=== PATIENT | male | born 1970 | race Caucasian/White ===

== ENCOUNTER 2017-11-08 10:30 | Outpatient (RCR) | payer MEDICAID, SELFPAY ==
--- NOTE | 2017-11-04 16:09 | HP.OTEVAL_ITS ---
Patient's Visit Information LUIS A MOURA is a 47 year old M, referred to Occupational Therapy by Valente Nuno, with a diagnosis of right LF mallet finger. Date of Evaluation: 11/04/17 Occupational Therapist: Carlee Guardado, ISAÍAS/Ness, CHT - Subjective Subjective: This 47 year old male attends OT eval with dx of Mallet deformity of right LF. PT states two months ago he injured it- states he does not like the look of his finger and would like to improve his function. pt attends OT session today for custom orthosis and ed on mallet finger recovery. - ROM ROM Comments: right LF DIP position -40 - Strength Strength Comments: NT at this time - Rehabilitation General Assessment: Pt demo a need for Mallent finger orthosis- therapist dian. custom orthosis ed. pt on use and care, and precautions. pt demo understanding. Pt to return weekly for orthosis adj. to ensure use and proper fit. - Visit Plan TEXT: Thank you for the opportunity to evaluate your patient. For Medicare and Medicare HMO plans, please review the plan of care and approve it. It will need to be FAXED BACK to us at [phone] for Medicare purposes. Please let me know if there are questions or concerns regarding this plan of care. Physician Signature: Date:
--- NOTE | 2017-11-08 08:32 | HP.OTEVAL_ITS ---
Patient's Visit Information LUIS A MOURA is a 47 year old M, referred to Occupational Therapy by Valente Nuno, with a diagnosis of right LF mallet finger. Date of Evaluation: 11/04/17 Occupational Therapist: Carlee Guardado, ISAÍAS/Ness, CHT - Subjective Subjective: This 47 year old male attends OT eval with dx of Mallet deformity of right LF. PT states two months ago he injured it- states he does not like the look of his finger and would like to improve his function. pt attends OT session today for custom orthosis and ed on mallet finger recovery. - ROM ROM Comments: right LF DIP position -40 - Strength Strength Comments: NT at this time - Goals Goal:: pt will demo understanding of orthosis use by ed of 1st session. pt will demo understanding of when he removes orthosis for skin care/checks, precautions and to keep finger supported straight. pt demo understanding to return to clinic to have orthosis adj. if precautions arise on PRN basis. - Rehabilitation General Assessment: Pt demo a need for Mallent finger orthosis- therapist dian. custom orthosis ed. pt on use and care, and precautions. pt demo understanding. Pt to return weekly for orthosis adj. to ensure use and proper fit. - Anticipated Interventions Anticipated Interventions: Orthoses, Home Program - Visit Plan Frequency: PRN for othosis adj Duration: 6 Weeks TEXT: Thank you for the opportunity to evaluate your patient. For Medicare and Medicare HMO plans, please review the plan of care and approve it. It will need to be FAXED BACK to us at [phone] for Medicare purposes. Please let me know if there are questions or concerns regarding this plan of care. Physician Signature: Date:
--- NOTE | 2017-12-29 16:12 | HP.OT.NRP ---
HP - Discharge Summary - Patient Information LUIS A MOURA was seen in my office for initial evaluation on 11/04/17. The following Plan of Care was established for this patient: Initial Frequency: PRN for othosis adj Initial Duration: 6 Weeks - Anticipated Interventions Anticipated Interventions: Orthoses, Home Program This patient was last seen in our office 11/08/17. Pertinent comments regarding their Occupational therapy will appear below: Pt was seen in OT for two visits. pt has not scheduled any further apts. and is D/C at this time due to tx gap. At this point I will be discontinuing this patient from occupational therapy. I would be happy to see this patient again in the future if found appropriate by the physician. Thank you! Carlee Guardado, OTR/L, CHT
== END 2017-11-08 19:00 | disposition home or self-care (01) ==
LOC: OT 10:30
PROVIDERS: Visit Provider Orthopaedic Surgery
DX: M79.644 Pain in right finger(s) (principal); M20.011 Mallet finger of right finger(s)
CPT/HCPCS: 97166; 97760; 97763

== ENCOUNTER → 2018-02-25 16:08 | Outpatient (CLI) | payer MEDICAID, SELFPAY ==
[2018-02-25 16:31] LABS: Absolute Lymphocyte Count 3.34 X10^3/ul (0.83-4.51); Basophil# 0.02 X10^3/uL; Basophil% 0.3 % (0-1); Eosinophil# 0.33 X10^3/uL; Eosinophils% 4.5 % (0-5); Hematocrit 40.4 % (40-54); Hemoglobin 13.4 g/dl (13.0-16.5); Lymphocyte # 3.34 X10^3/ul (4.0); Lymphocyte % 45.3 % (19-41); Mean Corp Hgb Conc 33.2 g/gl (32-36); Mean Corpuscular Hgb 29.1 pg (27.0-32.0); Mean Corpuscular Volume 87.8 fL (80-94); Mean Platelet Vol. 9.7 fl (6.2-12.0); Monocyte# 0.68 X10^3/uL; Monocyte% 9.2 % (0-10); Neutrophil # 2.99 X10^3/uL (2.7-7.7); Neutrophil % 40.6 % (47-70); Platelet Count 242 K/mm3 (150-450); RBC Distribution Width CV 12.2 % (11.6-14.6); RBC Distribution Width SD 39.3 fl (35.1-43.9); White Blood Count 7.4 K/mm3 (4.4-11.0)
[2018-02-25 16:38] LABS: POSITIVE COUNT NO; POSITIVE DIFFERENTIAL NO; POSITIVE MORPHOLOGY NO
[2018-02-25 17:23] LABS: AST(SGOT) 18 U/L (15-37); Alanine Aminotransfer ALT/SGPT 22 U/L (16-61); Alkaline Phosphatase 52 U/L (45-117); Anion Gap 7 (5-15); BUN 17 mg/dL (7-18); BUN/Creat Ratio 15.7 RATIO (10-20); Calcium,Total 9.1 mg/dL (8.5-10.1); Chloride 105 mmol/L (98-107); Cholesterol 164 mg/dL (200); Creatinine, Serum 1.08 mg/dL (0.70-1.30); EST Glomerular Filtration Rate 78 mL/min (>60); Est Glom Filt Rate - Afr Amer 95 mL/min (>60); Globulin 4.1 g/dL (2.2-4.2); Glucose 92 mg/dL (74-106); High Density Lipoprotein 43 mg/dL; Potassium 4.5 mmol/L (3.5-5.1); Protein, Total 8.1 g/dL (6.4-8.2); Sodium Level 141 mmol/L (136-145); Triglycerides 175 mg/dL; Very Low Density Lipoprotein 35 mg/dL (5-40)
[2018-02-28 13:10] LABS: Hep C Antibodies >11.0 s/co ratio (0.0-0.9)
== END ==
PROVIDERS: Family Provider Internal Medicine; PCP Internal Medicine; Referring Provider Internal Medicine; Visit Provider Internal Medicine
DX: B19.20 Unspecified viral hepatitis C without hepatic coma (principal)
CPT/HCPCS: 36415; 80053; 80061; 85025; 86803

== ENCOUNTER → 2018-03-31 17:22 | Outpatient (CLI) | payer OTHER, SELFPAY ==
[2018-03-29 15:38] VITALS: BMI 27.3
[2018-03-31 19:22] LABS: HIV - WCH Non-Reactive (Nonreactive)
[2018-04-03 03:06] LABS: HCV Quant. RNA PCR HCV Not Detected IU/mL (.)
--- OUTSIDE RECORDS SUMMARY | 2018-05-26 23:22 | XMS RPT_ITS ---
:1970 Author Organization OHIP Support Name Relationship Address Phone [employer] Unavailable [address] + [place] [address] DAVID VILLAGRANI Unavailable [address] + [place] [address] [employer] Unavailable [address] + [place] [address] DAVID VILLAGRANI Unavailable [address] + [place] [address] [employer] Unavailable [address] + [place] [address] DAVID VILLAGRANI Unavailable [address] + [place] [address] [employer] Unavailable [address] + [place] [address] DAVID VILLAGRANI Unavailable [address] + [place] [address] [employer] Unavailable Unavailable + ., [place] . EVELYN VILLAGRAN Unavailable [address] + [place] [address] [employer] Unavailable Unavailable + ., [place] . EVELYN VILLAGRAN Unavailable [address] + [place] [address] EVELYN VILLAGRAN Unavailable [address] + [place] [address] UE Unavailable Unavailable Unavailable NONE Unavailable Unavailable Unavailable Kirkendal, Babs Unavailable Unk + Kirkendal, Babs Unavailable Unk + None Given Unavailable Unavailable + Kirkendal, Babs Unavailable Unk + Kirkendal, Basb Unavailable Unk + Kirkendal, Babs Unavailable Unk + Kirkendal, Babs Unavailable Unk + Care Team Providers Name Role Phone Valente Norwood Attending Unavailable CLINIC, [facility] Primary Care Unavailable Radu Dinh SENIOR BUSINESS OBJECTS DEVELOPER-C Attending Unavailable CLINIC, [facility] Referring Unavailable CLINIC, [facility] Primary Care Unavailable Oleghe, Efewongbe Attending Unavailable CLINIC, [facility] Referring Unavailable Oleghe, Efewongbe Attending Unavailable Oleghe, Efewongbe Referring Unavailable Oleghe, Efewongbe Primary Care Unavailable Oleghe, Efewongbe Attending Unavailable Oleghe, Efewongbe Referring Unavailable Oleghe, Efewongbe Primary Care Unavailable Radu Dinh SENIOR BUSINESS OBJECTS DEVELOPER-C Attending Unavailable Oleghe, Efewongbe Referring Unavailable Oleghe, Efewongbe Attending Unavailable Oleghe, Efewongbe Referring Unavailable Oleghe, Efewongbe Primary Care Unavailable Radu Dinh SENIOR BUSINESS OBJECTS DEVELOPER-C Consulting Unavailable CRUZ VELÁSQUEZ Attending Unavailable No Family, Physician Primary Care Unavailable VALENTE NORWOOD Attending Unavailable VALENTE NORWOOD Referring Unavailable MD DANIELA PUDRY Attending Unavailable MD BRANT WILL[place] ([place]) Attending Unavailable MD BRANT [place] Admitting Unavailable MD BRANT WILL[place]) Attending Unavailable BRITTANEY OLMSTEAD Attending Unavailable MD BRANT WILLSON ([place]) Attending Unavailable Gay Johnson Attending Unavailable TOBIN BLANCO Attending Unavailable PROBLEMS PROBLEMS DATE TYPE CONDITION / CODE ATTENDING STATUS SOURCE 03/31/2018 Unknown B19.20 - Oleghe, Active [facility] Unspecified viral [facility] hepatitis C without Hospital hepatic coma / Repository B19.20(ICD-10) 03/31/2018 Unknown F19.10 - Other Oleghe, Active [facility] psychoactive [facility] substance abuse, Hospital uncomplicated / Repository F19.10(ICD-10) 12/30/2017 Unknown M79.644 - Pain in Valente Norwood Active [facility] right finger(s) / Community M79.644(ICD-10) Hospital Repository 11/04/2017 Active Pain in right NA Active [facility] finger(s) / [place] M79.644(ICD-10) Repository 11/04/2017 Active [place] finger of NA Active [facility] right finger(s) / [place] M20.011(ICD-10) Repository 11/04/2017 Active Pain, unspecified / NA Active [facility] R52(ICD-10) [place] Repository 05/28/2017 Unknown Encounter for other CRUZ VELÁSQUEZ Active [facility] preprocedural [facility] examination / Repository Z01.818(ICD-10) 05/28/2017 Unknown Opioid dependence, CRUZ VELÁSQUEZ [facility] uncomplicated / Medical Center F11.20(ICD-10) Repository 05/28/2017 Unknown Cocaine abuse, CRUZ VELÁSQUEZ [facility] uncomplicated / Medical Center F14.10(ICD-10) Repository 05/28/2017 Unknown Bipolar disorder, CRUZ VELÁSQUEZ Active [facility] unspecified / A Medical Center F31.9(ICD-10) Repository 05/28/2017 Unknown Tobacco use / CRUZ VELÁSQUEZ Active [facility] Z72.0(ICD-10) Medical Center Repository PROCEDURES PROCEDURES DATE CODE DESCRIPTION STATUS SOURCE 05/28/2017 EKG1(C4) EKG 12-LEAD Completed [facility] Repository RESULTS RESULTS HIV - [facility] Collected: 03/31/2018 Status: F Source: [place] 5:42 PM [facility] REPOSITORY TYPE CODE TESTS RESULT OUT OF RANGE REFERENCE UNITS LAB L3890.6005 Nonreactive Normal HIV - [facility] Non-Reactive Performed By: #### L3890.6005 #### [facility] [place], [address] HEPATITIS C,RNA PCR Collected: 03/31/2018 Status: F Source: [place] VIRAL LOAD 5:42 PM [facility] REPOSITORY TYPE CODE TESTS RESULT OUT OF RANGE REFERENCE UNITS LAB L7000.7100 . IU/mL HCV Normal HCV Not Detected QT PCR LAB L7000.7350 . Test Normal HCV not performed log 10 LAB L7000.7500 . Normal TEST Comment INFO: Result Comment: The quantitative range of this assay is 15 IU/mL to 100 million IU/mL. Performed at: - [facility] [id number] Bench Repair Technician: Eryn Gallagher MD, Phone: [phone] Performed By: #### L7000.7000 #### [facility] (refer to report for specific site) refer to report for address and phone number INTERNAL MEDICINE Observed: 03/30/2018 Status: F Source: [place] OFFICE VISIT 10:55 AM [facility] Internal Medicine [address] [place] [address] [place] [address] OFFICE VISIT Date of Service: 03/29/18 MR#: [id number] Acct: [id number] Name: LUIS A WOOD Rep #: [id number] : 1970 Provider: Radu Dinh NP Age/Sex: 47/M Location: [facility] Status: Signed Intake Vital Signs03/29/18 Height 5 ft 5.25 in Intake Visit Reasons: 6 wk FU Chief Complaint: f/u visit Is patient in pain?: No Allergies No Known Allergies Allergy (Verified 01/12/18 15:10) Medications Buprenorphine HCl/Naloxone HCl [Suboxone 8 mg-2 mg Sl Film] 8 ea SL DAILY 10/02/13 [History Confirmed 02/15/18] gabapentin 300 mg capsule 300 mg PO TID #90 cap 02/24/18 [Rx] quetiapine 50 mg tablet 50 mg PO BID #60 tab 03/29/18 [Rx Confirmed 03/29/18] PFSH Medical History Mental health disorder (Chronic) Drug abuse (Chronic) Carpal tunnel syndrome (Chronic) Arthritis (Chronic) Surgical History History of shoulder surgery (Acute) Social History Smoking Status: Former smoker how long ago did patient quit smokin alcohol intake: never substance use type: does not use what type of physical activity do you participate in: none HPI HPI Chief Complaint: f/u visit Details: LUIS A WOOD, is a 47 M who presents to the office today for routine visit for his chronic conditions. Patient has a past medical history as listed above. Patient presents today with no acute problems or concerns. He does state that his moods have not been stable, he has been a little more anxious lately and wonders if his seroquel should be increased for his bipolar. He denies thoughts of self-harm or harming others. he has not seen psychiatry yet. He is currently living at the sober living house and has been clean since August. He has not had his blood work done regarding his hepatitis C and has not had his liver ultrasound done either due to scheduling conflicts. The patient otherwise denies any fever, chills, nausea, vomiting, shortness of breath, chest pain or pressure, palpitations, orthopnea, lower extremity edema, syncope or presyncopal episodes. ROS Const Constitutional: No weight change, body ache, chills, fatigue, sleep problems, fever(s), change in appetite, snoring, weakness, frequent falls, headache(s) or excessive sweating Eyes Eyes: No change in vision, eye pain, light sensitivity or blurry vision ENT ENT: No headache(s), abnormal hearing, ear pain, tinnitus, nasal congestion, sore throat or neck pain Resp Respiratory: No snoring, cough, shortness of breath or wheezing Cardio Cardiology: No excessive sweating, chest pain at rest, chest pain with exertion, shortness of breath, dyspnea on exertion, palpitations, orthopnea or lightheadedness Gastro GI: No abdominal pain, change in bowel habits, constipation, diarrhea, vomiting, nausea/dyspepsia or cramping Genitourinary Male: No painful urination, urinary incontinence, urinary frequency, urinary urgency, blood in urine, testicle pain or other Musc Musculoskeletal: No neck pain, abnormal walking, joint pain, back pain, limited range of motion, numbness, tingling or muscle weakness Skin Skin: No redness, dry skin, itching, lesions, wounds or rash Neuro Neurology: No weakness, frequent falls, headache(s), abnormal hearing, abnormal walking, numbness, tingling, abnormal speech, dizziness or memory loss Psych Psychiatric: No change in appetite, No memory loss, No anxiety, No depression, No Thoughts of harming yourself/Others Endo Endocrine: No fatigue, excessive sweating, cold intolerance, increased thirst/drinking, heat intolerance, flushing or increased hunger Aller/Imm Allergy/Immunologic: No wheezing, itchy eyes, hives or seasonal allergy symptoms Terrance/Lymp Hematologic/Lymphatic: No easy bleeding, easy bruising or enlarged lymph nodes Exam Const General: cooperative, comfortable, no acute distress Nutritional Appearance: average body habitus, well nourished Orientation: alert, oriented x3 Limitations: mental status not altered Eyes General: appearance normal, both eyes and all related structures Resp Effort AND Inspection: normal respiratory effort, able to speak in complete sentences, normal respiratory pattern, symmetric chest movement, no audible wheezes, no cough Auscultation: Bilateral: Clear to Auscultation Cardio Palpation: normal PMI Rate: regular rate Heart Sounds: S1 normal, S2 normal, normal S1 and S2, no click, no gallops, no murmurs, no rubs GI Inspection: normal to inspection Auscultation: normal bowel sounds, no hyperactive bowel sounds, no hypoactive bowel sounds Palpation: soft, no hepatosplenomegaly Musc Musculoskeletal: No joint tenderness, decreased ROM or muscle weakness Skin General: no rashes or lesions noted, elasticity normal, turgor normal Lesions: no lesions Rashes: no rashes Neuro General: alert, awake, oriented x3, CN's II-XI intact bilaterally Speech: speech normal Gait: normal gait Motor: muscle tone normal throughout Extrem General: normal to inspection, normal gait, no edema, no pedal edema Psych Appearance: grossly normal Mental Status: mental status grossly normal Affect: normal affect, anxious affect Attitude: cooperative Thought Process: normal Assessment AND Plan 1. Hepatitis C B19.20 Plan Patient recently treated with Harvoni, but does admit to IV drug use after treatment. Will check liver ultrasound and hepatitis C viral load as his recent hepatitis C antibodies were elevated. If an acute infection is shown will refer to infectious disease. No hepatosplenomegaly and recent LFTs within normal limits. 2. Bipolar 1 disorder, mixed F31.60 Plan No episodes of neptali or depression, though patient states that his mood is not stable at this time. will increase patient's Seroquel to twice a day. Patient educated on signs and symptoms that would warrant emergency medical care. Did discuss the importance of following up with psychiatry. This note was generated with Visualnest dictation software. It may contain incorrect words, spelling, and punctuation that were not noted in checking the note before signing. Plan Detail Other Orders Orders: Other Medications Changed: Follow Up 2 Months Coding Level of Care Code Off vis,est,level 3 Diagnoses Hepatitis C B19.20 Bipolar 1 disorder, mixed F31.60 03/30/18 1055 <Electronically signed by Radu Dinh SENIOR BUSINESS OBJECTS DEVELOPER-C> Date Radu Dinh SENIOR BUSINESS OBJECTS DEVELOPER-C Cosigner Signature: Date (if applicable) CC: CBC W/DIFF, AUTOMATED Collected: 02/25/2018 Status: F Source: [place] 4:18 PM [facility] REPOSITORY TYPE CODE TESTS RESULT OUT OF RANGE REFERENCE UNITS LAB L100.1000 4.4-11.0 K/mm3 Normal WBC 7.4 LAB L100.1200 4.6-6.2 M/mm3 Normal RBC 4.60 LAB L100.1300 13.0-16.5 g/dl Normal HGB 13.4 LAB L100.1400 40-54 % Normal HCT 40.4 LAB L100.1500 80-94 fL Normal MCV 87.8 LAB L100.1600 27.0-32.0 pg Normal MCH 29.1 LAB L100.1700 32-36 g/gl Normal MCHC 33.2 LAB L100.1810 11.6-14.6 % Normal RDW CV 12.2 LAB L100.1820 35.1-43.9 fl Normal RDW SD 39.3 LAB L100.1900 150-450 K/mm3 Normal PLT 242 LAB L100.2000 6.2-12.0 fl Normal MPV 9.7 LAB L100.2100 47-70 % Low NEUT% 40.6 LAB L100.2200 19-41 % High LY% 45.3 LAB L100.2300 0-10 % Normal MONO% 9.2 LAB L100.2400 0-5 % Normal EO% 4.5 LAB L100.2500 0-1 % Normal BASO% 0.3 LAB L100.2550 0.0-0.9 % Normal IM GRAN % 0.100 Result Comment: IG% - Immature Granulocytes (promyelocytes, myelocytes and metamyelocytes) > 1% indicates that a LEFT SHIFT is Present. LAB L100.2620 2.0-7.7 X10 3/uL Normal Absolute Neut 3.0 LAB L100.2720 0.83-4.51 X10 3/ul Normal Absolute Lymph 3.34 Performed By: #### L100.0100 #### [facility] [address] [place], [address] COMPREHENSIVE METABOLIC Collected: 02/25/2018 Status: F Source: [place] [facility] 4:18 PM [facility] REPOSITORY TYPE CODE TESTS RESULT OUT OF RANGE REFERENCE UNITS LAB L501.0100 74-106 mg/dL Normal GLU 92 Result Comment: Please note revised GLUCOSE reference range effective 2017. LAB L501.1000 7-18 mg/dL Normal BUN 17 LAB L501.1100 0.70-1.30 mg/dL Normal CREAT,SERUM 1.08 Result Comment: The validity of the calculated GFR AND GFRAA in patients over 70 years has not been determined. Clinical correlation is essential. LAB L501.1110 >60 mL/min Normal EST GFR 78 Result Comment: Non- GFR Calc LAB L501.1115 >60 mL/min Normal EST GFR - AA 95 Result Comment: GFR Calc LAB L501.1300 10-20 RATIO Normal BUN/CRE 15.7 LAB L501.1500 6.4-8.2 g/dL T Normal PROT 8.1 LAB L501.1800 3.2-5.0 g/dL Normal ALB 4.0 LAB L501.1950 2.2-4.2 g/dL Normal GLOB 4.1 LAB L501.2000 0.9-2.4 RATIO Normal A/G 1.0 LAB L501.2200 8.5-10.1 mg/dL CA Normal 9.1 LAB L501.4100 15-37 U/L Normal AST 18 LAB L501.4305 45-117 U/L Normal ALK P 52 LAB L501.4405 16-61 U/L Normal ALT 22 LAB L501.4600 0.20-1.00 mg/dL T Normal BILI 0.30 LAB L501.5300 136-145 mmol/L NA Normal 141 LAB L501.5600 3.5-5.1 mmol/L K Normal 4.5 LAB L501.5900 98-107 mmol/L CL Normal 105 LAB L501.6100 21.0-32.0 mmol/L Normal CO2 29.0 LAB L501.6200 5-15 Normal GAP 7 Performed By: #### L500.4050, L500.4100 #### [facility] [address] [facility] [place], [place], [id number] LIPID PROFILE Collected: 02/25/2018 Status: F Source: [place] 4:18 PM [facility] REPOSITORY TYPE CODE TESTS RESULT OUT OF RANGE REFERENCE UNITS LAB L501.4900 200 mg/dL Normal CHOL 164 Result Comment: <200 mg/dL Desirable 200-240 mg/dL Borderline >240 mg/dL High Risk LAB L501.5000 mg/dL Normal TRIG 175 Result Comment: The drugs N-Acetylcysteine and Metamizole may falsely depress this assay. Serum Triglycerides Reference Interval Normal <150 mg/dL Borderline high 150 - 199 mg/dL High 200 - 499 mg/dL Very High > or = 500 mg/dL LAB L501.6400 mg/dL Normal HDL 43 Result Comment: The drugs N-Acetylcysteine and Metamizole may falsely depress this assay. Reference Range HDL <40 mg/dL Low HDL Cholesterol HDL >or= 60 mg/dL High HDL Cholesterol LAB L501.6500 0-130 mg/dL Normal LDL 86 LAB L501.6600 5-40 mg/dL Normal VLDL 35 Performed By: #### L500.4050, L500.4100 #### [facility] [address] [place], [place], [id number] HEPATITIS C ANTIBODIES Collected: 02/25/2018 Status: F Source: [place] 4:18 PM [facility] REPOSITORY TYPE CODE TESTS RESULT OUT OF RANGE REFERENCE UNITS LAB L3100.0650 0.0-0.9 s/co ratio High HEP C AB >11.0 Result Comment: Negative: < 0.8 Indeterminate: 0.8 - 0.9 Positive: > 0.9 The CDC recommends that a positive HCV antibody result be followed up with a HCV Nucleic Acid Amplification test (523946). Performed at: [address] [id number] Bench Repair Technician: Brent Mccormack PhD, Phone: [phone] Performed By: #### L3100.0625 #### [facility] (refer to report for specific site) refer to report for address and phone number INTERNAL MEDICINE Observed: 02/17/2018 Status: F Source: [place] OFFICE VISIT 5:14 PM [facility] Internal Medicine [address] [place] [address] OFFICE VISIT Date of Service: 02/15/18 MR#: [id number] Acct: [id number] Name: LUIS A WOOD Rep #: [id number] : 1970 Provider: Vee Mariee MD Age/Sex: 47/M Location: [facility] Status: Signed Intake Vital Signs02/15/18 Height 5 ft 5.25 in Intake Visit Reasons: 1 MO FU - PHYSICAL Chief Complaint: Establish care. Is patient in pain?: No Allergies No Known Allergies Allergy (Verified 01/12/18 15:10) Medications Buprenorphine HCl/Naloxone HCl [Suboxone 8 mg-2 mg Sl Film] 8 ea SL DAILY 10/02/13 [History Confirmed 02/15/18] gabapentin 300 mg capsule 300 mg PO TID 01/12/18 [History Confirmed 02/15/18] quetiapine 50 mg tablet 50 mg PO QHS #30 tab 01/12/18 [Rx Confirmed 02/15/18] PFSH Medical History Mental health disorder (Chronic) Drug abuse (Chronic) Carpal tunnel syndrome (Chronic) Arthritis (Chronic) Surgical History History of shoulder surgery (Acute) Social History Smoking Status: Former smoker how long ago did patient quit smokin alcohol intake: never substance use type: does not use what type of physical activity do you participate in: none HPI HPI Chief Complaint: Establish care. Details: LUIS A WOOD, is a 47 M who presents to the office today to establish care. He was seen recently for an acute visit. He has no acute complaints at this time. Reports past medical history of hepatitis C and is status post treatment with Harvoni. He does not currently follow-up with infectious disease or piercing specialist. Has a history of heroin abuse and last use was said to be in August. Currently enrolled in the [facility] program. Denies any known history of heart disease, hyperlipidemia or hypertension. ROS Const Constitutional: No weight change, body ache, chills, fatigue, sleep problems, fever(s), change in appetite, snoring, weakness, frequent falls, headache(s) or excessive sweating Eyes Eyes: No change in vision, eye pain, light sensitivity or blurry vision ENT ENT: No headache(s), abnormal hearing, ear pain, tinnitus, nasal congestion, sore throat or neck pain Resp Respiratory: No snoring, cough, shortness of breath or wheezing Cardio Cardiology: No excessive sweating, chest pain at rest, chest pain with exertion, shortness of breath, dyspnea on exertion, palpitations, orthopnea or lightheadedness Gastro GI: No abdominal pain, change in bowel habits, constipation, diarrhea, vomiting, nausea/dyspepsia or cramping Genitourinary Male: No painful urination, urinary incontinence, urinary frequency, urinary urgency, blood in urine, testicle pain or other Musc Musculoskeletal: No neck pain, abnormal walking, joint pain, back pain, limited range of motion, numbness or tingling Skin Skin: No redness, dry skin, itching, lesions, wounds or rash Neuro Neurology: No weakness, frequent falls, headache(s), abnormal hearing, abnormal walking, numbness, tingling, abnormal speech, dizziness or memory loss Psych Psychiatric: No change in appetite, No memory loss, No anxiety, No depression, No Thoughts of harming yourself/Others Endo Endocrine: No fatigue, excessive sweating, cold intolerance, increased thirst/drinking, heat intolerance, flushing or increased hunger Aller/Imm Allergy/Immunologic: No wheezing, itchy eyes, hives or seasonal allergy symptoms Terrance/Lymp Hematologic/Lymphatic: No easy bleeding, easy bruising or enlarged lymph nodes Exam Const General: cooperative, no acute distress Orientation: alert, awake, oriented x3 [facility] Head: atraumatic, normocephalic, normal to inspection Ears: TM's normal bilaterally, hearing grossly normal bilaterally Resp Effort AND Inspection: normal respiratory effort, able to speak in complete sentences Auscultation: Bilateral: Clear to Auscultation Cardio Rate: regular rate Rhythm: regular rhythm Heart Sounds: S1 normal, S2 normal GI Palpation: soft, no hepatosplenomegaly Neuro General: alert, awake, oriented x3, moves all extremities, CN's II-XI intact bilaterally Extrem General: no clubbing, cyanosis or edema Psych Appearance: grossly normal Mental Status: mental status grossly normal Mood: congruent mood Affect: normal affect Office Meds Flucelvax Quad [id number] (PF) Performing Provider: Vee Mariee MD Administered by: Vane Cunha on 02/15/18 16:07 Dose Route Admin Location Lot Number Expiration Date NDC Paunch Trimmer 0.5 mL IM right deltoid [id number] 09/30/18 16504-479-53 [employer]. Assessment AND Plan 1. Hepatitis C B19.20 Plan Chronic history of. He is status post treatment with Harvoni.? History of liver cirrhosis which has been intermittently monitored. Does not currently/routinely follow-up with GI or infectious disease. Labs ordered. Abdominal ultrasound/liver ultrasound also ordered. Orders Orders: 2. Drug abuse F19.10 Plan Last use per patient was in August 2017. Currently follows up at the [address] [place] [address] program. Will monitor 3. Healthcare maintenance Z00.00 Plan Flu shot given today. He denies tobacco alcohol abuse. Continue lifestyle modifications for mildly elevated blood pressure. This note was generated with Visualnest dictation software. It may contain incorrect words, spelling, and punctuation that were not noted in checking the note before signing. Plan Detail Other Orders Orders: Other Medications Discontinued: Flucelvax Quad [id number] (PF) (flu vac qs 2018(4 yr up)CD(P0.5 mL IM ONCE 1 mL 0RF NS Z23 F)) Discontinued Reason: Office Medication has been Doc umented as given Coding Level of Care Code Off vis,est,level 4 Diagnoses Hepatitis C B19.20 Drug abuse F19.10 Healthcare maintenance Z00.00 02/17/18 1714 <Electronically signed by Vee Mariee MD> Date Vee Mariee MD Cosigner Signature: Date (if applicable) CC: INTERNAL MEDICINE Observed: 01/14/2018 Status: F Source: [place] OFFICE VISIT 10:44 [facility] Internal Medicine [address] [place] [address] [place] [address] OFFICE VISIT Date of Service: 01/12/18 MR#: [id number] Acct: [id number] Name: LUIS A WOOD Rep #: [id number] : 1970 Provider: Radu Dinh NP Age/Sex: 47/M Location: [facility] Status: Signed Intake Vital Signs01/12/18 Height 5 ft 5.25 in 01/12/18 Weight: 159 lb 01/12/18 Body Mass Index (BMI) 26.2 01/12/18 Blood Pressure 148/87 Intake Visit Reasons: 180 PHYSICAL Chief Complaint: Get meds refilled Is patient in pain?: Yes (Left shoulder) Pain scale (1-10): 10 Allergies No Known Allergies Allergy (Verified 01/12/18 15:10) Medications Buprenorphine HCl/Naloxone HCl [Suboxone 8 mg-2 mg Sl Film] 8 ea SL DAILY 10/02/13 [History Confirmed 01/12/18] gabapentin 300 mg capsule 300 mg PO TID 01/12/18 [History Confirmed 01/12/18] quetiapine 50 mg tablet 50 mg PO QHS #30 tab 01/12/18 [Rx Confirmed 01/12/18] PFSH Medical History Mental health disorder (Chronic) Drug abuse (Chronic) Carpal tunnel syndrome (Chronic) Arthritis (Chronic) Surgical History History of shoulder surgery (Acute) Social History Smoking Status: Current every day smoker how long ago did patient quit smokin alcohol intake: never substance use type: does not use what type of physical activity do you participate in: none HPI HPI Chief Complaint: Get meds refilled Details: LUIS A WOOD, is a 47 M who presents to the office today for acute visit of carpal tunnel syndrome and medication refills. His past medical history includes heroin drug abuse, arthritis, carpal tunnel syndrome, and mental health disorder; bipolar. Patient is in counseling as an outpatient in the [facility] program due to heroin drug abuse; last use was in August. Patient stated that his carpal tunnel to bilateral hands have worsened for the past 2 weeks due to his job and constant movement of hands and wrists. He stated majority time his hands have numbness and tingling to them throughout, worse on first, second and third digits. He also denies weakness to bilateral hands. He stated that he does take [id number]-[id number] ibuprofen and Tylenol which helps alleviate some pain. Patient denies any other aggravating or alleviating symptoms. Patient is requesting a refill on gabapentin which he takes for his left shoulder pain after his shoulder surgery last year. He recently seen Dr. Norwood which referred him to a orthopedic surgeon in [place]. Patient is also requesting a refill on Seroquel that he takes at bedtime for his bipolar that was started in August of this year. The patient otherwise denies any fever, chills, nausea, vomiting, shortness of breath, chest pain or pressure, palpitations, orthopnea, lower extremity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 per day. Packs Family History Family history is unknown Diagnostic Results No qualifying data available. No qualifying data available. No qualifying data available. No qualifying data available. Electronically signed by Gay Johnson CNP 05/28/17 15:58 EST XR FOREARM 2 VIEWS Observed: 05/28/2017 Status: F Source: ADAIR LEFT 3:43 PM [facility] REPOSITORY History: Forearm infection No prior exam is available for comparison. Bony mineralization is normal. There is no fracture or dislocation. There is no osseous erosion. There is soft tissue swelling mid forearm. There is no radiopaque foreign body. IMPRESSION: Soft tissue swelling. No fracture or osseous erosion. Final Dictated by: Sandra Pacheco MD Dictated DT/TM: 05/28/2017 4:03 pm Signed by: Sandra Pacheco MD Signed (Electronic Signature): 05/28/2017 4:04 pm (If Report Is Signed, Electronically Signed in Other Vendor System) CBC Collected: 05/27/2017 Status: F Source: ADAIR 1:47 PM [facility] REPOSITORY TYPE CODE TESTS RESULT OUT OF REFERENCE UNITS RANGE LAB W65680(LOIN 4.5-11.0 x10*3/mcL C) WBC 6.7 LAB K95716(LOIN 4.30-5.80 x10*6/mcL C) RBC 5.00 LAB F79903(LOIN 13.5-17.5 g/dL C) Hgb 15.4 LAB T33643(LOIN 41.0-53.0 % C) Hct 44.0 LAB L83009(LOIN 80.0-100.0 fL C) MCV 88.0 LAB N71401(LOIN 27.0-35.0 pg C) MCH 30.8 LAB E55009(LOIN 31.0-37.0 % C) MCHC 35.0 LAB M24797(LOIN 150-350 x10*3/mcL C) Platelet 253 LAB C25230(LOIN 11.6-14.8 % C) RDW 12.9 LAB J11873(LOIN 6.7-10.6 fL C) Mean Platelet 7.7 Volume Performed By: #### CBCI #### [place] [address] UA W CULTURE IF IND Collected: 05/27/2017 Status: F Source: [address] REPOSITORY TYPE CODE TESTS RESULT OUT OF REFERENCE UNITS RANGE LAB G13941([place]) UA Source Clean Catch LAB N88781([place]) UA Color Yellow LAB I05497([place]) UA Clarity Clear LAB J42049([place] 1.003-1.035 NC) UA Spec Grav 1.015 LAB S37619([place] 4.5 - 7.8 NC) UA pH 7.0 LAB N55237([place] Negative mg/dL NC) UA Protein Negative LAB Y44042([place] Negative mg/dL NC) UA Glucose Negative LAB E16767([place] Negative NC) UA Bili Negative LAB F40202([place] 0.2 - 1.0 mg/dL NC) UA Urobilinogen 0.2 LAB M12690([place] Negative NC) UA Nitrite Negative LAB V72591([place] Negative NC) UA Leukocyte Esterase Negative LAB O57102([place] Negative mg/dL NC) UA Ketones Negative LAB K86391([place] Negative NC) UA Blood Negative Performed By: #### UCI #### [address] [address] .UA MICROSCP A Collected: 05/27/2017 Status: F Source: [place] [address] [place] [address] REPOSITORY TYPE CODE TESTS RESULT OUT OF RANGE REFERENCE UNITS LAB N51353([place] 0-5 /HPF NC) UA 0 WBC Quant LAB N59595([place] 0-5 /HPF NC) UA 0 RBC Quant LAB A27636([place] Absent /LPF NC) Abnormal UA Present Mucus Performed By: #### CD:[id number] #### [place] [id number] BASIC METABOLIC Collected: 05/27/2017 Status: F Source: ADAIR [facility] 1:47 [facility] REPOSITORY TYPE CODE TESTS RESULT OUT OF REFERENCE UNITS RANGE LAB R99130([place] 133-142 mmol/L NC) Sodium Lvl 140 LAB Z47630([place] 3.4-4.8 mmol/L NC) Potassium Lvl 3.7 LAB H88856([place] 98-110 mmol/L NC) Chloride 105 LAB O82352([place] 22-32 mmol/L NC) CO2 28 LAB K16955([place] 7-17 NC) Anion Gap 11 LAB Q14026([place] 74-118 mg/dL NC) Glucose Lvl 96 LAB BUN(LOINC) 8-26 mg/dL BUN 12 LAB A560(LOINC 0.61-1.24 mg/dL ) Creatinine Lvl 0.88 LAB E31652([place] 15.0-25.0 NC) Low BUN Crea Ratio 13.6 LAB A00135([place] 8.5-10.3 mg/dL NC) Calcium Lvl 10.2 Performed By: #### CD:[id number] #### [address] [address] .EGFR Collected: 05/27/2017 Status: F Source: [place] 1:47 [facility] REPOSITORY TYPE CODE TESTS RESULT OUT OF RANGE REFERENCE UNITS LAB J19900(LOIN >=60 mL/min/1.73 C) m? eGFR AA >60 Result Comment: Result = 0-14.9 mL/min/1.73 m2 Kidney failure or Dialysis Result = 15-29 mL/min/1.73 m2 Severe decrease in GFR Result = 30-59 mL/min/1.73 m2 Moderate decrease in GFR Result >= 60 mL/min/1.73 m2 Normal or increased GFR LAB I47964(LOINC) >=60 mL/min/1.73m? eGFR Non-AA >60 Result Comment: Result = 0-14.9 mL/min/1.73 m2 Kidney failure or Dialysis Result = 15-29 mL/min/1.73 m2 Severe decrease in GFR Result = 30-59 mL/min/1.73 m2 Moderate decrease in GFR Result >= 60 mL/min/1.73 m2 Normal or increased GFR Chronic kidney disease is defined as either kidney damage or GFR < 60 mL/min/1.73 m2 for >= 3 months. Kidney damage is defined as pathologic abnormalities or markers of damage including abnormalit ies in blood or urine tests or imaging studies. This GFR is NOT used for medication dosing. Performed By: #### EGFR #### [address] [address] MRSA, PCR Collected: 05/27/2017 Status: F Source: [address] TYPE CODE TESTS RESULT OUT OF REFERENCE UNITS RANGE LAB J09242([place]) Methicillin Resistant Staph Negative aurus(MRSA) Result Comment: The [employer] Xpert MRSA Assay is a qualitative in vitro diagnostic test designed for rapid detection of Methicillin-Resistant Staphylococcus aureus (MRSA) from nasal swabs in patients at risk for nasal colonization.The test utilizes automated real-time polymerase chain reaction (PCR) to detect MRSA DNA,because the detection of MRSA is dependent on the number of organisms present. A positive test result does not necessarily indicate the presence of viable organism. It is however,presumptive for the presence of MRSA.Test results might be affected by concurrent antibiotic therapy. Therefore, therapeutic success or failure cannot be assessed using this test because DNA might persist following antimicrobial therapy. Mutations or polymorphisms in primer or probe binding regions may affect detection of new or unknown MRSA variants resulting in a false negative result. Results from the Xpert MRSA Assay should be interpreted in conjunction with other laboratory and clinical data available to the clinician. Performed By: #### MRSAPC #### [address] [address] ABO/RH Observed: 05/27/2017 Status: F Source: [address] REPOSITORY DCon: 0 ABO/Rh: A POS Performed By: #### ABORH #### [address] [address] ABSC AUTO Observed: 05/27/2017 Status: F Source: [address] REPOSITORY Antibody Screen: Negative ABSC Performed By: #### ASA #### [facility] [address] [place] [address] ALLERGIES ALLERGIES DATE TYPE / CODE NAME / CODE REACTION SEVERITY SOURCE 01/12/2018 Drug No Known Unknown [place] Allergy/416 Allergies/U676410 [facility] 187213([place] [address](RXNORM) [facility] ED CT) Repository 11/16/2013 Environ/420 BEES SWELL[place] High [facility] 787675([facility] [place] ED CT) Repository DRUG/992340 No Known [facility] 003([facility] Medication Health System CT) Allergies Repository ENCOUNTERS ENCOUNTERS ADMIT/DISCHARGE ACCOUNT ADMITTING ENCOUNTER LOCATION SOURCE NUMBER CLASS 03/31/2018 [id number] Ambulatory [facility] ing:LAB Repository 03/29/2018/03/29/20 [id number] Ambulatory BMSBuilding:B [place] 18 MS.[facility] Repository 03/01/2018 [id number] Ambulatory [facility] ing:US Repository 02/25/2018 [id number] Ambulatory [facility] Hospital ing:LAB Repository 02/15/2018/02/16/20 [id number] Ambulatory BMSBuilding:B [place] 18 MS.[facility] Repository 01/12/2018/01/13/20 [id number] Ambulatory BMSBuilding:B [place] 18 MS.[facility] Repository 11/08/2017/11/09/19 [id number] Ambulatory [address] ing:OT Repository 11/04/2017/11/05/19 [id number] Ambulatory [address] [place] Repository 11/04/2017/12/01/19 [id number] Ambulatory [address] [place] Repository 11/04/2017/11/05/19 [id number] Ambulatory [address] [place] Repository 08/31/2017/09/01/19 [id number] Emergency [address] HospitalBuild System ing:BV Repository EDRoom: RP1Bed: A 06/11/2017 [id number] MD DEMETRIS Ambulatory [facility] HospitalBuild System ing:BV Main Repository OR Surge 05/28/2017/05/28/19 [id number] Ambulatory Physicians [place] 18 [facility] CareBuilding: System Physicians Repository PlusRoom: Room 1Bed: A 05/28/2017/05/28/19 [id number] Ambulatory Building:[address] Repository 05/27/2017/05/27/19 [id number] Ambulatory [place] [address] HospitalBuild System ing:BV Lab OP Repository 05/26/2017/05/26/19 [id number] Ambulatory EFPBuilding:E [place] 18 [facility] System Repository 05/10/2017 [id number] [facility] OP Repository 04/27/2017 [id number] Ambulatory [facility] CenterBuildin System g:[facility] Repository Family PAYERS PAYERS ENCOUNTER GUARANTOR PAYER SUBSCRIBER SOURCE 03/31/2018 LUIS A [place] Primary LUIS A [id number] Insurance:Shivani MCMAHANERSONDOB: Community [place] Number: [id number], [place] [id number] Repository [address]Kci: 330) Date:4527-06-09EK [phone] () 051925ESDFJIROSQP, [place] [address]QI: 03/31/2018 Secondary NOT GIVENUNK K[place] Insurance:SELF PAY [facility] Number: Effective Repository Date:2018-03-31 03/29/2018 LUIS A [place] Primary LUIS A [id number] Insurance:Shivani ROBERSONDOB: [facility] [place] Number: [id number], [place] [id number] Repository [address]Eca: 330) Date:7449-92-20YE [phone] () 194703HDLSJGGHVOR, [place] [address]VL: 03/29/2018 Secondary NOT GIVENUNK Keesha Insurance:SELF PAY [facility] Number: Effective Repository Date:2018-03-29 03/01/2018 LUIS A [place] Primary LUIS A [id number] Insurance:ENEDINAE ZENYDOB: [facility] [id number], [place] PLAN[place] Number: Repository [id number]: 330 [id number] [phone] (HP) Date:2227-88-09RQ [address] [place] [address]KM: 03/01/2018 Secondary NOT GIVENUNK [place] Insurance:SELF PAY [facility] Number: Effective Repository Date:2018-02-15 02/25/2018 MONTE J Primary MONTE J K[place]ha [id number] Insurance:BARBIEEYE ROBBASILDOB: [facility] [id number], [place] PLANPolicy Number: Repository [address]Nwh: 330 [id number] [phone] (HP) Date:1370-21-24PX [address] [place] [address] 26[address]CB: 02/25/2018 Secondary NOT GIVENUNK Keesha Insurance:SELF PAY [facility] Number: Effective Repository Date:2018-02-25 02/15/2018 MONTE J Primary MONTE J [place] [id number] Insurance:ENEDINAE ZENYDOB: [facility] [id number] Alabama Medical CenterPolicy Number: Repository [address]Zal: 330 [id number] [phone] (HP) Date:9436-92-32KY [address] [place] [address] 46[address]TO: 02/15/2018 Secondary NOT GIVENUNK [place] Insurance:SELF PAY [facility] Number: Effective Repository Date:2018-02-15 01/12/2018 MONTE J Primary MONTE J K[place]ha [id number] Insurance:BARBIEEYE ZENYDOB: [facility] [id number] Thomas StreetPolic Number: Repository [id number]: 330 [id number] [phone] (HP) Date:2654-88-46QR [address] [address]DM: 01/12/2018 Secondary NOT GIVENUNK Keesha Insurance:SELF PAY [facility] Number: Effective Repository Date:2018-01-12 11/08/2017 LUIS A [place] Primary LUIS A [place] [id number] Insurance:BUCKEYE ROBERSONDOB: [facility] [id number] Sloan Kettering Cancer CenterPolic Number: Repository [id number]: (491) [id number] [phone] (HP) Date:8497-14-55SN [address] [address]FW: 11/08/2017 Secondary NOT GIVENUNK [place] Insurance:SELF PAY [facility] Number: Effective Repository Date:2017-11-04 08/31/2017 Luis A [place] Primary Luis A Castro RobersonDOB: Insurance:Casco RobersonDOB: Health System [id number] [facility] [id number] Repository [address] Number: Effective [address], [address]Key: 231) Date:2017-08-31 - [place] [phone] (HP) [id number] [address]~[facility] Name:MAXIME [email or web address] hospitalMarieFlorence Community HealthcareBABAK deluca omTel: [phone]: [phone] (HP) () 06/11/2017 Luis A [place] Primary Luis A Castro RobersonDOB: Insurance:Casco RobersonDOB: [facility] [id number] [facility] [id number] [address]ository [address] Number: [address], [address]Lvg: (231) Date:2017-05-07 - [place] [phone] (HP) [id number] [address]~[facility] Name:MAXIME [email or web address] hospitalMarieKindred Hospital Northeastmiracle [place] omTel: [phone]: [phone] (HP) (WP) 05/28/2017 [facility] Sonido Castro RobersonDOB: Insurance:Marian WoodDOB: [facility] System [id number] [facility] [id number] [address]ository [address] Number: Effective [address], [address]Qhl: (231) Date:2017-05-27 - [place] [phone] (HP) [id number] [address]~iram Name:MEDCP José Manuel Black [email or web address] omTel: [phone]: (HP) [phone] 05/28/2017 [facility] [place] ROBERSONDOB: Insurance:MARIAN MARJBASILDOB: [facility] [id number] [facility] [id number] Repository [address] [place] PLANPolic Number: [address], [address]Yke: (231) [id number] [place] [address]Hsu: [phone] (HP) Date:5101-83-70VQ [address] [place] [address] () [address]RE: 05/27/2017 [facility] Sonido Castro RobersonDOB: Insurance:Marian WodoDOB: Health System [id number] [facility] [id number] [address]ository [address] Number: Effective [address], [address]Dxl: (231) Date:2017-05-27 - [place] [address]Ruc: [phone] (HP) [id number] Name:MEDSACHA Black ()Tel: (000) [place] 000-0000 (WP) [phone]: 05/26/2017 [facility] Sonido Castro RobersonDOB: Insurance:[place] MarjbasilDOB: [facility] System [id number] [facility] [id number] [address]ository [address] Number: [address], [address]Qvf: (231) Date:2017-05-07 - [place] [address]Nnd: [phone] (HP) [id number] Name:MEDCP [address] Box (HP) [address] [place] [address]ER: 05/10/2017 [facility] RobersonDOB: Insurance:Marian McmahanersonDOB: Health System [id number] [facility] [id number] [address] Number: Effective [address], [address]Hdn: (231) Date:2017-05-07 - [place] [address]Wbs: [phone] (HP) [id number] Name:MEDCP O Box (HP)Tel: [address] [place] [address] 000-0000 () [phone]: 04/27/2017 [facility] RobersonDOB: Insurance:CareSourcSteven McmahanersonDOB: Health System [id number] [address] olicbridget Number: [id number] [address] [address], [address]Pon: ([phone]) Date:2017-02-16 [place] [address]Itk: [phone] (HP) [id number] Name:MEDCP [address] (HP) [address], [place] [address]LW:
== END ==
PROVIDERS: Nurse Practitioner Family; Family Provider Internal Medicine; PCP Internal Medicine; Referring Provider Internal Medicine; Visit Provider Internal Medicine
DX: B19.20 Unspecified viral hepatitis C without hepatic coma (principal); F19.10 Other psychoactive substance abuse, uncomplicated
CPT/HCPCS: 86703; 87522

== ENCOUNTER 2018-09-05 07:09 | Emergency (ER) | payer OTHER, SELFPAY ==
[2018-06-29 16:02] VITALS: BMI 28.2
[2018-09-05 07:10] VITALS: BP 162/85; PULSE 102; RESP 20; TEMP 36.6; O2SAT 100; BMI 27.8
[2018-09-05] MEDS: 0.9% Normal Saline 1,000 ML 1000 ML IV (07:20)
[2018-09-05] MEDS: Ondansetron 4 MG/2 ML Vial IV (07:20)
[2018-09-05 07:22] VITALS: BP 129/85; PULSE 67; RESP 18; TEMP 36.6; O2SAT 100
--- NOTE | 2018-09-05 07:29 | ED.DCSUM_ITS ---
History of Present Illness Chief Complaint: Nausea/Vomiting Informant: Patient, Infectious Disease Physician Onset: Days - Onset of illness Wednesday. Patient reports generalized illness. Context: Sudden Onset Timing: Continuous Quality: Generalized illness with one episode of vomiting today and diaphoresis Location: Home Current Severity: Moderate Maximum Severity: Moderate Worsened by: Nothing Relieved by: Nothing Associated Symptoms: Generalized weakness with diaphoresis and one episode of vomiting Narrative: Patient is a 48-year-old male who states he is on Suboxone. He states he has not missed any of his medication. He reports onset of illness Wednesday. He reports generalized weakness and not feeling well. He had decreased p.o. intake. He states he is compliant with his medication. He denies headache, ocular, visual auditory symptoms. He denies chest pain, shortness of breath. He denies abdominal pain. He does report one episode of emesis without blood or coffee grounds. He denies diarrhea, constipation, melena or hematochezia. He d enies urologic symptoms. He denies paresthesia, anesthesia or motor weakness. Patient states he began sweating yesterday. He states he had episode of sweating when he was diagnosed with strep throat. He denies sore throat, however. - Past Medical History (1) Long-term Suboxone use Status: Acute (2) Hepatitis C Status: Chronic (3) Mental health disorder Status: Chronic Past Medical History - Allergies and Home Meds Allergies/Adverse Reactions: Allergies No Known Allergies Allergy (Verified 06/23/18 16:04) Primary Care Physician: Vee Mariee MD [Primary Care Provider] - Prior records reviewed: Yes Lives: Alone, - - Patient works as a fabrication welder. No ill contacts that he is aware of. Smoking Status: Former smoker Drugs: - - History of opiate dependency Review of Systems General: Reports: Sweats. Denies: Chills, Fever, Malaise, Subjective, Weight loss, - Eyes: Denies: Visual changes - bilaterally, Blurred Vision - bilaterally, Diplopia ENT: Denies: Bilateral ear pain, Rhinorrhea, Sore throat Cardiovascular: Denies: Chest pain, Palpitations, Heart racing Respiratory: Denies: Dyspnea, Cough, Dyspnea on exertion Gastrointestinal: Denies: Abdominal pain, Nausea, Vomiting, Diarrhea, Melena, Hematochezia Genitourinary: Denies: Dysuria, Hematuria, Frequency Musculoskeletal: Denies: Back pain, Extremity Pain Skin: Denies: Rash, Wounds Neurological: Reports: Weakness. Denies: Headache, Numbness Hematologic: Denies: Easy bruising, Easy bleeding Allergy: Denies: Uticaria, Swelling of the mouth Physical Exam Vital Signs/Narrative: Vital Signs Temp Pulse Resp BP Pulse Ox 09/05/18 07:22 97.8 F 67 18 129/85 H 100 09/05/18 07:10 97.8 F 102 H 20 H 162/85 H 100 Inital Vital Signs reviewed: Yes General: Well nourished, Well developed, - - Patient appears anxious and he is diaphoretic. Head: Normocephalic, Atraumatic Eyes: Perrl, EOMI. Negative for: Pale conjunctiva, Scleral icterus ENT: No rhinorrhea, TM's clear, Dry mucous membranes Neck: Supple, Nontender, No lymphadenopathy, No JVD, - Cardiovascular: Regular rhythm, No murmurs, Normal S1, Normal S2, Tachycardia Respiratory: No distress, CTA bilaterally, Chest nontender Abdomen: Soft, Nontender, Nondistended, Normal bowel sounds, No masses. Negative for: Hepatomegaly, Splenomegaly Back: Nontender, Normal Inspection Extremities: Nontender, No edema Skin: Normal color, No rash, Diaphoresis. Negative for: Cyanosis, Jaundice Neurological: Alert, Oriented x3, Cranial nerves II-XII grossly intact, Normal Strength, Normal Sensation, Normal DTR - No clonus or Babinski sign noted Psychological: Normal Mood Diagnostic/Tx/Re-eval - Medical Decision Making Patient with vague symptoms. Will perform electrode panel to assess BUN/creatinine, CO2 anion gap and electrolytes. CBC was obtained to assess white count and differential. Since he complains of thirst and dry mouth and clinically is dehydrated will liter of normal saline was ordered. Also he received 4 mg of Zofran. At 0825 patient was informed of results. Patient states he feels markedly better at this time. Patient admits to decreasing his Suboxone dose on his own. Patient was told he symptoms are consistent with withdrawal. Patient was instructed to contact his doctor and his doctor should decrease his Suboxone dose. He should not self wean. Since patient's symptoms have resolved and with new information it is my professional medical opinion patient's symptoms are consistent with self weaning of Suboxone. He will be discharged home to follow- up with his healthcare provider. ED Disposition - Plan for ED Patient: Disposition: Home or Assisted Living Diagnosis: Opiate withdrawal Instructions: ED Withdrawal Narcotic Referrals: Vee Mariee MD [Primary Care Provider] - 3-5 Days Additional Instructions: You should contact your doctor responsible for Suboxone treatment and discuss your desire to wean off the medication. You should not do this on your own.
[2018-09-05 07:44] LABS: Absolute Lymphocyte Count 3.16 X10^3/ul (0.83-4.51); Absolute Neutrophil Count 5.8 X10^3/uL (2.0-7.7); Basophil# 0.03 X10^3/uL; Basophil% 0.3 % (0-1); Eosinophil# 0.11 X10^3/uL; Eosinophils% 1.1 % (0-5); Hematocrit 48.3 % (40-54); Hemoglobin 16.6 g/dl (13.0-16.5); Lymphocyte # 3.16 X10^3/ul (4.0); Lymphocyte % 31.9 % (19-41); Mean Corp Hgb Conc 34.4 g/gl (32-36); Mean Corpuscular Hgb 30.1 pg (27.0-32.0); Mean Corpuscular Volume 87.7 fL (80-94); Mean Platelet Vol. 10.5 fl (6.2-12.0); Monocyte% 8.1 % (0-10); Neutrophil % 58.4 % (47-70); Platelet Count 282 K/mm3 (150-450); RBC Distribution Width CV 12.4 % (11.6-14.6); RBC Distribution Width SD 39.6 fl (35.1-43.9); Red Blood Count 5.51 M/mm3 (4.6-6.2); White Blood Count 9.9 K/mm3 (4.4-11.0)
[2018-09-05 07:49] LABS: POSITIVE COUNT NO; POSITIVE DIFFERENTIAL NO; POSITIVE MORPHOLOGY NO
[2018-09-05 08:00] LABS: AST(SGOT) 22 U/L (15-37); Alanine Aminotransfer ALT/SGPT 28 U/L (16-61); Albumin, Serum 4.7 g/dL (3.2-5.0); Alkaline Phosphatase 72 U/L (45-117); Anion Gap 13 (5-15); BUN 18 mg/dL (7-18); BUN/Creat Ratio 14.4 RATIO (10-20); Calcium,Total 10.3 mg/dL (8.5-10.1); Chloride 106 mmol/L (98-107); Creatinine, Serum 1.25 mg/dL (0.70-1.30); EST Glomerular Filtration Rate 66 mL/min (>60); Est Glom Filt Rate - Afr Amer 80 mL/min (>60); Estimated Creatinine Clearance 61.83 ml/min; Globulin 4.6 g/dL (2.2-4.2); Glucose 140 mg/dL (74-106); Potassium 3.8 mmol/L (3.5-5.1); Protein, Total 9.3 g/dL (6.4-8.2); Sodium Level 139 mmol/L (136-145)
[2018-09-05 08:42] VITALS: BP 125/72; PULSE 101; RESP 15; O2SAT 98
== END 2018-09-05 08:44 | disposition home or self-care (01) ==
PROVIDERS: Emergency Provider Emergency Medicine; Family Provider Internal Medicine; PCP Internal Medicine
DX: F11.23 Opioid dependence with withdrawal (principal); E86.0 Dehydration; R11.2 Nausea with vomiting, unspecified; Z79.82 Long term (current) use of aspirin; Z79.899 Other long term (current) drug therapy; Z86.19 Personal history of other infectious and parasitic diseases; Z87.891 Personal history of nicotine dependence
CPT/HCPCS: 80053; 85025; 96361; 96374; 99285; A4216; J2405

== ENCOUNTER 2018-09-06 07:09 | Emergency (ER) | payer OTHER, SELFPAY ==
[2018-09-05 07:10] VITALS: BMI 27.8
[2018-09-06 07:10] VITALS: BP 152/92; PULSE 71; RESP 20; TEMP 36.6; O2SAT 99; BMI 27.4
--- NOTE | 2018-09-06 07:19 | RAD_ITS ---
STUDY: X-RAY CHEST REASON FOR EXAM: Male, 48 years old. Vomiting since Wednesday. TECHNIQUE: PA and lateral views of the chest. COMPARISON: Prior comparison studies are not available for review at this time. FINDINGS: The lungs are expanded. There are prominent bronchovascular markings. There is a questionable calcified nodule at the left lung base. This probably represents a nipple shadow as a similar nodular opacity is visible on the right There is no demonstrated pleural abnormality. Normal size heart. Normal mediastinum and mason. There is prominence of the pulmonary hilar arteries without peripheral pulmonary vascular congestion. Normal visualized aortic arch and descending thoracic aorta. Normal visualized thoracic spine. Normal visualized ribs, clavicles, and shoulders. There is no demonstrated abnormality of the visualized soft tissue structures of the upper abdomen. RAD/Chest PA and Lateral IMPRESSION: No radiographic evidence of acute cardiopulmonary disease. Electronically Signed: Hoa Enamorado MD at 8:16 EDT , Service support ,
[2018-09-06 07:46] LABS: Erythrocyte Sedimentation Rate 9 mm/hr (0-15)
[2018-09-06 07:48] LABS: Absolute Lymphocyte Count 1.99 X10^3/ul (0.83-4.51); Absolute Neutrophil Count 4.8 X10^3/uL (2.0-7.7); Basophil# 0.02 X10^3/uL; Basophil% 0.3 % (0-1); Eosinophil# 0.07 X10^3/uL; Eosinophils% 0.9 % (0-5); Hemoglobin 15.3 g/dl (13.0-16.5); Lymphocyte # 1.99 X10^3/ul (4.0); Lymphocyte % 26.4 % (19-41); Mean Corp Hgb Conc 34.8 g/gl (32-36); Mean Corpuscular Hgb 30.2 pg (27.0-32.0); Mean Corpuscular Volume 86.8 fL (80-94); Mean Platelet Vol. 10.4 fl (6.2-12.0); Monocyte# 0.66 X10^3/uL; Monocyte% 8.7 % (0-10); Neutrophil # 4.79 X10^3/uL (2.7-7.7); Neutrophil % 63.4 % (47-70); Platelet Count 219 K/mm3 (150-450); RBC Distribution Width CV 12.3 % (11.6-14.6); RBC Distribution Width SD 39.5 fl (35.1-43.9); Red Blood Count 5.07 M/mm3 (4.6-6.2); White Blood Count 7.6 K/mm3 (4.4-11.0)
[2018-09-06 07:50] LABS: POSITIVE COUNT NO; POSITIVE DIFFERENTIAL NO; POSITIVE MORPHOLOGY NO
[2018-09-06 08:00] LABS: AST(SGOT) 29 U/L (15-37); Alanine Aminotransfer ALT/SGPT 25 U/L (16-61); Albumin, Serum 4.5 g/dL (3.2-5.0); Alkaline Phosphatase 64 U/L (45-117); Anion Gap 6 (5-15); BUN 23 mg/dL (7-18); BUN/Creat Ratio 19.3 RATIO (10-20); CRP < 2.90 mg/L (0.0-3.0); Calcium,Total 9.3 mg/dL (8.5-10.1); Chloride 110 mmol/L (98-107); Creatinine, Serum 1.19 mg/dL (0.70-1.30); EST Glomerular Filtration Rate 70 mL/min (>60); Est Glom Filt Rate - Afr Amer 85 mL/min (>60); Estimated Creatinine Clearance 64.95 ml/min; Globulin 4.3 g/dL (2.2-4.2); Glucose 110 mg/dL (74-106); Potassium 3.7 mmol/L (3.5-5.1); Protein, Total 8.8 g/dL (6.4-8.2); Sodium Level 139 mmol/L (136-145)
--- NOTE | 2018-09-06 08:09 | ED.DCSUM_ITS ---
History of Present Illness Chief Complaint: Nausea/Vomiting Detail of Chief Complaint: Diaphoresis Informant: Patient Onset: Today, Yesterday Context: Sudden Onset Timing: Intermittent Quality: Patient reports nausea and vomiting with diaphoresis Location: Patient presents from home Current Severity: Moderate Maximum Severity: Moderate Worsened by: Nothing Relieved by: Nothing Associated Symptoms: No associated symptoms or any other complaints Narrative: Patient is a 48-year-old male who was seen yesterday. Patient states he has not decreased his Suboxone dose and has taken his medication as prescribed. Yesterd ay he admitted to decreasing Suboxone on his own not under the guidance of his physician. He was told this could be the cause of his symptoms yesterday since no other etiology was found. He states he has not used in 1.5 years. He did inject. He has had recent dental work performed. He denies fever. He does complain of chills that are shaking with diaphoresis. He denies headache. He denies visual, ocular auditory symptoms. He denies rhinorrhea, congestion postnasal drainage. He denies sore throat. States he has a slight cough. He denies dyspnea or dyspnea on exertion. He denies hematemesis, melena hematochezia. He denies dysuria, frequency, urgency or hematuria. He denies skin lesions or rash. There is a family history of autoimmune disorder. He denies joint pain or joint swelling. He denies muscle pain or muscle swelling. He denies weakness of his proximal muscles. Prior similar symptoms: Yes Recent Illness/Hospitalization: Yes - Past Medical History (1) Long-term Suboxone use Status: Acute (2) Hepatitis C Status: Chronic (3) Mental health disorder Status: Chronic Past Medical History - Allergies and Home Meds Allergies/Adverse Reactions: Allergies No Known Allergies Allergy (Verified 09/06/18 07:12) Primary Care Physician: Vee Mariee MD [Primary Care Provider] - Prior records reviewed: Yes Lives: Alone Smoking Status: Smoker, status unknown Drugs: - - Reports he has not used any illicit drugs for 1.5 years. Review of Systems General: Reports: Chills, Malaise, Sweats. Denies: Fever, Subjective, Weight loss Eyes: Denies: Visual changes - bilaterally, Blurred Vision - bilaterally, Diplopia ENT: Denies: Bilateral ear pain, Rhinorrhea, Sore throat Cardiovascular: Reports: Palpitations. Denies: Chest pain, Heart racing Respiratory: Reports: Cough. Denies: Dyspnea, Sputum, Dyspnea on exertion, Orthopnea, Paroxysmal nocturnal dyspnea Gastrointestinal: Reports: Abdominal pain - Abdominal pain associated with nausea and vomiting, Nausea, Vomiting. Denies: Diarrhea, Constipation, Melena, Hematochezia, -, - Genitourinary: Denies: Dysuria, Hematuria, Frequency Musculoskeletal: Denies: Myalgias, Arthralgias, Neck pain, Back pain, Extremity Pain Skin: Denies: Rash, Wounds Neurological: Denies: Headache, Weakness, Parasthesia, Numbness Hematologic: Denies: Easy bruising, Easy bleeding Allergy: Denies: Uticaria, Swelling of the mouth Physical Exam Vital Signs/Narrative: Vital Signs Temp Pulse Resp BP Pulse Ox 09/06/18 07:10 97.9 F 71 20 H 152/92 H 99 Inital Vital Signs reviewed: Yes General: Well nourished, Well developed, - - Patient appears uncomfortable. He is diaphoretic. His clothes are saturated. Head: Normocephalic, Atraumatic Eyes: Perrl, EOMI. Negative for: Pale conjunctiva, Scleral icterus ENT: Moist mucous membranes, No rhinorrhea, TM's clear Neck: Supple, Nontender, No lymphadenopathy, No JVD, - Cardiovascular: Regular rate, Regular rhythm, No murmurs, Normal S1, Normal S2 Respiratory: No distress, CTA bilaterally, Chest nontender. Negative for: Rales, Rhonchi, Wheezing Abdomen: Soft, Nontender, Nondistended, Normal bowel sounds, No masses. Negative for: Hepatomegaly, Splenomegaly Back: Nontender, Normal Inspection. Negative for: CVA tenderness Extremities: Nontender, No edema Skin: Diaphoresis, No Trauma, Pallor. Negative for: Cyanosis, Jaundice Neurological: Alert, Oriented x3, Cranial nerves II-XII grossly intact, Normal Strength, Normal Sensation, Normal DTR - DTRs symmetric with no clonus or Babinski sign., Normal Gait Psychological: Normal affect Diagnostic/Tx/Re-eval Chest X-Ray - ED: 2 View, Read by ED Physician, Unchanged, Normal, Heart, Mediastinum, Bony Structures, No Acute Disease, Chronic Changes, - - Prosthetic left shoulder noted. Impressions Chest X-Ray 09/06/18 07:19 IMPRESSION: No radiographic evidence of acute cardiopulmonary disease. Electronically Signed: Hoa Enamorado MD at 8:16 EDT , Service support , 09/06/18 07:19 Chest PA and Lateral [RAD] Stat Laboratory Results 09/06/18 09/06/18 09/06/18 07:30 07:30 08:16 WBC 7.6 RBC 5.07 Hgb 15.3 Hct 44.0 MCV 86.8 MCH 30.2 MCHC 34.8 RDW 12.3 RDW Differential 39.5 Plt Count 219 MPV 10.4 Immature Gran % (Auto) 0.300 Neut % (Auto) 63.4 Lymph % (Auto) 26.4 [place] % (Auto) 8.7 Eos % (Auto) 0.9 Baso % (Auto) 0.3 Absolute Neuts (auto) 4.8 Absolute Lymphs (auto) 1.99 Total Counted Not Reportable ESR 9 Sodium 139 Potassium 3.7 Chloride 110 H Carbon Dioxide 23.0 Anion Gap 6 BUN 23 H Creatinine 1.19 Estim Creat Clear Calc 64.95 Est GFR (MDRD) Af Amer 85 Est GFR (MDRD) Non-Af 70 BUN/Creatinine Ratio 19.3 Glucose 110 H Calcium 9.3 Total Bilirubin 0.60 AST 29 ALT 25 Alkaline Phosphatase 64 C-React Prot Ext Range < 2.90 Total Protein 8.8 H Albumin 4.5 Globulin 4.3 H Albumin/Globulin Ratio 1.0 Urine Color Yellow Urine Clarity Sl. Cloudy Urine pH 6.0 Ur Specific [place] 1.025 Urine Protein 30 H Urine Glucose (UA) Normal Urine Ketones 50 H Urine Occult Blood Negative Urine Nitrite Negative Urine Bilirubin 1 H Urine Urobilinogen 1 H Ur Leukocyte Esterase 25 H Urine RBC 0 SEEN Urine WBC 0-5 SEEN Ur Squamous Epith Cells 0 SEEN Urine Bacteria 0 SEEN Urine Mucus 1+ - Medical Decision Making Patient yesterday and thought was related to self weaning of Suboxone. Today patient reports compliance with medication. With prior history of IV drug use and recent dental work need to entertain possibility of endocarditis, therefore, will obtain blood cultures. With family history of autoimmune disorder will obtain screening labs and specifically ESR and CRP. Because he complains of cough and shortness of breath a chest x-ray was obtained. Patient was reexamined at 1004. His symptoms have resolved. He has not vomited during his stay in the emergency department. Patient been instructed to contact Dr. Nova for follow-up. He was informed if blood cultures are positive he will be notified. Suspicion for positive blood culture is low in light of normal white count, ESR and CRP. Also doubt endocarditis even though he has history of IV drug use and recent dental procedure. He was given a prescription for Zofran. Patient's big concern at this time is dehydration. He was informed he is not dehydrated. ED Disposition - Plan for ED Patient: Disposition: Home or Assisted Living Diagnosis: Nausea and vomiting, Diaphoresis, Long-term Suboxone use Instructions: ED Nausea Vomiting Prescriptions: Ondansetron [Zofran Odt] 4 mg PO Q8H PRN PRN #10 tablet PRN Reason: Nausea Referrals: Vee Mariee MD [Primary Care Provider] - As soon as possible Additional Instructions: Your prescription was electronically transmitted to [facility] your designated pharmacy of choice.
[2018-09-06 08:24] LABS: Bacteria 0 SEEN /hpf (None Seen); Red Blood Cells-Urine 0 SEEN /hpf (0-5); Squamous Epithelial Cells - UA 0 SEEN /hpf (0-5)
[2018-09-06 08:36] LABS: Color, Urine Yellow (Yellow); Glucose, Dipstick Normal (Normal); Ketone-Dipstick 50 mg/dl (Negative); Leukocyte Esterase-Dipstick 25 /ul (Negative); Nitrite-Dipstick Negative (Negative); Occult Blood-Urine Negative /ul (Negative); Protein-Dipstick 30 mg/dl (Negative); Specific Gravity, Urine 1.025 (1.002-1.030); Urine Clarity Sl. Cloudy (Clear); Urine Urobilinogen 1 mg/dl (Normal)
[2018-09-06 08:40] LABS: Urine Bilirubin Dipstick 1 mg/dL (Negative)
[2018-09-06 08:43] LABS: Mucous, Urine 1+ /hpf (<or=2+); White Blood Cells 0-5 SEEN /hpf (0-5)
[2018-09-06 10:28] VITALS: BP 150/72; PULSE 86; RESP 16; O2SAT 99
== END 2018-09-06 10:28 | disposition home or self-care (01) ==
PROVIDERS: Emergency Provider Emergency Medicine; Family Provider Internal Medicine; PCP Internal Medicine
DX: R11.2 Nausea with vomiting, unspecified (principal); R61 Generalized hyperhidrosis; F17.200 Nicotine dependence, unspecified, uncomplicated; Z79.82 Long term (current) use of aspirin; Z79.899 Other long term (current) drug therapy
CPT/HCPCS: 71046; 80053; 81001; 85025; 85652; 86140; 87040; 99283; A4216

== ENCOUNTER 2018-11-25 05:12 | Emergency (ER) | payer OTHER, SELFPAY ==
[2018-11-25 05:12] VITALS: BP 124/107; PULSE 115; RESP 18; TEMP 37; O2SAT 96; BMI 24.9
[2018-11-25] MEDS: Ondansetron 4 MG/2 ML Vial IV (05:56)
[2018-11-25] MEDS: Ketorolac 30 MG/ML Syringe IV (05:57)
[2018-11-25 06:11] LABS: Absolute Lymphocyte Count 2.81 X10^3/uL (0.83-4.51); Absolute Neutrophil Count 14.8 X10^3/uL (2.0-7.7); Basophil# 0.06 X10^3/uL; Basophil% 0.3 % (0-1); Eosinophil# 0.08 X10^3/uL; Eosinophils% 0.4 % (0-5); Lymphocyte # 2.81 X10^3/ul (4.0); Lymphocyte % 14.3 % (19-41); Mean Corp Hgb Conc 33.3 g/dL (32-36); Mean Corpuscular Hgb 30.3 pg (27.0-32.0); Mean Corpuscular Volume 90.9 fL (80-94); Mean Platelet Vol. 9.8 fl (6.2-12.0); Monocyte# 1.72 X10^3/uL; Monocyte% 8.8 % (0-10); NRBC Flagged by Analyzer 0 % (0-5); Neutrophil # 14.84 X10^3/uL (2.7-7.7); Neutrophil % 75.6 % (47-70); POSITIVE DIFFERENTIAL YES; Platelet Count 315 K/mm3 (150-450); RBC Distribution Width CV 13.1 % (11.6-14.6); RBC Distribution Width SD 43.5 fl (35.1-43.9); Red Blood Count 4.62 M/mm3 (4.6-6.2); White Blood Count 19.6 K/mm3 (4.4-11.0)
[2018-11-25 06:13] LABS: Differential Indicated SCAN CRITERIA MET
--- NOTE | 2018-11-25 06:23 | ED.DCSUM_ITS ---
- ER Visit Summary Date of Service: 11/25/18 Chief Complaint: Left arm infection History of Present Illness: The patient is a 48 M who presents with pain and swelling of his left arm. This is been present for 2 days. Patient is an IV drug abuser. He uses IV methamphetamine. He states he missed recently. He then developed redness pain and swelling of his left forearm. He reports sweats and nausea. He is not diabetic. He denies any medical history. Physical Examination: Heart rate 115 vitals otherwise normal Moist mucous membranes Heart regular rhythm tachycardia Lungs are clear Abdomen soft Patient has significant soft tissue swelling of the left forearm symmetric eryt darnell extending to above the elbow there is a large area of fluctuance in the mid left forearm anteriorly Easily palpable radial pulse Brisk capillary refill normal sensation Test Results: Labs notable for white count of 19.6. BMP unremarkable, lactic acid normal. Emergency Department Course and Treatment: IV was established and patient was given IV Zosyn and vancomycin. He was given Toradol and Zofran for symptomatic relief. He was anesthetized with 1% lidocaine and a cruciate incision was made with a #11 blade. There was copious purulent drainage. Quarter inch packing was placed. I did recommend hospitalization given the extent of his cellulitis. Patient refuses. We did discuss risks of leaving AGAINST MEDICAL ADVICE including worsening of condition, organ failure, loss of limb or . He vocalized understanding. He does understand he is welcome to return for reevaluation at any time and I encouraged him to do so especially if he develops any new or worsening symptoms. The extent of his a cellulitis was demarcated with a skin marker. I will also try to contact his primary care physician to arrange for close outpatient follow-up. Treatment Plan: [] Disposition: Left AMA Impression: Cellulitis left arm This note was generated with [employer] dictation software. It may contain incorrect words, spelling, and punctuation that were not noted in review of the chart prior to signing ED Disposition - Plan for ED Patient: Referrals: Vee Mariee MD [Primary Care Provider] -
[2018-11-25 06:24] LABS: Anion Gap 9 (5-15); BUN 16 mg/dL (7-18); BUN/Creat Ratio 14.7 RATIO (10-20); Chloride 108 mmol/L (98-107); Creatinine, Serum 1.09 mg/dL (0.70-1.30); EST Glomerular Filtration Rate 77 mL/min (>60); Est Glom Filt Rate - Afr Amer 93 mL/min (>60); Estimated Creatinine Clearance 70.91 ml/min; Glucose 104 mg/dL (74-106); Potassium 3.5 mmol/L (3.5-5.1); Sodium Level 142 mmol/L (136-145)
[2018-11-25 06:40] LABS: Differential Comment SCANNED; Lactic Acid 1.7 mmol/L (0.4-2.0)
[2018-11-25] MEDS: Vancomycin IV 1,000 MG/200 ML BAG 200 MG IV (06:44)
--- NOTE | 2018-11-25 06:49 | ED.RN ---
PT STATES HE DOES NOT WANT TO BE ADMITTED. DR. HENNESSY HAD A FULL DISCUSSION WITH HIM OF RISKS AND BENEFITS WITH THIS RN AT BEDSIDE. PT STILL WANTS TO SIGN AMA PAPERWORK
--- NOTE | 2018-11-25 06:51 | ED.DEP ---
ED Disposition - Plan for ED Patient: Instructions: ABSCESS, Incision and Drainage, Cellulitis Prescriptions: Smz/Tmp Ds [Bactrim Ds] 1 tab PO BID #20 tab Prescription Printed Cephalexin [Keflex] 500 mg PO Q6 #40 cap Prescription Printed Referrals: Vee Mariee MD [Primary Care Provider] -
--- NOTE | 2018-11-25 07:12 | ED.RN ---
REPORT TAKEN FROM Sussy LAMB PT AWARE OF WAIT FOR ANTIBIOTICS TO INFUSE PRIOR TO HIM LEAVING. PT SITTING ON SIDE OFF BED, CALL LIGHT WITHIN REACH, PT DENIES FURTHER NEEDS AT THIS TIME.
--- NOTE | 2018-11-25 07:46 | ED.RN ---
IV DC'ED, CATHETER INTACT, SMALL GAUZE DRESSING PLACED. DISCHARGE INSTRUCTIONS GIVEN TO AND REVIEWED WITH PATIENT. PATIENT DENIES QUESTIONS OR CONCERNS AND VOICES UNDERSTANDING OF DISCHARGE INSTRUCTIONS. PT AMBULATES OUT OF ROOM WITHOUT DIFFICULTY.
[2018-11-25 10:35] LABS: Pathologist Review Reviewed
== END 2018-11-25 07:47 | disposition left against medical advice (07) ==
PROVIDERS: Emergency Provider Emergency Medicine; Family Provider Internal Medicine; PCP Internal Medicine
DX: L03.114 Cellulitis of left upper limb (principal); F15.10 Other stimulant abuse, uncomplicated; Z79.899 Other long term (current) drug therapy
CPT/HCPCS: 10060; 80048; 83605; 85025; 87040; 96365; 96366; 96367; 96375; 99282; J7030; J2405

== ENCOUNTER 2018-11-26 23:02 | Emergency (ER) | payer OTHER, SELFPAY ==
[2018-11-25 05:12] VITALS: BMI 24.9
[2018-11-26 23:03] VITALS: BP 155/104; PULSE 105; RESP 15; TEMP 36.6; O2SAT 98; BMI 24.0
--- NOTE | 2018-11-26 23:24 | RAD_ITS ---
HISTORY: Possible infection from IV drug use. 2 views of the left forearm. Findings: Soft tissue swelling is present about the forearm. There is some bulging on the medial aspect of the proximal third of the left forearm. No osseous erosion. No fractures. No subcutaneous gas. RAD/Forearm 2 Views IMPRESSION: Soft tissue swelling within the forearm without subcutaneous gas or osseous involvement consistent with infection at 4644 Reported and signed by: Timmy Jon MD Electronically Signed: Timmy Jon MD at 23:53 EDT Tel , Service support ,
--- NOTE | 2018-11-26 23:40 | ED.VIS.GEN ---
History of Present Illness Chief Complaint: Upper Extremity Injury Informant: Patient Onset: Days - 4 Narrative: Patient returns to the ED for evaluation left forearm wound with infection along with requesting detox. Left forearm infection starting 4 days ago, history of IV drug abuse. States he is intermittently injecting meth amphetamines for the past 6 years. Denies fever. Was seen in the ED yesterday with a work-up, recommended admission at that time however he signed out AGAINST MEDICAL ADVICE. Today he changed his mind. From review of records he is given IV Zosyn and vancomycin had a white count 19,000. He was given prescription of Keflex and Bactrim reports he did fill the medication started taking. He now states he would like detox to help. Last injection was an hour prior to arrival. Denies alcohol, also states he does use intermittent THC with last use yesterday. Prior similar symptoms: No Past Medical History - Allergies and Home Meds Allergies/Adverse Reactions: Allergies No Known Allergies Allergy (Verified 11/26/18 23:08) Primary Care Physician: Vee Mariee MD [Primary Care Provider] - Smoking Status: Current every day smoker Review of Systems General: Denies: Chills, Fever, Sweats Eyes: Denies: Visual changes - bilaterally, Diplopia ENT: Denies: Rhinorrhea, Sore throat Cardiovascular: Denies: Chest pain, Palpitations Respiratory: Denies: Dyspnea, Cough, Dyspnea on exertion Gastrointestinal: Denies: Abdominal pain, Nausea, Vomiting, Diarrhea, Melena, Hematochezia Genitourinary: Denies: Dysuria, Hematuria, Frequency Musculoskeletal: Denies: Back pain, Extremity Pain Skin: Reports: Wounds. Denies: Rash Neurological: Denies: Headache, Weakness, Numbness Physical Exam Vital Signs/Narrative: Vital Signs Temp Pulse Resp BP Pulse Ox 11/26/18 23:03 97.8 F 105 H 15 155/104 H 98 Inital Vital Signs reviewed: Yes General: Well nourished, Well developed, No Acute Distress, - - Anxious Head: Normocephalic, Atraumatic Eyes: Perrl, EOMI ENT: Moist mucous membranes, No rhinorrhea Neck: Supple, Nontender Cardiovascular: Regular rate, Regular rhythm, No murmurs, Tachycardia Respiratory: No distress, CTA bilaterally, Chest nontender Abdomen: Soft, Nontender, Nondistended, Normal bowel sounds Back: Nontender, Normal Inspection Extremities: Nontender, No edema Skin: - - Left forearm: Dressing removed, large amount exudates noted on dressing, soft tissue swelling dorsal aspect of proximal forearm approximately 5 cm in size localized erythema, there is no streaking, previous line drawn yesterday noted improvement of erythema from this area. Neurological: Alert, Oriented x3, Cranial nerves II-XII grossly intact, Normal Strength, Normal Sensation Psychological: Normal affect, Normal Mood Diagnostic/Tx/Re-eval Clinical Impression(s) from Imaging Studies Forearm X-Ray 11/26/18 23:24 IMPRESSION: Soft tissue swelling within the forearm without subcutaneous gas or osseous involvement consistent with infection at 2354 Reported and signed by: Timmy Jon MD Electronically Signed: Timmy Jon MD at 23:53 EDT Tel , Service support , Abnormal Lab Results 11/27/18 11/27/18 11/27/18 00:02 00:02 00:02 WBC 8.6 RBC 4.45 L Hgb 13.2 Hct 39.5 L MCV 88.8 MCH 29.7 MCHC 33.4 RDW Std Deviation 43.6 RDW Coeff of Kelsea 13.3 Plt Count 335 MPV 9.6 PT 14.0 INR 1.1 APTT 35.5 Sodium 140 Potassium 3.7 Chloride 109 H Carbon Dioxide 24.0 Anion Gap 7 BUN 16 Creatinine 1.09 Estim Creat Clear Calc 70.91 Est GFR (MDRD) Af Amer 93 Est GFR (MDRD) Non-Af 77 BUN/Creatinine Ratio 14.7 Glucose 85 Lactic Acid Calcium 9.4 Total Bilirubin 0.30 AST 13 L ALT 18 Alkaline Phosphatase 55 Total Protein 8.0 Albumin 3.5 Globulin 4.5 H Albumin/Globulin Ratio 0.8 L Ethyl Alcohol 11/27/18 11/27/18 00:02 00:02 WBC RBC Hgb Hct MCV MCH MCHC RDW Std Deviation RDW Coeff of Kelsea Plt Count MPV PT INR APTT Sodium Potassium Chloride Carbon Dioxide Anion Gap BUN Creatinine Estim Creat Clear Calc Est GFR (MDRD) Af Amer Est GFR (MDRD) Non-Af BUN/Creatinine Ratio Glucose Lactic Acid 1.3 Calcium Total Bilirubin AST ALT Alkaline Phosphatase Total Protein Albumin Globulin Albumin/Globulin Ratio Ethyl Alcohol < 3.0 - Medical Decision Making Patient nontoxic, heart rate 105 on arrival. Patient erythema in the arm is improving, however he also requests detox for methamphetamines. Sepsis lab was reordered due to his initial white count of 19 from yesterday. However white count returned in the normal range today. X-ray left forearm shows no radiopaque foreign bodies. Discussed with hospitalist for methamphetamine detox, discussed there is no protocol for this. Discussed can hold him overnight, however he would discharge with outpatient follow-up with [facility]. Discussed with the patient options, he states he prefer going home with outpatient follow-up. He will continue his antibiotics, continue wound care. Signs and symptoms discussed return. All questions were answered. ED Disposition - Plan for ED Patient: Disposition: Home or Assisted Living Diagnosis: Methamphetamine dependence, Abscess of left forearm, IV drug abuse Instructions: Understanding Methamphetamine Abuse and Addiction, ABSCESS, Incision and Drainage Referrals: Vee Mariee MD [Primary Care Provider] - Additional Instructions: Finish your antibiotics as prescribed. Continue dressing changes and wound care. Follow-up with [facility] as given to you.
[2018-11-27] MEDS: 0.9% Normal Saline 1,000 ML 150 ML IV (00:13)
[2018-11-27 00:24] LABS: Hematocrit 39.5 % (40-54); Hemoglobin 13.2 g/dL (13.0-16.5); Mean Corp Hgb Conc 33.4 g/dL (32-36); Mean Corpuscular Hgb 29.7 pg (27.0-32.0); Mean Corpuscular Volume 88.8 fL (80-94); Mean Platelet Vol. 9.6 fl (6.2-12.0); Platelet Count 335 K/mm3 (150-450); RBC Distribution Width CV 13.3 % (11.6-14.6); RBC Distribution Width SD 43.6 fl (35.1-43.9); Red Blood Count 4.45 M/mm3 (4.6-6.2); White Blood Count 8.6 K/mm3 (4.4-11.0)
[2018-11-27 00:35] LABS: International Normalized Ratio 1.1
[2018-11-27 00:36] LABS: Partial Thromboplast Time 35.5 Seconds (24.1-36.2)
[2018-11-27 00:44] LABS: Alcohol, Blood (Medical)-Serum < 3.0 mg/dL
[2018-11-27 00:48] LABS: ALB/GLOB Ratio 0.8 RATIO (0.9-2.4); AST(SGOT) 13 U/L (15-37); Alanine Aminotransfer ALT/SGPT 18 U/L (16-61); Albumin, Serum 3.5 g/dL (3.2-5.0); Alkaline Phosphatase 55 U/L (45-117); Anion Gap 7 (5-15); BUN 16 mg/dL (7-18); BUN/Creat Ratio 14.7 RATIO (10-20); Calcium,Total 9.4 mg/dL (8.5-10.1); Chloride 109 mmol/L (98-107); Creatinine, Serum 1.09 mg/dL (0.70-1.30); EST Glomerular Filtration Rate 77 mL/min (>60); Est Glom Filt Rate - Afr Amer 93 mL/min (>60); Estimated Creatinine Clearance 70.91 ml/min; Globulin 4.5 g/dL (2.2-4.2); Glucose 85 mg/dL (74-106); Potassium 3.7 mmol/L (3.5-5.1); Sodium Level 140 mmol/L (136-145)
[2018-11-27 00:52] LABS: Lactic Acid 1.3 mmol/L (0.4-2.0)
--- NOTE | 2018-11-27 01:14 | ED.RN ---
ATTEMPTED TO PACK WOUND. PT UNABLE TO TOLERATE. AWARE.
== END 2018-11-27 02:33 | disposition home or self-care (01) ==
PROVIDERS: Emergency Provider Emergency Medicine; Family Provider Internal Medicine; PCP Internal Medicine
DX: F15.20 Other stimulant dependence, uncomplicated (principal); L02.414 Cutaneous abscess of left upper limb; F17.200 Nicotine dependence, unspecified, uncomplicated
CPT/HCPCS: 73090; 80053; 80320; 83605; 85027; 85610; 85730; 87040; 99285; A4216; G0480

== ENCOUNTER → 2019-05-19 10:34 | Outpatient (CLI) | payer MEDICAID, SELFPAY ==
[2019-05-19 10:07] VITALS: BMI 26.2
[2019-05-19 10:38] LABS: Bacteria 0 SEEN /hpf (None Seen); Mucous, Urine 0 SEEN /hpf (<or=2+); Squamous Epithelial Cells - UA 0 SEEN /hpf (0-5)
[2019-05-19 12:32] LABS: Glucose, Dipstick Normal (Normal); Ketone-Dipstick 5 mg/dl (Negative); Leukocyte Esterase-Dipstick 25 /ul (Negative); Nitrite-Dipstick Negative (Negative); Occult Blood-Urine Negative /ul (Negative); Protein-Dipstick 15 mg/dl (Negative); Specific Gravity, Urine 1.025 (1.002-1.030); Urine Urobilinogen 12 mg/dl (Normal)
[2019-05-19 12:33] LABS: Absolute Lymphocyte Count 2.46 X10^3/uL (0.83-4.51); Absolute Neutrophil Count 2.3 X10^3/uL (2.0-7.7); Basophil# 0.04 X10^3/uL; Basophil% 0.7 % (0-1); Eosinophil# 0.14 X10^3/uL; Eosinophils% 2.4 % (0-5); Hematocrit 37.1 % (40-54); Hemoglobin 12.4 g/dL (13.0-16.5); Lymphocyte # 2.46 X10^3/ul (4.0); Lymphocyte % 41.3 % (19-41); Mean Corp Hgb Conc 33.4 g/dL (32-36); Mean Corpuscular Hgb 30.1 pg (27.0-32.0); Mean Platelet Vol. 11.4 fl (6.2-12.0); Monocyte# 0.96 X10^3/uL; Monocyte% 16.1 % (0-10); NRBC Flagged by Analyzer 0 % (0-5); Neutrophil # 2.33 X10^3/uL (2.7-7.7); Neutrophil % 39.2 % (47-70); Platelet Count 269 K/mm3 (150-450); RBC Distribution Width CV 16.2 % (11.6-14.6); RBC Distribution Width SD 53.1 fl (35.1-43.9); Red Blood Count 4.12 M/mm3 (4.6-6.2)
[2019-05-19 12:34] LABS: Urine Bilirubin Dipstick 6 mg/dL (Negative)
[2019-05-19 12:35] LABS: Color, Urine Amber (Yellow); Urine Clarity Clear (Clear)
[2019-05-19 12:56] LABS: Calcium Oxalate Crystals Ur 1+ /hpf (<or=2+); Red Blood Cells-Urine 0-5 SEEN /hpf (0-5); White Blood Cells 0-5 SEEN /hpf (0-5)
[2019-05-19 13:23] LABS: AST(SGOT) 1292 U/L (15-37); Alanine Aminotransfer ALT/SGPT 1995 U/L (16-61); Albumin, Serum 3.3 g/dL (3.2-5.0); Alkaline Phosphatase 139 U/L (45-117); Anion Gap 3 (5-15); BUN 11 mg/dL (7-18); BUN/Creat Ratio 11.8 RATIO (10-20); Calcium,Total 9.2 mg/dL (8.5-10.1); Chloride 107 mmol/L (98-107); Creatinine, Serum 0.93 mg/dL (0.70-1.30); EST Glomerular Filtration Rate 93 mL/min (>60); Est Glom Filt Rate - Afr Amer 112 mL/min (>60); Globulin 3.3 g/dL (2.2-4.2); Glucose 72 mg/dL (74-106); Potassium 4.2 mmol/L (3.5-5.1); Protein, Total 6.6 g/dL (6.4-8.2); Sodium Level 140 mmol/L (136-145)
[2019-05-19 13:29] LABS: T4 Free Direct 1.27 ng/dL (0.76-1.46); Thyroid Stim Hormone (TSH) 2.71 uIU/mL (0.358-3.74)
[2019-05-19 13:36] LABS: HIV - WCH Non-Reactive (Nonreactive)
[2019-05-19 13:37] LABS: Hepatitis B Surface Antigen REACTIVE (Nonreactive)
== END ==
PROVIDERS: PCP Internal Medicine; Visit Provider Nurse Practitioner Family
DX: B19.20 Unspecified viral hepatitis C without hepatic coma (principal); R53.83 Other fatigue; R30.0 Dysuria; F19.10 Other psychoactive substance abuse, uncomplicated; R00.0 Tachycardia, unspecified
CPT/HCPCS: 36415; 80053; 81001; 84439; 84443; 85025; 86703; 87086; 87088; 87340

== ENCOUNTER 2019-05-19 14:39 | Emergency (ER) | payer MEDICAID, SELFPAY ==
[2019-05-19 11:39] VITALS: BMI 24.0
[2019-05-19 14:40] VITALS: BP 128/72; PULSE 78; RESP 16; TEMP 36.6
[2019-05-19 14:41] VITALS: BP 128/72; PULSE 78; RESP 16; TEMP 36.6; BMI 26.8
--- NOTE | 2019-05-19 15:12 | ED.VISSUMM ---
- ER Visit Summary Date of Service: 05/19/19 Chief Complaint: Elevated liver enzymes History of Present Illness: The patient is a 49 M presenting due to abnormal blood work. Patient was seen by his primary care physician today due to myalgias and dark-colored urine which has been ongoing for the past 2 weeks. He denies abdominal pain. Denies fever. He has history of previous IV drug use. He states he has been clean for the past 90 days. He is on Suboxone. He previously used methamphetamine and heroin. He has a history of hep C which was treated. He states today he was tested for hep B which was positive. He was sent to the ED for further evaluation. Physical Examination: Vitals are stable. Patient is afebrile. Alert no acute distress. HEENT exam scleral icterus Neck is supple. Lungs are clear and equal bilaterally. Heart is regular rate and rhythm. Abdomen is soft nontender nondistended. No rebound or guarding Extremities are unremarkable. Skin is jaundiced No focal neurologic deficit. Remainder of exam is unremarkable. Emergency Department Course and Treatment: Patient was given IV fluids, Zofran. Lab work from today showed hemoglobin 12.4, chemistries show glucose 72. Liver enzymes show total bili 4.2, alk phos 139, ALT 1995, AST 1292. Urinalysis shows 0-5 white blood cells, 0-5 red blood cells. HIV negative. Hep B surface antigen reactive. Urine tox is negative. INR 1.3. Discussed with hospitalist who recommends transfer to tertiary care center. D[facility]ed with [facility] for transfer. Disposition: Transfer [facility] Impression: Acute hepatitis This note was generated with [employer] dictation software. It may contain incorrect words, spelling, and punctuation that were not noted in review of the chart prior to signing ED Disposition - Plan for ED Patient: Referrals: Vee Mariee MD [Primary Care Provider] -
[2019-05-19] MEDS: 0.9% Normal Saline 1,000 ML 999 ML IV (15:44)
[2019-05-19] MEDS: Ondansetron 4 MG/2 ML Vial IV (15:45)
[2019-05-19 16:10] LABS: International Normalized Ratio 1.3; Prothrombin Time (Protime)PT. 15.5 SECONDS (11.7-14.9)
[2019-05-19 16:11] LABS: Partial Thromboplast Time 32.1 Seconds (24.1-36.2)
[2019-05-19 16:47] LABS: Amphetamine Urine VISTA NEGATIVE (<1000 ng/mL); Barbiturate Urine VISTA NEGATIVE (< 200 ng/mL); Benzodiazepine Urine VISTA NEGATIVE (< 200 ng/mL); Cocaine Urine VISTA NEGATIVE (< 300 ng/mL); Ecstacy Urine VISTA NEGATIVE (< 500 ng/mL); Methadone Urine VISTA NEGATIVE (< 300 ng/mL); PCP Urine VISTA NEGATIVE (< 25 ng/mL); THC Urine VISTA NEGATIVE (< 50 ng/mL); Vista UDS pH Range 5
--- NOTE | 2019-05-19 16:50 | NURSING ---
[facility] ACCEPTING DOCTOR
[2019-05-19 17:15] VITALS: BP 102/64; PULSE 63; RESP 16; O2SAT 97
[2019-05-19 18:17] VITALS: BP 102/64; PULSE 63; RESP 18; O2SAT 97
== END 2019-05-19 18:17 | disposition short-term general hospital (02) ==
LOC: ED 15:16
PROVIDERS: Emergency Provider Emergency Medicine; PCP Internal Medicine
DX: B19.20 Unspecified viral hepatitis C without hepatic coma (principal); B17.9 Acute viral hepatitis, unspecified; M79.10 Myalgia, unspecified site; K59.00 Constipation, unspecified; R30.0 Dysuria; R00.0 Tachycardia, unspecified; F19.10 Other psychoactive substance abuse, uncomplicated; Z79.899 Other long term (current) drug therapy; Z86.19 Personal history of other infectious and parasitic diseases
CPT/HCPCS: 36415; 80053; 80307; 81001; 84439; 84443; 85025; 85610; 85730; 86703; 87086; 87088; 87340; 96361; 96374; 99285; J7030; A4216; J2405

== ENCOUNTER → 2019-06-12 09:46 | Outpatient (CLI) | payer MEDICAID, SELFPAY ==
[2019-05-31 09:38] VITALS: BMI 25.4
[2019-06-12 12:33] LABS: ALB/GLOB Ratio 0.9 RATIO (0.9-2.4); AST(SGOT) 79 U/L (15-37); Alanine Aminotransfer ALT/SGPT 180 U/L (16-61); Albumin, Serum 3.6 g/dL (3.2-5.0); Alkaline Phosphatase 70 U/L (45-117); Anion Gap 6 (5-15); BUN 17 mg/dL (7-18); BUN/Creat Ratio 17.1 RATIO (10-20); Chloride 108 mmol/L (98-107); Creatinine, Serum 0.99 mg/dL (0.70-1.30); EST Glomerular Filtration Rate 86 mL/min (>60); Est Glom Filt Rate - Afr Amer 104 mL/min (>60); Globulin 3.8 g/dL (2.2-4.2); Glucose 101 mg/dL (74-106); Potassium 3.7 mmol/L (3.5-5.1); Protein, Total 7.4 g/dL (6.4-8.2); Sodium Level 140 mmol/L (136-145)
== END ==
PROVIDERS: PCP Internal Medicine; Referring Provider Nurse Practitioner Family; Visit Provider Nurse Practitioner Family
DX: B16.9 Acute hepatitis B without delta-agent and without hepatic coma (principal); B19.20 Unspecified viral hepatitis C without hepatic coma; K72.00 Acute and subacute hepatic failure without coma
CPT/HCPCS: 36415; 80053

== ENCOUNTER → 2019-08-11 15:37 | Outpatient (CLI) | payer MEDICAID, SELFPAY ==
[2019-08-01 15:12] VITALS: BMI 25.4
[2019-08-11 17:06] LABS: Absolute Neutrophil Count 5.1 X10^3/uL (2.0-7.7); Basophil# 0.03 X10^3/uL; Basophil% 0.4 % (0-1); Eosinophil# 0.46 X10^3/uL; Eosinophils% 5.7 % (0-5); Hemoglobin 12.5 g/dL (13.0-16.5); Lymphocyte % 22.3 % (19-41); Mean Corp Hgb Conc 32.9 g/dL (32-36); Mean Corpuscular Hgb 29.7 pg (27.0-32.0); Mean Corpuscular Volume 90.3 fL (80-94); Mean Platelet Vol. 10.4 fl (6.2-12.0); Monocyte# 0.69 X10^3/uL; Monocyte% 8.5 % (0-10); NRBC Flagged by Analyzer 0 % (0-5); Neutrophil # 5.09 X10^3/uL (2.7-7.7); Platelet Count 291 K/mm3 (150-450); RBC Distribution Width CV 12.4 % (11.6-14.6); RBC Distribution Width SD 40.8 fl (35.1-43.9); Red Blood Count 4.21 M/mm3 (4.6-6.2); White Blood Count 8.1 K/mm3 (4.4-11.0)
[2019-08-11 17:58] LABS: ALB/GLOB Ratio 0.9 RATIO (0.9-2.4); AST(SGOT) 38 U/L (15-37); Alanine Aminotransfer ALT/SGPT 37 U/L (16-61); Albumin, Serum 3.7 g/dL (3.2-5.0); Alkaline Phosphatase 59 U/L (45-117); Anion Gap 4 (5-15); BUN 22 mg/dL (7-18); BUN/Creat Ratio 23.3 RATIO (10-20); Calcium,Total 9.2 mg/dL (8.5-10.1); Chloride 107 mmol/L (98-107); Creatinine, Serum 0.94 mg/dL (0.70-1.30); EST Glomerular Filtration Rate 91 mL/min (>60); Est Glom Filt Rate - Afr Amer 110 mL/min (>60); Globulin 3.9 g/dL (2.2-4.2); Glucose 110 mg/dL (74-106); Potassium 3.8 mmol/L (3.5-5.1); Protein, Total 7.6 g/dL (6.4-8.2); Sodium Level 140 mmol/L (136-145)
== END ==
PROVIDERS: PCP Internal Medicine; Referring Provider Nurse Practitioner Family; Visit Provider Nurse Practitioner Family
DX: K72.00 Acute and subacute hepatic failure without coma (principal); B16.9 Acute hepatitis B without delta-agent and without hepatic coma
CPT/HCPCS: 80053; 85025

== ENCOUNTER 2019-09-18 19:48 | Inpatient (IN) | payer MEDICAID, SELFPAY ==
[2019-08-01 15:12] VITALS: BMI 25.4
[2019-09-18 19:49] VITALS: PULSE 99; RESP 20; TEMP 36.1; O2SAT 100; BMI 24.7
[2019-09-18 19:52] VITALS: BP 155/105
[2019-09-18 20:18] VITALS: BP 155/105; PULSE 99; RESP 14; TEMP 36.1; O2SAT 98
--- NOTE | 2019-09-18 20:43 | RAD_ITS ---
STUDY: X-RAY - RIGHT RADIUS AND ULNA REASON FOR EXAM: Male, 49 years old. BILATERAL FOREARM ABSCESS FROM DRUG USE TECHNIQUE: 2 view(s) of the forearm. COMPARISON: None. FINDINGS: There is no demonstrated soft tissue swelling. Normal visualized radius. Normal visualized ulna. RAD/Forearm 2 Views IMPRESSION: Normal x-ray examination of the radius and ulna. Electronically Signed: Dionne Nichole MD at 21:13 EDT Tel , Service support ,
--- NOTE | 2019-09-18 20:45 | RAD_ITS ---
STUDY: X-RAY - LEFT RADIUS AND ULNA REASON FOR EXAM: Male, 49 years old. BILATERAL FOREARM ABSCESS FROM DRUG USE TECHNIQUE: 2 view(s) of the forearm. COMPARISON: 11/26/2018. FINDINGS: Mild soft tissue swelling anteriorly. Normal visualized radius. Normal visualized ulna. RAD/Forearm 2 Views IMPRESSION: Soft tissue swelling, otherwise negative x-ray examination of the radius and ulna. Electronically Signed: Dionne Nichole MD at 21:12 EDT Tel , Service support ,
[2019-09-18 21:27] LABS: Absolute Lymphocyte Count 2.54 X10^3/uL (0.83-4.51); Absolute Neutrophil Count 5.9 X10^3/uL (2.0-7.7); Basophil# 0.03 X10^3/uL; Basophil% 0.3 % (0-1); Eosinophil# 0.26 X10^3/uL; Eosinophils% 2.8 % (0-5); Hematocrit 33.4 % (40-54); Hemoglobin 11.1 g/dL (13.0-16.5); Lymphocyte # 2.54 X10^3/ul (4.0); Mean Corp Hgb Conc 33.2 g/dL (32-36); Mean Corpuscular Hgb 30.2 pg (27.0-32.0); Mean Platelet Vol. 10.2 fl (6.2-12.0); Monocyte% 7.4 % (0-10); NRBC Flagged by Analyzer 0 % (0-5); Neutrophil # 5.85 X10^3/uL (2.7-7.7); Neutrophil % 62.2 % (47-70); Platelet Count 207 K/mm3 (150-450); RBC Distribution Width CV 12.7 % (11.6-14.6); RBC Distribution Width SD 42.3 fl (35.1-43.9); Red Blood Count 3.67 M/mm3 (4.6-6.2); White Blood Count 9.4 K/mm3 (4.4-11.0)
[2019-09-18 21:42] LABS: ALB/GLOB Ratio 0.8 RATIO (0.9-2.4); AST(SGOT) 49 U/L (15-37); Alanine Aminotransfer ALT/SGPT 56 U/L (16-61); Albumin, Serum 2.6 g/dL (3.2-5.0); Alkaline Phosphatase 59 U/L (45-117); Anion Gap 4 (5-15); BUN 11 mg/dL (7-18); BUN/Creat Ratio 12.3 RATIO (10-20); Calcium,Total 8.1 mg/dL (8.5-10.1); Chloride 117 mmol/L (98-107); EST Glomerular Filtration Rate 97 mL/min (>60); Est Glom Filt Rate - Afr Amer 117 mL/min (>60); Estimated Creatinine Clearance 84.96 ml/min; Globulin 3.2 g/dL (2.2-4.2); Glucose 114 mg/dL (74-106); Potassium 3.6 mmol/L (3.5-5.1); Protein, Total 5.8 g/dL (6.4-8.2); Sodium Level 145 mmol/L (136-145)
--- NOTE | 2019-09-18 22:28 | ED.VISSUMM ---
- ER Visit Summary Date of Service: 09/18/19 Chief Complaint: Substance abuse, upper extremity abscess History of Present Illness: The patient is a 49 M presenting requesting detox from heroin, alcohol, methamphetamine. He states his last use was yesterday. His last detox was a year ago. He also complains of upper extremity abscess bilaterally due to IV drug use. He is unsure when these started. He denies any fever. Denies other complaints. Physical Examination: Vitals are stable. Patient is afebrile. Alert no acute distress. HEENT exam is unremarkable. Neck is supple. Lungs are clear and equal bilaterally. Heart is regular rate and rhythm. Abdomen is soft nontender nondistended. Extremities bilateral upper extremity track valdez. 2 cm abscess with fluctuance right forearm, 3 cm abscess with fluctuance left forearm Skin is warm and dry. No focal neurologic deficit. Remainder of exam is unremarkable. Emergency Department Course and Treatment: Bilateral forearm x-ray shows no foreign body. CBC, chemistries unremarkable. Alcohol 9.0. Tox is pending. I&D was performed. Bilateral upper extremity abscesses were anesthetized with lidocaine. Incised with 11 blade. Moderate amount of pus was drained from each. Probed to break up loculations. Irrigated with saline. Patient tolerated this well. Wound and blood cultures were sent. Patient was given clindamycin IV. Discussed with hospitalist for admission. Disposition: Admission Impression: Polysubstance abuse, bilateral upper extremity abscess, I&D This note was generated with [employer] dictation software. It may contain incorrect words, spelling, and punctuation that were not noted in review of the chart prior to signing ED Disposition - Plan for ED Patient: Referrals: Vee Mariee MD [Primary Care Provider] -
--- NOTE | 2019-09-18 22:49 | PCM.HP.STD ---
Problem List (1) Cellulitis and abscess of upper arm and forearm Status: Acute (2) Alcohol withdrawal Status: Acute Qualifiers: Complication of substance-induced condition: with unspecified complication Qualified Code(s): F10.239 - Alcohol dependence with withdrawal, unspecified (3) Opiate withdrawal Status: Acute (4) Hepatitis B Status: Chronic Qualifiers: Viral hepatitis chronicity: unspecified Hepatic coma status: without hepatic coma (5) Tobacco use Status: Chronic (6) Anxiety and depression Status: Chronic (7) Heroin use Status: Chronic (8) Methamphetamine abuse Status: Chronic (9) Alcohol abuse Status: Chronic (10) Hepatitis C Status: Chronic Qualifiers: Viral hepatitis chronicity: unspecified Hepatic coma status: without hepatic coma Qualified Code(s): B19.20 - Unspecified viral hepatitis C without hepatic coma History of Present Illness Date of Admission: 09/18/19 Chief Complaint: BL UE abscesses The patient is a 49 y/o M w/ PMHx: Polysubstance abuse with heroin (1/2 gm daily), meth in addition to EtOH abuse (2-5 tall boys daily), Hepatitis C/B, GERD, Neuropathy, Tobacco use, Cannabis use who presents to the [facility] ED on 09/18/19 with history of initial presentation for specifically requested alcohol and opiate detoxification with acute withdrawal nausea, tremors, agitation, tactile disturbances, abdominal pain/cramping, generalized body aches and pains, rhinorrhea, fatigue, restless leg with last dose of heroin, methamphetamine as well as alcohol reportedly on 09/17/2019 evening with onset of symptoms 09/18/19 and progressively worsening prompting eventual ED presentation as patient interested in attaining clean status; however, upon evaluation in the ED however patient had bilateral upper extremities significant abscesses with associated cellulitis but denied any recent fevers or chills. Patient unable to given timeline as to when his BL UE started to become red, tender or had obvious abscesses. ED physician did perform I&D to the worst of the abscesses on each arm with wound cultures and wound MRSA PCR requested. Given this finding discussed at length with patient that would plan to admit and could initiate alcohol detoxification however given need for possible surgical further intervention with plastic surgery consultation requested would continue pain regimen and would defer opiate withdrawal protocols until clinical acute presentation had resolved. Work-up in the ED included T 97.5, heart rate 90, BP 123/70, respiratory rate 15, 99% on room air, CBC with WBC 9.4, hemoglobin 11.1, platelet 207 without market shift, CMP with chloride 117, glucose 114, AST/ALT 49/56, total bilirubin 0.20, UDS with positive amphetamine but no other agents which is concerning given reported heroin usage history, ethyl alcohol 9, blood culture x2 pending per ED. In the ED patient administered clindamycin. Past Medical History Past Medical History (Chronic Problems): Chronic Problems (Last Updated 05/31/19 @ 09:37 by Bea Bell) Hepatitis B (Chronic) Tobacco use (Chronic) Anxiety and depression (Chronic) Heroin use (Chronic) Methamphetamine abuse (Chronic) Alcohol abuse (Chronic) Acute liver failure (Chronic) Hepatitis C (Chronic) Acute hepatitis B (Chronic) Hepatitis C (Chronic) Mental health disorder (Chronic) Drug abuse (Chronic) Carpal tunnel syndrome (Chronic) Arthritis (Chronic) Medical History: Medical History (Last Updated 05/31/19 @ 09:37 by Bea Bell) Acute liver failure (Chronic) K72.00 Hepatitis C (Chronic) B19.20 Acute hepatitis B (Chronic) B16.9 Shoulder pain (Acute) M25.519 Mental health disorder (Chronic) F99 Drug abuse (Chronic) F19.10 Carpal tunnel syndrome (Chronic) G56.00 Arthritis (Chronic) M19.90 Allergies No Known Allergies Allergy (Verified 05/31/19 09:34) Home Medications: Ambulatory Orders Medication Instructions Recorded Gabapentin [Neurontin] 300 mg PO TID 09/19/19 Omeprazole 40 mg PO DAILY 09/19/19 Quetiapine Fumarate [Seroquel] 100 mg PO BID 09/19/19 Surgical History: Surgical History (Last Reviewed 05/31/19 @ 09:36 by Bea Bell) History of shoulder surgery Z98.890 07/2016 Surgical History: - - Left shoulder arthroscopic surgery. Psychiatric History: Anxiety, Depression Lives: Alone Smoking Status: Current every day smoker - 1 pack/day cigarette tobacco usage. Tobacco Use: Cigarettes Alcohol: Heavy - 2-5 tall boys daily. Drugs: - - Methamphetamine as well as heroin usage intravenously often daily. - *Family History Maternal History Items: - - Patient denies any market maternal or paternal family history including heart disease, diabetes or cancer. Paternal History Items: - - Patient denies any market maternal or paternal family history including heart disease, diabetes or cancer. Review of Systems Constitutional: Reports: Anorexia, Malaise, Weakness, Fatigue. Denies: Chills, Fever, Weight Change HEENT: Reports: Nasal Congestion, Sinus Congestion. Denies: Head Aches, Sinus Drainage Cardiovascular: Denies: Chest Pain, Chest Pressure, Chest Tightness, Light Headedness, Orthopnea, Palpitations, Syncope Respiratory: Denies: Cough, Shortness of Breath, Shortness of breath at rest, Shortness of breath upon exertion, Sputum production Gastrointestinal: Reports: Diarrhea, Nausea, Vomiting. Denies: Abdominal Pain Genitourinary: Denies: Dysuria Musculoskeletal: Reports: Back Pain, Joint Pain, Muscle pain. Denies: Joint Tenderness Skin: Reports: Skin Changes, Wounds. Denies: Rash Neurological: Denies: Numbness, Tingling, Focal weakness Psychiatric: Reports: Anxiety, Depression. Denies: Homicidal Ideations, Suicidal Ideations Hematologic/ Lymphatic: Denies: Easy Bruising, Easy Bleeding VTE Information - Inpt Only VTE Present on Admission: No VTE Mechan Device Prophylaxis: SCD's VTE Pharm Prophylaxis ordered?: No Reason prophylaxis not ordered:: Treatment Not Indicated Patient Problems: Active and Suspected Problems (Last Updated 05/31/19 @ 09:37 by Bea Bell) Cellulitis and abscess of upper arm and forearm (Acute) Alcohol withdrawal (Acute) Opiate withdrawal (Acute) Subjective: Seated upright in the ED bed, fatigued and sluggish however having significant evident restless legs. Objective: Physical Examination: General: Awakens to stimuli, very intermittently alert, oriented to questions when able to awaken including to person, place, year and recent events, remains intermittently cooperative, seated upright in the ED bed, very fatigued. Skin: normal color, turgor, no icterus, cyanosis except significantly noted extremity abrasions, scabs as well as bilateral upper extremity significant forearm large abscesses with shilpa-abscess erythema with significant tenderness to palpation and fluctuance noted with impending ED initiated I&D. HEENT: AT/NC, EOMI, PERRLA, dry MM, no carotid bruits or JVD noted. Lungs: CTA bilaterally, moderate effort, moderate decrease BL bases, no rales, ronchi or wheezing. Heart: Regular rate and rhythm; no gallop, rub audible. Abdomen: soft, NTTP, ND, normal BS, positive HM. Extremities: no cyanosis, clubbing, or edema. Neurological: Awakens to stimuli, very intermittently alert, oriented to questions when able to awaken including to person, place, year and recent events, remains intermittently cooperative, seated upright in the ED bed, very fatigued; cognitive function likely not baseline intact; pupils equally reactive to light and accomodation; cranial nerves II-XII grossly normal, moving all 4 extremities, strength severely global decreased secondary to acute presentation as noted. Psychiatric: affect appears very fatigued at the same time intermittently agitated, no acute evidence of depressive or anxiety feelings. - Physical Exam Vitals/I&O's: Vital Signs Temp Pulse Resp BP Pulse Ox 96.9 F L 99 14 155/105 H 98 09/18/19 20:18 09/18/19 20:18 09/18/19 20:18 09/18/19 20:18 09/18/19 20:18 Oxygen Delivery Method Room Air Weight: 144 lb 2.917 oz Body Mass Index (BMI) 24.7 Laboratory Results 09/18/19 21:10: WBC 9.4, RBC 3.67 L, Hgb 11.1 L, Hct 33.4 L, MCV 91.0, MCH 30.2, MCHC 33.2, RDW Std Deviation 42.3, RDW Coeff of Kelsea 12.7, Plt Count 207, MPV 10.2, Immature Gran % (Auto) 0.300, Neut % (Auto) 62.2, Lymph % (Auto) 27.0, Lamar % (Auto) 7.4, Eos % (Auto) 2.8, Baso % (Auto) 0.3, Absolute Neuts (auto) 5.9, Absolute Lymphs (auto) 2.54, Nucleated RBC % 0 09/18/19 21:10: Sodium 145, Potassium 3.6, Chloride 117 H, Carbon Dioxide 24.0, Anion Gap 4 L, BUN 11, Creatinine 0.90, Estim Creat Clear Calc 84.96, Est GFR (MDRD) Af Amer 117, Est GFR (MDRD) Non-Af 97, BUN/Creatinine Ratio 12.3, Glucose 114 H, Calcium 8.1 L, Total Bilirubin 0.20, AST 49 H, ALT 56, Alkaline Phosphatase 59, Total Protein 5.8 L, Albumin 2.6 L, Globulin 3.2, Albumin/Globulin Ratio 0.8 L 09/18/19 21:10: Ethyl Alcohol 9.0 09/18/19 21:55: Urine Opiates Screen Pending, Urine Methadone Screen Pending, Ur Barbiturates Screen Pending, Ur Phencyclidine Scrn Pending, Ur Amphetamines Screen Pending, U Methamphetamin-MDMA Pending, U Benzodiazepines Scrn Pending, Urine Cocaine Screen Pending, U Cannabinoids Screen Pending, Ur Drug Screen Comment Current Medications Clindamycin Phosphate 600 mg/ (Dextrose) 54 mls @ 100 mls/hr IV X1 ONE Stop: 09/18/19 22:59 Assessment/Plan All Active Problems (Last Updated 05/31/19 @ 09:37 by Bea Bell) Cellulitis and abscess of upper arm and forearm (Acute) Alcohol withdrawal (Acute) Opiate withdrawal (Acute) Shoulder pain (Acute) Long-term Suboxone use (Acute) Tenosynovitis of right wrist (Acute) Tenosynovitis of left wrist (Acute) The patient is a 49 y/o M w/ PMHx: Polysubstance abuse with heroin, meth in addition to EtOH abuse, Hepatitis C/B, GERD, Neuropathy, Tobacco use, Cannabis use who presents to the [facility] ED on 09/18/19 with history of initial presentation for specifically requested alcohol and opiate detoxification however, concurrently noted BL UE abscesses and cellulitis of unclear timeline. 1. Acute bilateral upper extremity Cellulitis and Abscesses secondary to IVDA: Will admit to the medical surgical floor, maintain on IV vancomycin and Zosyn pending wound culture and wound MRSA PCR with de-escalation as needed, continue wound care and wound RN evaluation, given appearance of wounds will request plastic surgery, Dr. Chen involvement and will maintain n.p.o. after midnight in case of further operative intervention needs, plan repeat CBC in AM, continue affected extremity elevation above heart when seated and in bed, monitor erythema outline with VS checks. Given this acute presentation concurrently will have oral and IV narcotic therapy as well as antiemetics. Defer opiate withdrawal treatment. 2. Acute EtOH Withdrawal: Given interest in sobriety, will initiate and continue on protocol with taper course of Phenobarbital, scheduled gabapentin for seizure prophylaxis, as needed Catapres, Bentyl, Vistaril, IV fluids, IV antiemetics, Tylenol as needed for pain. Will consult Case management for assistance for transition to next level of rehabilitation care. Mag, phos pending. 3. Opiate abuse: Given acute presentation as noted #1 we will defer patient requested opiate withdrawal treatment given need for oral and IV narcotic therapy for acute pain. 4. Polysubstance Abuse, IVDA Hx, History of Hepatitis C/B, Chronic: Patient currently not candidate for hep C treatment currently as needs to be clean, sober x 6 months, documented attendance NA or AA meetings, counseling and ongoing negative drug screens. Once appropriate GI, ID to initiate. HIV, hepatitis panel to assess for co-infection pending. Encouraged PCP establishment and follow-up. 5. Tobacco Abuse: Encouraged cessation, inpatient consultation per RT, NR if desired. 6. Chronic Neuropathy: Hold home oral given scheduled protocol with gabapentin for acute EtOH withdrawal as noted. 7. DVT prophylaxis: Low risk, encourage ambulation. Inpatient E&M: 58097 Init Hosp L3
[2019-09-18 22:54] VITALS: BP 124/72; PULSE 90; RESP 16; TEMP 37.1; O2SAT 98
[2019-09-18 23:40] LABS: Amphetamine Urine VISTA POSITIVE (<1000 ng/mL); Barbiturate Urine VISTA NEGATIVE (< 200 ng/mL); Benzodiazepine Urine VISTA NEGATIVE (< 200 ng/mL); Cocaine Urine VISTA NEGATIVE (< 300 ng/mL); Ecstacy Urine VISTA NEGATIVE (< 500 ng/mL); Methadone Urine VISTA NEGATIVE (< 300 ng/mL); PCP Urine VISTA NEGATIVE (< 25 ng/mL); THC Urine VISTA NEGATIVE (< 50 ng/mL); Vista UDS pH Range 6
[2019-09-19] VITALS (13 sets, daily range): BP systolic 119–159; BP diastolic 59–91; PULSE 66–102; RESP 14–18; TEMP 36.2–37.1; O2SAT 96–135; BMI 24.3
[2019-09-19 02:32] LABS: Probe Check PASS; Staph aureus DNA By PCR POSITIVE (Negative)
[2019-09-19 02:34] LABS: M R Staph aureus DNA By PCR POSITIVE (Negative)
[2019-09-19 02:37] LABS: Magnesium 2.2 mg/dL (1.6-2.6); Phosphorus 2.7 mg/dL (2.5-4.9)
[2019-09-19] MEDS: 0.9% Normal Saline 1,000 ML 125 ML IV (03:10)
[2019-09-19] MEDS: Phenobarbital 32.4 MG Tablet PO ×6 (03:10→23:37)
--- NOTE | 2019-09-19 03:50 | PCM.RX.CS ---
Consult Pharmacy has been consulted to manage selected antiobiotic: Vancomycin Type of Consult: New start Suspected Infection: Skin/Soft tissue Prior Doses of Antibiotics Received/Current Regimen: Medications Vancomycin HCl (Vancomycin) 1,000 mg in 200 mls @ 200 mls/hr IV Q12H TIANA Vancomycin HCl 1,500 mg/ (Sodium Chloride) 530 mls @ 250 mls/hr IV X1 ONE Stop: 09/19/19 04:37 Last Admin: 09/19/19 03:13 Dose: 250 mls/hr loading dose Labs: Sodium 145 mmol/L (136-145) 09/18/19 21:10 Potassium 3.6 mmol/L (3.5-5.1) 09/18/19 21:10 Chloride 117 mmol/L (98-107) H 09/18/19 21:10 Carbon Dioxide 24.0 mmol/L (21.0-32.0) 09/18/19 21:10 Anion Gap 4 (5-15) L 09/18/19 21:10 BUN 11 mg/dL (7-18) 09/18/19 21:10 Creatinine 0.90 mg/dL (0.70-1.30) 09/18/19 21:10 Est GFR (MDRD) Af Amer 117 mL/min (>60) 09/18/19 21:10 Est GFR (MDRD) Non-Af 97 mL/min (>60) 09/18/19 21:10 BUN/Creatinine Ratio 12.3 RATIO (10-20) 09/18/19 21:10 Glucose 114 mg/dL (74-106) H 09/18/19 21:10 Weight used for dosin.3 kg Estimated Creatinine Clearance: 85 Goal Trough: 15-20 mcg/mL Pharmacy Plan for Drug Dosing: Pharmacy Service will continue to monitor and adjust dosing as required. Follow-Up Labs: Trough Vancomycin Labs to be done on [date and time ordered]: 09/20/19 @1430
[2019-09-19] MEDS: 0.9% Saline Lock 10 ML Syringe IV ×2 (06:08→13:27)
[2019-09-19 08:15] LABS: Absolute Lymphocyte Count 1.56 X10^3/uL (0.83-4.51); Absolute Neutrophil Count 5.8 X10^3/uL (2.0-7.7); Basophil# 0.03 X10^3/uL; Basophil% 0.4 % (0-1); Eosinophil# 0.23 X10^3/uL; Eosinophils% 2.8 % (0-5); Hemoglobin 12.2 g/dL (13.0-16.5); Lymphocyte # 1.56 X10^3/ul (4.0); Lymphocyte % 19.2 % (19-41); Mean Corpuscular Hgb 30.5 pg (27.0-32.0); Mean Corpuscular Volume 92.5 fL (80-94); Mean Platelet Vol. 10.2 fl (6.2-12.0); Monocyte# 0.52 X10^3/uL; Monocyte% 6.4 % (0-10); NRBC Flagged by Analyzer 0 % (0-5); Neutrophil # 5.75 X10^3/uL (2.7-7.7); Neutrophil % 70.7 % (47-70); Platelet Count 227 K/mm3 (150-450); RBC Distribution Width CV 12.7 % (11.6-14.6); RBC Distribution Width SD 43.5 fl (35.1-43.9); White Blood Count 8.1 K/mm3 (4.4-11.0)
[2019-09-19 08:40] LABS: ALB/GLOB Ratio 0.8 RATIO (0.9-2.4); AST(SGOT) 37 U/L (15-37); Alanine Aminotransfer ALT/SGPT 52 U/L (16-61); Albumin, Serum 2.5 g/dL (3.2-5.0); Alkaline Phosphatase 62 U/L (45-117); Anion Gap 10 (5-15); BUN 11 mg/dL (7-18); BUN/Creat Ratio 13.2 RATIO (10-20); Calcium,Total 7.9 mg/dL (8.5-10.1); Chloride 112 mmol/L (98-107); Creatinine, Serum 0.83 mg/dL (0.70-1.30); EST Glomerular Filtration Rate 105 mL/min (>60); Est Glom Filt Rate - Afr Amer 127 mL/min (>60); Estimated Creatinine Clearance 92.13 ml/min; Globulin 3.2 g/dL (2.2-4.2); Glucose 95 mg/dL (74-106); Protein, Total 5.7 g/dL (6.4-8.2); Sodium Level 144 mmol/L (136-145)
--- NOTE | 2019-09-19 09:02 | NURSING ---
In to assess bilateral arms with Dr Chen. patient had I&D of both forearms in ED yesterday. small puncture sites noted. there is still some induration noted bilaterally. Dr Chen plans to take patient to surgery this am for further drainage and debridement. will continue with post op wound care. for now, a dry dressing was placed to both forearms. pt not real cooperative at this time. will attempt to get wound photos if patient will allow.
--- NOTE | 2019-09-19 09:20 | CASEMGMT ---
Social Work Note Pt is at [facility] for ETOH withdrawal, Opiate withdrawal. SW placed a call to Caitie at [facility] and left message that pt will need to be seen. Aster Austin RUG INSPECTOR, CONTACT CENTER MANAGER
--- NOTE | 2019-09-19 09:47 | NURSING ---
Addendum entered by Marilou Nj 09/19/19 09:51: called Magdalene in [facility], updated on pt IV as fragile, IV zosyn on pump with patient, and difficulty to obtain pt history due to phenobarb medications for withdrawal. Original Note: pt tranported off unit for surgery via bed at this time.
--- NOTE | 2019-09-19 09:51 | EKG12_ITS ---
Test Reason : PRE-OP Blood Pressure : / mmHG Vent. Rate : 079 BPM Atrial Rate : 079 BPM P-R Int : 148 ms QRS Dur : 074 ms QT Int : 364 ms P-R-T Axes : 032 015 038 degrees QTc Int : 417 ms Normal sinus rhythm Normal ECG Confirmed by VIET CENTENO, BALA ([id number]), editor news FRIDA JAMIL ([id number]) on 09/21/2019 4:02:57 PM Referred By: JANES Confirmed By:BALA LLANOS MD
[2019-09-19 10:00] LABS: HIV - WCH Non-Reactive (Nonreactive); Hepatitis B Surface Antibody Non-Reactive; Hepatitis B Surface Antigen Preliminary Reactive (Nonreactive)
[2019-09-19 10:02] LABS: Hepatitis C Antibody REACTIVE (Nonreactive)
--- NOTE | 2019-09-19 10:08 | CON.PCM_ITS ---
Reason for Consult Date of Consultation: 09/19/19 Reason for Consultation: IVDA abscesses bilateral forearms. REFERRING P TAMIRSICIAN: Dr. Benton. [facility] INTERMEDIARY: Dr. Chen. History of Present Illness: 49 y/o M with a history of IV drug abuse presented for alcohol and opiate detoxification with acute withdrawal nausea, tremors, agitation, tactile disturbances, abdominal pain/cramping, generalized body aches and pains, rhinorrhea, fatigue, restless leg with last dose of heroin, methamphetamine as well as alcohol reportedly on 09/17/2019 evening with onset of symptoms 09/18/19 and progressively worsening prompting eventual ED presentation as patient interested in attaining clean status. Upon evaluation in the ED, the patient had abscesses bilateral forearms from his IV drug abuse. ED physician did perform I&D to the worst of the abscesses on each arm with wound cultures and wound MRSA PCR requested. Given this finding discussed at length with patient that would plan to admit and could initiate alcohol detoxification however given need for possible surgical further intervention with plastic surgery consultation requested would continue pain regimen and would defer opiate withdrawal protocols until clinical acute presentation had resolved. Work-up in the ED included T 97.5, heart rate 90, BP 123/70, respiratory rate 15, 99% on room air, CBC with WBC 9.4, hemoglobin 11.1, platelet 207 without market shift, CMP with chloride 117, glucose 114, AST/ALT 49/56, total bilirubin 0.20, UDS with positive amphetamine but no other agents which is concerning given reported heroin usage history, ethyl alcohol 9, blood culture x2 pending per ED. In the ED patient administered clindamycin. I was asked to evaluate this patient for surgical options for treatment. Past Medical History Past Medical History (Chronic Problems): Chronic Problems (Last Updated 05/31/19 @ 09:37 by Bea Bell) Hepatitis B (Chronic) Tobacco use (Chronic) Anxiety and depression (Chronic) Heroin use (Chronic) Methamphetamine abuse (Chronic) Alcohol abuse (Chronic) Acute liver failure (Chronic) Hepatitis C (Chronic) Acute hepatitis B (Chronic) Hepatitis C (Chronic) Mental health disorder (Chronic) Drug abuse (Chronic) Carpal tunnel syndrome (Chronic) Arthritis (Chronic) Medical History: Medical History (Last Updated 05/31/19 @ 09:37 by Bea Bell) Acute liver failure (Chronic) K72.00 Hepatitis C (Chronic) B19.20 Acute hepatitis B (Chronic) B16.9 Shoulder pain (Acute) M25.519 Mental health disorder (Chronic) F99 Drug abuse (Chronic) F19.10 Carpal tunnel syndrome (Chronic) G56.00 Arthritis (Chronic) M19.90 Allergies No Known Allergies Allergy (Verified 05/31/19 09:34) Home Medications: Ambulatory Orders Medication Instructions Recorded Gabapentin [Neurontin] 300 mg PO TID 09/19/19 Omeprazole 40 mg PO DAILY 09/19/19 Quetiapine Fumarate [Seroquel] 100 mg PO BID 09/19/19 Surgical History: Surgical History (Last Reviewed 05/31/19 @ 09:36 by Bea Bell) History of shoulder surgery Z98.890 07/2016 Surgical History: - - Left shoulder arthroscopic surgery. Psychiatric History: Anxiety, Depression Lives: Alone Smoking Status: Current every day smoker Tobacco Use: Cigarettes Alcohol: Heavy - 2-5 tall boys daily. Drugs: - - Methamphetamine as well as heroin usage intravenously often daily. - *Family History Maternal History Items: - - Patient denies any market maternal or paternal family history including heart disease, diabetes or cancer. Paternal History Items: - - Patient denies any market maternal or paternal family history including heart disease, diabetes or cancer. Review of Systems Comment: Constitutional: Reports: Anorexia, Malaise, Weakness, Fatigue. Denies: Chills, Fever, Weight Change. HEENT: Reports: Nasal Congestion, Sinus Alfredito estion. Denies: Head Aches, Sinus Drainage. Cardiovascular: Denies: Chest Pain, Chest Pressure, Chest Tightness, Light Headedness, Orthopnea, Palpitations, Syncope. Respiratory: Denies: Cough, Shortness of Breath, Shortness of breath at rest, Shortness of breath upon exertion, Sputum production. Gastrointestinal: Reports: Diarrhea, Nausea, Vomiting. Denies: Abdominal Pain. Genitourinary: Denies: Dysuria. Musculoskeletal: Reports: Back Pain, Joint Pain, Muscle pain. Denies: Joint Tenderness. Skin: Reports: Skin Changes, Wounds. Denies: Rash. Neurological: Denies: Numbness, Tingling, Focal weakness. Psychiatric: Reports: Anxiety, Depression. Denies: Homicidal Ideations, Suicidal Ideations. Hematologic/ Lymphatic: Denies: Easy Bruising, Easy Bleeding Patient Problems: Active and Suspected Problems (Last Updated 05/31/19 @ 09:37 by Bea Bell) Cellulitis and abscess of upper arm and forearm (Acute) Alcohol withdrawal (Acute) Opiate withdrawal (Acute) - Physical Exam Vitals/I&O's: General: Awakens to stimuli, very intermittently alert, oriented to questions when able to awaken including to person, place, year and recent events, remains intermittently cooperative, seated upright in the ED bed, very fatigued. Skin: normal color, turgor, no icterus, cyanosis except significantly noted extremity abrasions, scabs as well as bilateral upper extremity significant forearm large abscesses with shilpa-abscess erythema with significant tenderness to palpation and fluctuance noted with impending ED initiated I&D. HEENT: EOMI, PERRLA, dry MM. Neck: Supple, nontender. No cervical adenopathy. Lungs: CTA bilaterally. Heart: Regular rate and rhythm. Abdomen: soft, Nondistended. Extremities: no cyanosis, clubbing. Mild edema bilateral upper extremities. Radial pulses are palpable. No axillary adenopathy. On the mid dorsal radial aspect left forearm is an abscess with redness and fluctuance and purulent drainage. Measures 6.5 x 4 x 1 cm. Tenderness to palpation. On the mid dorsal radial aspect right forearm is an abscess with redness and fluctuance and purulent drainage. Measures 3.2 x 3.3 x 1 cm. Tenderness to palpation. Neurological: cranial nerves II-XII grossly normal. Psychiatric: affect appears very fatigued at the same time intermittently agitated, no acute evidence of depressive or anxiety feelings. Vital Signs Temp Pulse Resp BP Pulse Ox 97.9 F 79 16 131/82 H 98 09/19/19 09:29 09/19/19 09:29 09/19/19 09:29 09/19/19 09:29 09/19/19 09:29 Oxygen Delivery Method Room Air Weight: 141 lb 12.116 oz Body Mass Index (BMI) 24.3 Intake and Output for Last 24 Hours 09/17/19 09/18/19 09/19/19 23:59 23:59 23:59 Intake Total 594.67 / 594.67 Balance 594.67 / 594.67 Laboratory Results 09/18/19 21:10: WBC 9.4, RBC 3.67 L, Hgb 11.1 L, Hct 33.4 L, MCV 91.0, MCH 30.2, MCHC 33.2, RDW Std Deviation 42.3, RDW Coeff of Kelsea 12.7, Plt Count 207, MPV 10.2, Immature Gran % (Auto) 0.300, Neut % (Auto) 62.2, Lymph % (Auto) 27.0, [place] % (Auto) 7.4, Eos % (Auto) 2.8, Baso % (Auto) 0.3, Absolute Neuts (auto) 5.9, Absolute Lymphs (auto) 2.54, Nucleated RBC % 0 09/18/19 21:10: Sodium 145, Potassium 3.6, Chloride 117 H, Carbon Dioxide 24.0, Anion Gap 4 L, BUN 11, Creatinine 0.90, Estim Creat Clear Calc 84.96, Est GFR (MDRD) Af Amer 117, Est GFR (MDRD) Non-Af 97, BUN/Creatinine Ratio 12.3, Glucose 114 H, Calcium 8.1 L, Total Bilirubin 0.20, AST 49 H, ALT 56, Alkaline Phosphatase 59, Total Protein 5.8 L, Albumin 2.6 L, Globulin 3.2, Albumin/Globulin Ratio 0.8 L 09/18/19 21:10: Ethyl Alcohol 9.0 09/18/19 21:10: Phosphorus 2.7, Magnesium 2.2 09/18/19 21:55: Urine Opiates Screen NEGATIVE, Urine Methadone Screen NEGATIVE, Ur Barbiturates Screen NEGATIVE, Ur Phencyclidine Scrn NEGATIVE, Ur Amphetamines Screen POSITIVE H, U Methamphetamin-MDMA NEGATIVE, U Benzodiazepines Scrn NEGATIVE, Urine Cocaine Screen NEGATIVE, U Cannabinoids Screen NEGATIVE, Ur Drug Screen Comment 09/19/19 01:00: S.aureus Protein A PCR POSITIVE H, MRSA (PCR) POSITIVE H 09/19/19 08:06: Hep Bs Antigen Preliminary Reactive H, Hep Bs Antibody Non- Reactive, Hepatitis C Antibody REACTIVE, HIV 1&2 Antibody Non-Reactive 09/19/19 08:06: WBC 8.1, RBC 4.00 L, Hgb 12.2 L, Hct 37.0 L, MCV 92.5, MCH 30.5, MCHC 33.0, RDW Std Deviation 43.5, RDW Coeff of Kelsea 12.7, Plt Count 227, MPV 10.2, Immature Gran % (Auto) 0.500, Neut % (Auto) 70.7 H, Lymph % (Auto) 19.2, [place] % (Auto) 6.4, Eos % (Auto) 2.8, Baso % (Auto) 0.4, Absolute Neuts (auto) 5.8, Absolute Lymphs (auto) 1.56, Nucleated RBC % 0 09/19/19 08:06: Sodium 144, Potassium 4.0, Chloride 112 H, Carbon Dioxide 22.0, Anion Gap 10, BUN 11, Creatinine 0.83, Estim Creat Clear Calc 92.13, Est GFR (MDRD) Af Amer 127, Est GFR (MDRD) Non-Af 105, BUN/Creatinine Ratio 13.2, Glucose 95, Calcium 7.9 L, Total Bilirubin 0.20, AST 37, ALT 52, Alkaline Phosphatase 62, Total Protein 5.7 L, Albumin 2.5 L, Globulin 3.2, Albumin/Globulin Ratio 0.8 L 09/19/19 08:06: Miscellaneous Test Pending Current Medications Acetaminophen (Tylenol) 650 mg PO Q6H PRN PRN PRN Reason: Pain Score 1-10/Temp > 100.7 F Al Hydroxide/Mg Hydroxide (Mylanta Ii) 30 ml PO Q6H PRN PRN PRN Reason: Gastric Burning Albuterol Sulfate (Ventolin Aerosols) 2.5 mg INHALATION Q2H PRN PRN PRN Reason: Shortness of Breath/Wheezing Bisacodyl (Dulcolax) 10 mg RECTAL DAILY PRN PRN Reason: Constipation Dextrose (D50w Syringe) 0 gm IV X1 PRN; Protocol PRN Reason: Hypoglycemia Dicyclomine HCl (Bentyl) 20 mg PO Q6H PRN PRN PRN Reason: abdominal discomfort Famotidine (Pepcid) 20 mg PO BID [facility] Last Admin: 09/19/19 09:47 Dose: Not Given Documented by: Folic Acid (Folic Acid) 1 mg PO DAILY@0800 [facility] Last Admin: 09/19/19 09:47 Dose: Not Given Documented by: Gabapentin (Neurontin) 300 mg PO Q8H PRN PRN PRN Reason: moderate to severe anxiety Glucagon () 1 mg IM .X1 PRN PRN Reason: Hypoglycemia Guaifenesin (Robitussin) 20 ml PO Q4H PRN PRN PRN Reason: COUGH Hydromorphone HCl (Dilaudid Inj) 1 mg IV Q4H PRN PRN PRN Reason: Pain Score 6-10/10 Hydroxyzine Pamoate (Vistaril Pamoate Capsule) 50 mg PO Q4H PRN PRN PRN Reason: mild anxiety Vancomycin IV Pharmacy to Dose (1 ea/ Sodium Chloride) 500 mls @ 250 mls/hr IV PRN PRN; Protocol PRN Reason: Rx to Dose Piperacillin Sod/Tazobactam (Sod 3.375 gm/ Sodium Chloride) 50 mls @ 12.5 mls/hr IV Q8 TIANA Last Admin: 09/19/19 06:07 Dose: 12.5 mls/hr Documented by: Sodium Chloride () 250 mls @ 15 mls/hr IV .[id number] PRN PRN Reason: Saline Flush Last Infusion: 09/19/19 06:09 Dose: 0 mls/hr Documented by: Sodium Chloride () 250 mls @ 15 mls/hr IV .[id number] PRN PRN Reason: Additional IVPB Infusion Vancomycin HCl (Vancomycin) 1,000 mg in 200 mls @ 200 mls/hr IV Q12H [facility] Ibuprofen (Motrin) 600 mg PO Q8H PRN PRN PRN Reason: Pain Score 1-10/10 Loperamide HCl (Imodium) 2 mg PO Q4H PRN PRN PRN Reason: LOOSE STOOLS Nicotine (Nicoderm Cq (Pbkc)) 21 mg TRANSDERM. DAILY [facility] Nutritional Formula (Lactose Free) (Ensure Enlive) 120 ml PO 4X/DAY [facility] Last Admin: 09/19/19 09:47 Dose: Not Given Documented by: Ondansetron HCl (Zofran) 8 mg PO Q8H PRN PRN PRN Reason: NAUSEA Ondansetron HCl (Zofran) 4 mg IV Q8H PRN PRN PRN Reason: NAUSEA/VOMITING Oxycodone HCl (Oxyir) 10 mg PO Q4H PRN PRN PRN Reason: Pain Score 4-5/10 Phenobarbital (Phenobarbital) 97.2 mg PO Q4H [facility]; Taper Stop: 09/23/19 10:14 Last Admin: 09/19/19 06:08 Dose: 97.2 mg Documented by: Prochlorperazine Edisylate (Compazine Iv) 5 mg IV Q4H PRN PRN PRN Reason: Breakthrough nausea/vomiting Senna (Senokot) 2 tablet PO QHS PRN PRN Reason: Constipation Sodium Chloride () 10 - 40 ml IV UD PRN PRN Reason: SALINE FLUSH Last Admin: 09/19/19 06:08 Dose: 20 ml Documented by: Thiamine HCl (Vitamin B1) 100 mg PO DAILYCM TIANA Last Admin: 09/19/19 09:47 Dose: Not Given Documented by: Throat Lozenges (Cepacol Sore Throat Lozenge) 1 lozenge MUCOUS MEM Q2H PRN PRN PRN Reason: SORE THROAT Trazodone HCl (Desyrel) 100 mg PO QHS PRN PRN Reason: INSOMNIA Assessment/Plan All Active Problems (Last Updated 05/31/19 @ 09:37 by Bea Bell) Abscess of right forearm (Acute) Abscess of left forearm (Acute) Open wound of right forearm (Acute) Open wound of left forearm (Acute) Cellulitis and abscess of upper arm and forearm (Acute) Alcohol withdrawal (Acute) Opiate withdrawal (Acute) Shoulder pain (Acute) Long-term Suboxone use (Acute) Tenosynovitis of right wrist (Acute) Tenosynovitis of left wrist (Acute) 1. IV drug abuse abscess mid dorsal radial aspect left forearm. 2. IV drug abuse abscess mid dorsal radial aspect right forearm. 3. Opiate withdrawal. 4. Alcohol withdrawal. 5. Heroin abuse. 6. Methamphetamine abuse. 7. Smoker. Patient was placed on Vancomycin and Zosyn. Patient is at risk for worsening of these abscesses due to IV drug abuse. Sometimes the patient injects the muscle directly if a vein is difficult to find secondary to scarring. Because of that, he is at some risk of developing muscle infection and necrosis leading to a necrotizing process. Therefore operative intervention is urgent and needs to be done today to minimize that risk. Will leave the wounds open and begin wound care with the VAC. Tissue will be sent to Pathology for analysis to rule out carcinoma and tissue will be sent to Microbiology for culture. A positive culture will necessitate antibiotic therapy. MRSA is commonly seen in these abscesses. Surgery will be done under general anesthesia and tourniquet control. After surgery depending on the healing process, he may need OT for range of motion exercises, strengthening, and edema management. After discharge, will followup at [facility]. Anticipate increased metabolic demands from the infection and the surgery. Encourage nutritional supplementation with protein to help the healing process. The surgery was discussed with the patient and the urgency to proceed with the surgery today. He voiced understanding and wishes to proceed. Patient was informed of the risks and complications of the procedure including alternatives to surgery. These were discussed with the patient personally. Patient voices understanding and wishes to proceed. Encouraged patient to stop smoking as it may have deleterious effects on wound healing. Essential Procedure Criteria Procedure Essential: Yes Criteria Note: On 07/18/2019 the [facility] ([facility]) Public Order signed by [facility] Director Ailyn Das M.D., regarding the Management of Non- Essential Surgeries and Procedures for the purpose of preserving Personal Protective Equipment (PPE) and critical hospital capacity and resources within [place] went into effect as of 07/19/2019 at 5:00PM. According to the [facility] Public Order: This action will remain in full force and effect until the State of Emergency declared by the Governor no longer exists or the Director of the [facility] rescinds or modifies this Order.. This [facility] order stated all non-essential or elective surgeries and procedures that utilize PPE should be delayed unless there is undue risk to the current or future health of a patient. After reviewing the aforementioned [facility] Public Order and the patients clinical case, I have determined that the scheduled procedure meets the criteria to go forward. Risk to Patient if Procedure Delayed: Risk of rapidly worsening to severe symptoms if delayed - Patient has worsening IV drug abuse abscesses bilateral forearms. Inpatient E&M: 23804 Init Hosp L3 - 57 Modifier ICD-10 - L02.413, L02.414, F11.23, F10.239, F11.90, F15.10, F17.200
--- NOTE | 2019-09-19 11:15 | ABS_PTH ---
PATIENT: LUIS A MOURA LOC: MS3 U#:[id number] AGE/SX: 49/M ROOM: AR315 RE09/18/[address]: Dr. Fernanda Moyer MD : [id number] BED: 1 DIS: 09/22/2019 SPEC #: [id number] RECD: 09/19/19 12:29 STATUS: RADHA REKiah #: [id number] SARAH: 09/19/19 11:[address]: Sonido Chen DEPT: SURGICAL PATHOLOGY RECD BY: Cisco Santa ENTERED: 09/20/19 09:11 SP TYPE: Abscess OTHR DR: MD Dr. Vee Pollard MD Dr. Nana Yaa Koram, MD Tissues: A - Left forearm B - Right forearm Procedures: Surgery Specimen Level IV HEADER OPERATION: Incision and drainage abscess PRE-OP DIAGNOSIS: Cellulitis, abscess of upper arm and forearm, bilateral TISSUE SUBMITTED: A - Left forearm IV drug abuse abscess, B - Right forearm IV drug abuse abscess MICROSCOPIC DIAGNOSIS A. Skin and soft tissue of left forearm, excision: Ulceration with associated acute and chronic inflammation, granulation and abscess formation. B. Skin and soft tissue of right forearm, excision: Ulceration with associated acute and chronic inflammation, granulation and abscess formation. AM:graciela 09/21/19 MICROSCOPIC DESCRIPTION Slides are reviewed. GROSS DESCRIPTION A - Received in fixative is one container labeled with the patient's name and designated left forearm IV drug abuse abscess. The specimen consists of a piece of cooper-white skin with underlying tissue measuring 5.5 x 3 cm and up to 1 cm in thickness. A central area of ulceration is noted measuring 2.5 cm in greatest length. A detached piece of skin is also noted measuring 4 x 3.3 x 0.2 cm. Professor Criminal Justice sections are submitted in two cassettes. B - Received in fixative is one container labeled with the patient's name and designated right forearm IV drug abuse abscess. The specimen consists of a piece of cooper-white skin with underlying tissue measuring 2.5 x 2.3 cm and up to 0.5 cm in thickness. A central area of ulceration is noted measuring 1.5 cm in greatest length. Professor Criminal Justice sections are submitted in two cassettes. / LORENZO:graciela 09/20/19 TC:2 CPT: 27440 x2
--- NOTE | 2019-09-19 11:25 | PN_ITS ---
Patient Problems: Active and Suspected Problems (Last Updated 05/31/19 @ 09:37 by Bea Bell) Cellulitis and abscess of upper arm and forearm (Acute) Alcohol withdrawal (Acute) Opiate withdrawal (Acute) Subjective: Examined. He was sleepy. He had no active complaints. Review of stems otherwise negative. He has been managed for cellulitis of both upper extremities due to IV drug use. Plastic surgery has been consulted. He has remained hemodynamically stable. Vitals reviewed. White cell count is 8.1. Vitals/I&O's: Vital Signs Temp Pulse Resp BP Pulse Ox 97.9 F 79 16 131/82 H 98 09/19/19 09:29 09/19/19 09:29 09/19/19 09:29 09/19/19 09:29 09/19/19 09:29 Oxygen Delivery Method Room Air Weight: 141 lb 12.116 oz Body Mass Index (BMI) 24.3 Intake and Output for Last 24 Hours 09/17/19 09/18/19 09/19/19 23:59 23:59 23:59 Intake Total 594.67 / 594.67 Balance 594.67 / 594.67 General: Alert, Oriented x3, Cooperative, - - drowsy HEENT: Atraumatic, PERRLA, EOMI, Normocephalic Oral: Moist Mucosa Neck: Supple, No JVD, Negative Carotid Bruits Lungs: Clear to auscultation, Normal air movement, No rhonchi, No wheeze Cardiovascular: Regular rate, Regular Rhythm, Normal S1, Normal S2, No murmurs Abdomen: Bowel Sounds Present, Soft, Non Tender, Non-Distended, No Hepato- splenomegaly Extremities: No clubbing, No cyanosis, No edema Skin: - - Bilateral swelling and ulceration over forearms, with erythema and differential warmth, mildly tender to touch Musculoskeletal: No Tenderness to Palpation of Joints or Extremities Lymphatic: No Cervical, Supraclavicular, or Inguinal Adenopathy Neurological: Cranial nerves II-XII grossly intact Psych/Mental Status: Normal Affect, Appropriate Laboratory Results 09/18/19 21:10: WBC 9.4, RBC 3.67 L, Hgb 11.1 L, Hct 33.4 L, MCV 91.0, MCH 30.2, MCHC 33.2, RDW Std Deviation 42.3, RDW Coeff of Kelsea 12.7, Plt Count 207, MPV 10.2, Immature Gran % (Auto) 0.300, Neut % (Auto) 62.2, Lymph % (Auto) 27.0, [place] % (Auto) 7.4, Eos % (Auto) 2.8, Baso % (Auto) 0.3, Absolute Neuts (auto) 5.9, Absolute Lymphs (auto) 2.54, Nucleated RBC % 0 09/18/19 21:10: Sodium 145, Potassium 3.6, Chloride 117 H, Carbon Dioxide 24.0, Anion Gap 4 L, BUN 11, Creatinine 0.90, Estim Creat Clear Calc 84.96, Est GFR (MDRD) Af Amer 117, Est GFR (MDRD) Non-Af 97, BUN/Creatinine Ratio 12.3, Glucose 114 H, Calcium 8.1 L, Total Bilirubin 0.20, AST 49 H, ALT 56, Alkaline Phosphatase 59, Total Protein 5.8 L, Albumin 2.6 L, Globulin 3.2, Albumin/Globulin Ratio 0.8 L 09/18/19 21:10: Ethyl Alcohol 9.0 09/18/19 21:10: Phosphorus 2.7, Magnesium 2.2 09/18/19 21:55: Urine Opiates Screen NEGATIVE, Urine Methadone Screen NEGATIVE, Ur Barbiturates Screen NEGATIVE, Ur Phencyclidine Scrn NEGATIVE, Ur Amphetamines Screen POSITIVE H, U Methamphetamin-MDMA NEGATIVE, U Benzodiazepines Scrn NEGATIVE, Urine Cocaine Screen NEGATIVE, U Cannabinoids Screen NEGATIVE, Ur Drug Screen Comment 09/19/19 01:00: S.aureus Protein A PCR POSITIVE H, MRSA (PCR) POSITIVE H 09/19/19 08:06: Hep Bs Antigen Preliminary Reactive H, Hep Bs Antibody Non- Reactive, Hepatitis C Antibody REACTIVE, HIV 1&2 Antibody Non-Reactive 09/19/19 08:06: WBC 8.1, RBC 4.00 L, Hgb 12.2 L, Hct 37.0 L, MCV 92.5, MCH 30.5, MCHC 33.0, RDW Std Deviation 43.5, RDW Coeff of Kelsea 12.7, Plt Count 227, MPV 10.2, Immature Gran % (Auto) 0.500, Neut % (Auto) 70.7 H, Lymph % (Auto) 19.2, [place] % (Auto) 6.4, Eos % (Auto) 2.8, Baso % (Auto) 0.4, Absolute Neuts (auto) 5.8, Absolute Lymphs (auto) 1.56, Nucleated RBC % 0 09/19/19 08:06: Sodium 144, Potassium 4.0, Chloride 112 H, Carbon Dioxide 22.0, Anion Gap 10, BUN 11, Creatinine 0.83, Estim Creat Clear Calc 92.13, Est GFR (MDRD) Af Amer 127, Est GFR (MDRD) Non-Af 105, BUN/Creatinine Ratio 13.2, Glucose 95, Calcium 7.9 L, Total Bilirubin 0.20, AST 37, ALT 52, Alkaline Phosphatase 62, Total Protein 5.7 L, Albumin 2.5 L, Globulin 3.2, Albumin/Globulin Ratio 0.8 L 09/19/19 08:06: Miscellaneous Test Pending Diagnostic Data Forearm X-Ray 09/18/19 20:45 IMPRESSION: Soft tissue swelling, otherwise negative x-ray examination of the radius and ulna. Electronically Signed: Dionne Nichole MD at 21:12 EDT Tel , Service support , Current Medications Acetaminophen (Tylenol) 650 mg PO Q6H PRN PRN PRN Reason: Pain Score 1-10/Temp > 100.7 F Al Hydroxide/Mg Hydroxide (Mylanta Ii) 30 ml PO Q6H PRN PRN PRN Reason: Gastric Burning Albuterol Sulfate (Ventolin Aerosols) 2.5 mg INHALATION Q2H PRN PRN PRN Reason: Shortness of Breath/Wheezing Bisacodyl (Dulcolax) 10 mg RECTAL DAILY PRN PRN Reason: Constipation Dextrose (D50w Syringe) 0 gm IV X1 PRN; Protocol PRN Reason: Hypoglycemia Dicyclomine HCl (Bentyl) 20 mg PO Q6H PRN PRN PRN Reason: abdominal discomfort Famotidine (Pepcid) 20 mg PO BID [facility] Last Admin: 09/19/19 09:47 Dose: Not Given Documented by: Folic Acid (Folic Acid) 1 mg PO DAILY@0800 [facility] Last Admin: 09/19/19 09:47 Dose: Not Given Documented by: Gabapentin (Neurontin) 300 mg PO Q8H PRN PRN PRN Reason: moderate to severe anxiety Glucagon () 1 mg IM .X1 PRN PRN Reason: Hypoglycemia Guaifenesin (Robitussin) 20 ml PO Q4H PRN PRN PRN Reason: COUGH Hydromorphone HCl (Dilaudid Inj) 1 mg IV Q4H PRN PRN PRN Reason: Pain Score 6-10/10 Hydroxyzine Pamoate (Vistaril Pamoate Capsule) 50 mg PO Q4H PRN PRN PRN Reason: mild anxiety Vancomycin IV Pharmacy to Dose (1 ea/ Sodium Chloride) 500 mls @ 250 mls/hr IV PRN PRN; Protocol PRN Reason: Rx to Dose Piperacillin Sod/Tazobactam (Sod 3.375 gm/ Sodium Chloride) 50 mls @ 12.5 mls/hr IV Q8 [facility] Last Admin: 09/19/19 06:07 Dose: 12.5 mls/hr Documented by: Sodium Chloride () 250 mls @ 15 mls/hr IV .[id number] PRN PRN Reason: Saline Flush Last Infusion: 09/19/19 06:09 Dose: 0 mls/hr Documented by: Sodium Chloride () 250 mls @ 15 mls/hr IV .[id number] PRN PRN Reason: Additional IVPB Infusion Vancomycin HCl (Vancomycin) 1,000 mg in 200 mls @ 200 mls/hr IV Q12H [facility] Ibuprofen (Motrin) 600 mg PO Q8H PRN PRN PRN Reason: Pain Score 1-10/10 Loperamide HCl (Imodium) 2 mg PO Q4H PRN PRN PRN Reason: LOOSE STOOLS Nicotine (Nicoderm Cq (Pbkc)) 21 mg TRANSDERM. DAILY [facility] Nutritional Formula (Lactose Free) (Ensure Enlive) 120 ml PO 4X/DAY [facility] Last Admin: 09/19/19 09:47 Dose: Not Given Documented by: Ondansetron HCl (Zofran) 8 mg PO Q8H PRN PRN PRN Reason: NAUSEA Ondansetron HCl (Zofran) 4 mg IV Q8H PRN PRN PRN Reason: NAUSEA/VOMITING Oxycodone HCl (Oxyir) 10 mg PO Q4H PRN PRN PRN Reason: Pain Score 4-5/10 Phenobarbital (Phenobarbital) 97.2 mg PO Q4H [facility]; Taper Stop: 09/23/19 10:14 Last Admin: 09/19/19 06:08 Dose: 97.2 mg Documented by: Prochlorperazine Edisylate (Compazine Iv) 5 mg IV Q4H PRN PRN PRN Reason: Breakthrough nausea/vomiting Senna (Senokot) 2 tablet PO QHS PRN PRN Reason: Constipation Sodium Chloride () 10 - 40 ml IV UD PRN PRN Reason: SALINE FLUSH Last Admin: 09/19/19 06:08 Dose: 20 ml Documented by: Thiamine HCl (Vitamin B1) 100 mg PO DAILYCM [facility] Last Admin: 09/19/19 09:47 Dose: Not Given Documented by: Throat Lozenges (Cepacol Sore Throat Lozenge) 1 lozenge MUCOUS MEM Q2H PRN PRN PRN Reason: SORE THROAT Trazodone HCl (Desyrel) 100 mg PO QHS PRN PRN Reason: INSOMNIA STROKE Vital Signs/Narrative: Vital Signs Temp Pulse Resp BP Pulse Ox 09/19/19 09:29 97.9 F 79 16 131/82 H 98 09/19/19 08:59 96 Medical Necessity - Tobacco Use Smoking Status: Current every day smoker Tobacco Use: Cigarettes Assessment/Plan All Active Problems (Last Updated 05/31/19 @ 09:37 by Bea Bell) Cellulitis and abscess of upper arm and forearm (Acute) Alcohol withdrawal (Acute) Opiate withdrawal (Acute) Shoulder pain (Acute) Long-term Suboxone use (Acute) Tenosynovitis of right wrist (Acute) Tenosynovitis of left wrist (Acute) 1.Cellulitis of both UEs * Also has abscess formation. Currently on IV vancomycin and Zosyn. * WBC is 8.1. Plastic surgery on board. * Patient to go for I&D and debridement today. * Wound cultures and blood cultures pending. * 2. Acute alcohol withdrawal * On phenobarbital drawl protocol. * Was on gabapentin for seizure prophylaxis. * Monitor CIWA score. It was 0 this morning. * 3. History of polysubstance abuse: also uses opiates. was given IV and oral opiates for due to severe pain on admission. 4. 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 Treatment naive. Counseled that he would need to be clean from drugs before he can qualify for treatment. 5. Nicotine dependence; counseled to quit. Nicotine patch 21mg daily 6. chronic neuropathy: on gabapentin. DVT prophylaxis: We will start Lovenox Inpatient E&M: 17356 Subs Hosp L3
--- NOTE | 2019-09-19 11:53 | PCM.OPRPT ---
Report of Operation Date of Procedure: 09/19/19 Pre-Operative Diagnosis: 1. IV drug abuse abscess mid dorsal radial aspect left forearm. 2. IV drug abuse abscess mid dorsal radial aspect right forearm. 3. Opiate withdrawal. 4. Alcohol withdrawal. 5. Heroin abuse. 6. Methamphetamine abuse. 7. Smoker. Post-Operative Diagnosis: 1. IV drug abuse abscess mid dorsal radial aspect left forearm. 2. IV drug abuse abscess mid dorsal radial aspect right forearm. 3. Open surgical abscess wound mid dorsal radial aspect left forearm. 4. Open surgical abscess wound mid dorsal radial aspect right forearm. 5. Opiate withdrawal. 6. Alcohol withdrawal. 7. Heroin abuse. 8. Methamphetamine abuse. 9. Smoker. Surgery/Procedure Performed:: 1. Surgical preparation mid dorsal radial aspect left forearm with incision and drainage and excisional debridement intravenous drug abuse abscess (24.5 cm2). 2. Surgical preparation mid dorsal radial aspect right forearm with incision and drainage and excisional debridement intravenous drug abuse abscess (10.5 cm2). Description of Surgical Findings:: The patient is a 49 y/o M w/ PMHx: Polysubstance abuse with heroin (1/2 gm daily), meth in addition to EtOH abuse (2-5 tall boys daily), Hepatitis C/B, GERD, Neuropathy, Tobacco use, Cannabis use who presents to the [facility] ED on 09/18/19 with history of initial presentation for specifically requested alcohol and opiate detoxification with acute withdrawal nausea, tremors, agitation, tactile disturbances, abdominal pain/cramping, generalized body aches and pains, rhinorrhea, fatigue, restless leg with last dose of heroin, methamphetamine as well as alcohol reportedly on 09/17/2019 evening with onset of symptoms 09/18/19 and progressively worsening prompting eventual ED presentation as patient interested in attaining clean status; however, upon evaluation in the ED however patient had bilateral upper extremities significant abscesses with associated cellulitis but denied any recent fevers or chills. Patient unable to given timeline as to when his BL UE started to become red, tender or had obvious abscesses. ED physician did perform I&D to the worst of the abscesses on each arm with wound cultures and wound MRSA PCR requested. Given this finding discussed at length with patient that would plan to admit and could initiate alcohol detoxification however given need for possible surgical further intervention with plastic surgery consultation requested would continue pain regimen and would defer opiate withdrawal protocols until clinical acute presentation had resolved. Work-up in the ED included T 97.5, heart rate 90, BP 123/70, respiratory rate 15, 99% on room air, CBC with WBC 9.4, hemoglobin 11.1, platelet 207 without market shift, CMP with chloride 117, glucose 114, AST/ALT 49/56, total bilirubin 0.20, UDS with positive amphetamine but no other agents which is concerning given reported heroin usage history, ethyl alcohol 9, blood culture x2 pending per ED. In the ED patient administered clindamycin. Patient was informed of the risks and complications of the procedure including alternatives to surgery. These were discussed with the patient personally. Patient voices understanding and wishes to proceed. Encouraged patient to stop smoking as it may have deleterious effects on wound healing. Size of defect mid dorsal radial aspect left forearm - 7 x 3.5 x 1 cm. Size of defect mid dorsal radial aspect right forearm - 3.5 x 3 x 1 cm. hydrology technician: None Type of Anesthesia:: General Specimen's removed: 1. IV drug abuse abscess mid dorsal radial aspect left forearm to Pathology and Microbiology. 2. IV drug abuse abscess mid dorsal radial aspect right forearm to Pathology and Microbiology. Drains: None. Estimated Blood Loss (mL): 50 ml. Description of Procedure: Patient was taken to OR in supine position and was placed under general anesthesia. The left upper extremity was prepped and draped in the usual fashion. SCD's were placed for DVT prophylaxis. Perioperative antibiotics were given intravenously. Using xylocaine with epinephrine, the abscess left forearm was infiltrated. After waiting 5 minutes for the anesthetic to take effect, an incision and drainage was performed on the mid dorsal radial aspect left forearm with some pus expressed. A lot of fat necrosis present. Infection extended to the muscle and fascia. The underlying muscle and fascia appeared viable. The cephalic vein appeared completely obstructed from chronic use. The vein was excised. The fat necrosis was excised and debrided. Hemostasis was obtained with electrocautery. The wound was irrigated with saline. Tissue removed was sent to Pathology for analysis to rule out carcinoma and tissue was sent to Microbiology for culture. A positive culture will necessitate antibiotic therapy. The size of the defect after incision and drainage and excisional debridement was 7 x 3.5 x 1 cm or 24.5 cm2. The wound was dressed with Mepitel nonadherent dressing followed by Kerlix gauze and Betadine followed by dry Kerlix gauze and ABD pad followed by a compression bee wrap. An incision and drainage was then performed on the mid dorsal radial aspect right forearm with some pus expressed. A lot of fat necrosis present. Infection extended to the muscle and fascia. The underlying muscle and fascia appeared viable. The cephalic vein appeared completely obstructed from chronic use. The vein was excised. The fat necrosis was excised and debrided. Hemostasis was obtained with electrocautery. The wound was irrigated with saline. Tissue removed was sent to Pathology for analysis to rule out carcinoma and tissue was sent to Microbiology for culture. A positive culture will necessitate antibiotic therapy. The size of the defect after incision and drainage and excisional debridement was 3.5 x 3 x 1 cm or 10.5 cm2. The wound was dressed with Mepitel nonadherent dressing followed by Kerlix gauze and Betadine followed by dry Kerlix gauze and ABD pad followed by a compression bee wrap. I didn't have to use a tourniquet because I was able to control the bleeding on its own. If there were bleeding issues during surgery then a tourniquet would have been applied. Patient tolerated the procedure well and was sent to PACU in satisfactory condition. Patient will be sent upstairs for continued postop care. The VAC will be applied tomorrow. After discharge, followup at [facility]. Grafts/Implants Used: None. - Complications None. - Admit VTE Documentation VTE Present on Admission: No VTE Mechan Device Prophylaxis: SCD's VTE Pharm Prophylaxis ordered?: Yes Surgery Charges CPT - 46397 ICD-10 - L02.414, S51.802A, F11.23, F10.239, F11.90, F15.10, F17.200 37208 L02.414, S51.802A, F11.23, F10.239, F11.90, F15.10, F17.200 40742 L02.413, S51.801A, F11.23, F10.239, F11.90, F15.10, F17.200 43538 L02.413, S51.801A, F11.23, F10.239, F11.90, F15.10, F17.200
[2019-09-19] MEDS: HYDROmorphone 1 MG/ML Syringe IV (13:27)
--- NOTE | 2019-09-19 14:19 | ADDICTION ---
This headline writer attempted to visit patient in his room following surgery today. He was not alert/oriented, this headline writer was unable to successfully meet with patient. This headline writer will attempt to meet with patient tomorrow 09/20/2019.
[2019-09-19] MEDS: Ibuprofen 600 MG Tablet PO (16:40)
[2019-09-19] MEDS: Vancomycin IV 1,000 MG/200 ML BAG 200 MG IV (21:48)
[2019-09-19] MEDS: Famotidine 20 MG Tablet PO (21:50)
[2019-09-19] MEDS: oxyCODONE 5 MG Tablet 10 MG PO (21:57)
[2019-09-19] MEDS: hydrOXYzine PAM 25 MG Capsule 50 MG PO (22:52)
[2019-09-20 00:17] VITALS: BP 135/63; PULSE 80; RESP 18; TEMP 36.6; O2SAT 99
[2019-09-20] MEDS: QUEtiapine 100 MG Tablet PO ×3 (00:25→21:48)
[2019-09-20] MEDS: Phenobarbital 32.4 MG Tablet PO ×5 (03:04→21:48)
[2019-09-20 06:00] VITALS: BP 134/72; PULSE 72; RESP 18; TEMP 36.1; O2SAT 100
[2019-09-20 06:03] LABS: Absolute Lymphocyte Count 3.19 X10^3/uL (0.83-4.51); Absolute Neutrophil Count 3.6 X10^3/uL (2.0-7.7); Basophil# 0.04 X10^3/uL; Basophil% 0.5 % (0-1); Eosinophil# 0.37 X10^3/uL; Eosinophils% 4.7 % (0-5); Hematocrit 38.7 % (40-54); Hemoglobin 12.5 g/dL (13.0-16.5); Lymphocyte # 3.19 X10^3/ul (4.0); Lymphocyte % 40.2 % (19-41); Mean Corp Hgb Conc 32.3 g/dL (32-36); Mean Corpuscular Hgb 30.2 pg (27.0-32.0); Mean Corpuscular Volume 93.5 fL (80-94); Mean Platelet Vol. 10.1 fl (6.2-12.0); Monocyte# 0.68 X10^3/uL; Monocyte% 8.6 % (0-10); NRBC Flagged by Analyzer 0 % (0-5); Neutrophil # 3.56 X10^3/uL (2.7-7.7); Neutrophil % 44.7 % (47-70); Platelet Count 216 K/mm3 (150-450); RBC Distribution Width CV 12.5 % (11.6-14.6); Red Blood Count 4.14 M/mm3 (4.6-6.2); White Blood Count 7.9 K/mm3 (4.4-11.0)
[2019-09-20 06:15] LABS: Anion Gap 6 (5-15); BUN 8 mg/dL (7-18); BUN/Creat Ratio 9.9 RATIO (10-20); Calcium,Total 7.8 mg/dL (8.5-10.1); Chloride 108 mmol/L (98-107); Creatinine, Serum 0.81 mg/dL (0.70-1.30); EST Glomerular Filtration Rate 109 mL/min (>60); Est Glom Filt Rate - Afr Amer 132 mL/min (>60); Glucose 108 mg/dL (74-106); Potassium 3.2 mmol/L (3.5-5.1); Sodium Level 141 mmol/L (136-145)
[2019-09-20 08:20] VITALS: BP 150/92; PULSE 87; RESP 16; TEMP 36.7; O2SAT 100
[2019-09-20] MEDS: HYDROmorphone 1 MG/ML Syringe IV (08:26)
[2019-09-20] MEDS: Folic Acid 1 MG Tablet PO (08:28)
[2019-09-20] MEDS: Thiamine Hydrochloride 100 MG Tablet PO (08:28)
[2019-09-20] MEDS: Famotidine 20 MG Tablet PO ×2 (08:29→21:48)
--- NOTE | 2019-09-20 10:07 | NURSING ---
wound photo: left forearm
--- NOTE | 2019-09-20 10:07 | NURSING ---
wound photo: right forearm
--- NOTE | 2019-09-20 10:30 | PN_ITS ---
Patient Problems: Active and Suspected Problems (Last Updated 05/31/19 @ 09:37 by Bea Bell) Cellulitis and abscess of upper arm and forearm (Acute) Alcohol withdrawal (Acute) Opiate withdrawal (Acute) Subjective: Patient seen and examined. He had no complaints. He had I&D with debridement done by plastic surgery yesterday. Today is POD 1. Review of systems is otherwise negative. Labs and vitals reviewed. Vitals/I&O's: Vital Signs Temp Pulse Resp BP Pulse Ox 97.0 F L 72 18 134/72 H 100 09/20/19 06:00 09/20/19 06:00 09/20/19 06:00 09/20/19 06:00 09/20/19 06:00 Oxygen Delivery Method Room Air Weight: 141 lb 12.116 oz Body Mass Index (BMI) 24.3 Intake and Output for Last 24 Hours 09/18/19 09/19/19 09/20/19 23:59 23:59 23:59 Intake Total 2539.34 / 3019.34 890 / 890 Balance 2539.34 / 3019.34 890 / 890 General: Alert, Oriented x3, Cooperative, HEENT: Atraumatic, PERRLA, EOMI, Normocephalic Oral: Moist Mucosa Neck: Supple, No JVD, Negative Carotid Bruits Lungs: Clear to auscultation, Normal air movement, No rhonchi, No wheeze Cardiovascular: Regular rate, Regular Rhythm, Normal S1, Normal S2, No murmurs Abdomen: Bowel Sounds Present, Soft, Non Tender, Non-Distended, No Hepato- splenomegaly Extremities: No clubbing, No cyanosis, No edema Skin: - - Both forearms bandaged. Musculoskeletal: No Tenderness to Palpation of Joints or Extremities Lymphatic: No Cervical, Supraclavicular, or Inguinal Adenopathy Neurological: Cranial nerves II-XII grossly intact Psych/Mental Status: Normal Affect, Appropriate Microbiology Past 72 Hours 09/19/19 08:30 Mucosa - Nasopharyngeal Coronavirus COVID-19 PCR - Final 09/19/19 01:00 Wound Abcess - Arm Gram Stain - Final Laboratory Results 09/20/19 05:30: WBC 7.9, RBC 4.14 L, Hgb 12.5 L, Hct 38.7 L, MCV 93.5, MCH 30.2, MCHC 32.3, RDW Std Deviation 43.0, RDW Coeff of Kelsea 12.5, Plt Count 216, MPV 10.1, Immature Gran % (Auto) 1.300 H, Neut % (Auto) 44.7 L, Lymph % (Auto) 40.2, [place] % (Auto) 8.6, Eos % (Auto) 4.7, Baso % (Auto) 0.5, Absolute Neuts (auto) 3.6, Absolute Lymphs (auto) 3.19, Nucleated RBC % 0 09/20/19 05:30: Sodium 141, Potassium 3.2 L, Chloride 108 H, Carbon Dioxide 27.0, Anion Gap 6, BUN 8, Creatinine 0.81, Estim Creat Clear Calc 94.40, Est GFR (MDRD) Af Amer 132, Est GFR (MDRD) Non-Af 109, BUN/Creatinine Ratio 9.9 L, Glucose 108 H, Calcium 7.8 L Diagnostic Data Forearm X-Ray 09/18/19 20:45 IMPRESSION: Soft tissue swelling, otherwise negative x-ray examination of the radius and ulna. Electronically Signed: Dionne Nichole MD at 21:12 EDT Tel , Service support , Current Medications Acetaminophen (Tylenol) 650 mg PO Q6H PRN PRN PRN Reason: Pain Score 1-10/Temp > 100.7 F Al Hydroxide/Mg Hydroxide (Mylanta Ii) 30 ml PO Q6H PRN PRN PRN Reason: Gastric Burning Albuterol Sulfate (Ventolin Aerosols) 2.5 mg INHALATION Q2H PRN PRN PRN Reason: Shortness of Breath/Wheezing Bisacodyl (Dulcolax) 10 mg RECTAL DAILY PRN PRN Reason: Constipation Dextrose (D50w Syringe) 0 gm IV X1 PRN; Protocol PRN Reason: Hypoglycemia Dicyclomine HCl (Bentyl) 20 mg PO Q6H PRN PRN PRN Reason: abdominal discomfort Famotidine (Pepcid) 20 mg PO BID [facility] Last Admin: 09/20/19 08:29 Dose: 20 mg Documented by: Folic Acid (Folic Acid) 1 mg PO DAILY@0800 [facility] Last Admin: 09/20/19 08:28 Dose: 1 mg Documented by: Gabapentin (Neurontin) 300 mg PO Q8H PRN PRN PRN Reason: moderate to severe anxiety Glucagon () 1 mg IM .X1 PRN PRN Reason: Hypoglycemia Guaifenesin (Robitussin) 20 ml PO Q4H PRN PRN PRN Reason: COUGH Hydromorphone HCl (Dilaudid Inj) 1 mg IV Q4H PRN PRN PRN Reason: Pain Score 6-10/10 Last Admin: 09/20/19 08:26 Dose: 1 mg Documented by: Hydroxyzine Pamoate (Vistaril Pamoate Capsule) 50 mg PO Q4H PRN PRN PRN Reason: mild anxiety Last Admin: 09/19/19 22:52 Dose: 50 mg Documented by: Vancomycin IV Pharmacy to Dose (1 ea/ Sodium Chloride) 500 mls @ 250 mls/hr IV PRN PRN; Protocol PRN Reason: Rx to Dose Piperacillin Sod/Tazobactam (Sod 3.375 gm/ Sodium Chloride) 50 mls @ 12.5 mls/hr IV Q8 [facility] Last Admin: 09/20/19 06:27 Dose: 12.5 mls/hr Documented by: Sodium Chloride () 250 mls @ 15 mls/hr IV .[id number] PRN PRN Reason: Saline Flush Last Infusion: 09/20/19 03:00 Dose: 15 mls/hr Documented by: Sodium Chloride () 250 mls @ 15 mls/hr IV .[id number] PRN PRN Reason: Additional IVPB Infusion Vancomycin HCl (Vancomycin) 1,000 mg in 200 mls @ 200 mls/hr IV Q12H [facility] Last Infusion: 09/19/19 22:48 Dose: Infused Documented by: Ibuprofen (Motrin) 600 mg PO Q8H PRN PRN PRN Reason: Pain Score 1-10/10 Last Admin: 09/19/19 16:40 Dose: 600 mg Documented by: Loperamide HCl (Imodium) 2 mg PO Q4H PRN PRN PRN Reason: LOOSE STOOLS Nicotine (Nicoderm Cq (Pbkc)) 21 mg TRANSDERM. DAILY [facility] Last Admin: 09/20/19 08:29 Dose: 21 mg Documented by: Nutritional Formula (Lactose Free) (Ensure Enlive) 120 ml PO 4X/DAY [facility] Last Admin: 09/20/19 08:31 Dose: 120 ml Documented by: Ondansetron HCl (Zofran) 8 mg PO Q8H PRN PRN PRN Reason: NAUSEA Ondansetron HCl (Zofran) 4 mg IV Q8H PRN PRN PRN Reason: NAUSEA/VOMITING Oxycodone HCl (Oxyir) 10 mg PO Q4H PRN PRN PRN Reason: Pain Score 4-5/10 Last Admin: 09/19/19 21:57 Dose: 10 mg Documented by: Phenobarbital (Phenobarbital) 64.8 mg PO Q4H [facility]; Taper Stop: 09/23/19 10:14 Last Admin: 09/20/19 07:08 Dose: Not Given Documented by: Prochlorperazine Edisylate (Compazine Iv) 5 mg IV Q4H PRN PRN PRN Reason: Breakthrough nausea/vomiting Quetiapine Fumarate (Seroquel) 100 mg PO BID [facility] Last Admin: 09/20/19 08:29 Dose: 100 mg Documented by: Senna (Senokot) 2 tablet PO QHS PRN PRN Reason: Constipation Sodium Chloride () 10 - 40 ml IV UD PRN PRN Reason: SALINE FLUSH Last Admin: 09/19/19 13:27 Dose: 30 ml Documented by: Thiamine HCl ([facility]itamin [facility]) [facility] Last Admin: 09/20/19 08:28 Dose: 100 mg Documented by: Throat Lozenges (Cepacol Sore Throat Lozenge) 1 lozenge MUCOUS MEM Q2H PRN PRN PRN Reason: SORE THROAT Trazodone HCl (Desyrel) 100 mg PO QHS PRN PRN Reason: INSOMNIA Medical Necessity - Tobacco Use Smoking Status: Current every day smoker Tobacco Use: Cigarettes Assessment/Plan All Active Problems (Last Updated 05/31/19 @ 09:37 by Bea Bell) Cellulitis and abscess of upper arm and forearm (Acute) Alcohol withdrawal (Acute) Opiate withdrawal (Acute) Shoulder pain (Acute) Long-term Suboxone use (Acute) Tenosynovitis of right wrist (Acute) Tenosynovitis of left wrist (Acute) 1.Cellulitis and abscess of both UEs * due to IV drug abuse * s/p I&D. today is POD 1. On Iv vancomycin and IV zosyn * Wound cultures and blood cultures pending. * 2. Acute alcohol withdrawal * On phenobarbital drawl protocol. * Was on gabapentin for seizure prophylaxis. * Monitor CIWA score. It was 0 this morning. * 3. History of polysubstance abuse: currently requiring strong IV pain meds to control pain from abscess and cellulitis 4. 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 Treatment naive. Counseled that he would need to be clean from drugs before he can qualify for treatment. 5. Nicotine dependence; counseled to quit. Nicotine patch 21mg daily 6. chronic neuropathy: on gabapentin. DVT prophylaxis: lovenox Inpatient E&M: 18113 Subs Hosp L2
[2019-09-20] MEDS: Vancomycin IV 1,000 MG/200 ML BAG 200 MG IV ×2 (10:35→21:48)
--- NOTE | 2019-09-20 14:08 | CHAPLAIN ---
Type of Pastoral Visit _x__ Initial Visit ___ Follow-up Visit ___ On-call Visit ___ General Patient Visit ___ Spiritual Assessment ___ Family Conference ___ Bereavement ___ Rapid Response ___ Code Blue ___ Other (describe below) Pastoral Care Referral From _x__ Patient ___ Family ___ Nurse ___ Physician ___ Cereal Chemist ___ Cyber Defense Incident Responder ___ Other (describe below) Sacrament/Intervention _x__ Active listening ___ Anointing ___ Jewish ___ Bereavement ___ Communion ___ Barbara exploration ___ ___ Life review ___ Prayer ___ Reconciliation ___ Sacrament of Sick ___ Supportive presence ___ Wedding ___ Other (describe below) Pastoral Comments introduced self and role to patient; pt welcomes this chief vendor quality to sit and talk with him and pt states whenever I do the right thing and follow God things go better for me but I've not done that here recently; pt is open to discuss life and situation; pt receives visit from Recovery Support Plastics Tooling Engineer and so this chief vendor quality excuses himself from room;
[2019-09-20 14:15] VITALS: BP 172/76; PULSE 81; RESP 16; TEMP 36.7; O2SAT 100
[2019-09-20] MEDS: Ibuprofen 600 MG Tablet PO (14:22)
[2019-09-20] MEDS: hydrOXYzine PAM 25 MG Capsule 50 MG PO (14:23)
--- NOTE | 2019-09-20 16:03 | ADDICTION ---
This telegraphic typewriter operator met with patient, in his room, to complete ASAM assessment, begin discharge planning and to provide resource materials to patient. Patient reported motivation for Residential treatment. This telegraphic typewriter operator contacted the following facilities who all denied client's admit due to medical barriers and open wounds. - [facility] - [facility] [place] - [facility] This telegraphic typewriter operator also contacted [facility] who also reported that he is not appropriate for their facility. This telegraphic typewriter operator communicated with [facility] SW and residence life director that he may not be accepted into residential treatment due to wound issues. This telegraphic typewriter operator will provide SW with updated ASAM assessment.
[2019-09-20] MEDS: Acetaminophen 325 MG Tablet 650 MG PO (16:48)
[2019-09-20] MEDS: Gabapentin 300 MG Capsule PO (16:48)
--- NOTE | 2019-09-20 17:05 | PCM.PN.SRG ---
Patient Problems: Active and Suspected Problems (Last Updated 05/31/19 @ 09:37 by Bea Bell) Cellulitis and abscess of upper arm and forearm (Acute) Alcohol withdrawal (Acute) Opiate withdrawal (Acute) Subjective: Postop #1 Patient complains of wound pain. VAC applied. - Physical Exam Vitals/I&O's: Vital Signs Temp Pulse Resp BP Pulse Ox 98.0 F 81 16 172/76 H 100 09/20/19 14:15 09/20/19 14:15 09/20/19 14:15 09/20/19 14:15 09/20/19 14:15 Oxygen Delivery Method Room Air Weight: 141 lb 12.116 oz Body Mass Index (BMI) 24.3 Intake and Output for Last 24 Hours 09/18/19 09/19/19 09/20/19 23:59 23:59 23:59 Intake Total 2539.34 / 3019.34 50 Balance 2539.34 / 3019.34 General: - - sleepy HEENT: PERRLA, EOMI Oral: Moist Mucosa Neck: Supple Abdomen: Soft, Non-Distended Skin: Ulcer/ Wound - bilateral forearm wounds are stable. No active bleeding seen. VAC applied to both forearm wounds without difficulty. Neurological: Cranial nerves II-XII grossly intact Psych/Mental Status: Normal Affect, Appropriate Microbiology Past 72 Hours 09/19/19 12:20 Tissue - Arm Right Gram Stain - Final 09/19/19 12:20 Tissue - Arm Right Wound Culture - Preliminary Staphylococcus aureus 09/19/19 12:20 Tissue - Arm Left Gram Stain - Final 09/19/19 12:20 Tissue - Arm Left Wound Culture - Preliminary Staphylococcus aureus 09/19/19 01:00 Wound Abcess - Arm Gram Stain - Final 09/19/19 01:00 Wound Abcess - Arm Wound Culture - Preliminary Staphylococcus aureus 09/19/19 08:30 Mucosa - Nasopharyngeal Coronavirus COVID-19 PCR - Final Laboratory Results 09/19/19 08:06: Miscellaneous Test 09/20/19 05:30: WBC 7.9, RBC 4.14 L, Hgb 12.5 L, Hct 38.7 L, MCV 93.5, MCH 30.2, MCHC 32.3, RDW Std Deviation 43.0, RDW Coeff of Kelsea 12.5, Plt Count 216, MPV 10.1, Immature Gran % (Auto) 1.300 H, Neut % (Auto) 44.7 L, Lymph % (Auto) 40.2, Brown % (Auto) 8.6, Eos % (Auto) 4.7, Baso % (Auto) 0.5, Absolute Neuts (auto) 3.6, Absolute Lymphs (auto) 3.19, Nucleated RBC % 0 09/20/19 05:30: Sodium 141, Potassium 3.2 L, Chloride 108 H, Carbon Dioxide 27.0, Anion Gap 6, BUN 8, Creatinine 0.81, Estim Creat Clear Calc 94.40, Est GFR (MDRD) Af Amer 132, Est GFR (MDRD) Non-Af 109, BUN/Creatinine Ratio 9.9 L, Glucose 108 H, Calcium 7.8 L Current Medications Acetaminophen (Tylenol) 650 mg PO Q6H PRN PRN PRN Reason: Pain Score 1-10/Temp > 100.7 F Last Admin: 09/20/19 16:48 Dose: 650 mg Documented by: Al Hydroxide/Mg Hydroxide (Mylanta Ii) 30 ml PO Q6H PRN PRN PRN Reason: Gastric Burning Albuterol Sulfate (Ventolin Aerosols) 2.5 mg INHALATION Q2H PRN PRN PRN Reason: Shortness of Breath/Wheezing Bisacodyl (Dulcolax) 10 mg RECTAL DAILY PRN PRN Reason: Constipation Dextrose (D50w Syringe) 0 gm IV X1 PRN; Protocol PRN Reason: Hypoglycemia Dicyclomine HCl (Bentyl) 20 mg PO Q6H PRN PRN PRN Reason: abdominal discomfort Enoxaparin Sodium (Lovenox) 40 mg SC DAILY@0600 [facility] Famotidine (Pepcid) 20 mg PO BID COUNT [facility]CLUDES THE [facility] Last Admin: 09/20/19 08:29 Dose: 20 mg Documented by: Folic Acid (Folic Acid) 1 mg PO DAILY@0800 [facility]CLUDES [facility] Last Admin: 09/20/19 08:28 Dose: 1 mg Documented by: Gabapentin (Neurontin) 300 mg PO Q8H PRN PRN PRN Reason: moderate to severe anxiety Last Admin: 09/20/19 16:48 Dose: 300 mg Documented by: Glucagon () 1 mg IM .X1 PRN PRN Reason: Hypoglycemia Guaifenesin (Robitussin) 20 ml PO Q4H PRN PRN PRN Reason: COUGH Hydromorphone HCl (Dilaudid Inj) 1 mg IV Q4H PRN PRN PRN Reason: Pain Score 6-10/10 Last Admin: 09/20/19 08:26 Dose: 1 mg Documented by: Hydroxyzine Pamoate (Vistaril Pamoate Capsule) 50 mg PO Q4H PRN PRN PRN Reason: mild anxiety Last Admin: 09/20/19 14:23 Dose: 50 mg Documented by: Vancomycin IV Pharmacy to Dose (1 ea/ Sodium Chloride) 500 mls @ 250 mls/hr IV PRN PRN; Protocol PRN Reason: Rx to Dose Piperacillin Sod/Tazobactam (Sod 3.375 gm/ Sodium Chloride) 50 mls @ 12.5 mls/hr IV Q8 TIANA Last Admin: 09/20/19 14:22 Dose: 12.5 mls/hr Documented by: Sodium Chloride () 250 mls @ 15 mls/hr IV .[id number] PRN PRN Reason: Saline Flush Last Infusion: 09/20/19 14:22 Dose: Infused Documented by: Sodium Chloride () 250 mls @ 15 mls/hr IV .[id number] PRN PRN Reason: Additional IVPB Infusion Vancomycin HCl (Vancomycin) 1,000 mg in 200 mls @ 200 mls/hr IV Q12H COUNT INCLUDES THE [facility] Last Infusion: 09/20/19 11:35 Dose: Infused Documented by: Ibuprofen (Motrin) 600 mg PO Q8H PRN PRN PRN Reason: Pain Score 1-10/10 Last Admin: 09/20/19 14:22 Dose: 600 mg Documented by: Loperamide HCl (Imodium) 2 mg PO Q4H PRN PRN PRN Reason: LOOSE STOOLS Nicotine (Nicoderm Cq (Pbkc)) 21 mg TRANSDERM. DAILY COUNT [facility]CLUDES [facility] Last Admin: 09/20/19 08:29 Dose: 21 mg Documented by: Nutritional Formula (Lactose Free) (Ensure Enlive) 120 ml PO 4X/DAY COUNT [facility]CLUDES [facility] Last Admin: 09/20/19 14:23 Dose: 120 ml Documented by: Ondansetron HCl (Zofran) 8 mg PO Q8H PRN PRN PRN Reason: NAUSEA Ondansetron HCl (Zofran) 4 mg IV Q8H PRN PRN PRN Reason: NAUSEA/VOMITING Oxycodone HCl (Oxyir) 10 mg PO Q4H PRN PRN PRN Reason: Pain Score 4-5/10 Last Admin: 09/19/19 21:57 Dose: 10 mg Documented by: Phenobarbital (Phenobarbital) 64.8 mg PO Q4H COUNT [facility]CLUDES [facility]; Taper Stop: 09/23/19 10:14 Last Admin: 09/20/19 14:22 Dose: 64.8 mg Documented by: Prochlorperazine Edisylate (Compazine Iv) 5 mg IV Q4H PRN PRN PRN Reason: Breakthrough nausea/vomiting Quetiapine Fumarate (Seroquel) 100 mg PO BID COUNT [facility]CLUDES [facility] Last Admin: 09/20/19 08:29 Dose: 100 mg Documented by: Senna (Senokot) 2 tablet PO QHS PRN PRN Reason: Constipation Sodium Chloride () 10 - 40 ml IV UD PRN PRN Reason: SALINE FLUSH Last Admin: 09/19/19 13:27 Dose: 30 ml Documented by: Thiamine HCl ([facility]itamin [facility]) [facility] Last Admin: 09/20/19 08:28 Dose: 100 mg Documented by: Throat Lozenges (Cepacol Sore Throat Lozenge) 1 lozenge MUCOUS MEM Q2H PRN PRN PRN Reason: SORE THROAT Trazodone HCl (Desyrel) 100 mg PO QHS PRN PRN Reason: INSOMNIA Medical Necessity - Tobacco Use Smoking Status: Current every day smoker Tobacco Use: Cigarettes Assessment/Plan All Active Problems (Last Updated 05/31/19 @ 09:37 by Bea Bell) Abscess of right forearm (Acute) Abscess of left forearm (Acute) Open wound of right forearm (Acute) Open wound of left forearm (Acute) Cellulitis and abscess of upper arm and forearm (Acute) Alcohol withdrawal (Acute) Opiate withdrawal (Acute) Shoulder pain (Acute) Long-term Suboxone use (Acute) Tenosynovitis of right wrist (Acute) Tenosynovitis of left wrist (Acute) 1. IV drug abuse abscess mid dorsal radial aspect left forearm. 2. IV drug abuse abscess mid dorsal radial aspect right forearm. 3. Open surgical abscess wound mid dorsal radial aspect left forearm. 4. Open surgical abscess wound mid dorsal radial aspect right forearm. 5. Opiate withdrawal. 6. Alcohol withdrawal. 7. Heroin abuse. 8. Methamphetamine abuse. 9. Smoker. 10. MRSA. Patient was placed on Vancomycin and Zosyn. Wounds show MRSA. Bilateral forearm wounds are stable. No active bleeding seen. VAC applied today. After surgery depending on the healing process, he may need OT for range of motion exercises, strengthening, and edema management. Anticipate increased metabolic demands from the infection and the surgery. Encourage nutritional supplementation with protein to help the healing process. After discharge, followup at the [facility]. If there is a plateau in the healing process, can proceed with delayed closure with skin grafting. Encouraged patient to stop smoking as it may have deleterious effects on wound healing.
[2019-09-20 18:15] VITALS: BP 132/71; PULSE 83; RESP 14; TEMP 36.8; O2SAT 100
--- NOTE | 2019-09-20 21:40 | NURSING ---
spoke to pharmacist stephania to inform that lab and nursing supv unable to draw vanc trough due to poor veins (pt iv drug user) ok to hang this dose of vanc will notify and to see if pt needs different type of iv line on 09/20
[2019-09-20] MEDS: 0.9% Saline Lock 10 ML Syringe IV (21:48)
[2019-09-20 21:57] VITALS: BP 159/82; PULSE 90; RESP 16; TEMP 36.6; O2SAT 98
[2019-09-21] VITALS (9 sets, daily range): BP systolic 142–160; BP diastolic 62–92; PULSE 77–98; RESP 16–18; TEMP 36.1–37.2; O2SAT 95–100
--- NOTE | 2019-09-21 00:13 | PCM.RX.CS ---
Consult Pharmacy has been consulted to manage selected antiobiotic: Vancomycin Type of Consult: Follow-up Labs: Sodium 141 mmol/L (136-145) 09/20/19 05:30 Potassium 3.2 mmol/L (3.5-5.1) L 09/20/19 05:30 Chloride 108 mmol/L (98-107) H 09/20/19 05:30 Carbon Dioxide 27.0 mmol/L (21.0-32.0) 09/20/19 05:30 Anion Gap 6 (5-15) 09/20/19 05:30 BUN 8 mg/dL (7-18) 09/20/19 05:30 Creatinine 0.81 mg/dL (0.70-1.30) 09/20/19 05:30 Est GFR (MDRD) Af Amer 132 mL/min (>60) 09/20/19 05:30 Est GFR (MDRD) Non-Af 109 mL/min (>60) 09/20/19 05:30 BUN/Creatinine Ratio 9.9 RATIO (10-20) L 09/20/19 05:30 Glucose 108 mg/dL (74-106) H 09/20/19 05:30 Microbiology: Microbiology 09/19/19 12:20 Tissue - Arm Right Gram Stain - Final 09/19/19 12:20 Tissue - Arm Right Wound Culture - Preliminary Staphylococcus aureus 09/19/19 12:20 Tissue - Arm Left Gram Stain - Final 09/19/19 12:20 Tissue - Arm Left Wound Culture - Preliminary Staphylococcus aureus 09/19/19 01:00 Wound Abcess - Arm Gram Stain - Final 09/19/19 01:00 Wound Abcess - Arm Wound Culture - Preliminary Staphylococcus aureus 09/19/19 08:30 Mucosa - Nasopharyngeal Coronavirus COVID-19 PCR - Final Goal Trough: 15-20 mcg/mL Pharmacy Plan for Drug Dosing: Pharmacy Service will continue to monitor and adjust dosing as required. UNABLE TO DRAW TROUGH, RESCHEDULE FOR 0830 DOSE ON 09/20 Follow-Up Labs: Trough Vancomycin Labs to be done on [date and time ordered]: 09/20 @ 0830
[2019-09-21] MEDS: Ibuprofen 600 MG Tablet PO (02:20)
[2019-09-21] MEDS: Phenobarbital 32.4 MG Tablet PO ×5 (02:22→22:05)
[2019-09-21] MEDS: Gabapentin 300 MG Capsule PO ×2 (02:22→22:18)
[2019-09-21] MEDS: hydrOXYzine PAM 25 MG Capsule 50 MG PO ×2 (05:13→16:48)
[2019-09-21] MEDS: Dicyclomine 10 MG Capsule 20 MG PO (05:13)
[2019-09-21] MEDS: Acetaminophen 325 MG Tablet 650 MG PO (05:14)
[2019-09-21] MEDS: Enoxaparin 40 MG/0.4 ML Syringe SC (05:14)
[2019-09-21 08:38] LABS: Absolute Lymphocyte Count 2.29 X10^3/uL (0.83-4.51); Absolute Neutrophil Count 7.8 X10^3/uL (2.0-7.7); Basophil# 0.04 X10^3/uL; Basophil% 0.4 % (0-1); Eosinophil# 0.36 X10^3/uL; Eosinophils% 3.2 % (0-5); Hematocrit 41.1 % (40-54); Hemoglobin 13.5 g/dL (13.0-16.5); Lymphocyte # 2.29 X10^3/ul (4.0); Lymphocyte % 20.2 % (19-41); Mean Corp Hgb Conc 32.8 g/dL (32-36); Mean Corpuscular Hgb 29.9 pg (27.0-32.0); Mean Corpuscular Volume 90.9 fL (80-94); Monocyte# 0.63 X10^3/uL; Monocyte% 5.6 % (0-10); NRBC Flagged by Analyzer 0 % (0-5); Neutrophil # 7.77 X10^3/uL (2.7-7.7); Neutrophil % 68.4 % (47-70); Platelet Count 281 K/mm3 (150-450); RBC Distribution Width CV 12.3 % (11.6-14.6); RBC Distribution Width SD 40.8 fl (35.1-43.9); Red Blood Count 4.52 M/mm3 (4.6-6.2); White Blood Count 11.3 K/mm3 (4.4-11.0)
--- NOTE | 2019-09-21 09:04 | PCM.PN.HOSP ---
Patient Problems: Active and Suspected Problems (Last Updated 05/31/19 @ 09:37 by Bea Bell) Cellulitis and abscess of upper arm and forearm (Acute) Alcohol withdrawal (Acute) Opiate withdrawal (Acute) Subjective: Patient seen and examined. He complained of being dope sick, and said he was withdrawing from drugs. He complained of abdominal cramps, chills, and generally feeling unwell. Review of systems is otherwise negative. Labs and vitals reviewed. Wound cultures are all growing MRSA. Wbc today is 11.3. Vitals/I&O's: Vital Signs Temp Pulse Resp BP Pulse Ox 98.9 F 81 18 160/80 H 100 09/21/19 08:29 09/21/19 08:29 09/21/19 08:29 09/21/19 08:29 09/21/19 08:29 Oxygen Delivery Method Room Air Weight: 141 lb 12.116 oz Body Mass Index (BMI) 24.3 Intake and Output for Last 24 Hours 09/19/19 09/20/19 09/21/19 23:59 23:59 23:59 Intake Total 2539.34 / 3019.34 2855.50 / 2855.50 82 / 82 Balance 2539.34 / 3019.34 2855.50 / 2855.50 82 / 82 General: Alert, lethargic HEENT: Atraumatic, PERRLA, EOMI, Normocephalic Oral: Moist Mucosa Neck: Supple, No JVD, Negative Carotid Bruits Lungs: Clear to auscultation, Normal air movement, No rhonchi, No wheeze Cardiovascular: Regular rate, Regular Rhythm, Normal S1, Normal S2, No murmurs Abdomen: Bowel Sounds Present, Soft, Non Tender, Non-Distended, No Hepato-splenomegaly Extremities: No clubbing, No cyanosis, No edema Skin: - - Both forearms bandaged. Musculoskeletal: No Tenderness to Palpation of Joints or Extremities Lymphatic: No Cervical, Supraclavicular, or Inguinal Adenopathy Neurological: Cranial nerves II-XII grossly intact Psych/Mental Status: lethargic Microbiology Past 72 Hours 09/19/19 01:00 Wound Abcess - Arm Gram Stain - Final 09/19/19 01:00 Wound Abcess - Arm Wound Culture - Final Meth. resistant Staph. aureus 09/19/19 12:20 Tissue - Arm Right Gram Stain - Final 09/19/19 12:20 Tissue - Arm Right Wound Culture - Final Meth. resistant Staph. aureus 09/19/19 12:20 Tissue - Arm Left Gram Stain - Final 09/19/19 12:20 Tissue - Arm Left Wound Culture - Final Meth. resistant Staph. aureus 09/18/19 21:10 Blood Culture (Wb) - Right Hand Blood Culture - Preliminary No growth in 48 hours. 09/18/19 22:40 Blood Culture (Wb) - Anticubital Right Blood Culture - Preliminary No growth in 48 hours. 09/19/19 08:30 Mucosa - Nasopharyngeal Coronavirus COVID-19 PCR - Final Laboratory Results 09/19/19 08:06: Miscellaneous Test 09/21/19 08:20: WBC 11.3 H, RBC 4.52 L, Hgb 13.5, Hct 41.1, MCV 90.9, MCH 29.9, MCHC 32.8, RDW Std Deviation 40.8, RDW Coeff of Kelesa 12.3, Plt Count 281, MPV 10.0, Immature Gran % (Auto) 2.200 H, Neut % (Auto) 68.4, Lymph % (Auto) 20.2, [place] % (Auto) 5.6, Eos % (Auto) 3.2, Baso % (Auto) 0.4, Absolute Neuts (auto) 7.8 H, Absolute Lymphs (auto) 2.29, Nucleated RBC % 0 09/21/19 08:20: Sodium Pending, Potassium Pending, Chloride Pending, Carbon Dioxide Pending, Anion Gap Pending, BUN Pending, Creatinine Pending, Est GFR (MDRD) Af Amer Pending, Est GFR (MDRD) Non-Af Pending, BUN/Creatinine Ratio Pending, Glucose Pending, Calcium Pending 09/21/19 08:20: Vancomycin Trough Pending Diagnostic Data Forearm X-Ray 09/18/19 20:45 IMPRESSION: Soft tissue swelling, otherwise negative x-ray examination of the radius and ulna. Electronically Signed: Dionne Nichole MD at 21:12 EDT Tel , Service support , Current Medications Acetaminophen (Tylenol) 650 mg PO Q6H PRN PRN PRN Reason: Pain Score 1-10/Temp > 100.7 F Last Admin: 09/21/19 05:14 Dose: 650 mg Documented by: Al Hydroxide/Mg Hydroxide (Mylanta Ii) 30 ml PO Q6H PRN PRN PRN Reason: Gastric Burning Albuterol Sulfate (Ventolin Aerosols) 2.5 mg INHALATION Q2H PRN PRN PRN Reason: Shortness of Breath/Wheezing Bisacodyl (Dulcolax) 10 mg RECTAL DAILY PRN PRN Reason: Constipation Dextrose (D50w Syringe) 0 gm IV X1 PRN; Protocol PRN Reason: Hypoglycemia Dicyclomine HCl (Bentyl) 20 mg PO Q6H PRN PRN PRN Reason: abdominal discomfort Last Admin: 09/21/19 05:13 Dose: 20 mg Documented by: Enoxaparin Sodium (Lovenox) 40 mg SC DAILY@0600 [facility] Last Admin: 09/21/19 05:14 Dose: 40 mg Documented by: Famotidine (Pepcid) 20 mg PO BID [facility] Last Admin: 09/20/19 21:48 Dose: 20 mg Documented by: Folic Acid (Folic Acid) 1 mg PO DAILY@0800 [facility] Last Admin: 09/20/19 08:28 Dose: 1 mg Documented by: Gabapentin (Neurontin) 300 mg PO Q8H PRN PRN PRN Reason: moderate to severe anxiety Last Admin: 09/21/19 02:22 Dose: 300 mg Documented by: Glucagon () 1 mg IM .X1 PRN PRN Reason: Hypoglycemia Guaifenesin (Robitussin) 20 ml PO Q4H PRN PRN PRN Reason: COUGH Hydromorphone HCl (Dilaudid Inj) 1 mg IV Q4H PRN PRN PRN Reason: Pain Score 6-10/10 Last Admin: 09/20/19 08:26 Dose: 1 mg Documented by: Hydroxyzine Pamoate (Vistaril Pamoate Capsule) 50 mg PO Q4H PRN PRN PRN Reason: mild anxiety Last Admin: 09/21/19 05:13 Dose: 50 mg Documented by: Vancomycin IV Pharmacy to Dose (1 ea/ Sodium Chloride) 500 mls @ 250 mls/hr IV PRN PRN; Protocol PRN Reason: Rx to Dose Sodium Chloride () 250 mls @ 15 mls/hr IV .[id number] PRN PRN Reason: Saline Flush Last Infusion: 09/21/19 05:13 Dose: 0 mls/hr Documented by: Sodium Chloride () 250 mls @ 15 mls/hr IV .[id number] PRN PRN Reason: Additional IVPB Infusion Last Infusion: 09/20/19 23:08 Dose: 0 mls/hr Documented by: Vancomycin HCl (Vancomycin) 1,000 mg in 200 mls @ 200 mls/hr IV Q12H TIANA Last Infusion: 09/20/19 22:48 Dose: Infused Documented by: Ibuprofen (Motrin) 600 mg PO Q8H PRN PRN PRN Reason: Pain Score 1-10/10 Last Admin: 09/21/19 02:20 Dose: 600 mg Documented by: Loperamide HCl (Imodium) 2 mg PO Q4H PRN PRN PRN Reason: LOOSE STOOLS Nicotine (Nicoderm Cq (Pbkc)) 21 mg TRANSDERM. DAILY [facility] Last Admin: 09/20/19 08:29 Dose: 21 mg Documented by: Nutritional Formula (Lactose Free) (Ensure Enlive) 120 ml PO 4X/DAY [facility] Last Admin: 09/20/19 21:48 Dose: 120 ml Documented by: Ondansetron HCl (Zofran) 8 mg PO Q8H PRN PRN PRN Reason: NAUSEA Ondansetron HCl (Zofran) 4 mg IV Q8H PRN PRN PRN Reason: NAUSEA/VOMITING Oxycodone HCl (Oxyir) 10 mg PO Q4H PRN PRN PRN Reason: Pain Score 4-5/10 Last Admin: 09/19/19 21:57 Dose: 10 mg Documented by: Phenobarbital (Phenobarbital) 64.8 mg PO Q4H [facility]; Taper Stop: 09/23/19 10:14 Last Admin: 09/21/19 05:13 Dose: 64.8 mg Documented by: Prochlorperazine Edisylate (Compazine Iv) 5 mg IV Q4H PRN PRN PRN Reason: Breakthrough nausea/vomiting Quetiapine Fumarate (Seroquel) 100 mg PO BID [facility] Last Admin: 09/20/19 21:48 Dose: 100 mg Documented by: Senna (Senokot) 2 tablet PO QHS PRN PRN Reason: Constipation Sodium Chloride () 10 - 40 ml IV UD PRN PRN Reason: SALINE FLUSH Last Admin: 09/20/19 21:48 Dose: 10 ml Documented by: Thiamine HCl (Vitamin B1) 100 mg PO DAILYCM TIANA Last Admin: 09/20/19 08:28 Dose: 100 mg Documented by: Throat Lozenges (Cepacol Sore Throat Lozenge) 1 lozenge MUCOUS MEM Q2H PRN PRN PRN Reason: SORE THROAT Trazodone HCl (Desyrel) 100 mg PO QHS PRN PRN Reason: INSOMNIA Trimethoprim/Sulfamethoxazole (Bactrim Ds) 1 tablet PO BID [facility] STROKE Vital Signs/Narrative: Vital Signs Temp Pulse Resp BP Pulse Ox 09/21/19 08:29 98.9 F 81 18 160/80 H 100 Medical Necessity - Tobacco Use Smoking Status: Current every day smoker Tobacco Use: Cigarettes Assessment/Plan All Active Problems (Last Updated 05/31/19 @ 09:37 by Bea Bell) Cellulitis and abscess of upper arm and forearm (Acute) Alcohol withdrawal (Acute) Opiate withdrawal (Acute) Shoulder pain (Acute) Long-term Suboxone use (Acute) Tenosynovitis of right wrist (Acute) Tenosynovitis of left wrist (Acute) 1.Cellulitis and abscess of both UEs due to IV drug abuse s/p I&D. today is POD 2. On Iv vancomycin and IV zosyn Wound cultures growing MRSA. Blood cultures negative so far wbc is up to 11.3 today will consult ID to help determine duration of antibiotic course upon discharge 2. Acute alcohol withdrawal On phenobarbital drawl protocol. complains of being dope sick today, and feels like hes withdrawing. Was on gabapentin for seizure prophylaxis. Monitor CIWA score. It was 6 this morning. 3. History of polysubstance abuse: currently requiring strong IV dilaudid to control pain from abscess and cellulitis. rates his pain at 8 today. 4. 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 Treatment naive. Counseled that he would need to be clean from drugs before he can qualify for treatment. 5. Nicotine dependence; counseled to quit. Nicotine patch 21mg daily 6. chronic neuropathy: on gabapentin. DVT prophylaxis: lovenox Inpatient E&M: [id number] Subs Hosp L3
[2019-09-21 09:13] LABS: Anion Gap 4 (5-15); BUN 9 mg/dL (7-18); BUN/Creat Ratio 10.8 RATIO (10-20); Calcium,Total 8.4 mg/dL (8.5-10.1); Chloride 110 mmol/L (98-107); Creatinine, Serum 0.83 mg/dL (0.70-1.30); EST Glomerular Filtration Rate 105 mL/min (>60); Est Glom Filt Rate - Afr Amer 128 mL/min (>60); Estimated Creatinine Clearance 92.13 ml/min; Glucose 126 mg/dL (74-106); Potassium 3.9 mmol/L (3.5-5.1); Sodium Level 139 mmol/L (136-145)
[2019-09-21 09:19] LABS: Vancomycin, Trough Level 8.6 ug/mL (5.0-15.0)
--- NOTE | 2019-09-21 10:26 | CON.PCM_ITS ---
Problem List (1) Cellulitis and abscess of upper arm and forearm Status: Acute Reason for Consult: abscesses Consulted by: Dr. Moyer History of Present Illness: The patient is a 49 year old M with active IVDU with heroin and meth. H/o hep C treated successfully with harvoni, h/o hep B, untreated. Came to [facility] with one week of BUE abscesses with pain, redness, swelling. No fever, no drainage. Does not lick needles but does share them occasionally. Admitted on vanc/zosyn, taken to OR by Dr. Chen 09/18 for I&D. Feeling ok. No other skin abscesses, does inject in BLE as well. Full ROS performed and neg except as noted above. - Medical History Past Medical History (Chronic Problems): Chronic Problems (Last Updated 05/31/19 @ 09:37 by Bea Bell) Hepatitis B (Chronic) Tobacco use (Chronic) Anxiety and depression (Chronic) Heroin use (Chronic) Methamphetamine abuse (Chronic) Alcohol abuse (Chronic) Acute liver failure (Chronic) Hepatitis C (Chronic) Acute hepatitis B (Chronic) Hepatitis C (Chronic) Mental health disorder (Chronic) Drug abuse (Chronic) Carpal tunnel syndrome (Chronic) Arthritis (Chronic) Allergies/Adverse Reactions: Allergies No Known Allergies Allergy (Verified 05/31/19 09:34) Home Medications: Ambulatory Orders Medication Instructions Recorded Gabapentin [Neurontin] 300 mg PO TID 09/19/19 Quetiapine Fumarate [Seroquel] 100 mg PO BID 09/19/19 RX: Omeprazole 40 mg PO DAILY 09/19/19 - Social History Tobacco Use: cigarettes Drug Use: heroin Vital Signs Temp Pulse Resp BP Pulse Ox 98.9 F 81 18 160/80 H 95 09/21/19 08:29 09/21/19 08:29 09/21/19 08:29 09/21/19 08:29 09/21/19 09:19 Oxygen Delivery Method Room Air Weight: 64.3 kg Body Mass Index (BMI) 24.3 Microbiology Past 72 Hours 09/19/19 12:20 Gram Stain - Final Tissue - Arm Left Wound Culture - Final Meth. resistant Staph. aureus Anaerobic Culture - Final No anaerobic bacteria isolated. 09/19/19 01:00 Gram Stain - Final Wound Abcess - Arm Wound Culture - Final Meth. resistant Staph. aureus 09/19/19 12:20 Gram Stain - Final Tissue - Arm Right Wound Culture - Final Meth. resistant Staph. aureus 09/18/19 21:10 Blood Culture - Preliminary Blood Culture (Wb) - Right Hand No growth in 48 hours. 09/18/19 22:40 Blood Culture - Preliminary Blood Culture (Wb) - Anticubital Right No growth in 48 hours. 09/19/19 08:30 Coronavirus COVID-19 PCR - Final Mucosa - Nasopharyngeal Laboratory Tests Past 24 Hrs 09/19/19 09/21/19 09/21/19 08:06 08:20 08:20 WBC 11.3 H RBC 4.52 L Hgb 13.5 Hct 41.1 MCV 90.9 MCH 29.9 MCHC 32.8 RDW Std Deviation 40.8 RDW Coeff of Kelsea 12.3 Plt Count 281 MPV 10.0 Immature Gran % (Auto) 2.200 H Neut % (Auto) 68.4 Lymph % (Auto) 20.2 Monroe % (Auto) 5.6 Eos % (Auto) 3.2 Baso % (Auto) 0.4 Absolute Neuts (auto) 7.8 H Absolute Lymphs (auto) 2.29 Nucleated RBC % 0 Sodium 139 Potassium 3.9 Chloride 110 H Carbon Dioxide 25.0 Anion Gap 4 L BUN 9 Creatinine 0.83 Estim Creat Clear Calc 92.13 Est GFR (MDRD) Af Amer 128 Est GFR (MDRD) Non-Af 105 BUN/Creatinine Ratio 10.8 Glucose 126 H Calcium 8.4 L Vancomycin Trough Miscellaneous Test 09/21/19 08:20 WBC RBC Hgb Hct MCV MCH MCHC RDW Std Deviation RDW Coeff of Kelsea Plt Count MPV Immature Gran % (Auto) Neut % (Auto) Lymph % (Auto) [place] % (Auto) Eos % (Auto) Baso % (Auto) Absolute Neuts (auto) Absolute Lymphs (auto) Nucleated RBC % Sodium Potassium Chloride Carbon Dioxide Anion Gap BUN Creatinine Estim Creat Clear Calc Est GFR (MDRD) Af Amer Est GFR (MDRD) Non-Af BUN/Creatinine Ratio Glucose Calcium Vancomycin Trough 8.6 Miscellaneous Test - Other Studies Radiology: [] reviewed Other Studies: [] Route of nutrition/ use of supplements: [] Nutritional Intake: [] IV Site: [] Humphrey Catheter: [] - Physical Exam General: Alert, Oriented x3, Cooperative, No apparent distress HEENT: Atraumatic, PERRLA, EOMI Neck: Supple, No Nodes Lungs: Clear to auscultation, Normal air movement Cardiovascular: Regular rate, Regular Rhythm Abdomen: Soft, Non Tender, Non-Distended Extremities: No edema Skin: Ulcer/ Wound - reviewed BUE photos IV Site: Peripheral, without redness Musculoskeletal: No Tenderness to Palpation of Joints or Extremities Neurological: Cranial nerves II-XII grossly intact - Assessment/Plan Antibiotics: [] Assessment/Plan: [] Active and Suspected Problems (Last Updated 05/31/19 @ 09:37 by Bea Bell) Cellulitis and abscess of upper arm and forearm (Acute) Alcohol withdrawal (Acute) Opiate withdrawal (Acute) BUE MRSA abscess due to IVDU - s/p I&D by Dr. Chen 09/18. Will stop vanc/zosyn, start po bactrim for one week course. Will need rehab/drug treatment. h/o hep C - completed avelina in the past, hep C pcr was neg here in 2018 hep B - untreated, will need outpt eval. Reports he was admitted to [facility] in May with hep B flare. HIV neg here this admit. Will follow, thank you, d/w Dr. Moyer
[2019-09-21] MEDS: Famotidine 20 MG Tablet PO ×2 (10:59→22:06)
[2019-09-21] MEDS: Smz/Tmp Ds Tablet 1 TABLET PO ×2 (11:00→16:49)
[2019-09-21] MEDS: Folic Acid 1 MG Tablet PO (11:00)
[2019-09-21] MEDS: Thiamine Hydrochloride 100 MG Tablet PO (11:00)
[2019-09-21] MEDS: QUEtiapine 100 MG Tablet PO ×2 (11:05→22:06)
--- NOTE | 2019-09-21 12:15 | PN.SURG_ITS ---
Patient Problems: Active and Suspected Problems (Last Updated 05/31/19 @ 09:37 by Bea Bell) Cellulitis and abscess of upper arm and forearm (Acute) Alcohol withdrawal (Acute) Opiate withdrawal (Acute) Subjective: Post op day #2 - Physical Exam Vitals/I&O's: Vital Signs Temp Pulse Resp BP Pulse Ox 98.9 F 81 18 160/80 H 95 09/21/19 08:29 09/21/19 08:29 09/21/19 08:29 09/21/19 08:29 09/21/19 09:19 Oxygen Delivery Method Room Air Weight: 141 lb 12.116 oz Body Mass Index (BMI) 24.3 Intake and Output for Last 24 Hours 09/19/19 09/20/19 09/21/19 23:59 23:59 23:59 Intake Total 2539.34 / 3019.34 2855.50 / 2855.50 132 / 132 Balance 2539.34 / 3019.34 2855.50 / 2855.50 132 / 132 Microbiology Past 72 Hours 09/19/19 12:20 Tissue - Arm Right Gram Stain - Final 09/19/19 12:20 Tissue - Arm Right Wound Culture - Final Meth. resistant Staph. aureus 09/19/19 12:20 Tissue - Arm Right Anaerobic Culture - Final 09/19/19 12:20 Tissue - Arm Left Gram Stain - Final 09/19/19 12:20 Tissue - Arm Left Wound Culture - Final Meth. resistant Staph. aureus 09/19/19 12:20 Tissue - Arm Left Anaerobic Culture - Final No anaerobic bacteria isolated. 09/19/19 01:00 Wound Abcess - Arm Gram Stain - Final 09/19/19 01:00 Wound Abcess - Arm Wound Culture - Final Meth. resistant Staph. aureus 09/18/19 21:10 Blood Culture (Wb) - Right Hand Blood Culture - Preliminary No growth in 48 hours. 09/18/19 22:40 Blood Culture (Wb) - Anticubital Right Blood Culture - Preliminary No growth in 48 hours. 09/19/19 08:30 Mucosa - Nasopharyngeal Coronavirus COVID-19 PCR - Final Laboratory Results 09/19/19 08:06: Miscellaneous Test 09/21/19 08:20: WBC 11.3 H, RBC 4.52 L, Hgb 13.5, Hct 41.1, MCV 90.9, MCH 29.9, MCHC 32.8, RDW Std Deviation 40.8, RDW Coeff of Kelsea 12.3, Plt Count 281, MPV 10.0, Immature Gran % (Auto) 2.200 H, Neut % (Auto) 68.4, Lymph % (Auto) 20.2, [place] % (Auto) 5.6, Eos % (Auto) 3.2, Baso % (Auto) 0.4, Absolute Neuts (auto) 7.8 H, Absolute Lymphs (auto) 2.29, Nucleated RBC % 0 09/21/19 08:20: Sodium 139, Potassium 3.9, Chloride 110 H, Carbon Dioxide 25.0, Anion Gap 4 L, BUN 9, Creatinine 0.83, Estim Creat Clear Calc 92.13, Est GFR (MDRD) Af Amer 128, Est GFR (MDRD) Non-Af 105, BUN/Creatinine Ratio 10.8, Glucose 126 H, Calcium 8.4 L 09/21/19 08:20: Vancomycin Trough 8.6 Current Medications Acetaminophen (Tylenol) 650 mg PO Q6H PRN PRN PRN Reason: Pain Score 1-10/Temp > 100.7 F Last Admin: 09/21/19 05:14 Dose: 650 mg Documented by: Al Hydroxide/Mg Hydroxide (Mylanta Ii) 30 ml PO Q6H PRN PRN PRN Reason: Gastric Burning Albuterol Sulfate (Ventolin Aerosols) 2.5 mg INHALATION Q2H PRN PRN PRN Reason: Shortness of Breath/Wheezing Bisacodyl (Dulcolax) 10 mg RECTAL DAILY PRN PRN Reason: Constipation Dextrose (D50w Syringe) 0 gm IV X1 PRN; Protocol PRN Reason: Hypoglycemia Dicyclomine HCl (Bentyl) 20 mg PO Q6H PRN PRN PRN Reason: abdominal discomfort Last Admin: 09/21/19 05:13 Dose: 20 mg Documented by: Enoxaparin Sodium (Lovenox) 40 mg SC DAILY@0600 [facility] Last Admin: 09/21/19 05:14 Dose: 40 mg Documented by: Famotidine (Pepcid) 20 mg PO BID [facility] Last Admin: 09/21/19 10:59 Dose: 20 mg Documented by: Folic Acid (Folic Acid) 1 mg PO DAILY@0800 [facility] Last Admin: 09/21/19 11:00 Dose: 1 mg Documented by: Gabapentin (Neurontin) 300 mg PO Q8H PRN PRN PRN Reason: moderate to severe anxiety Last Admin: 09/21/19 02:22 Dose: 300 mg Documented by: Glucagon () 1 mg IM .X1 PRN PRN Reason: Hypoglycemia Guaifenesin (Robitussin) 20 ml PO Q4H PRN PRN PRN Reason: COUGH Hydromorphone HCl (Dilaudid Inj) 1 mg IV Q4H PRN PRN PRN Reason: Pain Score 6-10/10 Last Admin: 09/20/19 08:26 Dose: 1 mg Documented by: Hydroxyzine Pamoate (Vistaril Pamoate Capsule) 50 mg PO Q4H PRN PRN PRN Reason: mild anxiety Last Admin: 09/21/19 05:13 Dose: 50 mg Documented by: Sodium Chloride () 250 mls @ 15 mls/hr IV .[id number] PRN PRN Reason: Saline Flush Last Infusion: 09/21/19 05:13 Dose: 0 mls/hr Documented by: Sodium Chloride () 250 mls @ 15 mls/hr IV .[id number] PRN PRN Reason: Additional IVPB Infusion Last Infusion: 09/20/19 23:08 Dose: 0 mls/hr Documented by: Ibuprofen (Motrin) 600 mg PO Q8H PRN PRN PRN Reason: Pain Score 1-10/10 Last Admin: 09/21/19 02:20 Dose: 600 mg Documented by: Loperamide HCl (Imodium) 2 mg PO Q4H PRN PRN PRN Reason: LOOSE STOOLS Nicotine (Nicoderm Cq (Pbkc)) 21 mg TRANSDERM. DAILY [facility] Last Admin: 09/21/19 11:04 Dose: 21 mg Documented by: Nutritional Formula (Lactose Free) (Ensure Enlive) 120 ml PO 4X/DAY [facility] Last Admin: 09/21/19 11:04 Dose: 120 ml Documented by: Ondansetron HCl (Zofran) 8 mg PO Q8H PRN PRN PRN Reason: NAUSEA Ondansetron HCl (Zofran) 4 mg IV Q8H PRN PRN PRN Reason: NAUSEA/VOMITING Oxycodone HCl (Oxyir) 10 mg PO Q4H PRN PRN PRN Reason: Pain Score 4-5/10 Last Admin: 09/19/19 21:57 Dose: 10 mg Documented by: Phenobarbital (Phenobarbital) 64.8 mg PO Q6H [facility]; Taper Stop: 09/23/19 10:14 Last Admin: 09/21/19 11:04 Dose: 64.8 mg Documented by: Prochlorperazine Edisylate (Compazine Iv) 5 mg IV Q4H PRN PRN PRN Reason: Breakthrough nausea/vomiting Quetiapine Fumarate (Seroquel) 100 mg PO BID [facility] Last Admin: 09/21/19 11:05 Dose: 100 mg Documented by: Senna (Senokot) 2 tablet PO QHS PRN PRN Reason: Constipation Sodium Chloride () 10 - 40 ml IV UD PRN PRN Reason: SALINE FLUSH Last Admin: 09/20/19 21:48 Dose: 10 ml Documented by: Thiamine [facility] ([facility]itamin B1) [facility] Last Admin: 09/21/19 11:00 Dose: 100 mg Documented by: Throat Lozenges (Cepacol Sore Throat Lozenge) 1 lozenge MUCOUS MEM Q2H PRN PRN PRN Reason: SORE THROAT Trazodone HCl (Desyrel) 100 mg PO QHS PRN PRN Reason: INSOMNIA Trimethoprim/Sulfamethoxazole (Bactrim Ds) [facility] Last Admin: 09/21/19 11:00 Dose: 1 tablet Documented by: Medical Necessity - Tobacco Use Smoking Status: Current every day smoker Tobacco Use: Cigarettes Assessment/Plan All Active Problems (Last Updated 05/31/19 @ 09:37 by Bea Bell) Cellulitis and abscess of upper arm and forearm (Acute) Alcohol withdrawal (Acute) Opiate withdrawal (Acute) Shoulder pain (Acute) Long-term Suboxone use (Acute) Tenosynovitis of right wrist (Acute) Tenosynovitis of left wrist (Acute) 1. IV drug abuse abscess mid dorsal radial aspect left forearm and (2.)IV drug abuse abscess mid dorsal radial aspect right forearm. Wounds are stable Due to his precarious living arrangements, we recommend either daily wet to dry dressing changes or he can come into our office for Silver dressing changes three times a week until he [facility], where his appointment is October 08 at 0800. ID is managing his antibiotic and they are switching him to Bactrim po from the IV Vanc/Zosyn for his bilateral arm MRSA abscesses. 3. Opiate withdrawal. 4. Alcohol withdrawal. 5. Heroin abuse. 6. Methamphetamine abuse. 7. Smoker.
--- NOTE | 2019-09-21 13:57 | ADDICTION ---
This development writer met with patient in his room to assess ASAM and to discuss d/c planning. Leonid was asleep upon this writers arrival but was able to wake up and communicate effectively. He appeared oriented x4 and presented with depressed/irritable mood and congruent affect. This development writer informed patient that due to his wounds, the treatment facilities who would take him under normal circumstances were denying admit into their Residential programming. This development writer encouraged patient to think of sober friends and/or family members he could reach out too for a sober place to live until he is healed enough to engage in Residential. Leonid was resistant and did not identify any sober support people or options for sober living following discharge from [facility]. This development writer suggested [facility] ([facility]) and obtained ROMANA for [facility]. This development writer and patient collaboratively called [facility] used car salesperson, Mert, to discuss patients need for sober living and ongoing sober support. [facility] staff shared their mission statement with Leonid and gave Leonid an explanation of [facility]'s goals, rules, etc. [facility] staff stated that they will transport him to wound care appointments if scheduled in [place], [place]. This development writer relayed this information to [facility] RN CM and SW. [facility] staff stated that he and his boss would pray about the decision and asked for this development writer to call at 3pm for acceptance or denial into program. Upon completion of phone call, Leonid shared that concerns related to this potential placement stating they expect a lot. This development writer encouraged patient to consider his options, which are limited, and pointed out that he has only identified a trap house as a place for him to go upon discharge. Leonid shared that he is fearful of going to [place] because what if they kick me out? At least if I go to the trap house, I'll be in [place]. Leonid fell asleep during this conversation. This development writer will follow-up with patient and [facility] staff after conversation with [facility]. ASAM LOC: 4.0 Medically Managed Intensive Inpatient Services DIMENSION1: Acute Intoxication and/or Withdrawal Potential Patient was unable to identify his last date of use during this assessment. He reports that he has recently used heroin, methamphetamine and alcohol. HE is currently being given Phenobarbital to manage alcohol withdrawal symptoms. He reports that he has been experiemcing some nausea and fatigue, which may be attributed to recent surgery/medications or withdrawal. He does not report engagement with MAT. DIMENSION2: Biomedical Conditions/Complications Patient had surgery on both arms due to cellulitis/abscess on 09/19/2019 and is currently utilizing a wound vac. He has follow-up care instructions for his wounds. Patient identified his PCP as Dr. Mariee. He does not report recent contact with PCP. DIMENSION3: Emotional, Behavioral or Cognitive Conditions/Concerns E: Patient presented with depressed/irritated mood and affect. He reports no SI or HI. B: Patient was resistant to engage with this development writer today. He did not provide valuable feedback and did not engage with attempting to identify safe/sober living arrangements. He did not sit up in bed to speak with this development writer. C: Patient was alert/oriented x4. Presented with average intelligence. DIMENSION4: Readiness to Change Patient appears to be in the pre-contemplative stage of change as evidenced by his lack of motivation to find sober housing, engage with sober supports and resistance to discharge planning. He did not report any motivation to avoid problem people, places, things. He did not provide insight into addiction/recovery needs. DIMENSION5: Relapse, Continued Use or Continued Problem Potential Patient is at a high risk of relapse/continued use based on early age of initial onset, hx of daily IV use, extensive use history, multiple treatment attempts and continued use despite negative consequences. He was unable to report any significant period of abstinence. Patient appears to be planning to potentially return to using environment following discharge. Leonid needs to gain relapse prevention skills and coping skills in treatment. DIMENSION6: Recovery/Living Environment Patient is currently homeless and states that he was living at a trap house where he was actively using AOD intervenously. He reports no sober support, is resistant to engage with support groups and does not report a significant other. He reports no natural support. He did not report current employment and did not answer this development writer's questions re: legal involvement. He reports that he does not have transportation.
--- NOTE | 2019-09-21 15:06 | CASEMGMT ---
Social Work SW spoke with Nneka at [facility] who met with patient (see addition services note). Nneka reports she talked to [facility]? in [place] and they have decided to accept pt. They will come and pick pt up and they will transport him to a place to get his dressings changed but they will not bring him back to [place], he will need to go somewhere in [place]. This SW called the [facility] and spoke to Ailyn Castellanos ([phone]). Ailyn states they would be able to see pt and they do not need a referral. Pt would need to call central scheduling to get registered and set an appointment ([phone]). Nneka from [facility] reporting pt now stating he is not certain he wants to go to program. At this time pt can identify no other sober living options. Two discharge options, go to [facility] with follow up wound care in [place] or go home to [facility] without recovery services and followup wound care at Dr. Chen?s office. GWEN will continue to follow. IDANIA Long
[2019-09-22] MEDS: Phenobarbital 32.4 MG Tablet PO ×2 (04:03→10:59)
[2019-09-22 04:05] VITALS: BP 124/68; PULSE 83; RESP 16; TEMP 36.8; O2SAT 97
[2019-09-22 04:09] VITALS: BP 124/68; PULSE 83; RESP 16; TEMP 36.8; O2SAT 97
[2019-09-22] MEDS: hydrOXYzine PAM 25 MG Capsule 50 MG PO (04:16)
[2019-09-22] MEDS: Enoxaparin 40 MG/0.4 ML Syringe SC (07:01)
[2019-09-22 07:44] LABS: Absolute Lymphocyte Count 2.89 X10^3/uL (0.83-4.51); Absolute Neutrophil Count 7.5 X10^3/uL (2.0-7.7); Basophil# 0.08 X10^3/uL; Basophil% 0.7 % (0-1); Eosinophil# 0.45 X10^3/uL; Eosinophils% 3.7 % (0-5); Hematocrit 42.7 % (40-54); Hemoglobin 13.8 g/dL (13.0-16.5); Lymphocyte # 2.89 X10^3/ul (4.0); Lymphocyte % 23.6 % (19-41); Mean Corp Hgb Conc 32.3 g/dL (32-36); Mean Corpuscular Hgb 29.4 pg (27.0-32.0); Mean Platelet Vol. 9.9 fl (6.2-12.0); Monocyte# 0.75 X10^3/uL; Monocyte% 6.1 % (0-10); NRBC Flagged by Analyzer 0 % (0-5); Neutrophil # 7.48 X10^3/uL (2.7-7.7); Neutrophil % 61.1 % (47-70); Platelet Count 292 K/mm3 (150-450); RBC Distribution Width CV 12.6 % (11.6-14.6); RBC Distribution Width SD 41.6 fl (35.1-43.9); Red Blood Count 4.69 M/mm3 (4.6-6.2); White Blood Count 12.2 K/mm3 (4.4-11.0)
[2019-09-22 07:54] VITALS: O2SAT 97
[2019-09-22 08:06] LABS: Anion Gap 7 (5-15); BUN 7 mg/dL (7-18); BUN/Creat Ratio 9.5 RATIO (10-20); Calcium,Total 8.5 mg/dL (8.5-10.1); Chloride 111 mmol/L (98-107); Creatinine, Serum 0.73 mg/dL (0.70-1.30); EST Glomerular Filtration Rate 122 mL/min (>60); Est Glom Filt Rate - Afr Amer 147 mL/min (>60); Estimated Creatinine Clearance 104.75 ml/min; Glucose 90 mg/dL (74-106); Potassium 4.2 mmol/L (3.5-5.1); Sodium Level 140 mmol/L (136-145)
[2019-09-22 08:29] VITALS: BP 111/61; PULSE 86; RESP 16; TEMP 36.6; O2SAT 98
[2019-09-22] MEDS: Smz/Tmp Ds Tablet 1 TABLET PO (08:29)
[2019-09-22] MEDS: Thiamine Hydrochloride 100 MG Tablet PO (08:30)
[2019-09-22] MEDS: Folic Acid 1 MG Tablet PO (08:30)
[2019-09-22 09:26] VITALS: RESP 16; O2SAT 99
--- NOTE | 2019-09-22 09:43 | CASEMGMT ---
Addendum entered by Aster Austin 09/22/19 11:50: GWEN placed a call to the [facility] at [facility] and arranged pt's appointment for wound care. Earliest [facility] can get pt in is October 02 at 9:45am. GWEN scheduled appointment. RN asked when transportation is coming. GWEN placed a call to Caitie at [facility], Caitie provided number for Pawan at [facility] [phone]. GWEN placed a call to Pawan, Pawan states transportation should be at [facility] within half hour. GWEN updated pt on appointment time and transportation time. GWEN provided pt with handwritten copy of his appointment at [facility]. RN updated. GWEN added appointment to pt's discharge instructions. Per PSYCHOLOGIST ENGINEERING notes, PSYCHOLOGIST ENGINEERING is aware that pt will be following at [facility] for wound care. Addendum entered by Aster Austin 09/22/19 11:03: GWEN received call from Caitie at [facility] stating she spoke with Pawan at [facility] and they are still able to accept pt, just wanted to make sure pt has wound care available in [place]. GWEN updated Caitie that per previous GWEN notes, the [facility] at [facility] is able to accept pt and pt will just need to call central scheduling to get registered and set an appointment ([phone]). Pt doesn't need referral, pt will just need to call. Caitie states Pawan at [facility] was going to arrange transportation and should be at [facility] soon to transport pt. GWEN updated RN. GWEN updated physician. Addendum entered by Aster Austin 09/22/19 10:53: GWEN received call from Caitie at [facility] stating she had called [facility] today and had informed them that pt was not interested in their program. Caitie states she will call them back again and see if they are still willing to take pt. GWEN updated Caitie that pt is medically ready for discharge today. Caitie states [facility] will be able to transport pt just need a time. GWEN updated Caitie that pt is ready so transportation can come at anytime. Caitie states she will call [facility] and give this worker a call back. Addendum entered by Aster Austin 09/22/19 10:46: RN updated this worker that pt is now agreeable to [facility] in [place]. GWEN placed a call to Caitie at [facility], left message and provided updated. GWEN asked Caitie if she will be coming in to see pt today and asked Caitie to arrange transportation for pt to [facility]. GWEN waiting for call back. Original Note: Social Work Note SW in to speak with pt to continue discussion of discharge planning with pt. GWEN introduced self and role at [facility]. GWEN asked pt about his discharge plans. Pt states I will just return to the streets. GWEN asked pt if going to the streets or going to the house that he came from was safe and good idea for pt and pt responded with I don't give a fuck, I want this stuff off of me and I want to leave. GWEN offered to provide pt with housing resources and pt denied. GWEN asked pt about going to [facility] in [place] as this has been arranged for pt and pt also denied, again stating I want to leave. GWEN informed pt that this worker can update his RN that he would like to leave, is denying going to [facility] in [place] and denying housing resources. GWEN placed a call to Caitie at [facility] and left message updating her on above information. GWEN updated RN. Aster Austin WATER SERVICE DISPATCHER, [employer]
[2019-09-22] MEDS: QUEtiapine 100 MG Tablet PO (10:59)
[2019-09-22] MEDS: Famotidine 20 MG Tablet PO (10:59)
--- NOTE | 2019-09-22 11:06 | NURSING ---
Pt [facility] [place] [facility] with [facility] . Wound vac is dc and dressing done by Evette Stone Case management is setting up his transfer with [facility] arranging his stay inhouse rehab. Pt is wanting to leave now he is notified that paper work is not yet ready and per current situation he is advised to remain in his room and leave directly to transport to facility. Resting in room and walking about in room.
--- NOTE | 2019-09-22 11:08 | PCM.PN.SRG ---
Patient Problems: Active and Suspected Problems (Last Updated 05/31/19 @ 09:37 by Bea Bell) Cellulitis and abscess of upper arm and forearm (Acute) Alcohol withdrawal (Acute) Opiate withdrawal (Acute) Subjective: Post op day #3 Objective: Patient sitting up in chair. He is anxious to leave. The only complaint he has is he was to leave now and not wait for his transportation to [facility] in [place]. - Physical Exam Vitals/I&O's: Vital Signs Temp Pulse Resp BP Pulse Ox 98 F 86 16 111/61 99 09/22/19 08:29 09/22/19 08:29 09/22/19 09:26 09/22/19 08:29 09/22/19 09:26 Oxygen Delivery Method Room Air Weight: 141 lb 12.116 oz Body Mass Index (BMI) 24.3 Intake and Output for Last 24 Hours 09/20/19 09/21/19 09/22/19 23:59 23:59 23:59 Intake Total 2855.50 / 2855.50 1882 / 2522 740 / 740 Balance 2855.50 / 2855.50 188 / 2522 740 / 740 General: Alert HEENT: Atraumatic Oral: Moist Mucosa Lungs: Normal air movement Cardiovascular: Regular rate Abdomen: Soft Extremities: Capillary Refill Less than 3 Seconds, Peripheral Pulses Normal Skin: Ulcer/ Wound - bilateral forearm ulcers just redressed with wet to dry dressings. Musculoskeletal: Tenderness Neurological: Neuro grossly intact Psych/Mental Status: Normal Affect, Agitated Microbiology Past 72 Hours 09/19/19 12:20 Tissue - Arm Right Gram Stain - Final 09/19/19 12:20 Tissue - Arm Right Wound Culture - Final Meth. resistant Staph. aureus 09/19/19 12:20 Tissue - Arm Right Anaerobic Culture - Final 09/19/19 12:20 Tissue - Arm Left Gram Stain - Final 09/19/19 12:20 Tissue - Arm Left Wound Culture - Final Meth. resistant Staph. aureus 09/19/19 12:20 Tissue - Arm Left Anaerobic Culture - Final No anaerobic bacteria isolated. 09/19/19 01:00 Wound Abcess - Arm Gram Stain - Final 09/19/19 01:00 Wound Abcess - Arm Wound Culture - Final Meth. resistant Staph. aureus 09/18/19 21:10 Blood Culture (Wb) - Right Hand Blood Culture - Preliminary No growth in 48 hours. 09/18/19 22:40 Blood Culture (Wb) - Anticubital Right Blood Culture - Preliminary No growth in 48 hours. 09/19/19 08:30 Mucosa - Nasopharyngeal Coronavirus COVID-19 PCR - Final Laboratory Results 09/22/19 07:04: WBC 12.2 H, RBC 4.69, Hgb 13.8, Hct 42.7, MCV 91.0, MCH 29.4, MCHC 32.3, RDW Std Deviation 41.6, RDW Coeff of Kelsea 12.6, Plt Count 292, MPV 9.9, Immature Gran % (Auto) 4.800 H, Neut % (Auto) 61.1, Lymph % (Auto) 23.6, [place] % (Auto) 6.1, Eos % (Auto) 3.7, Baso % (Auto) 0.7, Absolute Neuts (auto) 7.5, Absolute Lymphs (auto) 2.89, Nucleated RBC % 0 09/22/19 07:04: Sodium 140, Potassium 4.2, Chloride 111 H, Carbon Dioxide 22.0, Anion Gap 7, BUN 7, Creatinine 0.73, Estim Creat Clear Calc 104.75, Est GFR (MDRD) Af Amer 147, Est GFR (MDRD) Non-Af 122, BUN/Creatinine Ratio 9.5 L, Glucose 90, Calcium 8.5 Current Medications Acetaminophen (Tylenol) 650 mg PO Q6H PRN PRN PRN Reason: Pain Score 1-10/Temp > 100.7 F Last Admin: 09/21/19 05:14 Dose: 650 mg Documented by: Al Hydroxide/Mg Hydroxide (Mylanta Ii) 30 ml PO Q6H PRN PRN PRN Reason: Gastric Burning Albuterol Sulfate (Ventolin Aerosols) 2.5 mg INHALATION Q2H PRN PRN PRN Reason: Shortness of Breath/Wheezing Bisacodyl (Dulcolax) 10 mg RECTAL DAILY PRN PRN Reason: Constipation Dextrose (D50w Syringe) 0 gm IV X1 PRN; Protocol PRN Reason: Hypoglycemia Dicyclomine HCl (Bentyl) 20 mg PO Q6H PRN PRN PRN Reason: abdominal discomfort Last Admin: 09/21/19 05:13 Dose: 20 mg Documented by: Enoxaparin Sodium (Lovenox) 40 mg SC DAILY@0600 [facility] Last Admin: 09/22/19 07:01 Dose: 40 mg Documented by: Famotidine (Pepcid) 20 mg PO BID [facility] Last Admin: 09/22/19 10:59 Dose: 20 mg Documented by: Folic Acid (Folic Acid) 1 mg PO DAILY@0800 [facility] Last Admin: 09/22/19 08:30 Dose: 1 mg Documented by: Gabapentin (Neurontin) 300 mg PO Q8H PRN PRN PRN Reason: moderate to severe anxiety Last Admin: 09/21/19 22:18 Dose: 300 mg Documented by: Glucagon () 1 mg IM .X1 PRN PRN Reason: Hypoglycemia Guaifenesin (Robitussin) 20 ml PO Q4H PRN PRN PRN Reason: COUGH Hydromorphone HCl (Dilaudid Inj) 1 mg IV Q4H PRN PRN PRN Reason: Pain Score 6-10/10 Last Admin: 09/20/19 08:26 Dose: 1 mg Documented by: Hydroxyzine Pamoate (Vistaril Pamoate Capsule) 50 mg PO Q4H PRN PRN PRN Reason: mild anxiety Last Admin: 09/22/19 04:16 Dose: 50 mg Documented by: Sodium Chloride () 250 mls @ 15 mls/hr IV .[id number] PRN PRN Reason: Saline Flush Last Infusion: 09/21/19 05:13 Dose: 0 mls/hr Documented by: Sodium Chloride () 250 mls @ 15 mls/hr IV .[id number] PRN PRN Reason: Additional IVPB Infusion Last Infusion: 09/20/19 23:08 Dose: 0 mls/hr Documented by: Ibuprofen (Motrin) 600 mg PO Q8H PRN PRN PRN Reason: Pain Score 1-10/10 Last Admin: 09/21/19 02:20 Dose: 600 mg Documented by: Loperamide HCl (Imodium) 2 mg PO Q4H PRN PRN PRN Reason: LOOSE STOOLS Nicotine (Nicoderm Cq (Pbkc)) 21 mg TRANSDERM. DAILY [facility] Last Admin: 09/22/19 10:59 Dose: 21 mg Documented by: Nutritional Formula (Lactose Free) (Ensure Enlive) 120 ml PO 4X/DAY [facility] Last Admin: 09/22/19 11:00 Dose: Not Given Documented by: Ondansetron HCl (Zofran) 8 mg PO Q8H PRN PRN PRN Reason: NAUSEA Ondansetron HCl (Zofran) 4 mg IV Q8H PRN PRN PRN Reason: NAUSEA/VOMITING Oxycodone HCl (Oxyir) 10 mg PO Q4H PRN PRN PRN Reason: Pain Score 4-5/10 Last Admin: 09/19/19 21:57 Dose: 10 mg Documented by: Phenobarbital (Phenobarbital) 32.4 mg PO Q6H [facility]; Taper Stop: 09/23/19 10:14 Last Admin: 09/22/19 10:59 Dose: 32.4 mg Documented by: Prochlorperazine Edisylate (Compazine Iv) 5 mg IV Q4H PRN PRN PRN Reason: Breakthrough nausea/vomiting Quetiapine Fumarate (Seroquel) 100 mg PO BID [facility] Last Admin: 09/22/19 10:59 Dose: 100 mg Documented by: Senna (Senokot) 2 tablet PO QHS PRN PRN Reason: Constipation Sodium Chloride () 10 - 40 ml IV UD PRN PRN Reason: SALINE FLUSH Last Admin: 09/20/19 21:48 Dose: 10 ml Documented by: Thiamine HCl ([facility]itamin B[facility]) [facility] Last Admin: 09/22/19 08:30 Dose: 100 mg Documented by: Throat Lozenges (Cepacol Sore Throat Lozenge) 1 lozenge MUCOUS MEM Q2H PRN PRN PRN Reason: SORE THROAT Trazodone HCl (Desyrel) 100 mg PO QHS PRN PRN Reason: INSOMNIA Trimethoprim/Sulfamethoxazole ([facility]rim Ds) [facility] Last Admin: 09/22/19 08:29 Dose: 1 tablet Documented by: Medical Necessity - Tobacco Use Smoking Status: Current every day smoker Tobacco Use: Cigarettes Assessment/Plan All Active Problems (Last Updated 05/31/19 @ 09:37 by Bea Bell) Abscess of right forearm (Acute) Abscess of left forearm (Acute) Open wound of right forearm (Acute) Open wound of left forearm (Acute) Cellulitis and abscess of upper arm and forearm (Acute) Alcohol withdrawal (Acute) Opiate withdrawal (Acute) Shoulder pain (Acute) Long-term Suboxone use (Acute) Tenosynovitis of right wrist (Acute) Tenosynovitis of left wrist (Acute) 1. IV drug abuse abscess mid dorsal radial aspect left forearm and (2.)IV drug abuse abscess mid dorsal radial aspect right forearm. Wounds are stable, wound care nurse just removed wound VAC and started daily wet to dry saline dressing changes. He is being discharged to [facility] in [place]. He will have wound care at [facility]. He would benefit from Silver alginate dressings where they may only need changed every other day. If the saline dressings are continued, then the dressings would need to be changed daily. ID is managing his antibiotic and they are switching him to Bactrim po from the IV Vanc/Zosyn for his bilateral arm MRSA abscesses. 3. Opiate withdrawal. 4. Alcohol withdrawal. 5. Heroin abuse. 6. Methamphetamine abuse. 7. Smoker.
--- NOTE | 2019-09-22 11:19 | DCINST_ITS ---
- Discharge Diagnoses Current Active Problems: Current Active and Chronic Problems Cellulitis and abscess of upper arm and forearm (Acute) Alcohol withdrawal (Acute) Opiate withdrawal (Acute) Hepatitis B (Chronic) Tobacco use (Chronic) Anxiety and depression (Chronic) Heroin use (Chronic) Methamphetamine abuse (Chronic) Alcohol abuse (Chronic) You will use the following diet at home:: Regular Your food should be the consistency of: Regular Your liquids should be the consistency of: Regular/Thin Discharge Activity: Return to Normal Activity Weight Bearing Status: Weight bearing as tolerated Call your doctor if you observe: Fever of 101 or Higher, Uncontrolled pain Instructions: ED Abscess Antibiotic Treatment Only, ED Abscess Incision And Drainage Allergies/Adverse Reactions: Allergies No Known Allergies Allergy (Verified 05/31/19 09:34) Medications to take at Discharge Gabapentin [Neurontin] 300 mg PO TID 09/19/19 Omeprazole 40 mg PO DAILY 09/19/19 Quetiapine Fumarate [Seroquel] 100 mg PO BID 09/19/19 Smz/Tmp Ds [Bactrim Ds] 1 tab PO BIDCM #14 tab 09/22/19 The following prescriptions were given: Smz/Tmp Ds [Bactrim Ds] 1 tab PO BIDCM #14 tab Transmission Status: Pending to [facility] - [place] - [id number] Primary Care Physician: Vee Mariee MD [Primary Care Provider] - Please follow up with your Primary Care Physician in: 1-2 weeks Test Results: Test results from this visit will be discussed in further detail at your follow- up appointment, if applicable. Please Follow Up With: Sonido Chen MD When: 1-2 week Please Follow Up With: Rehan Martínez MD When: 1-2 Proposed Discharge Date: 09/22/19
--- NOTE | 2019-09-22 11:35 | PCM.DC.SUM ---
Discharge Date and Diagnosis Date of Admission: 09/18/19 Date of Discharge: 09/22/19 - Primary Discharge Diagnosis Acute Problems: Active Problems (Last Updated 05/31/19 @ 09:37 by Bea Bell) Cellulitis and abscess of upper arm and forearm (Acute) Alcohol withdrawal (Acute) Opiate withdrawal (Acute) - Secondary Discharge Diagnosis Chronic Problems: Chronic Problems (Last Updated 05/31/19 @ 09:37 by Bea Bell) Hepatitis B (Chronic) Tobacco use (Chronic) Anxiety and depression (Chronic) Heroin use (Chronic) Methamphetamine abuse (Chronic) Alcohol abuse (Chronic) Acute liver failure (Chronic) Hepatitis C (Chronic) Acute hepatitis B (Chronic) Hepatitis C (Chronic) Mental health disorder (Chronic) Drug abuse (Chronic) Carpal tunnel syndrome (Chronic) Arthritis (Chronic) Hospital Course and Treatment Imaging Results: Diagnostic Data Forearm X-Ray 09/18/19 20:45 IMPRESSION: Soft tissue swelling, otherwise negative x-ray examination of the radius and ulna. Electronically Signed: Dionne Nichole MD at 21:12 EDT Tel , Service support , Consultations 09/19/19 01:38 Consult: Onc/Wound/research chief engineer Routine Comment: plastic surgery- Dr Chen infectious disease- Dr Martínez Operations: - - incision and drainage with excisional debridement Procedures: None Summary of Care Provided: The patient is a 49 year old M with a past medical history as outlined which includes polysubstance abuse of heroine and methamphetamine as well as alcohol, hepatitis B and C, GERD and neuropathy. He was admitted through the ED on 09/18/2019 for alcohol and opiate detox. However on evaluation, patient was found to have bilateral upper extremity cellulitis with abscess formation due to IV drug use. He denied any fever or chills and patient could not say how long he had had the abscesses. I&D was done in the ED and blood cultures and wound cultures ordered. Patient was admitted to be managed for acute alcohol withdrawal and bilateral cellulitis and abscess of the upper extremities. Plastic surgery was consulted. Patient was started on IV vancomycin and Zosyn. Was put on alcohol withdrawal protocol with phenobarbital. He had incision and drainage and debridement of the abscesses on 12/20/2019 and wound VAC was placed subsequently. Wound cultures all grew MRSA. Infectious disease was consulted to help determine duration of antibiotic treatment. Patient remained stable and IV vancomycin and Zosyn was stopped. He was agreeable to going to an inpatient residential treatment facility in [place]. He was discharged to this facility on 09/22/2019. Wound VAC was taken off and he was to have wet and dry dressing while stay. He was discharged on p.o. Bactrim double strength 1 tablet twice daily for 1 week as per ID recommendations. He is follow-up with his primary care doctor, plastic surgery and infectious diseases. Patient seen and examined prior to discharge. He complained of pain in his upper extremities and rated at 10/10. Review of systems is otherwise negative. He had initially tried to leave AGAINST MEDICAL ADVICE today but was convinced to stay and go to the residential treatment facility. Labs and vitals reviewed. Home medication reviewed and reconciled. o/e: Vital Signs Temp Pulse Resp BP Pulse Ox 98.6 F 74 18 130/66 H 98 09/22/19 12:06 09/22/19 12:06 09/22/19 12:06 09/22/19 12:06 09/22/19 12:06 [] General: Alert, oriented x 3 HEENT: Atraumatic, PERRLA, EOMI, Normocephalic Oral: Moist Mucosa Neck: Supple, No JVD, Negative Carotid Bruits Lungs: Clear to auscultation, Normal air movement, No rhonchi, No wheeze Cardiovascular: Regular rate, Regular Rhythm, Normal S1, Normal S2, No murmurs Abdomen: Bowel Sounds Present, Soft, Non Tender, Non-Distended, No Hepato-splenomegaly Extremities: No clubbing, No cyanosis, No edema Skin: - - Both forearms bandaged with wound vac in place Musculoskeletal: No Tenderness to Palpation of Joints or Extremities Lymphatic: No Cervical, Supraclavicular, or Inguinal Adenopathy Neurological: Cranial nerves II-XII grossly intact Psych/Mental Status: normal affect, appropriate Plan as above. - Physical Exam Vitals/I&O's: Vital Signs Temp Pulse Resp BP Pulse Ox 98 F 86 16 111/61 99 09/22/19 08:29 09/22/19 08:29 09/22/19 09:26 09/22/19 08:29 09/22/19 09:26 Oxygen Delivery Method Room Air Weight: 141 lb 12.116 oz Body Mass Index (BMI) 24.3 Intake and Output for Last 24 Hours 09/20/19 09/21/19 09/22/19 23:59 23:59 23:59 Intake Total 2855.50 / 2855.50 1882 / 2522 740 / 740 Balance 2855.50 / 2855.50 1882 / 2522 740 / 740 Microbiology Past 72 Hours 09/19/19 12:20 Tissue - Arm Right Gram Stain - Final 09/19/19 12:20 Tissue - Arm Right Wound Culture - Final Meth. resistant Staph. aureus 09/19/19 12:20 Tissue - Arm Right Anaerobic Culture - Final 09/19/19 12:20 Tissue - Arm Left Gram Stain - Final 09/19/19 12:20 Tissue - Arm Left Wound Culture - Final Meth. resistant Staph. aureus 09/19/19 12:20 Tissue - Arm Left Anaerobic Culture - Final No anaerobic bacteria isolated. 09/19/19 01:00 Wound Abcess - Arm Gram Stain - Final 09/19/19 01:00 Wound Abcess - Arm Wound Culture - Final Meth. resistant Staph. aureus 09/18/19 21:10 Blood Culture (Wb) - Right Hand Blood Culture - Preliminary No growth in 48 hours. 09/18/19 22:40 Blood Culture (Wb) - Anticubital Right Blood Culture - Preliminary No growth in 48 hours. 09/19/19 08:30 Mucosa - Nasopharyngeal Coronavirus COVID-19 PCR - Final Laboratory Results 09/22/19 07:04: WBC 12.2 H, RBC 4.69, Hgb 13.8, Hct 42.7, MCV 91.0, MCH 29.4, MCHC 32.3, RDW Std Deviation 41.6, RDW Coeff of Kelsea 12.6, Plt Count 292, MPV 9.9, Immature Gran % (Auto) 4.800 H, Neut % (Auto) 61.1, Lymph % (Auto) 23.6, [place] % (Auto) 6.1, Eos % (Auto) 3.7, Baso % (Auto) 0.7, Absolute Neuts (auto) 7.5, Absolute Lymphs (auto) 2.89, Nucleated RBC % 0 09/22/19 07:04: Sodium 140, Potassium 4.2, Chloride 111 H, Carbon Dioxide 22.0, Anion Gap 7, BUN 7, Creatinine 0.73, Estim Creat Clear Calc 104.75, Est GFR (MDRD) Af Amer 147, Est GFR (MDRD) Non-Af 122, BUN/Creatinine Ratio 9.5 L, Glucose 90, Calcium 8.5 Current Medications Acetaminophen (Tylenol) 650 mg PO Q6H PRN PRN PRN Reason: Pain Score 1-10/Temp > 100.7 F Last Admin: 09/21/19 05:14 Dose: 650 mg Documented by: Al Hydroxide/Mg Hydroxide (Mylanta Ii) 30 ml PO Q6H PRN PRN PRN Reason: Gastric Burning Albuterol Sulfate (Ventolin Aerosols) 2.5 mg INHALATION Q2H PRN PRN PRN Reason: Shortness of Breath/Wheezing Bisacodyl (Dulcolax) 10 mg RECTAL DAILY PRN PRN Reason: Constipation Dextrose (D50w Syringe) 0 gm IV X1 PRN; Protocol PRN Reason: Hypoglycemia Dicyclomine HCl (Bentyl) 20 mg PO Q6H PRN PRN PRN Reason: abdominal discomfort Last Admin: 09/21/19 05:13 Dose: 20 mg Documented by: Enoxaparin Sodium (Lovenox) 40 mg SC DAILY@0600 [facility] Last Admin: 09/22/19 07:01 Dose: 40 mg Documented by: Famotidine (Pepcid) 20 mg PO BID [facility] Last Admin: 09/22/19 10:59 Dose: 20 mg Documented by: Folic Acid (Folic Acid) 1 mg PO DAILY@0800 [facility] Last Admin: 09/22/19 08:30 Dose: 1 mg Documented by: Gabapentin (Neurontin) 300 mg PO Q8H PRN PRN PRN Reason: moderate to severe anxiety Last Admin: 09/21/19 22:18 Dose: 300 mg Documented by: Glucagon () 1 mg IM .X1 PRN PRN Reason: Hypoglycemia Guaifenesin (Robitussin) 20 ml PO Q4H PRN PRN PRN Reason: COUGH Hydromorphone HCl (Dilaudid Inj) 1 mg IV Q4H PRN PRN PRN Reason: Pain Score 6-10/10 Last Admin: 09/20/19 08:26 Dose: 1 mg Documented by: Hydroxyzine Pamoate (Vistaril Pamoate Capsule) 50 mg PO Q4H PRN PRN PRN Reason: mild anxiety Last Admin: 09/22/19 04:16 Dose: 50 mg Documented by: Sodium Chloride () 250 mls @ 15 mls/hr IV .[id number] PRN PRN Reason: Saline Flush Last Infusion: 09/21/19 05:13 Dose: 0 mls/hr Documented by: Sodium Chloride () 250 mls @ 15 mls/hr IV .[id number] PRN PRN Reason: Additional IVPB Infusion Last Infusion: 09/20/19 23:08 Dose: 0 mls/hr Documented by: Ibuprofen (Motrin) 600 mg PO Q8H PRN PRN PRN Reason: Pain Score 1-10/10 Last Admin: 09/21/19 02:20 Dose: 600 mg Documented by: Loperamide HCl (Imodium) 2 mg PO Q4H PRN PRN PRN Reason: LOOSE STOOLS Nicotine (Nicoderm Cq (Pbkc)) 21 mg TRANSDERM. DAILY [facility] Last Admin: 09/22/19 10:59 Dose: 21 mg Documented by: Nutritional Formula (Lactose Free) (Ensure Enlive) 120 ml PO 4X/DAY [facility] Last Admin: 09/22/19 11:00 Dose: Not Given Documented by: Ondansetron HCl (Zofran) 8 mg PO Q8H PRN PRN PRN Reason: NAUSEA Ondansetron HCl (Zofran) 4 mg IV Q8H PRN PRN PRN Reason: NAUSEA/VOMITING Oxycodone HCl (Oxyir) 10 mg PO Q4H PRN PRN PRN Reason: Pain Score 4-5/10 Last Admin: 09/19/19 21:57 Dose: 10 mg Documented by: Phenobarbital (Phenobarbital) 32.4 mg PO Q6H [facility]; Taper Stop: 09/23/19 10:14 Last Admin: 09/22/19 10:59 Dose: 32.4 mg Documented by: Prochlorperazine Edisylate (Compazine Iv) 5 mg IV Q4H PRN PRN PRN Reason: Breakthrough nausea/vomiting Quetiapine Fumarate (Seroquel) 100 mg PO BID [facility] Last Admin: 09/22/19 10:59 Dose: 100 mg Documented by: Senna (Senokot) 2 tablet PO QHS PRN PRN Reason: Constipation Sodium Chloride () 10 - 40 ml IV UD PRN PRN Reason: SALINE FLUSH Last Admin: 09/20/19 21:48 Dose: 10 ml Documented by: Thiamine HCl (Vitamin B1) 100 mg PO DAILYCM [facility] Last Admin: 09/22/19 08:30 Dose: 100 mg Documented by: Throat Lozenges (Cepacol Sore Throat Lozenge) 1 lozenge MUCOUS MEM Q2H PRN PRN PRN Reason: SORE THROAT Trazodone HCl (Desyrel) 100 mg PO QHS PRN PRN Reason: INSOMNIA Trimethoprim/[facility]) [facility] Last Admin: 09/22/19 08:29 Dose: 1 tablet Documented by: Discharge Diet: Low fat/ Low Cholesterol Discharge Activity: Return to Normal Activity Weight Bearing Status: Weight bearing as tolerated Call your doctor if you observe: Fever of 101 or Higher, Uncontrolled pain Home Medications: Medications to take at Discharge Gabapentin [Neurontin] 300 mg PO TID 09/19/19 Omeprazole 40 mg PO DAILY 09/19/19 Quetiapine Fumarate [Seroquel] 100 mg PO BID 09/19/19 Smz/Tmp Ds [Bactrim Ds] 1 tab PO BIDCM #14 tab 09/22/19 Following Prescrptions Were Given to Patient: Smz/Tmp Ds [Bactrim Ds] 1 tab PO BIDCM #14 tab Transmission Status: Received by [facility] - [place] - [id number] Primary Care Physician: Vee Mariee MD [Primary Care Provider] - Please follow up with your Primary Care Physician in: 1-2 weeks Please Follow Up With: Sonido Chen MD When: 1-2 week Please Follow Up With: Rehan Martínez MD When: 1-2 Patient Instructions: ED Abscess Antibiotic Treatment Only, ED Abscess Incision And Drainage Disposition: residential care facility Minutes spent on discharge:: 45 Patient Condition:: Stable Medical Necessity - Tobacco Use Smoking Status: Current every day smoker Tobacco Use: Cigarettes Meaningful Use Info Meaningful Use Diagnoses (Choose all that apply): None applicable Inpatient E&M: [id number] [facility]
[2019-09-22 12:06] VITALS: BP 130/66; PULSE 74; RESP 18; TEMP 37; O2SAT 98
== END 2019-09-22 12:15 | disposition home or self-care (01) | DRG 364 ==
LOC: ED 21:17 → MS3 09-19 02:18
PROVIDERS: Surgery; Admitting Provider Family Medicine; Emergency Provider Emergency Medicine; PCP Internal Medicine; Visit Provider Student in an Organized Health Care Education/Training Program
DX: L02.413 Cutaneous abscess of right upper limb (principal); L03.113 Cellulitis of right upper limb; L02.414 Cutaneous abscess of left upper limb; L03.114 Cellulitis of left upper limb; B95.62 Methicillin resistant Staphylococcus aureus infection as the cause of diseases classified elsewhere; F11.23 Opioid dependence with withdrawal; F10.239 Alcohol dependence with withdrawal, unspecified; F15.10 Other stimulant abuse, uncomplicated; G62.9 Polyneuropathy, unspecified; K21.9 Gastro-esophageal reflux disease without esophagitis; F31.9 Bipolar disorder, unspecified; F41.9 Anxiety disorder, unspecified; F17.210 Nicotine dependence, cigarettes, uncomplicated; Z79.899 Other long term (current) drug therapy; Z86.19 Personal history of other infectious and parasitic diseases; Z11.59 Encounter for screening for other viral diseases
CPT/HCPCS: 36415; 73090; 80048; 80053; 80202; 80307; 80320; 83735; 84100; 85025; 86703; 86706; 86803; 87040; 87070; 87075; 87077; 87102; 87176; 87186; 87205; 87206; 87340; 87635; 87640; 88304; 88305; 93005; 99251; 99283; 99406; G2023; J7030; J7040; J7050; A4216; G0463; G0480; J2405; U0002

== ENCOUNTER 2019-09-28 16:38 | Emergency (ER) | payer MEDICAID, SELFPAY ==
[2019-09-28 11:04] VITALS: BMI 24.3
[2019-09-28 16:41] VITALS: BP 150/103; PULSE 111; RESP 20; TEMP 36.2; O2SAT 96; BMI 25.0
--- NOTE | 2019-09-28 17:41 | ED.DCSUM_ITS ---
- ER Visit Summary Date of Service: 09/28/19 Chief Complaint: Bilateral arm wounds History of Present Illness: The patient is a 49 M presenting with bilateral arm wounds. Patient is a previous IV drug abuser who recently had surgery on both upper extremities due to infection. He was seen by Dr. Chen today for follow- up. He states the plan is to do a skin graft in the future. Patient is concerned about his dressings. He is concerned because he is homeless and does not want the dressings to get dirty. He states he has been sober for the past 14 days. He denies suicidal ideation. Denies fever. He states been taking gabapentin for pain. Denies new complaints. 09/28/2019: Postop visit from his recent surgery on 09/19/19 where he underwent surgical preparation mid dorsal radial aspect left forearm with incision and drainage and excisional debridement intravenous drug abuse abscess (24.5 cm2) and surgical preparation mid dorsal radial aspect right forearm with incision and drainage and excisional debridement intravenous drug abuse abscess (10.5 cm2). Right forearm wound is 2.5 x 3.5 x 0.5 cm. There is tendon exposure. Left forearm wound is 6 x. 4.7 x 0.4 cm. Both wounds were cleansed with soap and water. Silver dressing was placed and wrapped with gauze. He will come to the office on Wednesday and Fridays and the wound center on Mondays. Instructed patient to keep the areas clean and dry. Physical Examination: Vitals are stable. Patient is afebrile. Alert no acute distress. HEENT exam is unremarkable. Neck is supple. Lungs are clear and equal bilaterally. Heart is regular rate and rhythm. Extremities wounds are dressed. Left forearm wound 6x4cm, right forearm wound 2.5x3.5cm. Neurovascularly intact distally Skin is warm and dry. No focal neurologic deficit. Anxious, denies suicidal ideation Remainder of exam is unremarkable. Emergency Department Course and Treatment: Discussed with Dr. Chen. Patient will be seen at the wound center on Mondays and his office Wednesdays and Fridays for dressing changes. He will then be set up for skin grafting. Patient was evaluated by social work. He is not suicidal. He is in agreement with the plan. Advised return to the ED for worsening complaints. Disposition: Discharge home Impression: Bilateral forearm wounds, history of IV drug abuse This note was generated with Dragon dictation software. It may contain incorrect words, spelling, and punctuation that were not noted in review of the chart prior to signing ED Disposition - Plan for ED Patient: Referrals: Vee Mariee MD [Primary Care Provider] -
--- NOTE | 2019-09-28 17:58 | ED.DEP ---
ED Disposition - Plan for ED Patient: Instructions: ED Wound Check Post Op Pain Referrals: Vee Mariee MD [Primary Care Provider] - Sonido Chen MD [STAFF PHYSICIAN] -
--- NOTE | 2019-09-28 18:00 | CM.ED ---
Social Work Consult: Mental Health/Substance Abuse Informant: Dr. Mehta Completing chart review and noting that patient discharged from [facility] on 09/22/2019 from [facility]. It was attempted to get patient in a residential program, multiple facilities declined patient due to wound care. [facility] in [place] did accepted patient and patient discharged to this facility with plan for wound care in [place], [place]. Chief Complaint: Patient reporting concerns with wound healing and being able to manage wounds while being homeless. Marital/Social History: Single Living Situation: Homeless Support/Resources: Limited Employment/Education: Unemployed. Reporting no concerns for comprehension or understanding. Mental Health Treatment/History: Depression and Anxiety. Patient stating that it has ?been awhile? since patient took medication for mental health management. Patient denies any active counseling services or history of inpatient psychiatric services. Substance Abuse History: Patient reporting history of meth, alcohol, and IV heroin abuse/use. Patient stating to have gone to [facility] in [place] on 09/22/2019 and to have stayed for 3 days. Patient stating, ?it is a [facility] cult.? Patient discharged self from program and does not want to return. Patient seeking substance abuse treatment locally. Risk to Self/Others: Patient denies any active suicidal thoughts or plan. Patient stating to have been having ?some? suicidal thoughts in the past week but no active thoughts at this time and stating ?I want to live.? Patient denies any homicidal thoughts or plans. Mental Status Exam: A&Ox3 Appearance/General Affect: Anxious and frustrated with current situation. Assessment: Met with patient in room. Introduced self as well as case management social worker role. Patient agreeable to speaking with this case management social worker. Patient stating to be concerned about being able to care for wounds in the community as patient is homeless. Per Dr. Mehta report after speaking with Dr. Chen patient is to follow with the wound center every MWF but if patient believes that dressing have been compromised that patient is able to go to wound center on any day of the week Mon-Fri to have dressing care addressed. Patient stating to have not been aware of this and to have been going to ?many ED?s? to get wound care. Patient stating to be aware of where the wound clinic is. Patient stating to have limited transportation options but can get to the wound care center. Patient plans to go to wound care center tomorrow for dressing changes. Patient stating continued desire to continue being sober. Patient stating to have not used substance for the past 13 days. Patient stating to be concerned that patient will use again and has been trying to get into a residential program. Patient stating to have spoken with Far[facility] today and patient is not able to be admitted to [facility]. Patient stating, ?they don?t tell me why.? This case management social worker inquiring if patient has looked into outpatient program as per chart review patient was declined multiple residentials due to wounds. Patient stating to have noted looked into outpatient services and is agreeable to this case management social worker leaving voicemail for [facility] to give patient a follow up call. Confirmed patient contact number as: [phone]. Patient stating to have no family or friends that patient can stay with at this time. This case management social worker brought up [facility] as an option, patient stating ?they are always full.? This case management social worker encouraging patient to continue to attempt staying at [facility]. This case management social worker also brought up other homeless shelters outside of [facility]. Patient is not interested in going to other shelters and doesn?t want to get ?stuck.? Active support and listening provided for patient. Updated Dr. Mehta on above information. Plan is for patient to return to community with plan to follow up with wound center tomorrow. Patient wounds are dressed in the ED. PLAN: Discharge to the community. MANUEL Cole
[2019-09-28 18:01] VITALS: BP 148/97; PULSE 102; RESP 17; TEMP 36.7; O2SAT 96
== END 2019-09-28 18:15 | disposition home or self-care (01) ==
LOC: ED 18:11
PROVIDERS: Emergency Provider Emergency Medicine; PCP Internal Medicine
DX: S51.801A Unspecified open wound of right forearm, initial encounter (principal); S51.802A Unspecified open wound of left forearm, initial encounter; X58.XXXA Exposure to other specified factors, initial encounter; Y93.9 Activity, unspecified; Y92.9 Unspecified place or not applicable; Y99.9 Unspecified external cause status; Z48.01 Encounter for change or removal of surgical wound dressing; Z59.0 Homelessness; F19.11 Other psychoactive substance abuse, in remission
CPT/HCPCS: 99283

== ENCOUNTER 2019-09-30 15:54 | Emergency (ER) | payer MEDICAID, SELFPAY ==
[2019-09-30 15:55] VITALS: BP 146/78; PULSE 92; RESP 16; TEMP 36.6; O2SAT 99; BMI 25.7
[2019-09-30 16:02] VITALS: BP 146/78; PULSE 92; RESP 16; TEMP 36.6; O2SAT 99
--- NOTE | 2019-09-30 16:17 | ED.DCSUM_ITS ---
History of Present Illness Chief Complaint: Wound Check Informant: Patient Onset: Weeks Narrative: Patient presents for wound check to the bilateral forearms. He had surgery on September 18 for bilateral forearm abscesses from injecting drugs. Patient states that his right hand seem to be more swollen today. He is scheduled to follow-up with the wound center on Wednesday at 10 AM. He is complaining about increased pain. He asked multiple times if I would increase his dose of gabapentin. I advised him that that change would need to come from the physician who is currently prescribing that, currently Dr. Chen. Patient has not had fever or chills. He last changed the dressings yesterday. - Past Medical History (1) MRSA (methicillin resistant Staphylococcus aureus) infection Status: Acute (2) Open wound of left forearm Status: Acute Comment: open surgical abscess wound mid dorsal radial aspect left forearm (3) Open wound of right forearm Status: Acute Comment: open surgical abscess wound mid dorsal radial aspect right forearm (4) Hepatitis B Status: Chronic (5) Hepatitis C Status: Chronic Past Medical History - Allergies and Home Meds Allergies/Adverse Reactions: Allergies No Known Allergies Allergy (Verified 09/30/19 15:57) Primary Care Physician: Vee Mariee MD [Primary Care Provider] - Doctors: Dr. Chen Prior records reviewed: Yes Surgical History: - Lives: Homeless Smoking Status: Current every day smoker - Family History Maternal Family History: Reports: - - Patient denies any market maternal or paternal family history including heart disease, diabetes or cancer. Paternal Family History: Reports: - - Patient denies any market maternal or paternal family history including heart disease, diabetes or cancer. Review of Systems General: Denies: Chills, Fever Eyes: Denies: Visual changes - bilaterally ENT: Denies: Bilateral ear pain Cardiovascular: Denies: Chest pain Respiratory: Denies: Dyspnea Gastrointestinal: Denies: Abdominal pain Musculoskeletal: Reports: Swelling, Extremity Pain Skin: Reports: Wounds Neurological: Denies: Headache Hematologic: Denies: Easy bruising, Easy bleeding Physical Exam Vital Signs/Narrative: Vital Signs Temp Pulse Resp BP Pulse Ox 09/30/19 16:02 98 F 92 16 146/78 H 99 09/30/19 15:55 98 F 92 16 146/78 H 99 Inital Vital Signs reviewed: Yes General: Well nourished, Well developed Head: Normocephalic ENT: Moist mucous membranes Neck: Supple Cardiovascular: Regular rate, Regular rhythm Respiratory: No distress, CTA bilaterally Abdomen: Soft, Nontender Extremities: - - Patient does have open wounds to the bilateral dorsal forearms. Left arm wound edges are clean. Granulation tissue is noted. No sign of infection and dressing is placed. Right forearm does have slight drainage. Wound edges remain clean with no sign of cellulitis. Mild edema to the right hand is noted. Psychological: - - Anxious Diagnostic/Tx/Re-eval - Medical Decision Making Wound culture from the right forearm wound is taken. Wound to be cleansed and dressed. Patient does have a lot of anxiety here and will be given 1 tab of Ativan to help with dressing change. Patient was advised he would need to talk to Dr. Chen about changing his gabapentin dose. We did advise him that we would not be prescribing narcotics for him. He is to follow-up on Wednesday at the wound center as planned. He will be written new prescriptions for Bactrim and Keflex as he states he just finished antibiotics yesterday. ED Disposition - Plan for ED Patient: Disposition: Home or Assisted Living Diagnosis: Visit for wound check Instructions: ED Wound Check Post Op Pain Prescriptions: Smz/Tmp Ds [Bactrim Ds] 1 tab PO BID #20 tab Transmission Status: Pending to [facility] Cephalexin [Keflex] 500 mg PO Q6 #40 cap Transmission Status: Pending to [facility] Referrals: Vee Mariee MD [Primary Care Provider] - Sonido Chen MD [STAFF PHYSICIAN] - Additional Instructions: Follow-up at the Wound Center on Wednesday at 10am as scheduled.
--- NOTE | 2019-09-30 16:25 | CM.ED ---
SOCIAL WORK INFORMANT: DR. HALL REASON FOR REFERRAL: RESOURCES REVIEWED NOTES FROM PATIENT'S PREVIOUS VISIT ON 09/28/19. MET WITH PATIENT IN ROOM. INTRODUCED ROLE AND REASON FOR REFERRAL. PATIENT VOICED FRUSTRATION AND CONCERNS WITH WOUNDS. PATIENT TO FOLLOW UP WITH THE WOUND CENTER ON 10/02/19. PATIENT CURRENTLY STAYING AT THE [facility]. PER PREVIOUS NOTES, SW HAD LEFT MESSAGE FOR [place] AT [facility]. INFORMED PATIENT THIS WORKER WILL FOLLOW UP WITH [facility] ON WEDNESDAY REGARDING PATIENT'S REQUEST FOR RESIDENTIAL TREATMENT. PATIENT ADMITS TO USING [facility] LAST EVENING. PLAN: [facility] WITH FOLLOW UP AT THE WOUND CENTER ON WEDNESDAY. THIS WORKER TO FOLLOW UP WITH [facility] ON WEDNESDAY. Melly PHILLIPS ,TABLE TOP TILE SETTER, TRUCK DRIVER.
[2019-09-30] MEDS: LORazepam 1 MG Tablet PO (16:27)
[2019-09-30] MEDS: Smz/Tmp Ds Tablet 1 TABLET PO (16:27)
[2019-09-30] MEDS: Cephalexin 250 MG Capsule 500 MG PO (16:27)
[2019-09-30 16:35] VITALS: RESP 16
--- NOTE | 2019-09-30 16:35 | ED.RN ---
PT INSTRUCTED TO LEAVE NEW DRESSINGS IN PLACE UNTIL APPOINTMENT AT WOUND CENTER ON WEDNESDAY, PER REQUEST FROM DR. HALL. REVIEWED D/C INSTRUCTIONS, FOLLOW UP CARE, PRESCRIPTIONS, AND S/S THAT WOULD WARRANT A RETURN TO THE ED WITH PT. PT VERBALIZED AN UNDERSTANDING AND DENIES FURTHER QUESTIONS FOR THIS RN. PT SKIN P/W/D, RESP EVEN AND UNLABORED, PT A&O X 3, NO DISTRESS NOTED. PT AMBULATED OUT OF ED, GAIT STEADY.
== END 2019-09-30 16:40 | disposition home or self-care (01) ==
LOC: ED 16:32
PROVIDERS: Emergency Provider Emergency Medicine; PCP Internal Medicine
DX: S51.801A Unspecified open wound of right forearm, initial encounter (principal); S51.802A Unspecified open wound of left forearm, initial encounter; M79.89 Other specified soft tissue disorders; X58.XXXA Exposure to other specified factors, initial encounter; Y93.9 Activity, unspecified; Y92.9 Unspecified place or not applicable; Y99.9 Unspecified external cause status; Z48.01 Encounter for change or removal of surgical wound dressing; B18.1 Chronic viral hepatitis B without delta-agent; B18.2 Chronic viral hepatitis C; Z59.0 Homelessness; F17.200 Nicotine dependence, unspecified, uncomplicated; Z79.899 Other long term (current) drug therapy; Z86.14 Personal history of Methicillin resistant Staphylococcus aureus infection
CPT/HCPCS: 87070; 87077; 87186; 87205; 99284

== ENCOUNTER 2019-10-01 01:01 | Emergency (ER) | payer MEDICAID, SELFPAY ==
[2019-09-30 15:55] VITALS: BMI 25.7
[2019-10-01 01:03] VITALS: BP 126/88; PULSE 124; RESP 15; TEMP 36.9; O2SAT 98; BMI 27.1
--- NOTE | 2019-10-01 01:23 | ED.VIS.GEN ---
History of Present Illness Chief Complaint: Other, Pain/Inj Informant: Patient Onset: Today Context: Gradual Onset Timing: Continuous Current Severity: Moderate Maximum Severity: Moderate Narrative: The patient is a 49-year-old male with medical history significant for IV drug abuse who presents to the emergency department with bilateral hand edema. The patient was recently hospitalized for incision and drainage of bilateral forearm abscess. He was seen here earlier for dressing change. Sedrick wraps were applied to both arms. He states since going home, he is noticed that his hands have been more swollen and seem to be more tender. He denies any other change in medications. He denies any weakness in the hand. He states he otherwise been in his normal state of health. Prior similar symptoms: Yes Recent Illness/Hospitalization: Yes Past Medical History - Allergies and Home Meds Allergies/Adverse Reactions: Allergies No Known Allergies Allergy (Verified 09/30/19 15:57) Primary Care Physician: Vee Mariee MD [Primary Care Provider] - Prior records reviewed: Yes Past Medical History: - - History of IV drug abuse Surgical History: - Smoking Status: Current every day smoker - Family History Maternal Family History: Reports: - - Patient denies any market maternal or paternal family history including heart disease, diabetes or cancer. Paternal Family History: Reports: - - Patient denies any market maternal or paternal family history including heart disease, diabetes or cancer. Review of Systems General: Denies: Chills, Fever, Sweats Eyes: Denies: Visual changes - bilaterally, Diplopia ENT: Denies: Rhinorrhea, Sore throat Cardiovascular: Denies: Chest pain, Palpitations Respiratory: Denies: Dyspnea, Cough, Dyspnea on exertion Gastrointestinal: Denies: Abdominal pain, Nausea, Vomiting, Diarrhea, Melena, Hematochezia Genitourinary: Denies: Dysuria, Hematuria, Frequency Musculoskeletal: Denies: Back pain, Extremity Pain Skin: Denies: Rash, Wounds Neurological: Denies: Headache, Weakness, Numbness Physical Exam Vital Signs/Narrative: Vital Signs Temp Pulse Resp BP Pulse Ox 10/01/19 01:03 98.4 F 124 H 15 126/88 H 98 Inital Vital Signs reviewed: Yes General: Well nourished, Well developed, No Acute Distress Head: Normocephalic, Atraumatic Eyes: Perrl, EOMI ENT: Moist mucous membranes, No rhinorrhea Neck: Supple, Nontender Cardiovascular: Regular rate, Regular rhythm, No murmurs Respiratory: No distress, CTA bilaterally, Chest nontender Abdomen: Soft, Nontender, Nondistended, Normal bowel sounds Back: Nontender, Normal Inspection Extremities: - - Wounds are clean, dry, and intact. There is normal pulses of the forearms. There is no active bleeding. There is no evidence of compartment syndrome. Skin: Normal color, No rash Neurological: Alert, Oriented x3, Cranial nerves II-XII grossly intact, Normal Strength, Normal Sensation Psychological: Normal affect, Normal Mood Diagnostic/Tx/Re-eval - Medical Decision Making The Sedrick bandages were taken down. The dressings were taken down. The wound was evaluated and is completely intact without bleeding. His compartments are soft. His pulses are normal. I do feel he likely had the Sedrick is on too tight which was causing the edema in his hands. These were redressed and the patient is feeling improved. He will be discharged to keep his appointment at the wound center. Impression 1. Postop wound check ED Disposition - Plan for ED Patient: Instructions: ED Wound Check Post Op No Infec Referrals: Vee Mariee MD [Primary Care Provider] -
== END 2019-10-01 02:03 | disposition home or self-care (01) ==
LOC: ED 01:49
PROVIDERS: Emergency Provider Emergency Medicine; PCP Internal Medicine
DX: R60.0 Localized edema (principal); F17.200 Nicotine dependence, unspecified, uncomplicated; Z98.890 Other specified postprocedural states
CPT/HCPCS: 99282

== ENCOUNTER 2019-10-11 13:09 | Emergency (ER) | payer MEDICAID, SELFPAY ==
[2019-10-11 12:48] VITALS: BMI 25.7
[2019-10-11 13:10] VITALS: BP 139/73; PULSE 93; RESP 15; TEMP 36.8; O2SAT 95; BMI 25.7
[2019-10-11 13:15] VITALS: O2SAT 96
[2019-10-11 15:20] LABS: Absolute Neutrophil Count 12.2 X10^3/uL (2.0-7.7); Basophil# 0.04 X10^3/uL; Basophil% 0.3 % (0-1); Eosinophil# 0.17 X10^3/uL; Eosinophils% 1.2 % (0-5); Hematocrit 39.5 % (40-54); Hemoglobin 12.6 g/dL (13.0-16.5); Lymphocyte % 8.2 % (19-41); Mean Corp Hgb Conc 31.9 g/dL (32-36); Mean Corpuscular Hgb 29.9 pg (27.0-32.0); Mean Corpuscular Volume 93.6 fL (80-94); Mean Platelet Vol. 9.5 fl (6.2-12.0); Monocyte# 0.95 X10^3/uL; Monocyte% 6.5 % (0-10); NRBC Flagged by Analyzer 0 % (0-5); Neutrophil # 12.24 X10^3/uL (2.7-7.7); Neutrophil % 83.4 % (47-70); Platelet Count 308 K/mm3 (150-450); RBC Distribution Width CV 13.1 % (11.6-14.6); RBC Distribution Width SD 44.7 fl (35.1-43.9); Red Blood Count 4.22 M/mm3 (4.6-6.2); White Blood Count 14.7 K/mm3 (4.4-11.0)
--- NOTE | 2019-10-11 15:30 | RAD_ITS ---
STUDY: X-RAY CHEST REASON FOR EXAM: Male, 49 years old. COUGH, SOB TECHNIQUE: Single AP portable view of the chest. COMPARISON: Comparison is made with prior study dated September 06, 2018. FINDINGS: EKG electrodes are seen. The lungs are clear and expanded. Scattered calcified granulomas. There is no demonstrated pleural abnormality. Normal size heart. Normal mediastinum and mason. Normal visualized pulmonary arteries. Normal visualized aortic arch and descending thoracic aorta. Normal visualized thoracic spine. Prior left shoulder replacement. There is no demonstrated abnormality of the visualized soft tissue structures of the upper abdomen. RAD/Chest 1 View (Portable) IMPRESSION: No acute abnormality is seen. Electronically Signed: Tony Olivo, at 15:48 EDT , Service support ,
[2019-10-11 15:33] VITALS: BP 116/63; PULSE 83; RESP 22; O2SAT 97
[2019-10-11 15:43] LABS: Lactic Acid 1.1 mmol/L (0.4-1.9)
[2019-10-11 15:46] LABS: AST(SGOT) 15 U/L (15-37); Alanine Aminotransfer ALT/SGPT 22 U/L (16-61); Alkaline Phosphatase 58 U/L (45-117); Anion Gap 6 (5-15); BUN 16 mg/dL (7-18); BUN/Creat Ratio 17.8 RATIO (10-20); Calcium,Total 8.9 mg/dL (8.5-10.1); Chloride 102 mmol/L (98-107); EST Glomerular Filtration Rate 96 mL/min (>60); Est Glom Filt Rate - Afr Amer 116 mL/min (>60); Estimated Creatinine Clearance 84.96 ml/min; Glucose 94 mg/dL (74-106); Potassium 4.1 mmol/L (3.5-5.1); Sodium Level 135 mmol/L (136-145)
--- NOTE | 2019-10-11 15:48 | ED.VIS.GEN ---
History of Present Illness Chief Complaint: Shortness of Breath Informant: Patient Onset: Days Context: Sudden Onset Timing: Intermittent Quality: Dyspnea, productive cough, fever Location: Upper respiratory Current Severity: Mild Maximum Severity: Moderate Worsened by: Nothing specific Relieved by: Nothing Associated Symptoms: Nasal congestion, productive cough, fever Narrative: Patient is a 49-year-old [id number] male who is an IV drug user and presented for upper respiratory symptoms and concern for [place]. Patient reports fever, rhinorrhea, congestion, cough. Fever documented 100.5 ?F. He denies headache. He denies loss of taste or smell. He denies neck pain or stiffness. He denies chest pain. He denies nausea, vomiting diarrhea. He denies myalgias or arthralgias. He denies rash. That started several days ago. He is unaware of any known contacts positive for COVID. Prior similar symptoms: No Recent Illness/Hospitalization: No - Past Medical History (1) MRSA (methicillin resistant Staphylococcus aureus) infection Status: Acute (2) Open wound of left forearm Status: Acute Comment: open surgical abscess wound mid dorsal radial aspect left forearm (3) Open wound of right forearm Status: Acute Comment: open surgical abscess wound mid dorsal radial aspect right forearm (4) Alcohol abuse Status: Chronic (5) Anxiety and depression Status: Chronic (6) Hepatitis B Status: Chronic (7) Hepatitis C Status: Chronic (8) Methamphetamine abuse Status: Chronic (9) Tobacco use Status: Chronic (10) Mental health disorder Status: Chronic Past Medical History - Allergies and Home Meds Allergies/Adverse Reactions: Allergies No Known Allergies Allergy (Verified 10/02/19 14:31) Primary Care Physician: Vee Mariee MD [Primary Care Provider] - Prior records reviewed: Yes Surgical History: - Lives: Alone Smoking Status: Current every day smoker Alcohol: Heavy Drugs: - - F amphetamine - Family History Maternal Family History: Reports: - - Patient denies any market maternal or paternal family history including heart disease, diabetes or cancer. Paternal Family History: Reports: - - Patient denies any market maternal or paternal family history including heart disease, diabetes or cancer. Review of Systems General: Reports: Chills, Fever, Malaise. Denies: Subjective, Sweats, Weight loss Eyes: Denies: Visual changes - bilaterally, Blurred Vision - bilaterally, Diplopia ENT: Reports: - - Denies loss of taste or smell. Denies: Bilateral ear pain, Rhinorrhea, Sore throat Respiratory: Reports: Dyspnea, Cough, Sputum. Denies: Dyspnea on exertion, Orthopnea, Paroxysmal nocturnal dyspnea Gastrointestinal: Denies: Abdominal pain, Nausea, Vomiting, Diarrhea, Melena, Hematochezia Genitourinary: Denies: Dysuria, Hematuria, Frequency Musculoskeletal: Denies: Myalgias, Arthralgias, Neck pain, Back pain, Swelling, Extremity Pain, -, - Skin: Reports: Wounds - Secondary to IV drug use volar surface right and left forearm. He completed a course of cephalexin and Bactrim 24 hours ago.. Denies: Rash Neurological: Denies: Headache, Weakness, Parasthesia, Numbness Psych: Reports: Depression, Anxiety. Denies: Suicidal thoughts, Suicidal ideations Hematologic: Denies: Easy bruising, Easy bleeding Physical Exam Vital Signs/Narrative: Vital Signs Temp Pulse Resp BP Pulse Ox 10/11/19 15:33 83 22 H 116/63 97 10/11/19 13:10 98.3 F 93 15 139/73 H 95 Inital Vital Signs reviewed: Yes General: Well nourished, Well developed, No Acute Distress Head: Normocephalic, Atraumatic Eyes: Perrl, EOMI ENT: Moist mucous membranes, No rhinorrhea Neck: Supple, Nontender, No lymphadenopathy, No JVD Cardiovascular: Regular rate, Regular rhythm, No murmurs, Normal S1, Normal S2 Respiratory: No distress, CTA bilaterally, Chest nontender Abdomen: Soft, Nontender, Nondistended, Normal bowel sounds Back: Nontender, Normal Inspection Extremities: No edema, Tenderness - Is over wounds. Wounds are dressed. These were not unwrapped since he was recently seen for by physician caring for his wound infections due to IV drug use. Skin: Normal color, No rash Neurological: Alert, Oriented x3, Cranial nerves II-XII grossly intact, Normal Strength, Normal Sensation Psychological: Normal affect, Normal Mood Diagnostic/Tx/Re-eval Chest X-Ray - ED: 1 View, Read by ED Physician, Normal, Heart, Bony Structures, No Acute Disease, - - Evidence of granulomatous disease. Cardiac silhouette and size normal. Hemiprosthesis left shoulder. Osseous structures otherwise are unremarkable. The chest x-ray is unchanged from September 06, 2018. X-ray interpreted by me at 1548. Impressions Chest X-Ray 10/11/19 15:30 IMPRESSION: No acute abnormality is seen. Electronically Signed: Tony Olivo, at 15:48 EDT , Service support , 10/11/19 15:30 Chest 1 View (Portable) [RAD] Stat Laboratory Results 10/11/19 10/11/19 10/11/19 14:30 14:30 14:30 WBC 14.7 H RBC 4.22 L Hgb 12.6 L Hct 39.5 L MCV 93.6 MCH 29.9 MCHC 31.9 L RDW Std Deviation 44.7 H RDW Coeff of Kelsea 13.1 Plt Count 308 MPV 9.5 Immature Gran % (Auto) 0.400 Neut % (Auto) 83.4 H Lymph % (Auto) 8.2 L [place] % (Auto) 6.5 Eos % (Auto) 1.2 Baso % (Auto) 0.3 Absolute Neuts (auto) 12.2 H Absolute Lymphs (auto) 1.20 Nucleated RBC % 0 Sodium 135 L Potassium 4.1 Chloride 102 Carbon Dioxide 27.0 Anion Gap 6 BUN 16 Creatinine 0.90 Estim Creat Clear Calc 84.96 Est GFR (MDRD) Af Amer 116 Est GFR (MDRD) Non-Af 96 BUN/Creatinine Ratio 17.8 Glucose 94 Lactic Acid 1.1 Calcium 8.9 Total Bilirubin 0.40 AST 15 ALT 22 Alkaline Phosphatase 58 Total Protein 8.0 Albumin 4.0 Globulin 4.0 Albumin/Globulin Ratio 1.0 - Medical Decision Making With complaint of cough, shortness of breath chest x-ray was obtained to rule out pneumonia, bronchitis, COVID. COVID work-up was undertaken. Chest x-ray unremarkable. White count slightly elevated. This is nonspecific. Plan is to discharge with doxycycline for typical atypical coverage. ED Disposition - Plan for ED Patient: Disposition: Home or Assisted Living Diagnosis: Suspected COVID-19 virus infection, Upper respiratory infection with cough and congestion Instructions: ED Upper Resp Infec Abx Tx Prescriptions: Doxycycline 100 mg PO BID #14 cap Transmission Status: Pending to [facility] Referrals: Vee Mariee MD [Primary Care Provider] - 3-5 Days
[2019-10-11 16:14] VITALS: BP 118/69; PULSE 76; RESP 14; TEMP 37; O2SAT 98
[2019-10-11 17:01] VITALS: BP 122/70; PULSE 77; RESP 16; O2SAT 96
--- NOTE | 2019-10-11 17:02 | ED.RN ---
pt asked about having bandages changes. I stated that i would be willing due to the fact that he missed his wound center appointment. pt then stated forget it I have and appointment tomorrow. I ask are you sure. He then stated yes. pt left ed in a hurry. he was informed about his perscription at [facility] [place] [id number]
== END 2019-10-11 17:05 | disposition home or self-care (01) ==
PROVIDERS: Emergency Provider Emergency Medicine; PCP Internal Medicine
DX: J06.9 Acute upper respiratory infection, unspecified (principal); T81.89XD Other complications of procedures, not elsewhere classified, subsequent encounter; S51.802D Unspecified open wound of left forearm, subsequent encounter; S51.801D Unspecified open wound of right forearm, subsequent encounter; X58.XXXD Exposure to other specified factors, subsequent encounter; F15.10 Other stimulant abuse, uncomplicated; F17.200 Nicotine dependence, unspecified, uncomplicated; F32.9 Major depressive disorder, single episode, unspecified; F41.9 Anxiety disorder, unspecified; Z79.899 Other long term (current) drug therapy; Z86.14 Personal history of Methicillin resistant Staphylococcus aureus infection
CPT/HCPCS: 71045; 80053; 83605; 85025; 87040; 87633; 87635; 94799; 99285; G2023; A4216; U0003

== ENCOUNTER 2019-10-12 07:41 | Emergency (ER) | payer MEDICAID, SELFPAY ==
[2019-10-11 13:10] VITALS: BMI 25.7
[2019-10-12 07:42] VITALS: BP 148/66; PULSE 93; RESP 16; TEMP 36.4; O2SAT 94; BMI 24.9
--- NOTE | 2019-10-12 07:54 | ED.DCSUM_ITS ---
History of Present Illness Chief Complaint: General Illness Informant: Patient Onset: Weeks Current Severity: Mild Maximum Severity: Mild Narrative: Patient presents complaining of body aches sense of chills really for a long time for weeks maybe a month, he recently had abscesses in both upper extremities I indeed he is followed to the wound care center, he has not used any type of IV drug recently he is following up with the counseling center for his rehab, he has not been exposed to coronavirus, he is seen at wound care center for the wounds but he has missed his recent appointments He was seen in the emergency department yesterday for these complaints his work- up was unremarkable Is had a white count of 14,000, he was given a prescription for doxycycline which he did not fill fill he was told to follow-up and make appointments with his outpatient providers wound care center counselors etc. and he did not do that he presents complaining that he feels feels as if he has chills. He has no cough he has no fever no runny nose no abdominal pain the wounds on his upper extremities are healing he has Sedrick wrap's applied to them his hand function is normal Past Medical History - Allergies and Home Meds Allergies/Adverse Reactions: Allergies No Known Allergies Allergy (Verified 10/12/19 07:42) Primary Care Physician: Vee Mariee MD [Primary Care Provider] - Past Medical History: - Surgical History: - Smoking Status: Current every day smoker - Family History Maternal Family History: Reports: - - Patient denies any market maternal or paternal family history including heart disease, diabetes or cancer. Paternal Family History: Reports: - - Patient denies any market maternal or paternal family history including heart disease, diabetes or cancer. Review of Systems ROS: - Includes as above General: Reports: Chills. Denies: Fever, Sweats Eyes: Denies: Visual changes - bilaterally, Diplopia ENT: Denies: Rhinorrhea, Sore throat Cardiovascular: Denies: Chest pain, Palpitations Respiratory: Denies: Dyspnea, Cough, Dyspnea on exertion Gastrointestinal: Denies: Abdominal pain, Nausea, Vomiting, Diarrhea, Melena, Hematochezia Genitourinary: Denies: Dysuria, Hematuria, Frequency Musculoskeletal: Denies: Back pain, Extremity Pain Skin: Denies: Rash, Wounds Neurological: Denies: Headache, Weakness, Numbness Physical Exam Vital Signs/Narrative: Vital Signs Temp Pulse Resp BP Pulse Ox 10/12/19 07:42 97.6 F L 93 16 148/66 H 94 General: Well nourished, Well developed, No Acute Distress Head: Normocephalic, Atraumatic Eyes: Perrl, EOMI ENT: Moist mucous membranes, No rhinorrhea Neck: Supple, Nontender Cardiovascular: Regular rate, Regular rhythm, No murmurs Respiratory: No distress, CTA bilaterally, Chest nontender Abdomen: Soft, Nontender, Nondistended, Normal bowel sounds Back: Nontender, Normal Inspection Extremities: Nontender, No edema, - - Both upper extremities have significant Sedrick wraps to them they are nontender there is no drainage his hand function is normal we did discuss breaking down those dressings to evaluate the wounds but he is going to be seen by wound care and preferred that management through wound care Skin: Normal color, No rash Neurological: Alert, Oriented x3, Cranial nerves II-XII grossly intact, Normal Strength, Normal Sensation Psychological: Normal affect, Normal Mood Diagnostic/Tx/Re-eval - Medical Decision Making The patient's vital signs are unremarkable he is afebrile he is in no distress his physical exam HEENT lungs clear heart tones unremarkable no murmur the abdomen soft nontender the upper extremities have these Sedrick wraps and they appear to be in good shape there is no odor or pain hand function is normal he really does not necessarily want the Sedrick wrap broken down At this time he is comfortable with discharge home we are trying to arrange for him to be seen by wound care center today to continue his therapy there, we have actually called the prescription into the [facility] [place] pharmacy for him as he did not comply and get it filled yesterday he will take that medication until the prescription is completed and otherwise he will follow-up with all of his outpatient providers for further management of the above conditions and all of his other chronic conditions he understands noncompliance can lead to life- threatening complications and he will follow-up, again he assures me he is not using any type of illicit drugs he is currently under the care of the counselors for his substance abuse disorder Home with stable Impression subjective chills, history of IV drug abuse, history of recent I&D bilateral upper extremity abscesses not compliant with therapy ED Disposition - Plan for ED Patient: Diagnosis: Open wound of left forearm, Open wound of right forearm Referrals: Vee Mariee MD [Primary Care Provider] - Additional Instructions: At your prescription from the pharmacy take the antibiotics follow-up with wound care center and all of your providers
--- NOTE | 2019-10-12 09:26 | ED.RN ---
THIS NURSE LEFT A MESSAGE FOR PT TO INFORM HIM HIS ATB IS READY FOR POST [facility]
== END 2019-10-12 08:10 | disposition home or self-care (01) ==
LOC: ED 08:05
PROVIDERS: Emergency Provider Emergency Medicine; PCP Internal Medicine
DX: R68.83 Chills (without fever) (principal); T81.89XD Other complications of procedures, not elsewhere classified, subsequent encounter; S51.802D Unspecified open wound of left forearm, subsequent encounter; S51.801D Unspecified open wound of right forearm, subsequent encounter; X58.XXXD Exposure to other specified factors, subsequent encounter; F17.200 Nicotine dependence, unspecified, uncomplicated; F19.11 Other psychoactive substance abuse, in remission; Z79.899 Other long term (current) drug therapy
CPT/HCPCS: 99282

== ENCOUNTER 2019-10-30 09:15 | Outpatient (RCR) | payer MEDICAID, SELFPAY ==
[2019-10-02 14:11] VITALS: BP 123/67; PULSE 90; RESP 18; TEMP 36.8; BMI 25.7
--- NOTE | 2019-10-02 16:13 | PN.PCM_ITS ---
(1) Open wound of left forearm Status: Acute Current Visit: Yes Code(s): S51.802A - Unspecified open wound of left forearm, initial encounter Comment: open surgical abscess wound mid dorsal radial aspect left forearm (2) Open wound of right forearm Status: Acute Current Visit: Yes Code(s): S51.801A - Unspecified open wound of right forearm, initial encounter Comment: open surgical abscess wound mid dorsal radial aspect right forearm (3) MRSA (methicillin resistant Staphylococcus aureus) infection Status: Acute Current Visit: Yes Code(s): A49.02 - Methicillin resistant Staphylococcus aureus infection, unspecified site (4) Opiate withdrawal Status: Acute Current Visit: Yes Code(s): F11.23 - Opioid dependence with withdrawal (5) Hepatitis B Status: Chronic Current Visit: Yes Qualifiers: Viral hepatitis chronicity: unspecified Hepatic coma status: without hepatic coma Code(s): B19.10 - Unspecified viral hepatitis B without hepatic coma (6) Tobacco use Status: Chronic Current Visit: Yes Code(s): Z72.0 - Tobacco use (7) Anxiety and depression Status: Chronic Current Visit: Yes Code(s): F41.9 - Anxiety disorder, unspecified; F32.9 - Major depressive disorder, single episode, unspecified (8) Heroin use Status: Chronic Current Visit: Yes Code(s): F11.90 - Opioid use, unspecified, uncomplicated (9) Methamphetamine abuse Status: Chronic Current Visit: Yes Code(s): F15.10 - Other stimulant abuse, uncomplicated (10) Alcohol abuse Status: Chronic Current Visit: Yes Code(s): F10.10 - Alcohol abuse, uncomplicated (11) Hepatitis C Status: Chronic Current Visit: Yes Qualifiers: Viral hepatitis chronicity: unspecified Hepatic coma status: without hepatic coma Qualified Code(s): B19.20 - Unspecified viral hepatitis C without hepatic coma Code(s): B19.20 - Unspecified viral hepatitis C without hepatic coma (12) Mental health disorder Status: Chronic Current Visit: No Code(s): F99 - Mental disorder, not otherwise specified (13) Abscess of right forearm Status: Acute Current Visit: No Code(s): L02.413 - Cutaneous abscess of right upper limb Comment: intravenous drug abuse abscess mid dorsal radial aspect right forearm (14) Abscess of left forearm Status: Acute Current Visit: No Code(s): L02.414 - Cutaneous abscess of left upper limb Comment: intravenous drug abuse abscess mid dorsal radial aspect left forearm Type of Wound Date of Service: 10/02/19 Chief Complaint: Ulcer of right dorsal forearm and ulcer of left dorsal forearm. History of Wound: Patient is a 49 year old male with a significant history of drug and alcohol abuse. Postop visit from his recent surgery on 09/19/19 where he underwent surgical preparation mid dorsal radial aspect left forearm with incision and drainage and excisional debridement intravenous drug abuse abscess (24.5 cm2) and surgical preparation mid dorsal radial aspect right forearm with incision and drainage and excisional debridement intravenous drug abuse abscess (10.5 cm2). Upon discharge he was sent to [facility] in [place] which he left because he states it was a cult. He is currently homeless. He came into the office last for a post op evaluation and a dressing change. Wound care is Silver dressing 3 times per week. Today he denies fever or chills. He states he still feels like he is withdrawaling. He states he went to the ED last but they released him stating he was stable with his withdrawal symptoms. Progress of Wound: Stable - Physical Exam Vital Signs Temp Pulse Resp BP 98.2 F 90 18 123/67 H 10/02/19 14:11 10/02/19 14:11 10/02/19 14:11 10/02/19 14:11 General: Alert, Oriented x3, Cooperative HEENT: Atraumatic Oral: Moist Mucosa Lungs: Clear to auscultation, Normal air movement Cardiovascular: Regular rate, Regular Rhythm Abdomen: Soft Extremities: Capillary Refill Less than 3 Seconds, Peripheral Pulses Normal, Tenderness Skin: Ulcer/ Wound - right dorsal forearm ulcer and left dorsal forearm ulcer Wound Measurements and Assessment WC - Nurse 1 - General Ulcer Measurement Start: 10/02/19 14:10 Freq: Status: Active Protocol: Activity Type Activity Date Activity User E-Sign Co-Sign Detail Recorded Client Recorded Date Recorded By Document 10/02/19 14:11 [facility] [id number] 10/02/19 14:29 [facility] 10/02/19 14:11 Wound Center Nurse 1 [Ulcer Assessment] #2- LFA -Combined with other wound No -Current Size (cm) - Length 7.2 -Current Size (cm) - Width 4.2 -Current Size (cm) - Depth 0.6 -Total Square Cm 30.24 -Date of Last Picture (Recall this 10/02/19 field) -Photo Taken Yes -Epithelialization None Present -Tunneling No -Undermining/Tunneling Yes -Undermining/Tunneling Starts (O' 11 clock) -Undermining/Tunneling Ends (O'clock) 3 -Maximum Distance (cm) 0.8 -Exudate Amt Medium -Exudate Type Serosanguineous -Wound Margin Thickened & Rolled Under -Granulation Amt Medium (34-66%) -Granulation Quality Red -Slough/Fibrin Yes -Necrosis Amt Medium (34-66%) -Necrotic Tissue Type Adherent Slough -Texture (Lauren-wound Skin Appearance) Assessed, Scarring -Moisture (Lauren-wound Skin Appearance Assessed ) -Color (Lauren-wound Skin Appearance) Assessed, Erythema -Temperature (Lauren-wound Skin No Abnormality Appearance) (Pt Warm) -Tenderness on Palpation (Lauren-wound Yes Skin Appearance) -Ulcer Cleansing SOAPY WATER -Foul Odor after Cleansing No -Anesthetic Used 4% Lidocaine Solution #1- RFA -Combined with other wound No -Current Size (cm) - Length 3.7 -Current Size (cm) - Width 3.3 -Current Size (cm) - Depth 0.5 -Total Square Cm 12.21 -Date of Last Picture (Recall this 10/02/19 field) -Photo Taken Yes -Epithelialization None Present -Tunneling No -Undermining/Tunneling Yes -Undermining/Tunneling Starts (O' 12 clock) -Undermining/Tunneling Ends (O'clock) 4 -Maximum Distance (cm) 2 -Circular Undermining No -Exudate Amt Medium -Exudate Type Serosanguineous -Wound Margin Thickened & Rolled Under -Granulation Amt Medium (34-66%) -Granulation Quality Red -Slough/Fibrin Yes -Necrosis Amt Medium (34-66%) -Necrotic Tissue Type Adherent Slough -Texture (Lauren-wound Skin Appearance) Assessed, Scarring -Moisture (Lauren-wound Skin Appearance Assessed ) -Color (Lauren-wound Skin Appearance) Assessed, Erythema -Temperature (Lauren-wound Skin No Abnormality Appearance) (Pt Warm) -Tenderness on Palpation (Lauren-wound Yes Skin Appearance) -Ulcer Cleansing SOAPY WATER -Foul Odor after Cleansing No -Anesthetic Used 4% Lidocaine Solution Musculoskeletal: Tenderness Neurological: Neuro grossly intact Psych/Mental Status: Normal Affect, Restless Debridement Note Wound debrided: dorsal ulcer Laterality: Right Type of Debridement: Excisional debridement Anesthesia Used: 5% Lidocaine Gel Depth: Down to and including healthy tissue, in the subcutaneous layer, to muscle Percentage of wound debrided: 100 Instrument Used: 5mm curette Tissue Removed: Subcutaneous tissue and slough into the muscle Severity: Fat Layer Exposed Amount of bleeding with debridement: Mild Bleeding Controlled with: Pressure, Compression and gauze Patient tolerated procedure well - Additional Wound Wound debrided: dorsal ulcer Laterality: Left Type of Debridement: Excisional debridement Anesthesia Used: 5% Lidocaine Gel Depth: Down to and including healthy tissue, in the subcutaneous layer, to muscle Percentage of wound debrided: 100 Instrument Used: 5mm curette Tissue Removed: Subcutaneous tissue and slough into the muscle Severity: Fat Layer Exposed Amount of bleeding with debridement: Mild Bleeding Controlled with: Pressure Patient tolerated procedure: Patient tolerated procedure well Assessment/Plan Active Problems (Last Reviewed 09/30/19 @ 09:[address] Sonido Chen MD) MRSA (methicillin resistant Staphylococcus aureus) infection (Acute) Open wound of right forearm (Acute) open surgical abscess wound mid dorsal radial aspect right forearm Open wound of left forearm (Acute) open surgical abscess wound mid dorsal radial aspect left forearm Opiate withdrawal (Acute) Hepatitis B (Chronic) Tobacco use (Chronic) Anxiety and depression (Chronic) Heroin use (Chronic) Methamphetamine abuse (Chronic) Alcohol abuse (Chronic) Hepatitis C (Chronic) Assessment: 1. Open wound of left forearm. 2. Open wound of right forearm. 3. MRSA (methicillin resistant Staphylococcus aureus) infection. 4. open surgical abscess wound mid dorsal radial aspect right forearm. 5. open surgical abscess wound mid dorsal radial aspect left forearm. 6. Opiate withdrawal. 7. Hepatitis B. 8. Tobacco use. 9. Anxiety and depression. 10. Heroin use. 11. Methamphetamine abuse. 12. Alcohol abuse. Hepatitis C Plan: [facility] A debridement wa s performed on bilateral dorsal forearm ulcers. He tolerated it fairly well. Patient is postop visit from his recent surgery on 09/19/19 where he underwent surgical preparation mid dorsal radial aspect left forearm with incision and drainage and excisional debridement intravenous drug abuse abscess (24.5 cm2) and surgical preparation mid dorsal radial aspect right forearm with incision and drainage and excisional debridement intravenous drug abuse abscess (10.5 cm2). Upon discharge he was sent to [facility] in [place] which he left because he states it was a cult. He is currently homeless. He came into the office last for a post op evaluation and a dressing change. Wound care is Silver dressing 3 times per week after washing the ulcers with soap and water. ARJUN wraps to bilateral forearms. Today he denies fever or chills. Encouraged him to increase his protein intake. He is currently homeless so he states that he is only eating 1-2 meals a day. Follow up one week but he will come for a nurse visit on Wednesday and Wednesday. [id number]: [id number] Global Visit
[2019-10-06 14:33] VITALS: BP 130/83; PULSE 95; RESP 18; TEMP 36.2; BMI 25.7
--- NOTE | 2019-10-06 14:42 | WC ---
NURSE VISIT FOR DRSG CHANGES. PT IN A SLIGHTLY AGITATED STATE. EXPRESSES CONCERN TO THIS NURSE THAT HIS DRESSINGS ARE ONLY BEING CHANGED 3X/WEEK. WANTS TO BE ADMITTED TO AN ECF FOR DAILY CARE, BUT STATES WAS TOLD BY PCP THAT HE FIRST NEEDS A 3 DAY QUALIFYING STAY IN THE HOSPITAL. VOICES FRUSTRATION AT HIS SITUATION. SAYS DEBRIDEMENT IN OFFICE IS TOO PAINFUL, BUT UNDERSTANDS HE CAN'T HAVE NARCOTICS D/T ADDICTION HX. WANTS TO KNOW IF HE CAN HAVE SOMETHING (NON NARCOTIC) FOR PAIN? MOTRIN THAT HE'S CURRENTLY TAKING ISN'T ALLEVIATING ALL PAIN. STATES THAT HE MIGHT GO TO ED AND PURPOSEFULLY TELL THEM HE'S GOING TO HURT HIMSELF SO THEY WILL ADMIT HIM, OR INTENTIONALLY TRY TO INFECT HIS WOUNDS FOR SUBSEQUENT HOSPITALIZATION. ENCOURAGED HIM TO CALL DR SMALL'S/MADELINE PLASCENCIA'S OFFICE TODAY. THIS NURSE ALSO CALLED AND GAVE UPDATE TO M[facility]INE PLASCENCIA @ THIS TIME.
[2019-10-09 11:31] VITALS: BP 121/77; PULSE 71; RESP 20; TEMP 36.4; BMI 25.7
--- NOTE | 2019-10-09 13:33 | PN.PCM_ITS ---
(1) Open wound of left forearm Status: Acute Current Visit: Yes Code(s): S51.802A - Unspecified open wound of left forearm, initial encounter Comment: open surgical abscess wound mid dorsal radial aspect left forearm (2) Open wound of right forearm Status: Acute Current Visit: Yes Code(s): S51.801A - Unspecified open wound of right forearm, initial encounter Comment: open surgical abscess wound mid dorsal radial aspect right forearm (3) MRSA (methicillin resistant Staphylococcus aureus) infection Status: Acute Current Visit: Yes Code(s): A49.02 - Methicillin resistant Staphylococcus aureus infection, unspecified site (4) Opiate withdrawal Status: Acute Current Visit: Yes Code(s): F11.23 - Opioid dependence with withdrawal (5) Hepatitis B Status: Chronic Current Visit: Yes Qualifiers: Viral hepatitis chronicity: unspecified Hepatic coma status: without hepatic coma Code(s): B19.10 - Unspecified viral hepatitis B without hepatic coma (6) Tobacco use Status: Chronic Current Visit: Yes Code(s): Z72.0 - Tobacco use (7) Anxiety and depression Status: Chronic Current Visit: Yes Code(s): F41.9 - Anxiety disorder, unspecified; F32.9 - Major depressive disorder, single episode, unspecified (8) Heroin use Status: Chronic Current Visit: Yes Code(s): F11.90 - Opioid use, unspecified, uncomplicated (9) Methamphetamine abuse Status: Chronic Current Visit: Yes Code(s): F15.10 - Other stimulant abuse, uncomplicated (10) Alcohol abuse Status: Chronic Current Visit: Yes Code(s): F10.10 - Alcohol abuse, uncomplicated (11) Hepatitis C Status: Chronic Current Visit: Yes Qualifiers: Viral hepatitis chronicity: unspecified Hepatic coma status: without hepatic coma Qualified Code(s): B19.20 - Unspecified viral hepatitis C without hepatic coma Code(s): B19.20 - Unspecified viral hepatitis C without hepatic coma (12) Mental health disorder Status: Chronic Current Visit: No Code(s): F99 - Mental disorder, not otherwise specified Type of Wound Date of Service: 10/09/19 Chief Complaint: Ulcer of right dorsal forearm and ulcer of left dorsal forearm. History of Wound: Patient is a 49 year old male with a significant history of drug and alcohol abuse. Postop visit from his recent surgery on 09/19/19 where he underwent surgical preparation mid dorsal radial aspect left forearm with incision and drainage and excisional debridement intravenous drug abuse abscess (24.5 cm2) and surgical preparation mid dorsal radial aspect right forearm with incision and drainage and excisional debridement intravenous drug abuse abscess (10.5 cm2). Upon discharge he was sent to [facility] in [place] which he left because he states it was a cult. He is currently homeless. He came into the office last for a post op evaluation and a dressing change. Wound care is Silver dressing 3 times per week. Today he denies fever or chills. He has been to the ED several times over the past couple weeks for various complaints, but most of them seem to be related to withdrawal symptoms. Progress of Wound: Stable - Physical Exam Vital Signs Temp Pulse Resp BP 97.6 F L 71 20 H 121/77 H 10/09/19 11:31 10/09/19 11:31 10/09/19 11:31 10/09/19 11:31 General: Alert HEENT: Atraumatic Oral: Moist Mucosa Lungs: Normal air movement Cardiovascular: Regular rate Extremities: Capillary Refill Less than 3 Seconds Skin: Ulcer/ Wound - Right forearm wound and left forearm wound. Wound Measurements and Assessment WC - Nurse 1 - General Ulcer Measurement Start: 10/02/19 14:10 Freq: Status: Active Protocol: Activity Type Activity Date Activity User E-Sign Co-Sign Detail Recorded Client Recorded Date Recorded By Document 10/09/19 11:31 DL [id number] 10/09/19 11:42 DL 10/09/19 11:31 Wound Center Nurse 1 [Ulcer Assessment] #2- LFA -Current Size (cm) - Length 5.2 -Current Size (cm) - Width 3.8 -Current Size (cm) - Depth 0.3 -Total Square Cm 19.76 -Photo Taken No -Exudate Amt Medium -Exudate Type Yellow/Green -Wound Margin Distinct, Outline Attached -Granulation Amt Medium (34-66%) -Granulation Quality Bazine -Necrosis Amt Medium (34-66%) -Necrotic Tissue Type Adherent Slough -Structure Exposed N/A -Texture (Lauren-wound Skin Appearance) Scarring -Moisture (Lauren-wound Skin Appearance No Abnormality ) -Color (Lauren-wound Skin Appearance) No Abnormality -Temperature (Lauren-wound Skin No Abnormality Appearance) (Pt Warm) -Tenderness on Palpation (Lauren-wound Yes Skin Appearance) -Ulcer Cleansing Wound Cleanser -Foul Odor after Cleansing No -Anesthetic Used 4% Lidocaine Solution #1- RFA -Current Size (cm) - Length 3.3 -Current Size (cm) - Width 3.7 -Current Size (cm) - Depth 0.3 -Total Square Cm 12.21 -Photo Taken No -Exudate Amt Medium -Exudate Type Yellow/Green -Wound Margin Distinct, Outline Attached -Granulation Amt Medium (34-66%) -Granulation Quality Bazine -Necrosis Amt Medium (34-66%) -Necrotic Tissue Type Adherent Slough -Structure Exposed N/A -Texture (Lauren-wound Skin Appearance) Scarring -Moisture (Lauren-wound Skin Appearance No Abnormality ) -Color (Lauren-wound Skin Appearance) No Abnormality -Temperature (Lauren-wound Skin No Abnormality Appearance) (Pt Warm) -Tenderness on Palpation (Lauren-wound Yes Skin Appearance) -Ulcer Cleansing Rinsed/ Irrigated with Saline -Foul Odor after Cleansing No -Anesthetic Used 4% Lidocaine Solution WC - Nurse 2 - General Ulcer CM Notes Start: 10/02/19 14:10 Freq: Status: Active Protocol: Activity Type Activity Date Activity User E-Sign Co-Sign Detail Recorded Client Recorded Date Recorded By Document 10/09/19 11:55 [id number] 10/09/19 11:57 SONYA 10/09/19 11:55 Wound Center Nurse 2 [Procedure/Treatment] #2- LFA -Time 11:56 -Correct Patient Yes -Correct Side, Site, Position Yes -Correct Procedure Yes -Procedure Performed Yes -Type of Procedure Debridement -Clinical Debridement Muscle -Post Debridement Size (cm) - Length 5.0 -Post Debridement Size (cm) - Width 4.5 -Post Debridement Size (cm) - Depth 0.5 -Total Square Cm 22.50 -Wound/Ulcer Outcome Not Healed -Ulcer Cleansing Rinsed/ Irrigated with Saline -Foul Odor after Cleansing No -Bioengineered Tissue No -Bleeding Controlled with Pressure -Offloading No -Treatment Response Procedure Tolerated Well #1- RFA -Time 11:56 -Correct Patient Yes -Correct Side, Site, Position Yes -Correct Procedure Yes -Procedure Performed Yes -Type of Procedure Debridement -Clinical Debridement Muscle -Post Debridement Size (cm) - Length 3.0 -Post Debridement Size (cm) - Width 4.0 -Post Debridement Size (cm) - Depth 0.5 -Total Square Cm 12.00 -Wound/Ulcer Outcome Not Healed -Ulcer Cleansing Rinsed/ Irrigated with Saline -Foul Odor after Cleansing No -Bioengineered Tissue No -Bleeding Controlled with Pressure -Offloading No -Treatment Response Procedure Tolerated Well [See Physician Procedure note for Specifics] Pain Scale: 0-10 Numeric [Pain] -Is Patient Pain Free? Yes Musculoskeletal: No Tenderness to Palpation of Joints or Extremities Neurological: Neuro grossly intact Psych/Mental Status: Normal Affect, Appropriate Debridement Note Post-Debridement Measurements/Treatment WC - Nurse 2 - General Ulcer CM Notes Start: 10/02/19 14:10 Freq: Status: Active Protocol: Activity Type Activity Date Activity User E-Sign Co-Sign Detail Recorded Client Recorded Date Recorded By Document 10/03/19 07:26 BRIDGET [id number] 10/03/19 07:32 PL Document 10/09/19 11:55 [id number] 10/09/19 11:57 10/03/19 10/09/19 07:26 11:55 Wound Center Nurse 2 #2- LFA -Time 14:39 11:56 -Correct Patient Yes Yes -Correct Side, Site, Position Yes Yes -Correct Procedure Yes Yes -Procedure Performed Yes Yes -Type of Procedure Debridement Debridement -Clinical Debridement Subcutaneous Muscle -Post Debridement Size (cm) - Length 7.2 5.0 -Post Debridement Size (cm) - Width 4.2 4.5 -Post Debridement Size (cm) - Depth 0.5 0.5 -Total Square Cm 30.24 22.50 -Wound/Ulcer Outcome Not Healed Not Healed -Ulcer Cleansing Rinsed/ Rinsed/ Irrigated with Irrigated with Saline Saline -Foul Odor after Cleansing No No -Bioengineered Tissue No -Bleeding Controlled with Pressure Pressure -Offloading No -Treatment Response Procedure Procedure Tolerated Well Tolerated Well #1- RFA -Time 14:39 11:56 -Correct Patient Yes Yes -Correct Side, Site, Position Yes Yes -Correct Procedure Yes Yes -Procedure Performed Yes Yes -Type of Procedure Debridement Debridement -Clinical Debridement Muscle Muscle -Post Debridement Size (cm) - Length 3.0 3.0 -Post Debridement Size (cm) - Width 3.5 4.0 -Post Debridement Size (cm) - Depth 0.5 0.5 -Total Square Cm 10.50 12.00 -Wound/Ulcer Outcome Not Healed Not Healed -Ulcer Cleansing Rinsed/ Rinsed/ Irrigated with Irrigated with Saline Saline -Foul Odor after Cleansing No No -Bioengineered Tissue No -Bleeding Controlled with Pressure Pressure -Offloading No -Treatment Response Procedure Procedure Tolerated Well Tolerated Well Pain Scale: 0-10 Numeric Is Patient Pain Free? Yes Yes Wound debrided: forearm wound Laterality: Right Type of Debridement: Excisional debridement Anesthesia Used: 5% Lidocaine Gel Depth: Down to and including healthy tissue, in the subcutaneous layer Percentage of wound debrided: 100 Instrument Used: 5mm curette Tissue Removed: Subcutaneous tissue and slough into the muscle Severity: Fat Layer Exposed Amount of bleeding with debridement: Mild Bleeding Controlled with: Pressure Patient tolerated procedure well - Additional Wound Wound debrided: forearm wound Laterality: Left Type of Debridement: Excisional debridement Anesthesia Used: 5% Lidocaine Gel Depth: Down to and including healthy tissue, in the subcutaneous layer, to muscle Percentage of wound debrided: 100 Instrument Used: 5mm curette Tissue Removed: Subcutaneous tissue and slough into the muscle. Amount of bleeding with debridement: Mild Bleeding Controlled with: Pressure Patient tolerated procedure: Patient tolerated procedure well Assessment/Plan Active Problems (Last Reviewed 09/30/19 @ 09:[address] Sonido Chen MD) MRSA (methicillin resistant Staphylococcus aureus) infection (Acute) Open wound of right forearm (Acute) open surgical abscess wound mid dorsal radial aspect right forearm Open wound of left forearm (Acute) open surgical abscess wound mid dorsal radial aspect left forearm Opiate withdrawal (Acute) Hepatitis B (Chronic) Tobacco use (Chronic) Anxiety and depression (Chronic) Heroin use (Chronic) Methamphetamine abuse (Chronic) Alcohol abuse (Chronic) Hepatitis C (Chronic) Assessment: 1. Open wound of left forearm. 2. Open wound of right forearm. 3. MRSA (methicillin resistant Staphylococcus aureus) infection. 4. open surgical abscess wound mid dorsal radial aspect right forearm. 5. open surgical abscess wound mid dorsal radial aspect left forearm. 6. Opiate withdrawal. 7. Hepatitis B. 8. Tobacco use. 9. Anxiety and depression. 10. Heroin use. 11. Methamphetamine abuse. 12. Alcohol abuse. Hepatitis C Plan: [facility] A debridement was performed on bilateral dorsal forearm ulcers. He tolerated it fairly well. Patient is postop visit from his recent surgery on 09/19/19 where he underwent surgical preparation mid dorsal radial aspect left forearm with incision and drainage and excisional debridement intravenous drug abuse abscess (24.5 cm2) and surgical preparation mid dorsal radial aspect right forearm with incision and drainage and excisional debridement intravenous drug abuse abscess (10.5 cm2). Upon discharge he was sent to [facility] in [place] which he left because he states it was a cult. He is currently homeless. Wound care - Silver dressing 3 times per week after washing the ulcers with soap and water. ARJUN wraps to bilateral forearms. Today he denies fever or chills. Encouraged him to increase his protein intake. He is currently homeless so he states that he is only eating 1-2 meals a day. Follow up one week but he will come for a nurse visit on Wednesday and Wednesday. [id number]: [id number] Global Visit
[2019-10-12 14:08] VITALS: BP 121/77; PULSE 71; RESP 18; TEMP 36.6; BMI 24.9
[2019-10-16 11:28] VITALS: RESP 14; TEMP 36.3; BMI 24.9
--- NOTE | 2019-10-16 11:58 | PN.PCM_ITS ---
(1) Open wound of left forearm Status: Acute Current Visit: Yes Code(s): S51.802A - Unspecified open wound of left forearm, initial encounter Comment: open surgical abscess wound mid dorsal radial aspect left forearm (2) Open wound of right forearm Status: Acute Current Visit: Yes Code(s): S51.801A - Unspecified open wound of right forearm, initial encounter Comment: open surgical abscess wound mid dorsal radial aspect right forearm (3) MRSA (methicillin resistant Staphylococcus aureus) infection Status: Acute Current Visit: Yes Code(s): A49.02 - Methicillin resistant Staphylococcus aureus infection, unspecified site (4) Opiate withdrawal Status: Acute Current Visit: Yes Code(s): F11.23 - Opioid dependence with withdrawal (5) Hepatitis B Status: Chronic Current Visit: Yes Qualifiers: Viral hepatitis chronicity: unspecified Hepatic coma status: without hepatic coma Code(s): B19.10 - Unspecified viral hepatitis B without hepatic coma (6) Tobacco use Status: Chronic Current Visit: Yes Code(s): Z72.0 - Tobacco use (7) Anxiety and depression Status: Chronic Current Visit: Yes Code(s): F41.9 - Anxiety disorder, unspecified; F32.9 - Major depressive disorder, single episode, unspecified (8) Heroin use Status: Chronic Current Visit: Yes Code(s): F11.90 - Opioid use, unspecified, uncomplicated (9) Methamphetamine abuse Status: Chronic Current Visit: Yes Code(s): F15.10 - Other stimulant abuse, uncomplicated (10) Alcohol abuse Status: Chronic Current Visit: Yes Code(s): F10.10 - Alcohol abuse, uncomplicated (11) Hepatitis C Status: Chronic Current Visit: Yes Qualifiers: Viral hepatitis chronicity: unspecified Hepatic coma status: without hepatic coma Qualified Code(s): B19.20 - Unspecified viral hepatitis C without hepatic coma Code(s): B19.20 - Unspecified viral hepatitis C without hepatic coma (12) Mental health disorder Status: Chronic Current Visit: Yes Code(s): F99 - Mental disorder, not otherwise specified Type of Wound Date of Service: 10/16/19 Chief Complaint: Ulcer of right dorsal forearm and ulcer of left dorsal forearm. History of Wound: Patient is a 49 year old male with a significant history of drug and alcohol abuse. Postop visit from his recent surgery on 09/19/19 where he underwent surgical preparation mid dorsal radial aspect left forearm with incision and drainage and excisional debridement intravenous drug abuse abscess (24.5 cm2) and surgical preparation mid dorsal radial aspect right forearm with incision and drainage and excisional debridement intravenous drug abuse abscess (10.5 cm2). Upon discharge he was sent to [facility] in [place] which he left because he states it was a cult. He is currently staying at the [facility]. Wound care - Silver dressing 3 times per week. He comes into the wound center for nurse visits twice a week for dressing changes. Today he denies fever or chills. He has been to the ED several times over the past couple weeks for various complaints, but most of them seem to be related to withdrawal symptoms. Progress of Wound: Stable - Physical Exam Vital Signs Temp Pulse Resp BP 97.3 F L 71 14 121/77 H 10/16/19 11:28 10/12/19 14:08 10/16/19 11:28 10/12/19 14:08 General: Alert HEENT: Atraumatic Oral: Moist Mucosa Lungs: Normal air movement Cardiovascular: Regular rate Extremities: Capillary Refill Less than 3 Seconds, Edema Skin: Ulcer/ Wound - Right volar arm wound and left volar arm wound. Both are stable in appearance. Wound Measurements and Assessment WC - Nurse 1 - General Ulcer Measurement Start: 10/02/19 14:10 Freq: Status: Active Protocol: Activity Type Activity Date Activity User E-Sign Co-Sign Detail Recorded Client Recorded Date Recorded By Document 10/16/19 11:28 [id number] 10/16/19 11:40 10/16/19 11:28 Wound Center Nurse 1 [Ulcer Assessment] #2- LFA -Combined with other wound No -Current Size (cm) - Length 6.1 -Current Size (cm) - Width 3.5 -Current Size (cm) - Depth 0.2 -Total Square Cm 21.35 -Photo Taken No -Epithelialization None Present -Tunneling No -Undermining/Tunneling No -Circular Undermining No -Exudate Amt Medium -Exudate Type Yellow/Green -Wound Margin Distinct, Outline Attached -Granulation Amt Large (67-100%) -Granulation Quality Red -Slough/Fibrin Yes -Necrosis Amt None Present (0 %) -Necrotic Tissue Type Adherent Slough -Structure Exposed Fat Layer Exposed -Texture (Lauren-wound Skin Appearance) No Abnormality, Assessed, Scarring -Moisture (Lauren-wound Skin Appearance No Abnormality, ) Assessed -Color (Lauren-wound Skin Appearance) No Abnormality, Assessed -Temperature (Lauren-wound Skin No Abnormality Appearance) (Pt Warm) -Tenderness on Palpation (Lauren-wound Yes Skin Appearance) -Ulcer Cleansing Rinsed/ Irrigated with Saline -Foul Odor after Cleansing No -Anesthetic Used 4% Lidocaine Solution #1- RFA -Combined with other wound No -Current Size (cm) - Length 3.6 -Current Size (cm) - Width 2.9 -Current Size (cm) - Depth 0.2 -Total Square Cm 10.44 -Photo Taken No -Epithelialization None Present -Tunneling No -Undermining/Tunneling Yes -Undermining/Tunneling Starts (O' 11 clock) -Undermining/Tunneling Ends (O'clock) 2 -Maximum Distance (cm) 1.7 -Circular Undermining No -Exudate Amt Medium -Exudate Type Serosanguineous -Wound Margin Distinct, Outline Attached -Granulation Amt Large (67-100%) -Granulation Quality Red -Slough/Fibrin Yes -Necrosis Amt None Present (0 %) -Necrotic Tissue Type Adherent Slough -Texture (Lauren-wound Skin Appearance) No Abnormality, Scarring -Moisture (Lauren-wound Skin Appearance No Abnormality, ) Assessed -Color (Lauren-wound Skin Appearance) No Abnormality, Assessed -Temperature (Lauren-wound Skin No Abnormality Appearance) (Pt Warm) -Tenderness on Palpation (Lauren-wound Yes Skin Appearance) -Ulcer Cleansing Rinsed/ Irrigated with Saline -Foul Odor after Cleansing No -Anesthetic Used 4% Lidocaine Solution [Edema Assessment] -Lower Limb Edema Present NA Musculoskeletal: No Tenderness to Palpation of Joints or Extremities Neurological: Neuro grossly intact Psych/Mental Status: Appropriate Debridement Note Post-Debridement Measurements/Treatment WC - Nurse 2 - General Ulcer CM Notes Start: 10/02/19 14:10 Freq: Status: Active Protocol: Activity Type Activity Date Activity User E-Sign Co-Sign Detail Recorded Client Recorded Date Recorded By Document 10/03/19 07:26 PL [id number] 10/03/19 07:32 PL Document 10/09/19 11:55 SONYA [id number] 10/09/19 11:57 JF 10/03/19 10/09/19 07:26 11:55 Wound Center Nurse 2 #2- LFA -Time 14:39 11:56 -Correct Patient Yes Yes -Correct Side, Site, Position Yes Yes -Correct Procedure Yes Yes -Procedure Performed Yes Yes -Type of Procedure Debridement Debridement -Clinical Debridement Subcutaneous Muscle -Post Debridement Size (cm) - Length 7.2 5.0 -Post Debridement Size (cm) - Width 4.2 4.5 -Post Debridement Size (cm) - Depth 0.5 0.5 -Total Square Cm 30.24 22.50 -Wound/Ulcer Outcome Not Healed Not Healed -Ulcer Cleansing Rinsed/ Rinsed/ Irrigated with Irrigated with Saline Saline -Foul Odor after Cleansing No No -Bioengineered Tissue No -Bleeding Controlled with Pressure Pressure -Offloading No -Treatment Response Procedure Procedure Tolerated Well Tolerated Well #1- RFA -Time 14:39 11:56 -Correct Patient Yes Yes -Correct Side, Site, Position Yes Yes -Correct Procedure Yes Yes -Procedure Performed Yes Yes -Type of Procedure Debridement Debridement -Clinical Debridement Muscle Muscle -Post Debridement Size (cm) - Length 3.0 3.0 -Post Debridement Size (cm) - Width 3.5 4.0 -Post Debridement Size (cm) - Depth 0.5 0.5 -Total Square Cm 10.50 12.00 -Wound/Ulcer Outcome Not Healed Not Healed -Ulcer Cleansing Rinsed/ Rinsed/ Irrigated with Irrigated with Saline Saline -Foul Odor after Cleansing No No -Bioengineered Tissue No -Bleeding Controlled with Pressure Pressure -Offloading No -Treatment Response Procedure Procedure Tolerated Well Tolerated Well Pain Scale: 0-10 Numeric Is Patient Pain Free? Yes Yes Wound debrided: volar arm wound Laterality: Right Type of Debridement: Excisional debridement Anesthesia Used: 5% Lidocaine Gel Depth: Down to and including healthy tissue, in the subcutaneous layer, to muscle Percentage of wound debrided: 100 Instrument Used: 7mm curette Tissue Removed: Subcutaneuos tissue and slough into the muscle. Severity: Fat Layer Exposed Amount of bleeding with debridement: Mild Bleeding Controlled with: Pressure Patient tolerated procedure well - Additional Wound Wound debrided: volar arm wound Laterality: Left Type of Debridement: Excisional debridement Anesthesia Used: 5% Lidocaine Gel Depth: Down to and including healthy tissue, in the subcutaneous layer Percentage of wound debrided: 100 Instrument Used: 7mm curette Tissue Removed: Subcutaneous tissue and slough into the muscle. Severity: Fat Layer Exposed Amount of bleeding with debridement: Mild Bleeding Controlled with: Pressure Patient tolerated procedure: Patient tolerated procedure well Assessment/Plan Active Problems (Last Reviewed 09/30/19 @ 09:[address] Sonido Chen MD) MRSA (methicillin resistant Staphylococcus aureus) infection (Acute) Open wound of right forearm (Acute) open surgical abscess wound mid dorsal radial aspect right forearm Open wound of left forearm (Acute) open surgical abscess wound mid dorsal radial aspect left forearm Opiate withdrawal (Acute) Hepatitis B (Chronic) Tobacco use (Chronic) Anxiety and depression (Chronic) Heroin use (Chronic) Methamphetamine abuse (Chronic) Alcohol abuse (Chronic) Hepatitis C (Chronic) Mental health disorder (Chronic) Assessment: 1. Open wound of left forearm. 2. Open wound of right forearm. 3. MRSA (methicillin resistant Staphylococcus aureus) infection. 4. open surgical abscess wound mid dorsal radial aspect right forearm. 5. open surgical abscess wound mid dorsal radial aspect left forearm. 6. Opiate withdrawal. 7. Hepatitis B. 8. Tobacco use. 9. Anxiety and depression. 10. Heroin use. 11. Methamphetamine abuse. 12. Alcohol abuse. Hepatitis C Plan: [facility] A debridement was performed on bilateral dorsal forearm ulcers. He tolerated it fairly well. Patient is postop visit from his recent surgery on 09/19/19 where he underwent surgical preparation mid dorsal radial aspect left forearm with incision and drainage and excisional debridement intravenous drug abuse abscess (24.5 cm2) and surgical preparation mid dorsal radial aspect right forearm with incision and drainage and excisional debridement intravenous drug abuse abscess (10.5 cm2). Upon discharge he was sent to [facility] in [place] which he left because he states it was a [employer] Experience. He is currently homeless. Wound care - Silver dressing 3 times per week after washing the ulcers with soap and water. ARJUN wraps to bilateral forearms. Today he denies fever or chills. Encouraged him to increase his protein intake. He is currently is living at the [facility] so he states that he is eating 1-2 meals a day. Follow up one week but he will come for a nurse visit on Wednesday and Wednesday. [id number]: [id number] Global Visit
[2019-10-18 14:39] VITALS: BP 111/71; PULSE 57; RESP 18; TEMP 36.6; BMI 24.9
[2019-10-19 10:43] VITALS: BP 113/71; PULSE 56; RESP 18; TEMP 36.6; BMI 24.9
[2019-10-23 12:40] VITALS: BP 100/61; PULSE 137; RESP 20; TEMP 37.2; BMI 24.9
--- NOTE | 2019-10-23 13:29 | PCM.WC.PN ---
(1) Open wound of left forearm Status: Chronic Current Visit: Yes Code(s): S51.802A - Unspecified open wound of left forearm, initial encounter Comment: open surgical abscess wound mid dorsal radial aspect left forearm (2) Open wound of right forearm Status: Chronic Current Visit: Yes Code(s): S51.801A - Unspecified open wound of right forearm, initial encounter Comment: open surgical abscess wound mid dorsal radial aspect right forearm (3) MRSA (methicillin resistant Staphylococcus aureus) infection Status: Chronic Current Visit: Yes Code(s): A49.02 - Methicillin resistant Staphylococcus aureus infection, unspecified site (4) Opiate withdrawal Status: Chronic Current Visit: Yes Code(s): F11.23 - Opioid dependence with withdrawal (5) Hepatitis B Status: Chronic Current Visit: Yes Qualifiers: Viral hepatitis chronicity: unspecified Hepatic coma status: without hepatic coma Code(s): B19.10 - Unspecified viral hepatitis B without hepatic coma (6) Tobacco use Status: Chronic Current Visit: Yes Code(s): Z72.0 - Tobacco use (7) Anxiety and depression Status: Chronic Current Visit: Yes Code(s): F41.9 - Anxiety disorder, unspecified; F32.9 - Major depressive disorder, single episode, unspecified (8) Heroin use Status: Chronic Current Visit: Yes Code(s): F11.90 - Opioid use, unspecified, uncomplicated (9) Methamphetamine abuse Status: Chronic Current Visit: Yes Code(s): F15.10 - Other stimulant abuse, uncomplicated (10) Alcohol abuse Status: Chronic Current Visit: Yes Code(s): F10.10 - Alcohol abuse, uncomplicated (11) Hepatitis C Status: Chronic Current Visit: Yes Qualifiers: Viral hepatitis chronicity: unspecified Hepatic coma status: without hepatic coma Qualified Code(s): B19.20 - Unspecified viral hepatitis C without hepatic coma Code(s): B19.20 - Unspecified viral hepatitis C without hepatic coma (12) Mental health disorder Status: Chronic Current Visit: Yes Code(s): F99 - Mental disorder, not otherwise specified Type of Wound Date of Service: 10/23/19 Chief Complaint: Ulcer of right dorsal forearm and ulcer of left dorsal forearm. History of Wound: Patient is a 49 year old male with a significant history of drug and alcohol abuse. Postop visit from his recent surgery on 09/19/19 where he underwent surgical preparation mid dorsal radial aspect left forearm with incision and drainage and excisional debridement intravenous drug abuse abscess (24.5 cm2) and surgical preparation mid dorsal radial aspect right forearm with incision and drainage and excisional debridement intravenous drug abuse abscess (10.5 cm2). Upon discharge he was sent to [facility] in [place] which he left because he states it was a cult. He is currently staying at the [facility]. Wound care - Silver dressing 3 times per week. ARJUN wrap to each forearm for compression. He comes into the wound center for nurse visits twice a week for dressing changes. Today he denies fever or chills. He has been to the ED several times over the past couple weeks for various complaints, but most of them seem to be related to withdrawal symptoms. Progress of Wound: Improved. - Physical Exam Vital Signs Temp Pulse Resp BP 98.9 F 137 H 20 H 100/61 10/23/19 12:40 10/23/19 12:40 10/23/19 12:40 10/23/19 12:40 General: Alert, Cooperative HEENT: Atraumatic Oral: Moist Mucosa Lungs: Normal air movement Cardiovascular: Regular rate Extremities: Capillary Refill Less than 3 Seconds Skin: Ulcer/ Wound - Right dorsal forearm ulcer and left dorsal forearm ulcer. Both ulcers are pink. Wound Measurements and Assessment WC - Nurse 1 - General Ulcer Measurement Start: 10/02/19 14:10 Freq: Status: Active Protocol: Activity Type Activity Date Activity User E-Sign Co-Sign Detail Recorded Client Recorded Date Recorded By Document 10/23/19 12:40 [id number] 10/23/19 12:53 BS 10/23/19 12:40 Wound Center Nurse 1 [Ulcer Assessment] #2- LFA -Combined with other wound No -Photo Taken No #1- RFA -Combined with other wound No -Current Size (cm) - Length 2.7 -Current Size (cm) - Width 2.7 -Current Size (cm) - Depth 0.2 -Total Square Cm 7.29 -Photo Taken No -Undermining/Tunneling Yes -Undermining/Tunneling Starts (O' 11 clock) -Undermining/Tunneling Ends (O'clock) 13 -Maximum Distance (cm) 0.2 -Exudate Type Purulent -Granulation Quality Falkner,Red -Necrotic Tissue Type Adherent Slough -Texture (Lauren-wound Skin Appearance) Assessed, Localized Edema ,Scarring -Moisture (Lauren-wound Skin Appearance Assessed, ) Weeping -Temperature (Lauren-wound Skin No Abnormality Appearance) (Pt Warm) -Tenderness on Palpation (Lauren-wound Yes Skin Appearance) -Foul Odor after Cleansing No -Anesthetic Used 4% Lidocaine Solution FABIOLA - Nurse 2 - General Ulcer CM Notes Start: 10/02/19 14:10 Freq: Status: Active Protocol: Activity Type Activity Date Activity User E-Sign Co-Sign Detail Recorded Client Recorded Date Recorded By Document 10/23/19 13:06 SONYA [id number] 10/23/19 13:11 SONYA 10/23/19 13:06 Wound Center Nurse 2 [Procedure/Treatment] #2- LFA -Time 13:07 -Correct Patient Yes -Correct Side, Site, Position Yes -Correct Procedure Yes -Procedure Performed Yes -Type of Procedure Debridement -Clinical Debridement Subcutaneous -Post Debridement Size (cm) - Length 6.0 -Post Debridement Size (cm) - Width 3.0 -Post Debridement Size (cm) - Depth 0.5 -Total Square Cm 18.00 -Wound/Ulcer Outcome Not Healed -Ulcer Cleansing Rinsed/ Irrigated with Saline -Foul Odor after Cleansing No -Bioengineered Tissue No -Bleeding Controlled with Pressure -Other tunnel 10-1:00= 0.7cm -Offloading No -Treatment Response Procedure Tolerated Well #1- RFA -Time 13:08 -Correct Patient Yes -Correct Side, Site, Position Yes -Correct Procedure Yes -Procedure Performed Yes -Type of Procedure Debridement -Clinical Debridement Subcutaneous -Post Debridement Size (cm) - Length 2.7 -Post Debridement Size (cm) - Width 2.7 -Post Debridement Size (cm) - Depth 0.4 -Total Square Cm 7.29 -Wound/Ulcer Outcome Not Healed -Ulcer Cleansing Rinsed/ Irrigated with Saline -Foul Odor after Cleansing No -Bioengineered Tissue No -Bleeding Controlled with Pressure -Other tunnel 11-2:00= 1.0cm -Offloading No -Treatment Response Procedure Tolerated Well [See Physician Procedure note for Specifics] Pain Scale: 0-10 Numeric [Pain] -Is Patient Pain Free? Yes Musculoskeletal: No Tenderness to Palpation of Joints or Extremities Neurological: Neuro grossly intact Psych/Mental Status: Normal Affect, Appropriate Debridement Note Post-Debridement Measurements/Treatment [id number] - Nurse 2 - General Ulcer CM Notes Start: 10/02/19 14:10 Freq: Status: Active Protocol: Activity Type Activity Date Activity User E-Sign Co-Sign Detail Recorded Client Recorded Date Recorded By Document 10/03/19 07:26 PL [id number] 10/03/19 07:32 PL Document 10/09/19 11:55 JF [id number] 10/09/19 11:57 JF Document 10/16/19 14:37 PL [id number] 10/16/19 14:38 PL Document 10/23/19 13:06 JF [id number] 10/23/19 13:11 JF 10/03/19 10/09/19 10/16/19 07:26 11:55 14:37 Wound Center Nurse 2 #2- LFA -Time 14:39 11:56 12:00 -Correct Patient Yes Yes Yes -Correct Side, Site, Position Yes Yes Yes -Correct Procedure Yes Yes Yes -Procedure Performed Yes Yes Yes -Type of Procedure Debridement Debridement Debridement -Clinical Debridement Subcutaneous Muscle Subcutaneous -Post Debridement Size (cm) - Length 7.2 5.0 6 -Post Debridement Size (cm) - Width 4.2 4.5 3.5 -Post Debridement Size (cm) - Depth 0.5 0.5 0.3 -Total Square Cm 30.24 22.50 21.0 -Wound/Ulcer Outcome Not Healed Not Healed Not Healed -Ulcer Cleansing Rinsed/ Rinsed/ Rinsed/ Irrigated with Irrigated with Irrigated with Saline Saline Saline -Foul Odor after Cleansing No No No -Bioengineered Tissue No -Bleeding Controlled with Pressure Pressure Pressure -Other -Offloading No -Treatment Response Procedure Procedure Procedure Tolerated Well Tolerated Well Tolerated Well #1- RFA -Time 14:39 11:56 12:00 -Correct Patient Yes Yes Yes -Correct Side, Site, Position Yes Yes Yes -Correct Procedure Yes Yes Yes -Procedure Performed Yes Yes Yes -Type of Procedure Debridement Debridement Debridement -Clinical Debridement Muscle Muscle Subcutaneous -Post Debridement Size (cm) - Length 3.0 3.0 3.4 -Post Debridement Size (cm) - Width 3.5 4.0 3.2 -Post Debridement Size (cm) - Depth 0.5 0.5 0.3 -Total Square Cm 10.50 12.00 10.88 -Wound/Ulcer Outcome Not Healed Not Healed Not Healed -Ulcer Cleansing Rinsed/ Rinsed/ Rinsed/ Irrigated with Irrigated with Irrigated with Saline Saline Saline -Foul Odor after Cleansing No No No -Bioengineered Tissue No -Bleeding Controlled with Pressure Pressure Pressure -Other -Offloading No -Treatment Response Procedure Procedure Procedure Tolerated Well Tolerated Well Tolerated Well Pain Scale: 0-10 Numeric Is Patient Pain Free? Yes Yes Yes 10/23/19 13:06 Wound Center Nurse 2 #2- LFA -Time 13:07 -Correct Patient Yes -Correct Side, Site, Position Yes -Correct Procedure Yes -Procedure Performed Yes -Type of Procedure Debridement -Clinical Debridement Subcutaneous -Post Debridement Size (cm) - Length 6.0 -Post Debridement Size (cm) - Width 3.0 -Post Debridement Size (cm) - Depth 0.5 -Total Square Cm 18.00 -Wound/Ulcer Outcome Not Healed -Ulcer Cleansing Rinsed/ Irrigated with Saline -Foul Odor after Cleansing No -Bioengineered Tissue No -Bleeding Controlled with Pressure -Other tunnel 10-1:00= 0.7cm -Offloading No -Treatment Response Procedure Tolerated Well #1- RFA -Time 13:08 -Correct Patient Yes -Correct Side, Site, Position Yes -Correct Procedure Yes -Procedure Performed Yes -Type of Procedure Debridement -Clinical Debridement Subcutaneous -Post Debridement Size (cm) - Length 2.7 -Post Debridement Size (cm) - Width 2.7 -Post Debridement Size (cm) - Depth 0.4 -Total Square Cm 7.29 -Wound/Ulcer Outcome Not Healed -Ulcer Cleansing Rinsed/ Irrigated with Saline -Foul Odor after Cleansing No -Bioengineered Tissue No -Bleeding Controlled with Pressure -Other tunnel 11-2:00= 1.0cm -Offloading No -Treatment Response Procedure Tolerated Well Pain Scale: 0-10 Numeric Is Patient Pain Free? Yes Wound debrided: dorsal forearm ulcer Laterality: Right Type of Debridement: Excisional debridement Anesthesia Used: 5% Lidocaine Gel Depth: Down to and including healthy tissue, in the subcutaneous layer Instrument Used: 7mm curette Tissue Removed: Subcutaneous tissue and slough Severity: Fat Layer Exposed Amount of bleeding with debridement: Mild Bleeding Controlled with: Pressure Patient tolerated procedure well - Additional Wound Wound debrided: Dorsal forearm ulcer Laterality: Left Type of Debridement: Excisional debridement Anesthesia Used: 5% Lidocaine Gel Depth: Down to and including healthy tissue, in the subcutaneous layer Percentage of wound debrided: 100 Instrument Used: 5mm curette Tissue Removed: Subcutaneous tissue and slough Severity: Limited To Skin Breakdown Amount of bleeding with debridement: Mild Bleeding Controlled with: Compression and gauze Patient tolerated procedure: Patient tolerated procedure well Assessment/Plan Active Problems (Last Reviewed 09/30/19 @ 09:[address] Sonido Chen MD) MRSA (methicillin resistant Staphylococcus aureus) infection (Chronic) Open wound of right forearm (Chronic) open surgical abscess wound mid dorsal radial aspect right forearm Open wound of left forearm (Chronic) open surgical abscess wound mid dorsal radial aspect left forearm Opiate withdrawal (Chronic) Hepatitis B (Chronic) Tobacco use (Chronic) Anxiety and depression (Chronic) Heroin use (Chronic) Methamphetamine abuse (Chronic) Alcohol abuse (Chronic) Hepatitis C (Chronic) Mental health disorder (Chronic) Assessment: 1. Open wound of left forearm. 2. Open wound of right forearm. 3. MRSA (methicillin resistant Staphylococcus aureus) infection. 4. open surgical abscess wound mid dorsal radial aspect right forearm. 5. open surgical abscess wound mid dorsal radial aspect left forearm. 6. Opiate withdrawal. 7. Hepatitis B. 8. Tobacco use. 9. Anxiety and depression. 10. Heroin use. 11. Methamphetamine abuse. 12. Alcohol abuse. Hepatitis C Plan: [facility] A debridement was performed on bilateral dorsal forearm ulcers. He tolerated it fairly well. Patient is postop visit from his recent surgery on 09/19/19 where he underwent surgical preparation mid dorsal radial aspect left forearm with incision and drainage and excisional debridement intravenous drug abuse abscess (24.5 cm2) and surgical preparation mid dorsal radial aspect right forearm with incision and drainage and excisional debridement intravenous drug abuse abscess (10.5 cm2). Upon discharge he was sent to [facility] in [place] which he left because he states it was a [employer]. He is currently homeless but is staying at the [facility]. Wound care - Silver dressing 3 times per week after washing the ulcers with soap and water. ARJUN wraps to bilateral forearms for compression. Today he denies fever or chills. Encouraged him to increase his protein intake. He is currently is living at the [facility] so he states that he is eating 1-2 meals a day. Follow up one week but he will come for a nurse visit on Wednesday and Wednesday. [id number]: [id number] Global Visit
[2019-10-25 14:03] VITALS: BP 109/75; PULSE 95; RESP 20; TEMP 36.9; BMI 24.9
[2019-10-27 13:55] VITALS: BP 132/69; PULSE 96; RESP 16; TEMP 36.4; BMI 24.9
[2019-10-30 09:21] VITALS: BP 109/77; PULSE 108; RESP 16; TEMP 36.3; BMI 24.9
--- NOTE | 2019-10-30 15:43 | PCM.WC.PN ---
(1) Ulcer of upper extremity Status: Chronic Code(s): L98.499 - Non-pressure chronic ulcer of skin of other sites with unspecified severity (2) Ulcer with fat layer exposed Status: Chronic (3) MRSA (methicillin resistant Staphylococcus aureus) infection Status: Chronic Code(s): A49.02 - Methicillin resistant Staphylococcus aureus infection, unspecified site (4) Opiate withdrawal Status: Chronic Code(s): F11.23 - Opioid dependence with withdrawal (5) Hepatitis B Status: Chronic Qualifiers: Viral hepatitis chronicity: unspecified Hepatic coma status: without hepatic coma Code(s): B19.10 - Unspecified viral hepatitis B without hepatic coma (6) Tobacco use Status: Chronic Code(s): Z72.0 - Tobacco use (7) Anxiety and depression Status: Chronic Code(s): F41.9 - Anxiety disorder, unspecified; F32.9 - Major depressive disorder, single episode, unspecified (8) Heroin use Status: Chronic Code(s): F11.90 - Opioid use, unspecified, uncomplicated (9) Methamphetamine abuse Status: Chronic Code(s): F15.10 - Other stimulant abuse, uncomplicated (10) Alcohol abuse Status: Chronic Code(s): F10.10 - Alcohol abuse, uncomplicated (11) Hepatitis C Status: Chronic Qualifiers: Viral hepatitis chronicity: unspecified Hepatic coma status: without hepatic coma Qualified Code(s): B19.20 - Unspecified viral hepatitis C without hepatic coma Code(s): B19.20 - Unspecified viral hepatitis C without hepatic coma (12) Mental health disorder Status: Chronic Code(s): F99 - Mental disorder, not otherwise specified Type of Wound Date of Service: 10/30/19 Chief Complaint: Ulcer of right dorsal forearm and ulcer of left dorsal forearm. History of Wound: Patient is a 49 year old male with a significant history of drug and alcohol abuse. Postop visit from his recent surgery on 09/19/19 where he underwent surgical preparation mid dorsal radial aspect left forearm with incision and drainage and excisional debridement intravenous drug abuse abscess (24.5 cm2) and surgical preparation mid dorsal radial aspect right forearm with incision and drainage and excisional debridement intravenous drug abuse abscess (10.5 cm2). Upon discharge he was sent to [facility] in [place] which he left because he states it was a [facility] [employer]. He is currently staying at the [facility]. Wound care - Silver dressing 3 times per week. ARJUN wrap to each forearm for compression. He comes into the wound center for nurse visits twice a week for dressing changes. Today he denies fever or chills. He states his appetite is good. Progress of Wound: Improved. - Physical Exam Vital Signs Temp Pulse Resp BP 97.3 F L 108 H 16 109/77 10/30/19 09:21 10/30/19 09:21 10/30/19 09:21 10/30/19 09:21 General: Alert, Oriented x3, Cooperative HEENT: Atraumatic Oral: Moist Mucosa Lungs: Normal air movement Cardiovascular: Regular rate Extremities: Capillary Refill Less than 3 Seconds Skin: Ulcer/ Wound - Ulcer of right volar forarm and ulcer of left volar forearm. Both are pink and showing improvement. Wound Measurements and Assessment WC - Nurse 1 - General Ulcer Measurement Start: 10/02/19 14:10 Freq: Status: Active Protocol: Activity Type Activity Date Activity User E-Sign Co-Sign Detail Recorded Client Recorded Date Recorded By Document 10/30/19 09:21 [facility] [id number] 10/30/19 09:27 [facility] 10/30/19 09:21 Wound Center Nurse 1 [Ulcer Assessment] #2- LFA -Combined with other wound No -Current Size (cm) - Length 5.5 -Current Size (cm) - Width 2.4 -Current Size (cm) - Depth 0.2 -Total Square Cm 13.20 -Photo Taken No -Epithelialization Small 1-33% -Tunneling No -Undermining/Tunneling No -Circular Undermining No -Exudate Amt Medium -Exudate Type Serosanguineous -Wound Margin Thickened & Rolled Under -Granulation Amt Large (67-100%) -Granulation Quality Red -Slough/Fibrin Yes -Necrosis Amt Small (1-33%) -Necrotic Tissue Type Adherent Slough -Texture (Lauren-wound Skin Appearance) Assessed, Scarring -Moisture (Lauren-wound Skin Appearance Assessed ) -Color (Lauren-wound Skin Appearance) Assessed -Temperature (Lauren-wound Skin No Abnormality Appearance) (Pt Warm) -Tenderness on Palpation (Lauren-wound Yes Skin Appearance) -Ulcer Cleansing soapy water -Foul Odor after Cleansing No -Anesthetic Used 5% Lidocaine Gel #1- RFA -Combined with other wound No -Current Size (cm) - Length 2.7 -Current Size (cm) - Width 1.9 -Current Size (cm) - Depth 0.4 -Total Square Cm 5.13 -Photo Taken No -Epithelialization Small 1-33% -Tunneling No -Undermining/Tunneling Yes -Undermining/Tunneling Starts (O' 11 clock) -Undermining/Tunneling Ends (O'clock) 1 -Maximum Distance (cm) 0.6 -Circular Undermining No -Exudate Amt Medium -Exudate Type Serosanguineous -Wound Margin Distinct, Outline Attached -Granulation Amt Large (67-100%) -Granulation Quality Red -Slough/Fibrin Yes -Necrosis Amt Small (1-33%) -Necrotic Tissue Type Adherent Slough -Texture (Lauren-wound Skin Appearance) Assessed, Scarring -Moisture (Lauren-wound Skin Appearance Assessed ) -Color (Lauren-wound Skin Appearance) Assessed -Temperature (Lauren-wound Skin No Abnormality Appearance) (Pt Warm) -Tenderness on Palpation (Lauren-wound Yes Skin Appearance) -Ulcer Cleansing soapy water -Foul Odor after Cleansing No -Anesthetic Used 5% Lidocaine Gel WC - Nurse 2 - General Ulcer CM Notes Start: 10/02/19 14:10 Freq: Status: Active Protocol: Activity Type Activity Date Activity User E-Sign Co-Sign Detail Recorded Client Recorded Date Recorded By Document 10/30/19 09:50 SONYA [id number] 10/30/19 09:54 SONYA 10/30/19 09:50 Wound Center Nurse 2 [Procedure/Treatment] #2- LFA -Time 09:51 -Correct Patient Yes -Correct Side, Site, Position Yes -Correct Procedure Yes -Procedure Performed Yes -Type of Procedure Debridement -Clinical Debridement Subcutaneous -Post Debridement Size (cm) - Length 5.8 -Post Debridement Size (cm) - Width 2.5 -Post Debridement Size (cm) - Depth 0.4 -Total Square Cm 14.50 -Wound/Ulcer Outcome Not Healed -Ulcer Cleansing Rinsed/ Irrigated with Saline -Foul Odor after Cleansing No -Bioengineered Tissue No -Bleeding Controlled with Pressure -Other tunnel 11-2:00- --0.5cm -Offloading No -Treatment Response Procedure Tolerated Well #1- RFA -Time 09:52 -Correct Patient Yes -Correct Side, Site, Position Yes -Correct Procedure Yes -Procedure Performed Yes -Type of Procedure Debridement -Clinical Debridement Subcutaneous -Post Debridement Size (cm) - Length 2.4 -Post Debridement Size (cm) - Width 2.4 -Post Debridement Size (cm) - Depth 0.4 -Total Square Cm 5.76 -Wound/Ulcer Outcome Not Healed -Ulcer Cleansing Rinsed/ Irrigated with Saline -Foul Odor after Cleansing No -Bioengineered Tissue No -Bleeding Controlled with Pressure -Other tunnel 11-2:00- -0.7cm -Offloading No -Treatment Response Procedure Tolerated Well [See Physician Procedure note for Specifics] Pain Scale: 0-10 Numeric [Pain] -Is Patient Pain Free? Yes Musculoskeletal: No Tenderness to Palpation of Joints or Extremities Lymphatic: No Cervical, Supraclavicular, or Inguinal Adenopathy Neurological: Neuro grossly intact Psych/Mental Status: Normal Affect, Appropriate Debridement Note Post-Debridement Measurements/Treatment WC - Nurse 2 - General Ulcer CM Notes Start: 10/02/19 14:10 Freq: Status: Active Protocol: Activity Type Activity Date Activity User E-Sign Co-Sign Detail Recorded Client Recorded Date Recorded By Document 10/03/19 07:26 [id number] 10/03/19 07:32 Document 10/09/19 11:55 [id number] 10/09/19 11:57 Document 10/16/19 14:37 [id number] 10/16/19 14:38 Document 10/23/19 13:06 [id number] 10/23/19 13:11 Document 10/30/19 09:50 [id number] 10/30/19 09:54 10/03/19 10/09/19 10/16/19 07:26 11:55 14:37 Wound Center Nurse 2 #2- LFA -Time 14:39 11:56 12:00 -Correct Patient Yes Yes Yes -Correct Side, Site, Position Yes Yes Yes -Correct Procedure Yes Yes Yes -Procedure Performed Yes Yes Yes -Type of Procedure Debridement Debridement Debridement -Clinical Debridement Subcutaneous Muscle Subcutaneous -Post Debridement Size (cm) - Length 7.2 5.0 6 -Post Debridement Size (cm) - Width 4.2 4.5 3.5 -Post Debridement Size (cm) - Depth 0.5 0.5 0.3 -Total Square Cm 30.24 22.50 21.0 -Wound/Ulcer Outcome Not Healed Not Healed Not Healed -Ulcer Cleansing Rinsed/ Rinsed/ Rinsed/ Irrigated with Irrigated with Irrigated with Saline Saline Saline -Foul Odor after Cleansing No No No -Bioengineered Tissue No -Bleeding Controlled with Pressure Pressure Pressure -Other -Offloading No -Treatment Response Procedure Procedure Procedure Tolerated Well Tolerated Well Tolerated Well #1- RFA -Time 14:39 11:56 12:00 -Correct Patient Yes Yes Yes -Correct Side, Site, Position Yes Yes Yes -Correct Procedure Yes Yes Yes -Procedure Performed Yes Yes Yes -Type of Procedure Debridement Debridement Debridement -Clinical Debridement Muscle Muscle Subcutaneous -Post Debridement Size (cm) - Length 3.0 3.0 3.4 -Post Debridement Size (cm) - Width 3.5 4.0 3.2 -Post Debridement Size (cm) - Depth 0.5 0.5 0.3 -Total Square Cm 10.50 12.00 10.88 -Wound/Ulcer Outcome Not Healed Not Healed Not Healed -Ulcer Cleansing Rinsed/ Rinsed/ Rinsed/ Irrigated with Irrigated with Irrigated with Saline Saline Saline -Foul Odor after Cleansing No No No -Bioengineered Tissue No -Bleeding Controlled with Pressure Pressure Pressure -Other -Offloading No -Treatment Response Procedure Procedure Procedure Tolerated Well Tolerated Well Tolerated Well Pain Scale: 0-10 Numeric Is Patient Pain Free? Yes Yes Yes 10/23/19 10/30/19 13:06 09:50 Wound Center Nurse 2 #2- LFA -Time 13:07 09:51 -Correct Patient Yes Yes -Correct Side, Site, Position Yes Yes -Correct Procedure Yes Yes -Procedure Performed Yes Yes -Type of Procedure Debridement Debridement -Clinical Debridement Subcutaneous Subcutaneous -Post Debridement Size (cm) - Length 6.0 5.8 -Post Debridement Size (cm) - Width 3.0 2.5 -Post Debridement Size (cm) - Depth 0.5 0.4 -Total Square Cm 18.00 14.50 -Wound/Ulcer Outcome Not Healed Not Healed -Ulcer Cleansing Rinsed/ Rinsed/ Irrigated with Irrigated with Saline Saline -Foul Odor after Cleansing No No -Bioengineered Tissue No No -Bleeding Controlled with Pressure Pressure -Other tunnel 10-1:00= tunnel 11-2:00- 0.7cm --0.5cm -Offloading No No -Treatment Response Procedure Procedure Tolerated Well Tolerated Well #1- RFA -Time 13:08 09:52 -Correct Patient Yes Yes -Correct Side, Site, Position Yes Yes -Correct Procedure Yes Yes -Procedure Performed Yes Yes -Type of Procedure Debridement Debridement -Clinical Debridement Subcutaneous Subcutaneous -Post Debridement Size (cm) - Length 2.7 2.4 -Post Debridement Size (cm) - Width 2.7 2.4 -Post Debridement Size (cm) - Depth 0.4 0.4 -Total Square Cm 7.29 5.76 -Wound/Ulcer Outcome Not Healed Not Healed -Ulcer Cleansing Rinsed/ Rinsed/ Irrigated with Irrigated with Saline Saline -Foul Odor after Cleansing No No -Bioengineered Tissue No No -Bleeding Controlled with Pressure Pressure -Other tunnel 11-2:00= tunnel 11-2:00- 1.0cm -0.7cm -Offloading No No -Treatment Response Procedure Procedure Tolerated Well Tolerated Well Pain Scale: 0-10 Numeric Is Patient Pain Free? Yes Yes Wound debrided: volar forearm Laterality: Right Type of Debridement: Excisional debridement Anesthesia Used: 5% Lidocaine Gel Depth: Down to and including healthy tissue, in the subcutaneous layer Percentage of wound debrided: 100 Instrument Used: 5mm curette Tissue Removed: Subcutaneous tissue and slough Severity: Fat Layer Exposed Amount of bleeding with debridement: Mild Bleeding Controlled with: Pressure Patient tolerated procedure well - Additional Wound Wound debrided: volar forearm ulcer Laterality: Left Type of Debridement: Excisional debridement Anesthesia Used: 5% Lidocaine Gel Depth: Down to and including healthy tissue, in the subcutaneous layer Percentage of wound debrided: 100 Instrument Used: 5mm curette Tissue Removed: Subcutaneous tissue and slough Severity: Fat Layer Exposed Amount of bleeding with debridement: Mild Bleeding Controlled with: Pressure Patient tolerated procedure: Patient tolerated procedure well Assessment/Plan Assessment: 1. Open wound of left forearm. 2. Open wound of right forearm. 3. MRSA (methicillin resistant Staphylococcus aureus) infection. 4. open surgical abscess wound mid dorsal radial aspect right forearm. 5. open surgical abscess wound mid dorsal radial aspect left forearm. 6. Opiate withdrawal. 7. Hepatitis B. 8. Tobacco use. 9. Anxiety and depression. 10. Heroin use. 11. Methamphetamine abuse. 12. Alcohol abuse. Hepatitis C Plan: [facility] A debridement was performed on bilateral dorsal forearm ulcers. He tolerated it fairly well. Patient is postop visit from his recent surgery on 09/19/19 where he underwent surgical preparation mid dorsal radial aspect left forearm with incision and drainage and excisional debridement intravenous drug abuse abscess (24.5 cm2) and surgical preparation mid dorsal radial aspect right forearm with incision and drainage and excisional debridement intravenous drug abuse abscess (10.5 cm2). Upon discharge he was sent to [facility] in [place] which he left because he states it was a cult. He is currently homeless but is staying at the [facility]. Wound care - Silver dressing 3 times per week after washing the ulcers with soap and water. ARJUN wraps to bilateral forearms for compression. Today he denies fever or chills. Encouraged him to increase his protein intake. He is currently is living at the [facility] so he states that he is eating 1-2 meals a day. Follow up one week but he will come for a nurse visit on this week because of the holiday on Wednesday. [id number]: [id number] Global Visit
== END 2019-10-31 23:59 ==
LOC: WC 09:15
PROVIDERS: PCP Internal Medicine; Visit Provider Nurse Practitioner Family
DX: L98.499 Non-pressure chronic ulcer of skin of other sites with unspecified severity (principal); S51.801A Unspecified open wound of right forearm, initial encounter; S51.802A Unspecified open wound of left forearm, initial encounter; A49.02 Methicillin resistant Staphylococcus aureus infection, unspecified site; F11.23 Opioid dependence with withdrawal; B19.10 Unspecified viral hepatitis B without hepatic coma; F32.9 Major depressive disorder, single episode, unspecified; F41.9 Anxiety disorder, unspecified; F11.90 Opioid use, unspecified, uncomplicated; F15.10 Other stimulant abuse, uncomplicated; F10.10 Alcohol abuse, uncomplicated; Z59.0 Homelessness; F99 Mental disorder, not otherwise specified; Z72.0 Tobacco use; B19.20 Unspecified viral hepatitis C without hepatic coma; L02.413 Cutaneous abscess of right upper limb; L02.414 Cutaneous abscess of left upper limb
CPT/HCPCS: 11042; 11043; 11045; 11046; 99212; 99213; G0463

== ENCOUNTER 2019-11-27 11:45 | Outpatient (RCR) | payer MEDICAID, SELFPAY ==
[2019-11-01 00:33] VITALS: BP 109/77; PULSE 108; RESP 16; TEMP 36.3
[2019-11-02 12:37] VITALS: RESP 20; TEMP 37.1; BMI 24.9
[2019-11-06 09:43] VITALS: BP 138/84; PULSE 103; RESP 16; TEMP 36.7; BMI 24.9
--- NOTE | 2019-11-06 12:20 | PCM.WC.PN ---
(1) Ulcer with fat layer exposed Status: Chronic (2) Ulcer of upper extremity Status: Chronic Code(s): L98.499 - Non-pressure chronic ulcer of skin of other sites with unspecified severity (3) MRSA (methicillin resistant Staphylococcus aureus) infection Status: Chronic Code(s): A49.02 - Methicillin resistant Staphylococcus aureus infection, unspecified site (4) Anxiety and depression Status: Chronic Code(s): F41.9 - Anxiety disorder, unspecified; F32.9 - Major depressive disorder, single episode, unspecified (5) Long-term Suboxone use Status: Acute (6) Drug abuse Status: Chronic Code(s): F19.10 - Other psychoactive substance abuse, uncomplicated Type of Wound Date of Service: 11/06/19 Chief Complaint: Ulcer of right dorsal forearm and ulcer of left dorsal forearm. History of Wound: Patient is a 49 year old male with a significant history of drug and alcohol abuse. Postop visit from his recent surgery on 09/19/19 where he underwent surgical preparation mid dorsal radial aspect left forearm with incision and drainage and excisional debridement intravenous drug abuse abscess (24.5 cm2) and surgical preparation mid dorsal radial aspect right forearm with incision and drainage and excisional debridement intravenous drug abuse abscess (10.5 cm2). Upon discharge he was sent to [facility] in [place] which he left because he states it was a cult. He is currently staying at the [facility]. Wound care - Silver dressing 3 times per week. ARJUN wrap to each forearm for compression. He comes into the wound center for nurse visits twice a week for dressing changes. Today he denies fever or chills. He states his appetite is good. Progress of Wound: Improved. - Physical Exam Vital Signs Temp Pulse Resp BP 98.0 F 103 H 16 138/84 H 11/06/19 09:43 11/06/19 09:43 11/06/19 09:43 11/06/19 09:43 General: Alert, Oriented x3, Cooperative HEENT: Atraumatic Oral: Moist Mucosa Lungs: Normal air movement Cardiovascular: Regular rate Extremities: Capillary Refill Less than 3 Seconds, Peripheral Pulses Normal Skin: Ulcer/ Wound - Right volar forearm ulcer that has increased biofilm. Left volar forearm ulcer beefy pink. Wound Measurements and Assessment WC - Nurse 1 - General Ulcer Measurement Start: 11/02/19 12:37 Freq: Status: Active Protocol: Activity Type Activity Date Activity User E-Sign Co-Sign Detail Recorded Client Recorded Date Recorded By Document 11/06/19 09:43 [facility] [id number] 11/06/19 09:48 LA 11/06/19 09:43 Wound Center Nurse 1 [Ulcer Assessment] #2- LFA -Current Size (cm) - Length 5 -Current Size (cm) - Width 2 -Current Size (cm) - Depth 0.1 -Total Square Cm 10 -Exudate Amt Medium -Exudate Type Yellow/Green -Wound Margin Flat & Intact -Granulation Amt Large (67-100%) -Granulation Quality [place],Red -Necrosis Amt None Present (0 %) -Necrotic Tissue Type Adherent Slough -Texture (Lauren-wound Skin Appearance) Assessed -Moisture (Lauren-wound Skin Appearance Assessed, ) Maceration -Color (Lauren-wound Skin Appearance) Assessed -Temperature (Lauren-wound Skin No Abnormality Appearance) (Pt Warm) -Tenderness on Palpation (Lauren-wound No Skin Appearance) -Ulcer Cleansing Rinsed/ Irrigated with Saline -Foul Odor after Cleansing No -Anesthetic Used 4% Lidocaine Solution #1- RFA -Current Size (cm) - Length 1.8 -Current Size (cm) - Width 1.7 -Current Size (cm) - Depth 0.2 -Total Square Cm 3.06 -Tunneling Yes -Tunneling Position (O'clock) 12 -Tunneling Distance (cm) 0.5 -Exudate Amt Small -Exudate Type Serosanguineous -Wound Margin Thickened -Granulation Amt Medium (34-66%) -Granulation Quality Pale,[place] -Necrosis Amt Small (1-33%) -Necrotic Tissue Type Adherent Slough -Texture (Lauren-wound Skin Appearance) Assessed -Moisture (Lauren-wound Skin Appearance Assessed, ) Maceration -Color (Lauren-wound Skin Appearance) Assessed -Temperature (Lauren-wound Skin No Abnormality Appearance) (Pt Warm) -Tenderness on Palpation (Lauren-wound No Skin Appearance) -Ulcer Cleansing Rinsed/ Irrigated with Saline -Foul Odor after Cleansing No -Anesthetic Used 4% Lidocaine Solution [Edema Assessment] -Lower Limb Edema Present NA WC - Nurse 2 - General Ulcer CM Notes Start: 11/02/19 12:37 Freq: Status: Active Protocol: Activity Type Activity Date Activity User E-Sign Co-Sign Detail Recorded Client Recorded Date Recorded By Document 11/06/19 10:19 BRIDGET [id number] 11/06/19 10:20 BRIDGET 11/06/19 10:19 Wound Center Nurse 2 [Procedure/Treatment] #2- LFA -Time 09:47 -Correct Patient Yes -Correct Side, Site, Position Yes -Correct Procedure Yes -Procedure Performed Yes -Type of Procedure Debridement -Clinical Debridement Subcutaneous -Post Debridement Size (cm) - Length 4.4 -Post Debridement Size (cm) - Width 1.9 -Post Debridement Size (cm) - Depth 0.3 -Total Square Cm 8.36 -Wound/Ulcer Outcome Not Healed -Ulcer Cleansing Rinsed/ Irrigated with Saline -Foul Odor after Cleansing No -Bleeding Controlled with Pressure -Treatment Response Procedure Tolerated Well #1- RFA -Time 09:47 -Correct Patient Yes -Correct Side, Site, Position Yes -Correct Procedure Yes -Procedure Performed Yes -Type of Procedure Debridement -Clinical Debridement Subcutaneous -Post Debridement Size (cm) - Length 1.8 -Post Debridement Size (cm) - Width 1.5 -Post Debridement Size (cm) - Depth 0.3 -Total Square Cm 2.70 -Wound/Ulcer Outcome Not Healed -Ulcer Cleansing Rinsed/ Irrigated with Saline -Foul Odor after Cleansing No -Bleeding Controlled with Pressure -Treatment Response Procedure Tolerated Well [See Physician Procedure note for Specifics] Pain Scale: 0-10 Numeric [Pain] -Is Patient Pain Free? Yes Musculoskeletal: Tenderness Neurological: Neuro grossly intact Psych/Mental Status: Normal Affect, Appropriate Debridement Note Post-Debridement Measurements/Treatment WC - Nurse 2 - General Ulcer CM Notes Start: 11/02/19 12:37 Freq: Status: Active Protocol: Activity Type Activity Date Activity User E-Sign Co-Sign Detail Recorded Client Recorded Date Recorded By Document 11/06/19 10:19 BRIDGET [id number] 11/06/19 10:20 BRIDGET 11/06/19 10:19 Wound Center Nurse 2 #2- LFA -Time 09:47 -Correct Patient Yes -Correct Side, Site, Position Yes -Correct Procedure Yes -Procedure Performed Yes -Type of Procedure Debridement -Clinical Debridement Subcutaneous -Post Debridement Size (cm) - Length 4.4 -Post Debridement Size (cm) - Width 1.9 -Post Debridement Size (cm) - Depth 0.3 -Total Square Cm 8.36 -Wound/Ulcer Outcome Not Healed -Ulcer Cleansing Rinsed/ Irrigated with Saline -Foul Odor after Cleansing No -Bleeding Controlled with Pressure -Treatment Response Procedure Tolerated Well #1- RFA -Time 09:47 -Correct Patient Yes -Correct Side, Site, Position Yes -Correct Procedure Yes -Procedure Performed Yes -Type of Procedure Debridement -Clinical Debridement Subcutaneous -Post Debridement Size (cm) - Length 1.8 -Post Debridement Size (cm) - Width 1.5 -Post Debridement Size (cm) - Depth 0.3 -Total Square Cm 2.70 -Wound/Ulcer Outcome Not Healed -Ulcer Cleansing Rinsed/ Irrigated with Saline -Foul Odor after Cleansing No -Bleeding Controlled with Pressure -Treatment Response Procedure Tolerated Well Pain Scale: 0-10 Numeric Is Patient Pain Free? Yes Wound debrided: volar forearm ulcer Laterality: Right Type of Debridement: Excisional debridement Anesthesia Used: 4% Lidocaine Solution, 5% Lidocaine Gel Depth: Down to and including healthy tissue, in the subcutaneous layer Percentage of wound debrided: 100 Instrument Used: 5mm curette Tissue Removed: Subcutaneous tissue and slough Severity: Fat Layer Exposed Amount of bleeding with debridement: Mild Bleeding Controlled with: Pressure Patient tolerated procedure well - Additional Wound Wound debrided: volar forearm ulcer Laterality: Left Type of Debridement: Excisional debridement Anesthesia Used: 4% Lidocaine Solution, 5% Lidocaine Gel Depth: Down to and including healthy tissue, in the subcutaneous layer Percentage of wound debrided: 100 Instrument Used: 7mm curette Tissue Removed: Subcutaneous tissue and slough Severity: Fat Layer Exposed Amount of bleeding with debridement: Mild Bleeding Controlled with: Compression and gauze Patient tolerated procedure: Patient tolerated procedure well Assessment/Plan Assessment: 1. Open wound of left forearm. 2. Open wound of right forearm. 3. MRSA (methicillin resistant Staphylococcus aureus) infection. 4. open surgical abscess wound mid dorsal radial aspect right forearm. 5. open surgical abscess wound mid dorsal radial aspect left forearm. 6. Opiate withdrawal. 7. Hepatitis B. 8. Tobacco use. 9. Anxiety and depression. 10. Heroin use. 11. Methamphetamine abuse. 12. Alcohol abuse. Hepatitis C Plan: [facility] A debridement was performed on bilateral dorsal forearm ulcers. He tolerated it fairly well. Patient is postop visit from his recent surgery on 09/19/19 where he underwent surgical preparation mid dorsal radial aspect left forearm with incision and drainage and excisional debridement intravenous drug abuse abscess (24.5 cm2) and surgical preparation mid dorsal radial aspect right forearm with incision and drainage and excisional debridement intravenous drug abuse abscess (10.5 cm2). Upon discharge he was sent to [facility] in [place] which he left because he states it was a cult. He is currently homeless but is staying at the [facility]. Wound care - Silver dressing 3 times per week after washing the ulcers with soap and water. ARJUN wraps to bilateral forearms for compression. Today he denies fever or chills. Encouraged him to increase his protein intake. He is currently is living at the [facility] so he states that he is eating at least 2 meals a day. Follow up one week but he will come for a nurse visits on Wednesday and Wednesday. [id number]: [id number] Global Visit
[2019-11-13 10:27] VITALS: BP 119/83; PULSE 80; RESP 18; TEMP 36.7; BMI 24.9
--- NOTE | 2019-11-13 15:40 | PN.PCM_ITS ---
(1) Ulcer with fat layer exposed Status: Chronic Current Visit: Yes (2) Ulcer of upper extremity Status: Chronic Current Visit: Yes Code(s): L98.499 - Non-pressure chronic ulcer of skin of other sites with unspecified severity (3) MRSA (methicillin resistant Staphylococcus aureus) infection Status: Chronic Current Visit: Yes Code(s): A49.02 - Methicillin resistant Staphylococcus aureus infection, unspecified site (4) Anxiety and depression Status: Chronic Current Visit: Yes Code(s): F41.9 - Anxiety disorder, unspecified; F32.9 - Major depressive disorder, single episode, unspecified (5) Long-term Suboxone use Status: Acute Current Visit: Yes (6) Drug abuse Status: Chronic Current Visit: Yes Code(s): F19.10 - Other psychoactive substance abuse, uncomplicated (7) Methamphetamine abuse Status: Chronic Current Visit: Yes Code(s): F15.10 - Other stimulant abuse, uncomplicated Type of Wound Date of Service: 11/13/19 Chief Complaint: Ulcer of right dorsal forearm and ulcer of left dorsal forearm. History of Wound: Patient is a 49 year old male with a significant history of drug and alcohol abuse. Postop visit from his recent surgery on 09/19/19 where he underwent surgical preparation mid dorsal radial aspect left forearm with incision and drainage and excisional debridement intravenous drug abuse abscess (24.5 cm2) and surgical preparation mid dorsal radial aspect right forearm with incision and drainage and excisional debridement intravenous drug abuse abscess (10.5 cm2). Upon discharge he was sent to [facility] in [place] which he left because he states it was a cult. He is currently staying at the [facility]. Wound care - Silver dressing 3 times per week. ARJUN wrap to each forearm for compression. He comes into the wound center for nurse visits twice a week for dressing changes. He states that he has someone who works at the [facility] who is willing do his dressing changes on the days she is at work. Today he denies fever or chills. He states his appetite is good. Progress of Wound: Improved. - Physical Exam Vital Signs Temp Pulse Resp BP 98.0 F 80 18 119/83 H 11/13/19 10:27 11/13/19 10:27 11/13/19 10:27 11/13/19 10:27 General: Alert, Oriented x3, Cooperative HEENT: Atraumatic Oral: Moist Mucosa Lungs: Normal air movement Cardiovascular: Regular rate Abdomen: Soft Extremities: Capillary Refill Less than 3 Seconds, Peripheral Pulses Normal Skin: Ulcer/ Wound - Right and left ventral forearm ulcers that have granulation tissue. Wound Measurements and Assessment WC - Nurse 1 - General Ulcer Measurement Start: 11/02/19 12:37 Freq: Status: Active Protocol: Activity Type Activity Date Activity User E-Sign Co-Sign Detail Recorded Client Recorded Date Recorded By Document 11/13/19 10:27 PL [id number] 11/13/19 10:35 PL 11/13/19 10:27 Wound Center Nurse 1 [Ulcer Assessment] #2- LFA -Combined with other wound No -Current Size (cm) - Length 4.0 -Current Size (cm) - Width 1.5 -Current Size (cm) - Depth 0.2 -Total Square Cm 6.00 -Photo Taken No -Epithelialization None Present -Tunneling No -Undermining/Tunneling No -Exudate Amt Medium -Exudate Type Serosanguineous -Granulation Amt Large (67-100%) -Granulation Quality [place],Red -Slough/Fibrin Yes -Necrosis Amt Small (1-33%) -Necrotic Tissue Type Adherent Slough -Texture (Lauren-wound Skin Appearance) No Abnormality -Moisture (Lauren-wound Skin Appearance No Abnormality ) -Color (Lauren-wound Skin Appearance) No Abnormality -Temperature (Lauren-wound Skin No Abnormality Appearance) (Pt Warm) -Ulcer Cleansing Rinsed/ Irrigated with Saline -Foul Odor after Cleansing No -Anesthetic Used 5% Lidocaine Gel #1- RFA -Combined with other wound No -Current Size (cm) - Length 1.7 -Current Size (cm) - Width 1.0 -Current Size (cm) - Depth 0.2 -Total Square Cm 1.70 -Photo Taken No -Epithelialization None Present -Tunneling No -Undermining/Tunneling No -Exudate Amt Medium -Exudate Type Serosanguineous -Granulation Amt Large (67-100%) -Granulation Quality [place],Red -Slough/Fibrin Yes -Necrosis Amt Small (1-33%) -Necrotic Tissue Type Adherent Slough -Texture (Lauren-wound Skin Appearance) No Abnormality -Moisture (Lauren-wound Skin Appearance No Abnormality ) -Color (Lauren-wound Skin Appearance) No Abnormality -Temperature (Lauren-wound Skin No Abnormality Appearance) (Pt Warm) -Ulcer Cleansing Rinsed/ Irrigated with Saline -Foul Odor after Cleansing No -Anesthetic Used 5% Lidocaine Gel WC - Nurse 2 - General Ulcer CM Notes Start: 11/02/19 12:37 Freq: Status: Active Protocol: Activity Type Activity Date Activity User E-Sign Co-Sign Detail Recorded Client Recorded Date Recorded By Document 11/13/19 10:47 SONYA [id number] 11/13/19 10:50 SONYA 11/13/19 10:47 Wound Center Nurse 2 [Procedure/Treatment] #2- LFA -Time 10:49 -Correct Patient Yes -Correct Side, Site, Position Yes -Correct Procedure Yes -Procedure Performed Yes -Type of Procedure Debridement -Clinical Debridement Subcutaneous -Post Debridement Size (cm) - Length 4.3 -Post Debridement Size (cm) - Width 1.5 -Post Debridement Size (cm) - Depth 0.2 -Total Square Cm 6.45 -Wound/Ulcer Outcome Not Healed -Ulcer Cleansing Rinsed/ Irrigated with Saline -Foul Odor after Cleansing No -Bioengineered Tissue No -Bleeding Controlled with Pressure -Offloading No -Treatment Response Procedure Tolerated Well #1- RFA -Time 10:49 -Correct Patient Yes -Correct Side, Site, Position Yes -Correct Procedure Yes -Procedure Performed Yes -Type of Procedure Debridement -Clinical Debridement Subcutaneous -Post Debridement Size (cm) - Length 1.2 -Post Debridement Size (cm) - Width 1.3 -Post Debridement Size (cm) - Depth 0.3 -Total Square Cm 1.56 -Wound/Ulcer Outcome Not Healed -Ulcer Cleansing Rinsed/ Irrigated with Saline -Foul Odor after Cleansing No -Bioengineered Tissue No -Bleeding Controlled with Pressure -Offloading No -Treatment Response Procedure Tolerated Well [See Physician Procedure note for Specifics] Pain Scale: 0-10 Numeric [Pain] -Is Patient Pain Free? Yes Musculoskeletal: No Tenderness to Palpation of Joints or Extremities Neurological: Cranial nerves II-XII grossly intact Psych/Mental Status: Normal Affect, Appropriate Debridement Note Post-Debridement Measurements/Treatment WC - Nurse 2 - General Ulcer CM Notes Start: 11/02/19 12:37 Freq: Status: Active Protocol: Activity Type Activity Date Activity User E-Sign Co-Sign Detail Recorded Client Recorded Date Recorded By Document 11/06/19 10:19 PL [id number] 11/06/19 10:20 PL Document 11/13/19 10:47 [id number] 11/13/19 10:50 11/06/19 11/13/19 10:19 10:47 Wound Center Nurse 2 #2- LFA -Time 10:49 -Correct Patient Yes Yes -Correct Side, Site, Position Yes Yes -Correct Procedure Yes Yes -Procedure Performed Yes Yes -Type of Procedure Debridement Debridement -Clinical Debridement Subcutaneous Subcutaneous -Post Debridement Size (cm) - Length 4.4 4.3 -Post Debridement Size (cm) - Width 1.9 1.5 -Post Debridement Size (cm) - Depth 0.3 0.2 -Total Square Cm 8.36 6.45 -Wound/Ulcer Outcome Not Healed Not Healed -Ulcer Cleansing Rinsed/ Rinsed/ Irrigated with Irrigated with Saline Saline -Foul Odor after Cleansing No No -Bioengineered Tissue No -Bleeding Controlled with Pressure Pressure -Offloading No -Treatment Response Procedure Procedure Tolerated Well Tolerated Well #1- RFA -Time 10:49 -Correct Patient Yes Yes -Correct Side, Site, Position Yes Yes -Correct Procedure Yes Yes -Procedure Performed Yes Yes -Type of Procedure Debridement Debridement -Clinical Debridement Subcutaneous Subcutaneous -Post Debridement Size (cm) - Length 1.8 1.2 -Post Debridement Size (cm) - Width 1.5 1.3 -Post Debridement Size (cm) - Depth 0.3 0.3 -Total Square Cm 2.70 1.56 -Wound/Ulcer Outcome Not Healed Not Healed -Ulcer Cleansing Rinsed/ Rinsed/ Irrigated with Irrigated with Saline Saline -Foul Odor after Cleansing No No -Bioengineered Tissue No -Bleeding Controlled with Pressure Pressure -Offloading No -Treatment Response Procedure Procedure Tolerated Well Tolerated Well Pain Scale: 0-10 Numeric Is Patient Pain Free? Yes Yes Wound debrided: ventral forearm ulcer Laterality: Right Type of Debridement: Excisional debridement Anesthesia Used: 5% Lidocaine Gel Depth: Down to and including healthy tissue, in the subcutaneous layer Percentage of wound debrided: 100 Instrument Used: 5mm curette Tissue Removed: Subcutaneous tissue and slough Severity: Fat Layer Exposed Amount of bleeding with debridement: Mild Bleeding Controlled with: Pressure Patient tolerated procedure well - Additional Wound Wound debrided: volar forearm ulcer Laterality: Left Type of Debridement: Excisional debridement Anesthesia Used: 5% Lidocaine Gel Depth: Down to and including healthy tissue, in the subcutaneous layer Percentage of wound debrided: 100 Instrument Used: 5mm curette Tissue Removed: Subcutaneous tissue and slough Severity: Fat Layer Exposed Amount of bleeding with debridement: Mild Bleeding Controlled with: Pressure, Compression and gauze Patient tolerated procedure: Patient tolerated procedure well Assessment/Plan Active Problems (Last Reviewed 09/30/19 @ 09:[address] Sonido Chen MD) Ulcer with fat layer exposed (Chronic) Ulcer of upper extremity (Chronic) MRSA (methicillin resistant Staphylococcus aureus) infection (Chronic) Anxiety and depression (Chronic) Methamphetamine abuse (Chronic) Long-term Suboxone use (Acute) Drug abuse (Chronic) Assessment: 1. Open wound of left forearm. 2. Open wound of right forearm. 3. MRSA (methicillin resistant Staphylococcus aureus) infection. 4. open surgical abscess wound mid dorsal radial aspect right forearm. 5. open surgical abscess wound mid dorsal radial aspect left forearm. 6. Opiate withdrawal. 7. Hepatitis B. 8. Tobacco use. 9. Anxiety and depression. 10. Heroin use. 11. Methamphetamine abuse. 12. Alcohol abuse. Hepatitis C Plan: [facility] A debridement was performed on bilateral dorsal forearm ulcers. He tolerated it fairly well. Patient is postop visit from his recent surgery on 09/19/19 where he underwent surgical preparation mid dorsal radial aspect left forearm with incision and drainage and excisional debridement intravenous drug abuse abscess (24.5 cm2) and surgical preparation mid dorsal radial aspect right forearm with incision and drainage and excisional debridement intravenous drug abuse abscess (10.5 cm2). Upon discharge he was sent to [facility] in [place] which he left because he states it was a cult. He is currently homeless but is staying at the [facility]. Wound care - Silver dressing 3 times per week after washing the ulcers with soap and water. He thinks there is someone that works at the [employer] who will change his dressings on the days she is there, so he can have dressing changes most days of the week. ARJUN wraps to bilateral forearms for compression. Today he denies fever or chills. Encouraged him to increase his protein intake. He is currently is living at the [facility], [place] [facility] so he states that he is eating at least 2 meals a day. Follow up one week but he will come for a nurse visits on Wednesday and Wednesday. [id number]: [id number] Global Visit
[2019-11-20 09:14] VITALS: BP 126/84; PULSE 93; RESP 22; TEMP 36.3; BMI 24.9
--- NOTE | 2019-11-20 10:12 | PN.PCM_ITS ---
Type of Wound Date of Service: 11/20/19 Chief Complaint: Nonhealing IV drug abuse ulcers mid dorsal radial aspect left forearm and mid dorsal radial aspect right forearm. History of Wound: Surgery 09/19/19 - 1. Surgical preparation mid dorsal radial aspect left forearm with incision and drainage and excisional debridement intravenous drug abuse abscess (24.5 cm2). 2. Surgical preparation mid dorsal radial aspect right forearm with incision and drainage and excisional debridement intravenous drug abuse abscess (10.5 cm2). Wound care - Silver. Operative culture - MRSA treated with Bactrim DS. Another culture 09/30/19 showed MRSE and was treated with Doxycycline. Encourage nutritional s upplementation with protein to help the healing process. Today he denies fever. His appetite is good. Progress of Wound: Improved. - Physical Exam Vital Signs Temp Pulse Resp BP 97.3 F L 93 22 H 126/84 H 11/20/19 09:14 11/20/19 09:14 11/20/19 09:14 11/20/19 09:14 Wound Measurements and Assessment WC - Nurse 1 - General Ulcer Measurement Start: 11/02/19 12:37 Freq: Status: Active Protocol: Activity Type Activity Date Activity User E-Sign Co-Sign Detail Recorded Client Recorded Date Recorded By Document 11/20/19 09:14 DL [id number] 11/20/19 09:21 DL 11/20/19 09:14 Wound Center Nurse 1 [Ulcer Assessment] #2- LFA -Current Size (cm) - Length 3.5 -Current Size (cm) - Width 0.8 -Current Size (cm) - Depth 0.1 -Total Square Cm 2.80 -Photo Taken No -Exudate Amt Small -Exudate Type Serosanguineous -Wound Margin Distinct, Outline Attached -Granulation Amt Large (67-100%) -Granulation Quality Red -Necrosis Amt Small (1-33%) -Necrotic Tissue Type Adherent Slough -Structure Exposed N/A -Texture (Lauren-wound Skin Appearance) Scarring -Moisture (Lauren-wound Skin Appearance No Abnormality ) -Color (Lauren-wound Skin Appearance) No Abnormality -Temperature (Lauren-wound Skin No Abnormality Appearance) (Pt Warm) -Tenderness on Palpation (Lauren-wound No Skin Appearance) -Ulcer Cleansing Wound Cleanser -Foul Odor after Cleansing No -Anesthetic Used 4% Lidocaine Solution #1- RFA -Current Size (cm) - Length 1.1 -Current Size (cm) - Width 0.6 -Current Size (cm) - Depth 0.1 -Total Square Cm 0.66 -Photo Taken No -Exudate Amt Small -Exudate Type Serosanguineous -Wound Margin Thickened -Granulation Amt Large (67-100%) -Granulation Quality Red -Necrosis Amt None Present (0 %) -Structure Exposed N/A -Texture (Lauren-wound Skin Appearance) Scarring -Moisture (Lauren-wound Skin Appearance No Abnormality ) -Color (Lauren-wound Skin Appearance) No Abnormality -Temperature (Lauren-wound Skin No Abnormality Appearance) (Pt Warm) -Tenderness on Palpation (Lauren-wound No Skin Appearance) -Ulcer Cleansing Wound Cleanser -Foul Odor after Cleansing No -Anesthetic Used 4% Lidocaine Solution WC - Nurse 2 - General Ulcer CM Notes Start: 11/02/19 12:37 Freq: Status: Active Protocol: Activity Type Activity Date Activity User E-Sign Co-Sign Detail Recorded Client Recorded Date Recorded By Document 11/20/19 09:37 SONYA [id number] 11/20/19 09:40 SONYA 11/20/19 09:37 Wound Center Nurse 2 [Procedure/Treatment] #2- LFA -Time 09:38 -Correct Patient Yes -Correct Side, Site, Position Yes -Correct Procedure Yes -Procedure Performed Yes -Type of Procedure Debridement -Clinical Debridement Subcutaneous -Post Debridement Size (cm) - Length 3.5 -Post Debridement Size (cm) - Width 0.9 -Post Debridement Size (cm) - Depth 0.1 -Total Square Cm 3.15 -Wound/Ulcer Outcome Not Healed -Ulcer Cleansing Rinsed/ Irrigated with Saline -Bioengineered Tissue No -Bleeding Controlled with Pressure -Offloading No -Treatment Response Procedure Tolerated Well #1- RFA -Time 09:39 -Correct Patient Yes -Correct Side, Site, Position Yes -Correct Procedure Yes -Procedure Performed Yes -Type of Procedure Debridement -Clinical Debridement Subcutaneous -Post Debridement Size (cm) - Length 1.2 -Post Debridement Size (cm) - Width 0.6 -Post Debridement Size (cm) - Depth 0.1 -Total Square Cm 0.72 -Wound/Ulcer Outcome Not Healed -Ulcer Cleansing Rinsed/ Irrigated with Saline -Foul Odor after Cleansing No -Bioengineered Tissue No -Bleeding Controlled with Pressure -Offloading No -Treatment Response Procedure Tolerated Well [See Physician Procedure note for Specifics] Pain Scale: 0-10 Numeric [Pain] -Is Patient Pain Free? Yes Debridement Note Post-Debridement Measurements/Treatment WC - Nurse 2 - General Ulcer CM Notes Start: 11/02/19 12:37 Freq: Status: Active Protocol: Activity Type Activity Date Activity User E-Sign Co-Sign Detail Recorded Client Recorded Date Recorded By Document 11/06/19 10:19 PL [id number] 11/06/19 10:20 PL Document 11/13/19 10:47 JF [id number] 11/13/19 10:50 JF Document 11/20/19 09:37 JF [id number] 11/20/19 09:40 JF 11/06/19 11/13/19 11/20/19 10:19 10:47 09:37 Wound Center Nurse 2 #2- LFA -Time 09: 10:49 09:38 -Correct Patient Yes Yes Yes -Correct Side, Site, Position Yes Yes Yes -Correct Procedure Yes Yes Yes -Procedure Performed Yes Yes Yes -Type of Procedure Debridement Debridement Debridement -Clinical Debridement Subcutaneous Subcutaneous Subcutaneous -Post Debridement Size (cm) - Length 4.4 4.3 3.5 -Post Debridement Size (cm) - Width 1.9 1.5 0.9 -Post Debridement Size (cm) - Depth 0.3 0.2 0.1 -Total Square Cm 8.36 6.45 3.15 -Wound/Ulcer Outcome Not Healed Not Healed Not Healed -Ulcer Cleansing Rinsed/ Rinsed/ Rinsed/ Irrigated with Irrigated with Irrigated with Saline Saline Saline -Foul Odor after Cleansing No No -Bioengineered Tissue No No -Bleeding Controlled with Pressure Pressure Pressure -Offloading No No -Treatment Response Procedure Procedure Procedure Tolerated Well Tolerated Well Tolerated Well #1- RFA -Time 09:47 10:49 09:39 -Correct Patient Yes Yes Yes -Correct Side, Site, Position Yes Yes Yes -Correct Procedure Yes Yes Yes -Procedure Performed Yes Yes Yes -Type of Procedure Debridement Debridement Debridement -Clinical Debridement Subcutaneous Subcutaneous Subcutaneous -Post Debridement Size (cm) - Length 1.8 1.2 1.2 -Post Debridement Size (cm) - Width 1.5 1.3 0.6 -Post Debridement Size (cm) - Depth 0.3 0.3 0.1 -Total Square Cm 2.70 1.56 0.72 -Wound/Ulcer Outcome Not Healed Not Healed Not Healed -Ulcer Cleansing Rinsed/ Rinsed/ Rinsed/ Irrigated with Irrigated with Irrigated with Saline Saline Saline -Foul Odor after Cleansing No No No -Bioengineered Tissue No No -Bleeding Controlled with Pressure Pressure Pressure -Offloading No No -Treatment Response Procedure Procedure Procedure Tolerated Well Tolerated Well Tolerated Well Pain Scale: 0-10 Numeric Is Patient Pain Free? Yes Yes Yes Wound debrided: #1 Mid dorsal radial aspect right forearm. Laterality: Right Wound Grade/Stage: 2. Type of Debridement: Excisional debridement Anesthesia Used: 4% Lidocaine Solution Depth: Down to and including healthy tissue, in the subcutaneous layer Percentage of wound debrided: 100 Instrument Used: 5mm curette Tissue Removed: subcutaneous tissue. Severity: Fat Layer Exposed Amount of bleeding with debridement: Mild Bleeding Controlled with: Pressure Patient tolerated procedure well - Additional Wound Wound debrided: #2 Mid dorsal radial aspect left forearm. Laterality: Left Wound Grade/Stage: 2. Type of Debridement: Excisional debridement Anesthesia Used: 4% Lidocaine Solution Depth: Down to and including healthy tissue, in the subcutaneous layer Percentage of wound debrided: 100 Instrument Used: 5mm curette Tissue Removed: subcutaneous tissue. Severity: Fat Layer Exposed Amount of bleeding with debridement: Mild Bleeding Controlled with: Pressure Patient tolerated procedure: Patient tolerated procedure well Assessment/Plan Active Problems (Last Reviewed 09/30/19 @ 09:[address] Sonido Chen MD) Chronic skin ulcer with fat layer exposed (Chronic) nonhealing IV drug abuse ulcer mid dorsal radial aspect right forearm nonhealing IV drug abuse ulcer mid dorsal radial aspect left forearm Ulcer with fat layer exposed (Chronic) Ulcer of upper extremity (Chronic) MRSA (methicillin resistant Staphylococcus aureus) infection (Chronic) Anxiety and depression (Chronic) Methamphetamine abuse (Chronic) Long-term Suboxone use (Acute) Drug abuse (Chronic) Assessment: 1. Nonhealing IV drug abuse ulcer mid dorsal radial aspect right forearm. 2. Nonhealing IV drug abuse ulcer mid dorsal radial aspect left forearm. 3. MRSA. 4. Opiate withdrawal. 5. Alcohol withdrawal. 6. Heroin abuse. 7. Methamphetamine abuse. 8. Smoker. Plan: Continue Silver dressing changes every other day after cleansing the ulcers with soap and water. Continue ARJUN wraps to bilateral forearms for compression. Encouraged him to increase his protein intake. He has completed the Bactrim DS for MRSA and Doxycycline for MRSE. Discussed with the patient the possibility of further operative debridement with skin grafting. He will think about it and let me know. Right now he is leaning toward continuing the wound care since the ulcers continue to measure smaller. He wants to go back to work with no restrictions as early as tomorrow. He states it will be clean work and not a lot of dust and dirt that may compromise the healing of these forearm ulcers. Encourage range of motion exercises to minimize stiffness. Followup one week. [id number]: [id number] Global Visit - ICD-10 - Z48.89, L98.492, L02.414, L02.413, A49.02, F11.23, F10.239, F11.90, F15.10, F17.200
[2019-11-27 11:31] VITALS: BP 116/77; PULSE 84; RESP 16; TEMP 36.1; BMI 24.9
--- NOTE | 2019-11-27 13:23 | PN.PCM_ITS ---
(1) Ulcer with fat layer exposed Status: Chronic (2) Ulcer of upper extremity Status: Chronic Code(s): L98.499 - Non-pressure chronic ulcer of skin of other sites with unspecified severity (3) MRSA (methicillin resistant Staphylococcus aureus) infection Status: Chronic Code(s): A49.02 - Methicillin resistant Staphylococcus aureus infection, unspecified site (4) Anxiety and depression Status: Chronic Code(s): F41.9 - Anxiety disorder, unspecified; F32.9 - Major depressive disorder, single episode, unspecified (5) Long-term Suboxone use Status: Chronic (6) Drug abuse Status: Chronic Code(s): F19.10 - Other psychoactive substance abuse, uncomplicated (7) Methamphetamine abuse Status: Chronic Code(s): F15.10 - Other stimulant abuse, uncomplicated Type of Wound Date of Service: 11/27/19 Chief Complaint: Nonhealing IV drug abuse ulcers mid dorsal radial aspect left forearm and mid dorsal radial aspect right forearm. History of Wound: Surgery 09/19/19 - 1. Surgical preparation mid dorsal radial aspect left forearm with incision and drainage and excisional debridement intravenous drug abuse abscess (24.5 cm2). 2. Surgical preparation mid dorsal radial aspect right forearm with incision and drainage and excisional debridement intravenous drug abuse abscess (10.5 cm2). Wound care - Moistened silver. Operative culture - MRSA treated with Bactrim DS. Another culture 09/30/19 showed MRSE and was treated with Doxycycline. Encourage nutritional supplementation with protein to help the healing process. Today he denies fever. His appetite is good. Progress of Wound: Improved. - Physical Exam Vital Signs Temp Pulse Resp BP 96.9 F L 84 16 116/77 11/27/19 11:31 11/27/19 11:31 11/27/19 11:31 11/27/19 11:31 General: Alert, Oriented x3, Cooperative HEENT: Atraumatic Oral: Moist Mucosa Lungs: Normal air movement Cardiovascular: Regular rate Extremities: No edema, Capillary Refill Less than 3 Seconds Skin: Ulcer/ Wound - Right forearm volar surface ulcer with good granulation and beefy pink. Left vental forearm ulcer is beefy pink with good granulation tissue. Wound Measurements and Assessment WC - Nurse 1 - General Ulcer Measurement Start: 11/02/19 12:37 Freq: Status: Active Protocol: Activity Type Activity Date Activity User E-Sign Co-Sign Detail Recorded Client Recorded Date Recorded By Document 11/27/19 11:31 [facility] [id number] 11/27/19 11:38 [facility] 11/27/19 11:31 Wound Center Nurse 1 [Ulcer Assessment] #2- LFA -Combined with other wound No -Current Size (cm) - Length 2.8 -Current Size (cm) - Width 0.6 -Current Size (cm) - Depth 0.2 -Total Square Cm 1.68 -Photo Taken No -Epithelialization Small 1-33% -Tunneling No -Undermining/Tunneling No -Circular Undermining No -Exudate Amt Small -Exudate Type Serosanguineous -Wound Margin Distinct, Outline Attached -Granulation Amt Large (67-100%) -Granulation Quality Red -Slough/Fibrin Yes -Necrosis Amt Small (1-33%) -Necrotic Tissue Type Adherent Slough -Texture (Lauren-wound Skin Appearance) Assessed, Scarring -Moisture (Lauren-wound Skin Appearance Assessed ) -Color (Lauren-wound Skin Appearance) Assessed -Temperature (Lauren-wound Skin No Abnormality Appearance) (Pt Warm) -Tenderness on Palpation (Lauren-wound No Skin Appearance) -Ulcer Cleansing soapy water -Foul Odor after Cleansing No -Anesthetic Used 4% Lidocaine Solution #1- RFA -Combined with other wound No -Current Size (cm) - Length 1.3 -Current Size (cm) - Width 0.8 -Current Size (cm) - Depth 0.2 -Total Square Cm 1.04 -Photo Taken No -Epithelialization None Present -Tunneling No -Undermining/Tunneling No -Circular Undermining No -Exudate Amt Small -Exudate Type Serosanguineous -Wound Margin Distinct, Outline Attached -Granulation Amt Small (1-33%) -Granulation Quality Red -Slough/Fibrin Yes -Necrosis Amt Large (67-100%) -Necrotic Tissue Type Eschar -Texture (Lauren-wound Skin Appearance) Assessed, Scarring -Moisture (Lauren-wound Skin Appearance Assessed ) -Color (Lauren-wound Skin Appearance) Assessed -Temperature (Lauren-wound Skin No Abnormality Appearance) (Pt Warm) -Tenderness on Palpation (Lauren-wound No Skin Appearance) -Ulcer Cleansing soapy water -Foul Odor after Cleansing No -Anesthetic Used 4% Lidocaine Solution WC - Nurse 2 - General Ulcer CM Notes Start: 11/02/19 12:37 Freq: Status: Active Protocol: Activity Type Activity Date Activity User E-Sign Co-Sign Detail Recorded Client Recorded Date Recorded By Document 11/27/19 12:08 SONYA [id number] 11/27/19 12:10 SONYA 11/27/19 12:08 Wound Center Nurse 2 [Procedure/Treatment] #2- LFA -Time 12:09 -Correct Patient Yes -Correct Side, Site, Position Yes -Correct Procedure Yes -Procedure Performed Yes -Type of Procedure Debridement -Clinical Debridement Subcutaneous -Post Debridement Size (cm) - Length 3.2 -Post Debridement Size (cm) - Width 0.7 -Post Debridement Size (cm) - Depth 0.2 -Total Square (cm) 2.24 -Wound/Ulcer Outcome Not Healed -Ulcer Cleansing Rinsed/ Irrigated with Saline -Foul Odor after Cleansing No -Bioengineered Tissue No -Bleeding Controlled with Pressure -Offloading No -Treatment Response Procedure Tolerated Well #1- RFA -Time 12:09 -Correct Patient Yes -Correct Side, Site, Position Yes -Correct Procedure Yes -Procedure Performed Yes -Type of Procedure Debridement -Clinical Debridement Subcutaneous -Post Debridement Size (cm) - Length 1.0 -Post Debridement Size (cm) - Width 0.4 -Post Debridement Size (cm) - Depth 0.3 -Total Square (cm) 0.40 -Wound/Ulcer Outcome Not Healed -Ulcer Cleansing Rinsed/ Irrigated with Saline -Foul Odor after Cleansing No -Bioengineered Tissue No -Bleeding Controlled with Pressure -Offloading No -Treatment Response Procedure Tolerated Well [See Physician Procedure note for Specifics] Pain Scale: 0-10 Numeric [Pain] -Is Patient Pain Free? Yes Musculoskeletal: No Tenderness to Palpation of Joints or Extremities Lymphatic: No Cervical, Supraclavicular, or Inguinal Adenopathy Neurological: Cranial nerves II-XII grossly intact Psych/Mental Status: Normal Affect, Appropriate Debridement Note Post-Debridement Measurements/Treatment - Nurse 2 - General Ulcer CM Notes Start: 11/02/19 12:37 Freq: Status: Active Protocol: Activity Type Activity Date Activity User E-Sign Co-Sign Detail Recorded Client Recorded Date Recorded By Document 11/06/19 10:19 [facility] [id number] 11/06/19 10:20 PL Document 11/13/19 10:47 [id number] 11/13/19 10:50 Document 11/20/19 09:37 [id number] 11/20/19 09:40 Document 11/27/19 12:08 [id number] 11/27/19 12:10 11/06/19 11/13/19 11/20/19 10:19 10:47 09:37 Wound Center Nurse 2 #2- LFA -Time :47 10:49 09:38 -Correct Patient Yes Yes Yes -Correct Side, Site, Position Yes Yes Yes -Correct Procedure Yes Yes Yes -Procedure Performed Yes Yes Yes -Type of Procedure Debridement Debridement Debridement -Clinical Debridement Subcutaneous Subcutaneous Subcutaneous -Post Debridement Size (cm) - Length 4.4 4.3 3.5 -Post Debridement Size (cm) - Width 1.9 1.5 0.9 -Post Debridement Size (cm) - Depth 0.3 0.2 0.1 -Total Square (cm) 8.36 6.45 3.15 -Wound/Ulcer Outcome Not Healed Not Healed Not Healed -Ulcer Cleansing Rinsed/ Rinsed/ Rinsed/ Irrigated with Irrigated with Irrigated with Saline Saline Saline -Foul Odor after Cleansing No No -Bioengineered Tissue No No -Bleeding Controlled with Pressure Pressure Pressure -Offloading No No -Treatment Response Procedure Procedure Procedure Tolerated Well Tolerated Well Tolerated Well #1- RFA -Time 09:47 10:49 09:39 -Correct Patient Yes Yes Yes -Correct Side, Site, Position Yes Yes Yes -Correct Procedure Yes Yes Yes -Procedure Performed Yes Yes Yes -Type of Procedure Debridement Debridement Debridement -Clinical Debridement Subcutaneous Subcutaneous Subcutaneous -Post Debridement Size (cm) - Length 1.8 1.2 1.2 -Post Debridement Size (cm) - Width 1.5 1.3 0.6 -Post Debridement Size (cm) - Depth 0.3 0.3 0.1 -Total Square (cm) 2.70 1.56 0.72 -Wound/Ulcer Outcome Not Healed Not Healed Not Healed -Ulcer Cleansing Rinsed/ Rinsed/ Rinsed/ Irrigated with Irrigated with Irrigated with Saline Saline Saline -Foul Odor after Cleansing No No No -Bioengineered Tissue No No -Bleeding Controlled with Pressure Pressure Pressure -Offloading No No -Treatment Response Procedure Procedure Procedure Tolerated Well Tolerated Well Tolerated Well Pain Scale: 0-10 Numeric Is Patient Pain Free? Yes Yes Yes 11/27/19 12:08 Wound Center Nurse 2 #2- LFA -Time 12:09 -Correct Patient Yes -Correct Side, Site, Position Yes -Correct Procedure Yes -Procedure Performed Yes -Type of Procedure Debridement -Clinical Debridement Subcutaneous -Post Debridement Size (cm) - Length 3.2 -Post Debridement Size (cm) - Width 0.7 -Post Debridement Size (cm) - Depth 0.2 -Total Square (cm) 2.24 -Wound/Ulcer Outcome Not Healed -Ulcer Cleansing Rinsed/ Irrigated with Saline -Foul Odor after Cleansing No -Bioengineered Tissue No -Bleeding Controlled with Pressure -Offloading No -Treatment Response Procedure Tolerated Well #1- RFA -Time 12:09 -Correct Patient Yes -Correct Side, Site, Position Yes -Correct Procedure Yes -Procedure Performed Yes -Type of Procedure Debridement -Clinical Debridement Subcutaneous -Post Debridement Size (cm) - Length 1.0 -Post Debridement Size (cm) - Width 0.4 -Post Debridement Size (cm) - Depth 0.3 -Total Square (cm) 0.40 -Wound/Ulcer Outcome Not Healed -Ulcer Cleansing Rinsed/ Irrigated with Saline -Foul Odor after Cleansing No -Bioengineered Tissue No -Bleeding Controlled with Pressure -Offloading No -Treatment Response Procedure Tolerated Well Pain Scale: 0-10 Numeric Is Patient Pain Free? Yes Wound debrided: vental forearm Laterality: Right Type of Debridement: Excisional debridement Anesthesia Used: 5% Lidocaine Gel Depth: Down to and including healthy tissue, in the subcutaneous layer Percentage of wound debrided: 100 Instrument Used: 3mm curette Tissue Removed: subcutaneous tissue and slough Severity: Fat Layer Exposed Amount of bleeding with debridement: Mild Bleeding Controlled with: Pressure Patient tolerated procedure well - Additional Wound Wound debrided: volar forearm ulcer Laterality: Left Type of Debridement: Excisional debridement Anesthesia Used: 5% Lidocaine Gel Depth: Down to and including healthy tissue, in the subcutaneous layer Percentage of wound debrided: 100 Instrument Used: 3mm curette Tissue Removed: Subcutaneous tissue and slough Severity: Fat Layer Exposed Amount of bleeding with debridement: Mild Bleeding Controlled with: Pressure Patient tolerated procedure: Patient tolerated procedure well Assessment/Plan Assessment: 1. Nonhealing IV drug abuse ulcer mid dorsal radial aspect right forearm. 2. Nonhealing IV drug abuse ulcer mid dorsal radial aspect left forearm. 3. MRSA. 4. Opiate withdrawal. 5. Alcohol withdrawal. 6. Heroin abuse. 7. Methamphetamine abuse. 8. Smoker. Plan: Continue Moistened Silver dressing changes daily after cleansing the ulcers with soap and water. (He has someone at the [employer] to help him with his dressing changes most days of the week). Continue ARJUN wraps to bilateral forearms for compression. Encouraged him to increase his protein intake. He has completed the Bactrim DS for MRSA and Doxycycline for MRSE. Discussed with the patient the possibility of further operative debridement with skin grafting. He will think about it and let me know. Right now he is leaning toward continuing the wound care since the ulcers continue to measure smaller. He just got a job today and he will be working at [employer]. He states it will be clean work and not a lot of dust and dirt that may compromise the healing of these forearm ulcers. Encourage range of motion exercises to minimize stiffness. Followup one week. [id number]: [id number] Global Visit
== END 2019-12-01 23:59 ==
LOC: WC 11:45
PROVIDERS: PCP Internal Medicine; Visit Provider Nurse Practitioner Family
DX: L98.492 Non-pressure chronic ulcer of skin of other sites with fat layer exposed (principal); B95.62 Methicillin resistant Staphylococcus aureus infection as the cause of diseases classified elsewhere; F11.23 Opioid dependence with withdrawal; F10.239 Alcohol dependence with withdrawal, unspecified; F15.10 Other stimulant abuse, uncomplicated; B19.10 Unspecified viral hepatitis B without hepatic coma; B19.20 Unspecified viral hepatitis C without hepatic coma; F32.9 Major depressive disorder, single episode, unspecified; F41.9 Anxiety disorder, unspecified; Z59.0 Homelessness; Z79.899 Other long term (current) drug therapy
CPT/HCPCS: 11042; 99212; G0463

== ENCOUNTER 2019-12-04 09:57 | Outpatient (RCR) | payer MEDICAID, SELFPAY ==
[2019-12-02 00:31] VITALS: BP 116/77; PULSE 84; RESP 16; TEMP 36.1
[2019-12-04 14:11] VITALS: BP 124/84; PULSE 97; RESP 20; TEMP 36.3; BMI 24.9
--- NOTE | 2019-12-04 15:33 | PN.PCM_ITS ---
(1) Chronic skin ulcer with fat layer exposed Status: Chronic Code(s): L98.492 - Non-pressure chronic ulcer of skin of other sites with fat layer exposed Comment: nonhealing IV drug abuse ulcer mid dorsal radial aspect right forearm nonhealing IV drug abuse ulcer mid dorsal radial aspect left forearm (2) Anxiety and depression Status: Chronic Code(s): F41.9 - Anxiety disorder, unspecified; F32.9 - Major depressive disorder, single episode, unspecified (3) Methamphetamine abuse Status: Chronic Code(s): F15.10 - Other stimulant abuse, uncomplicated (4) Mental health disorder Status: Chronic Code(s): F99 - Mental disorder, not otherwise specified (5) Long-term Suboxone use Status: Chronic (6) Tobacco use Status: Chronic Code(s): Z72.0 - Tobacco use Type of Wound Date of Service: 12/08/19 Chief Complaint: Nonhealing IV drug abuse ulcers mid dorsal radial aspect left forearm and mid dorsal radial aspect right forearm. History of Wound: Surgery 09/19/19 - 1. Surgical preparation mid dorsal radial aspect left forearm with incision and drainage and excisional debridement intr avenous drug abuse abscess (24.5 cm2). 2. Surgical preparation mid dorsal radial aspect right forearm with incision and drainage and excisional debridement intravenous drug abuse abscess (10.5 cm2). Wound care - Moistened silver. Today the right dorsal forearm ulcer is healed. Operative culture - MRSA treated with Bactrim DS. Another culture 09/30/19 showed MRSE and was treated with Doxycycline. Encourage nutritional supplementation with protein to help the healing process. Today he denies fever. His appetite is good. Progress of Wound: Improved. - Physical Exam Vital Signs Temp Pulse Resp BP 97.3 F L 97 20 H 124/84 H 12/04/19 14:11 12/04/19 14:11 12/04/19 14:11 12/04/19 14:11 General: Alert, Oriented x3 HEENT: Atraumatic Oral: Moist Mucosa Lungs: Normal air movement Cardiovascular: Regular rate Extremities: Capillary Refill Less than 3 Seconds Skin: Ulcer/ Wound - Right dorsal radial forearm ulcer is healed. Left dorsal radial forearm ulcer is beefy pink and improving. Proximal and medial to the left forearm ulcer there are several areas that errythematous and raised, suspect from injecting himself with meth. Wound Measurements and Assessment WC - Nurse 1 - General Ulcer Measurement Start: 12/04/19 14:11 Freq: Status: Active Protocol: Activity Type Activity Date Activity User E-Sign Co-Sign Detail Recorded Client Recorded Date Recorded By Document 12/04/19 14:11 DL [id number] 12/04/19 14:19 DL 12/04/19 14:11 Wound Center Nurse 1 [Ulcer Assessment] #2- LFA -Current Size (cm) - Length 2.2 -Current Size (cm) - Width 0.6 -Current Size (cm) - Depth 0.2 -Total Square Cm 1.32 -Photo Taken No -Exudate Amt Small -Exudate Type Serosanguineous -Wound Margin Distinct, Outline Attached -Granulation Amt Large (67-100%) -Granulation Quality Red -Necrosis Amt Small (1-33%) -Necrotic Tissue Type Adherent Slough -Structure Exposed N/A -Texture (Lauren-wound Skin Appearance) Scarring -Moisture (Lauren-wound Skin Appearance No Abnormality ) -Color (Lauren-wound Skin Appearance) No Abnormality -Temperature (Lauren-wound Skin No Abnormality Appearance) (Pt Warm) -Tenderness on Palpation (Lauren-wound No Skin Appearance) -Ulcer Cleansing Wound Cleanser -Foul Odor after Cleansing No -Anesthetic Used 4% Lidocaine Solution #1- RFA -Current Size (cm) - Length 0.1 -Current Size (cm) - Width 0.1 -Current Size (cm) - Depth 0.1 -Total Square Cm 0.01 -Photo Taken No -Exudate Amt None Present -Wound Margin Flat & Intact -Granulation Amt Large (67-100%) -Granulation Quality Capron -Necrosis Amt None Present (0 %) -Structure Exposed N/A -Texture (Lauren-wound Skin Appearance) Scarring -Moisture (Lauren-wound Skin Appearance No Abnormality ) -Color (Lauren-wound Skin Appearance) No Abnormality -Temperature (Lauren-wound Skin No Abnormality Appearance) (Pt Warm) -Tenderness on Palpation (Lauren-wound No Skin Appearance) -Ulcer Cleansing Wound Cleanser -Foul Odor after Cleansing No -Anesthetic Used 4% Lidocaine Solution [id number] - Nurse 2 - General Ulcer CM Notes Start: 12/04/19 14:11 Freq: Status: Active Protocol: Activity Type Activity Date Activity User E-Sign Co-Sign Detail Recorded Client Recorded Date Recorded By Document 12/04/19 14:43 [id number] 12/04/19 14:51 12/04/19 14:43 Wound Center Nurse 2 [Procedure/Treatment] #2- LFA -Time 14:44 -Correct Patient Yes -Correct Side, Site, Position Yes -Correct Procedure Yes -Procedure Performed Yes -Type of Procedure Debridement -Clinical Debridement Subcutaneous -Post Debridement Size (cm) - Length 2.6 -Post Debridement Size (cm) - Width 0.6 -Post Debridement Size (cm) - Depth 0.2 -Total Square (cm) 1.56 -Wound/Ulcer Outcome Not Healed -Ulcer Cleansing Rinsed/ Irrigated with Saline -Foul Odor after Cleansing No -Bioengineered Tissue No -Bleeding Controlled with Pressure -Offloading No -Treatment Response Procedure Tolerated Well #1- RFA -Time 14:44 -Correct Patient No -Correct Side, Site, Position No -Correct Procedure No -Procedure Performed No -Post Debridement Size (cm) - Length 0 -Post Debridement Size (cm) - Width 0 -Post Debridement Size (cm) - Depth 0 -Total Square (cm) 0 -Wound/Ulcer Outcome Healed- Epithelialized -Ulcer Cleansing Rinsed/ Irrigated with Saline -Foul Odor after Cleansing No -Bioengineered Tissue No -Bleeding Controlled with Pressure -Offloading No -Treatment Response Procedure Tolerated Well [See Physician Procedure note for Specifics] Pain Scale: 0-10 Numeric [Pain] -Is Patient Pain Free? Yes Musculoskeletal: Tenderness Neurological: Cranial nerves II-XII grossly intact Psych/Mental Status: Anxious, Restless - Patient is restless and anxious today. He confirms that he has started to use Methamphetamines again and states he has been injecting it above his left forearm ulcer. Debridement Note Post-Debridement Measurements/Treatment WC - Nurse 2 - General Ulcer CM Notes Start: 12/04/19 14:11 Freq: Status: Active Protocol: Activity Type Activity Date Activity User E-Sign Co-Sign Detail Recorded Client Recorded Date Recorded By Document 12/04/19 14:43 [id number] 12/04/19 14:51 12/04/19 14:43 Wound Center Nurse 2 #2- LFA -Time 14:44 -Correct Patient Yes -Correct Side, Site, Position Yes -Correct Procedure Yes -Procedure Performed Yes -Type of Procedure Debridement -Clinical Debridement Subcutaneous -Post Debridement Size (cm) - Length 2.6 -Post Debridement Size (cm) - Width 0.6 -Post Debridement Size (cm) - Depth 0.2 -Total Square (cm) 1.56 -Wound/Ulcer Outcome Not Healed -Ulcer Cleansing Rinsed/ Irrigated with Saline -Foul Odor after Cleansing No -Bioengineered Tissue No -Bleeding Controlled with Pressure -Offloading No -Treatment Response Procedure Tolerated Well #1- RFA -Time 14:44 -Correct Patient No -Correct Side, Site, Position No -Correct Procedure No -Procedure Performed No -Post Debridement Size (cm) - Length 0 -Post Debridement Size (cm) - Width 0 -Post Debridement Size (cm) - Depth 0 -Total Square (cm) 0 -Wound/Ulcer Outcome Healed- Epithelialized -Ulcer Cleansing Rinsed/ Irrigated with Saline -Foul Odor after Cleansing No -Bioengineered Tissue No -Bleeding Controlled with Pressure -Offloading No -Treatment Response Procedure Tolerated Well Pain Scale: 0-10 Numeric Is Patient Pain Free? Yes Wound debrided: Forearm ulcer Laterality: Left Type of Debridement: Excisional debridement Anesthesia Used: 5% Lidocaine Gel Depth: Down to and including healthy tissue, in the subcutaneous layer Percentage of wound debrided: 100 Instrument Used: 3mm curette Tissue Removed: Subcutaneous tissue and slough Severity: Fat Layer Exposed Amount of bleeding with debridement: Mild Bleeding Controlled with: Pressure Patient tolerated procedure well Assessment/Plan Assessment: 1. Nonhealing IV drug abuse ulcer mid dorsal radial aspect right forearm. 2. Nonhealing IV drug abuse ulcer mid dorsal radial aspect left forearm. 3. MRSA. 4. Opiate withdrawal. 5. Alcohol withdrawal. 6. Heroin abuse. 7. Methamphetamine abuse. 8. Smoker. Plan: Continue Moistened Silver dressing changes daily after cleansing the left dorsal radial forearm ulcer with soap and water. (He has someone at the [employer] to help him with his dressing changes most days of the week). The left forearm ulcer is healed today. Will use tubigrip to bilateral forearms for compression. Encouraged him to increase his protein intake. He has completed the Bactrim DS for MRSA and Doxycycline for MRSE. Discussed with the patient the possibility of further operative debridement with skin grafting. He will think about it and let me know. Right now he is leaning toward continuing the wound care since the ulcers continue to measure smaller. He is working at [employer]. He states that he has started to use Meth again and is injecting it. He states he is feeling weak in strength, now that he is working. Will order PT/OT for evaluation and treatment of upper extremity ROM, strengthing and edema management. Followup one week. [id number]: [id number] Global Visit
== END 2020-01-01 23:59 ==
LOC: WC 09:57
PROVIDERS: PCP Internal Medicine; Visit Provider Nurse Practitioner Family
DX: L98.492 Non-pressure chronic ulcer of skin of other sites with fat layer exposed (principal); F11.10 Opioid abuse, uncomplicated; F15.10 Other stimulant abuse, uncomplicated; F32.9 Major depressive disorder, single episode, unspecified; F41.9 Anxiety disorder, unspecified; Z72.0 Tobacco use; Z79.899 Other long term (current) drug therapy; Z86.14 Personal history of Methicillin resistant Staphylococcus aureus infection
CPT/HCPCS: 11042

== ENCOUNTER 2019-12-11 22:28 | Emergency (ER) | payer MEDICAID, SELFPAY ==
[2019-12-11 22:29] VITALS: BP 146/103; PULSE 100; RESP 16; TEMP 36.2; O2SAT 98; BMI 23.3
--- NOTE | 2019-12-11 23:41 | ED.DCSUM_ITS ---
- ER Visit Summary Date of Service: 12/11/19 Chief Complaint: Bilateral forearm infection History of Present Illness: The patient is a 49 M who presents with pain and redness to both forearms. Patient has a history of IV drug abuse. Patient is following with 180 for this. Patient states he is on Suboxone for his heroin abuse but continues to use IV methamphetamine. Patient states his last use was earlier today. Patient states he also follows at the wound center for continued infections. Patient states he is out of antibiotics. Patient denies any fevers or chills. Patient denies any discharge or drainage. Physical Examination: Vital signs are stable. Patient is afebrile. Patient is in no acute distress. Skin is warm and dry. There is mild tenderness over the forearms bilaterally. There is some erythema and mild warmth.. There is no discharge or drainage. There is no evidence of any abscess. There is full range of motion. There is no laxity appreciated. Radial pulses are equal bilaterally. Sensation was intact to light touch in the radial, median, and u lnar areas. Strength is 5/5 in the radial, median, and ulnar areas. Emergency Department Course and Treatment: Patient was started on doxycycline. The wounds were cleaned and dressed with bacitracin dressings. Patient was instructed to follow-up with his primary care physician as well as 180. Patient was given a prescription for doxycycline. Patient was instructed to return if worse in any way. Patient understood and was agreeable with the plan. All questions were answered. Disposition: Discharge home Impression: Cellulitis bilateral forearms This note was generated with [employer] dictation software. It may contain incorrect words, spelling, and punctuation that were not noted in review of the chart prior to signing ED Disposition - Plan for ED Patient: Disposition: Home or Assisted Living Diagnosis: Cellulitis of forearm, Methamphetamine abuse Instructions: ED Cellulitis, ED AMPHETAMINE ABUSE Referrals: Vee Mariee MD [Primary Care Provider] - 5-7 Days Sara Sanders [STAFF PHYSICIAN] - 3-5 Days
[2019-12-11] MEDS: Doxycycline 100 MG CAPSULE PO (23:54)
[2019-12-12 00:03] VITALS: BP 146/103; PULSE 100; RESP 16; TEMP 36.2; O2SAT 98
== END 2019-12-12 00:05 | disposition home or self-care (01) ==
PROVIDERS: Emergency Provider Emergency Medicine; PCP Internal Medicine
DX: L03.114 Cellulitis of left upper limb (principal); L03.113 Cellulitis of right upper limb; F15.10 Other stimulant abuse, uncomplicated; Z72.0 Tobacco use; Z86.19 Personal history of other infectious and parasitic diseases
CPT/HCPCS: 99283